=== PATIENT | male | born 1990 | race Caucasian/White ===

== ENCOUNTER → 2017-05-21 14:46 | Outpatient (CLI) | payer BC, SELFPAY ==
--- NOTE | 2017-05-21 14:51 | RAD_ITS ---
STUDY: X-RAY - PELVIS AND RIGHT HIP REASON FOR EXAM: Male, 26 years old. Right hip pain. TECHNIQUE: Radiological exam, hip, unilateral, with pelvis when performed; 2 or 3 views. COMPARISON: None. FINDINGS: There is a non-specific bowel gas pattern. Calcified phlebolith in the left hemipelvis. Normal bilateral iliac wings, sacroiliac joints and visualized sacrum. Normal bilateral superior and inferior pubic rami. Normal pubic symphysis. Normal bilateral ischial tuberosities. Normal visualized femoral head. Normal acetabulum. Normal hip joint. RAD/Hip 2-3 Views with Pelvis IMPRESSION: Normal x-ray examination of the pelvis and hip. Electronically Signed: Albin Singh MD at 15:13 EDT Tel [phone], Service support ,
== END ==
PROVIDERS: Family Provider Internal Medicine; PCP Internal Medicine; Visit Provider Nurse Practitioner Gerontology
DX: M25.551 Pain in right hip (principal)
CPT/HCPCS: 73502

== ENCOUNTER → 2017-08-25 10:11 | Outpatient (CLI) | payer BC, SELFPAY ==
[2017-08-25 21:17] LABS: Probe Check PASS; Sample Adequacy Control PASS; Specimen Processing Control PASS; Trichomonas Vag DNA by PCR Negative (Negative)
== END ==
PROVIDERS: Family Provider Internal Medicine; PCP Internal Medicine; Visit Provider Nurse Practitioner Gerontology
DX: Z11.3 Encounter for screening for infections with a predominantly sexual mode of transmission (principal)
CPT/HCPCS: 87210; 87661

== ENCOUNTER → 2017-08-27 16:18 | Outpatient (CLI) | payer BC, SELFPAY ==
--- NOTE | 2017-08-27 16:21 | US_ITS ---
STUDY: SCROTUM ULTRASOUND REASON FOR EXAM: Male, 27 years old. Left testicular discomfort TECHNIQUE: Ultrasound evaluation of the scrotum was performed with color Doppler and static de la o-scale imaging. COMPARISON: None. FINDINGS: RIGHT TESTICLE The right testis is normal in size contour and echotexture. It measures 5.0 x 2.8 x 2.0 cm. It demonstrates normal vascular flow. The right epididymis is 1.0 x 1.0 x 0.7 cm in size. It also demonstrates normal vascular flow. A small right-sided hydrocele formation is noted and is also a small varicocele formation. LEFT TESTICLE The left testis is slightly larger than the right and measures 5.3 x 2.6 x 2.2 cm. It demonstrates normal vascular flow and is very homogeneous in echotexture. The left epididymis measures 1.2 x 1.4 x 0.9 cm and also demonstrates normal vascular flow. There is a moderate left-sided hydrocele formation with evidence of debris within it. A small left-sided varicocele is identified. US/Testicular with Arterial Flow IMPRESSION: No indication of any epididymoorchitis. A moderate left-sided hydrocele formation. The hydrocele on the right side is physiologic. Small varicoceles bilaterally. Electronically Signed: Alfa Alcala, at 5:10 EDT Tel , Service support ,
== END ==
PROVIDERS: Family Provider Internal Medicine; PCP Internal Medicine; Visit Provider Nurse Practitioner Gerontology
DX: N50.812 Left testicular pain (principal)
CPT/HCPCS: 76870; 93976

== ENCOUNTER → 2017-09-29 12:58 | Outpatient (CLI) | payer BC, SELFPAY | PROVIDERS: Family Provider Internal Medicine; PCP Internal Medicine; Visit Provider Nurse Practitioner | DX: R94.31 Abnormal electrocardiogram [ECG] [EKG] (principal); R07.9 Chest pain, unspecified | CPT/HCPCS: 93225; 93226; 93306 ==

== ENCOUNTER 2017-12-24 15:30 | Outpatient (RCR) | payer BC, SELFPAY ==
--- NOTE | 2017-12-09 15:53 | HP.PTEVAL ---
Patient's Visit Information THAI VALE is a 27 year old M referred to Physical Therapy by Delmis Blevins with a diagnosis of R groin pain.. Date of Evaluation: 12/09/17 Physical Therapist: Moreno Joseph DPT, [place] - Visit Plan Frequency: weekly to every other. Duration: 2-4 Weeks Plan: f/u two weeks to check effectiveness of stretches and monitor symptoms. Could benefit from MRI to r/o r/i labral pathology - Subjective Subjective: Should have been here 6 months ago buit thought he could stretch on his own. R groin hurts when planting to cut or take off in basketball, sharp pain. Started earlier in the year. Stretched himself and may have gone away for a while but also stopped playing basketball. Started again earlier in the month. Also happens lying in bed and opening hip sharply and quickly. Standing at work gives some discomfort as he is on his feet hurts down into R knee. Sideshuffle to R gives pain. Sleep is OK recently. Gets back stiffness normally since high school. Has Crohns. Works at [employer] 56 hours per week. for 2 months. 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 Doctor wants PT. - Pain R groin Pain Intensity (Out of 10): 0 Pain Intensity Range: 0, 9 - Objective Walks, steps without pain or compensation. Full aROM B hips, end range add with ext rotation sharply and transiently. Tightness present minimally in hip flexor, quad, HS adn moderately in adductor. B. Strength in B hips and knees 5/5 without pain. Sensation LE WNL to gross light touch. LB AROM fulll and without pain. ankle and knee AROM WNL. + FADDIR R hip. - hip scour. + R ISIDORO at extreme end range. - Goals Goal 1:: Work without increased pain R groin/leg Goal Time Frame: 4-6 Weeks Goal 2:: Basketball game 100% witjhout noticing R hip x nights Goal Time Frame: 4-6 Weeks Goal 3:: Pt feel 75% back to normal Goal Time Frame: 4-6 Weeks - Rehabilitation Potential Physical Therapy Diagnosis: R groin pain, r/o labrum pathology. Rehabilitation Potential: Questionable - Anticipated Interventions Patient/Client Instruction: Educate patient on: Condition, Plan of Care For the Purpose of:: To decrease pain Therapeutic Exercise to Include: Flexibilty training For the Purpose of:: To decrease pain Thank you for the opportunity to evaluate your patient. For Medicare and Medicare HMO plans, please review the plan of care and approve it. It will need to be FAXED BACK to us at [phone] for Medicare purposes. Please let me know if there are questions or concerns regarding this plan of care. Physician Signature: Date:
--- NOTE | 2017-12-24 15:46 | HP.PTDCSUM_ITS ---
HP - PT D/C Summary It has been my pleasure to treat THAI VALE under orders from Delmis Blevins, for the diagnosis of R groin pain. for a total of 2 visit(s). Discharge Date: 12/24/17 Please see the following information for a summary of their discharge status. - Subjective Subjective: Some of the ex (butterfly) are sore and painful. Been stretching daily adn no basketball since last session. No major changes to presentation. Didn't play ball last week but did the previous week and did not feel it quite as much. Some discomfort when stadnig long time at work. Sleeping is OK. - Pain R groin Pain Intensity (Out of 10): 0 - Overall Improvement % Improvement: 0 - Objective Objective/Function: 5/5 strength in hip rotation, abd, ext, flexion on R without pain. Full aROM without pain exept ext rot with abd especially in WB giving sharp pain. +FADDIR R. + ISIDORO R. OVERALL PATIENT MUSCLE SYSTEM IS GOOD AND rom IS WFL. PAIN IS WITH ABD, EXT ROT IN r HIP AND WORSE WITH SIDE SHUFFLE ESPECIALLY SIDESHUFFLE SQUAT. - Goals Goal 1:: Work without increased pain R groin/leg Goal Progress: Not Progressing Goal 2:: Basketball game 100% witjhout noticing R hip x nights Goal Progress: Not Progressing Goal 3:: Pt feel 75% back to normal Goal Progress: Not Progressing - Plan Plan: PT HAS BEEN COMPLIANT WITH STRETCHES BUT NOT IMPROVING AND PAIN IS STILL S HARP AND DYSFUNCTIONAL FOR BASKETBALL AND CAUSING PAIN AT WORK. RECOMMEND RETURN TO DOCTOR JENNY FOR NEXT MEDICAL STEP POSSIBLY MRI VS ORTHO TO CLARIFY PROBLEM WHICH SEEMS TO BE LABRAL TO ME. - D/C Information Discharge Comments: BACK TO DOCTOR FOR NEXT MEDICAL STEP. If there are questions or concerns regarding this patient's physical therapy, please feel free to call me at [phone]. Thank you for the referral of this patient. Sincerely, Moreno Joseph, DPT, [place]
== END 2017-12-24 19:00 | disposition home or self-care (01) ==
LOC: PT 15:30
PROVIDERS: Family Provider Internal Medicine; PCP Internal Medicine; Referring Provider Internal Medicine; Visit Provider Internal Medicine
DX: R10.31 Right lower quadrant pain (principal); M25.551 Pain in right hip; M79.604 Pain in right leg
CPT/HCPCS: 97110; 97162; 97530

== ENCOUNTER → 2018-03-01 10:16 | Outpatient (CLI) | payer BC, SELFPAY ==
--- NOTE | 2018-03-01 10:25 | RAD_ITS ---
CLINICAL HISTORY: Male, 27 years old. Right hip pain. PROCEDURE: ARTHROGRAM - RIGHT HIP CONSENT: The procedure as well as benefits and possible complications including infection and bleeding were explained to the patient. Informed consent was obtained. FLUOROSCOPY TIME (if supplied): (0:53) minutes/seconds Injection Information: 10 cc of dilute Magnevist. Number of images obtained: 1 TECHNIQUE: (All elements of maximal sterile barrier technique followed, including US elements as applicable) The patient was in the supine position. The overlying skin was prepped and draped in usual sterile fashion. Following local anesthetic application and under direct fluoroscopic guidance, a 22-gauge spinal needle was placed into the hip joint. 2 cc of Isovue-300 was injected for confirmation. Following this, 10 cc of dilute Magnevist was injected. The patient tolerated procedure well. RAD/Arthrogram Hip w/ MRI IMPRESSION: Successful intra-articular injection of 10 cc of dilute Magnevist for MRI imaging. Electronically Signed: Albin Singh MD at 15:02 EST Tel [phone], Service support ,
--- NOTE | 2018-03-01 10:31 | MRI_ITS ---
STUDY: MR RIGHT HIP ARTHROGRAPHY REASON FOR EXAM: Right hip pain for one year. TECHNIQUE: Standardized fat and water weighted pulse sequences were obtained in all 3 orthogonal planes after intra-articular instillation of dilute Magnevist. COMPARISON: Radiographs 05/21/2017. FINDINGS: Normal hip joint without articular joint space narrowing. Normal acetabulum. Normal labrum. There is a small cam lesion (T2 coronal image 9) and mild bone edema in the lateral aspect of the femoral head/neck (T2 coronal images 7-12). Normal gluteus minimus, medius and iliopsoas tendons and distal insertions. There is no trochanteric, iliopsoas or iliopectineal bursitis. Normal ischial tuberosity. Normal origin of the hamstring tendons. Normal visualized iliac wing. Normal visualized soft tissue structures of the pelvis. MRI/Lower Ext/Jt Only/W Contrast IMPRESSION: Small cam lesion and mild bone edema of the lateral aspect of the right femoral head/neck suggestive of femoroacetabular impingement. No demonstrated labral tear. Electronically Signed: Gildardo Garrett MD at 13:20 EST Tel , Service support ,
--- OUTSIDE RECORDS SUMMARY | 2018-05-03 20:28 | XMS RPT_ITS | Continuity of Care Document ---
:1990 Author Organization [facility] Address [address] [facility] [address] [place] [address] Phone Care Team Providers Name Role Phone Delmis Alvarado DO Unavailable Adrienne LANGE MD, Rosa Mattson Unavailable [facility], [facility] Unavailable Guera Reza MD Unavailable Sean FORREST , Dr. Feroz Campuzano Unavailable Blayne Harris Unavailable Emily Gallego Unavailable Unavailable [employer] AUTOMOTIVE INTERNET SALES CONSULTANT, Ramila Unavailable Nelda Day Unavailable Unavailable Slarb LAMP SHADE SEWER, Lindsay Unavailable Unavailable Long LAMP SHADE SEWER, Mora L Unavailable Unavailable GravLing juddin Unavailable Unavailable Quinton Valencia Unavailable Unavailable Unavailable Unavailable Problems Name Dates Details Abnormal EKG (R94.31, 794.31) Status: Active Acute epididymitis (N45.1, 604.99) Status: Active Acute sinusitis, unspecified (Renamed from Acute sinusitis) (J01.90, 461.9) Status: Active BMI 28.0-28.9,adult (Z68.28, V85.24) Status: Active BMI 29.0-29.9,adult (Z68.29, V85.25) Status: Active Chest pain (R07.9, 786.50) Comments: ? cardio vs Reflux vs musculoskeletal Status: Active Common cold virus (J00, 460) Status: Active Crohn's disease (Renamed from CD (Crohn's disease)) (K50.90, 555.9) Comments: both humira and immuran, Sees Dr. Quevedo in [facility] on [address] Status: Active Current smoker (F17.200, 305.1) Status: Active Current smoker (F17.200, 305.1) Status: Active Epididymitis (N45.1, 604.90) Status: Active Erectile dysfunction (N52.9, 607.84) Comments: await repeat studies today to assure no missed window of activity for pos results to be missed and consider manageing anx first seeing urology as well -- testosterone levels? Status: Active Ganglion of left wrist (M67.432, 727.41) Status: Active Groin pain (R10.30, 789.09) Status: Active Herpes simplex virus type 1 (HSV-1) dermatitis (B00.89, 054.79) Status: Active Hip pain (M25.559, 719.45) Status: Active History of chlamydia (Z86.19, V12.09) Comments: will treat as if Status: Active Hydrocele (N43.3, 603.9) Status: Active Hydrocele, bilateral (N43.3, 603.9) Status: Active Immunocompromised (D84.9, 279.3) Comments: on Imuran and Humira for chrons Status: Active Influenza vaccination declined (Renamed from Refused influenza vaccine) (Z28.21, V64.06) Comments: i do not get any shotsi do not get any shots Status: Active Lymph node enlargement (R59.9, 785.6) Status: Active Need for prophylactic vaccination and inoculation against influenza (Renamed from Need for immunization against influenza) (Z23, V04.81) Status: Active Non-smoker (Z78.9, V49.89) Status: Active Non-smoker (Z78.9, V49.89) Status: Active Penis pain (N48.89, 607.9) Status: Active Right hip pain (M25.551, 719.45) Status: Active Screen for STD (sexually transmitted disease) (Renamed from Encounter for screening examination for sexually transmitted disease) (Z11.3, V74.5) Status: Active Screen for STD (sexually transmitted disease) (Renamed from Encounter for screening examination for sexually transmitted disease) (Z11.3, V74.5) Status: Active Sinus pressure (J34.89, 478.19) Status: Active Smoker (F17.200, 305.1) Status: Active Sore throat (J02.9, 462) Comments: immunocompromised on Humira, will treat as if Status: Active Sore throat (J02.9, 462) Status: Active Testicular pain, left (N50.812, 608.9) Status: Active Unspecified Diagnosis Status: Active Urinary hesitancy (R39.11, 788.64) Status: Active Urine ketones (R82.4, 791.6) Comments: Trace of Ketones 03/23/17. 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.4) Status: Active Medications Name Dates Details Acyclovir 400 MG Oral Tablet 1 (one) Tablet tid for 10 days Quantity: 30 {Tablet} Refills: 3 Ordered:29-Jan-2018 Leila Bean CNP Start : 29-Jan-2018 Active HUMIRA, 20MG/0.4ML (Subcutaneous Kit) 1 injection every 2 weeks for 0 days Refills: 0 Ordered:21-Feb-2013 Kylah Tsai MD Start : 21-Feb-2013 Active Imuran 50 MG Oral Tablet qd (50 MG) Active NOVA ALLERGY, 180MG (Oral Tablet) 1 (one) Tablet daily for 0 days Quantity: 30 {Tablet} Refills: 0 Ordered:15-Dec-2014 ASTER Garza Start : 14-Sep-2014 End : 15-Dec-2014 Inactive AMOXICILLIN, 875MG (Oral Tablet) 1 (one) Tablet bid for 10 days Quantity: 20 {Tablet} Refills: 0 Ordered:18-Sep-2014 Sherita Goodman Start : 18-Sep-2014 End : 28-Sep-2014 Inactive ANUSOL-HC, 25MG (Rectal Suppository) 1 (one) Suppository tid for 0 days Quantity: 20 {Suppository} Refills: 1 Ordered:17-Mar-2014 ASTER Garza Start : 18-Oct-2013 End : 17-Mar-2014 Inactive Augmentin 875-125 MG Oral Tablet 1 (one) Tablet bid for 14 days Quantity: 28 {Tablet} Refills: 0 Ordered:30-Dec-2016 Leila Bean CNP Start : 30-Dec-2016 End : 13-Jan-2017 Inactive AUGMENTIN, 875-125MG (Oral Tablet) 1 (one) Tablet bid for 10 days Quantity: 20 {Tablet} Refills: 0 Ordered:05-Jun-2015 Kylah Tsai MD Start : 05-Jun-2015 End : 15-Jun-2015 Inactive Doxycycline Hyclate 100 MG Oral Capsule 1 (one) Capsule bid for 7 days Quantity: 14 {Capsule} Refills: 0 Ordered:08-Aug-2016 Leila Bean CNP Start : 08-Aug-2016 End : 15-Aug-2016 Inactive FLUNISOLIDE, 25 MCG/ACT(0.025%) (Nasal Solution) 1 (one) Solution 2 sprays each nostril daily for 0 days Quantity: 1 {Each} Refills: 0 Ordered:15-Dec-2014 ASTER Garza Start : 14-Sep-2014 End : 15-Dec-2014 Inactive LevoFLOXacin 500 MG Oral Tablet 1 (one) Tablet daily for 0 days Quantity: 10 {Tablet} Refills: 0 Ordered:21-May-2017 Quinton Valencia Start : 23-Mar-2017 End : 21-May-2017 Inactive TRIAMCINOLONE ACETONIDE, 0.1% (External Cream) 1 (one) Cream bid to affected area and arm, neck and leg for 0 days Quantity: 1 {Tube} Refills: 0 Ordered:14-Sep-2014 ASTER Garza Start : 17-Mar-2014 End : 14-Sep-2014 Inactive Zithromax Z-Delbert 250 MG Oral Tablet 1 (one) Tablet TAD for 0 days Quantity: 1 {Package} Refills: 0 Ordered:12-Oct-2015 ASTER Garza Start : 03-Oct-2015 End : 12-Oct-2015 Inactive Ativan 0.5 MG Oral Tablet 1 (one) Tablet Tablet take 30 min bfore flight then may repeat after hour. dont mix withetoh for 0days Quantity: 5 {Tablet} Refills: 0 Ordered:16-Jan-2016 Carolina GREENE Lindsay Start : 03-May-2015 End : 16-Jan-2016 Discontinued Azithromycin 1 GM Oral Packet 1 (one) pill uad for 0 days Quantity: 1 {Tablet} Refills: 0 Ordered:01-Sep-2016 Carolina GREENELindsay Start : 08-Aug-2016 End : 01-Sep-2016 Discontinued CEFIXIME, 200MG/5ML (Oral Suspension Reconstituted) 10 ml For Suspension po x1 for 0 days Quantity: 10 {Milliliter} Refills: 0 Ordered:20-Feb-2015 Carolina GREENE Lindsay Start : 19-Dec-2014 End : 20-Feb-2015 Discontinued Cheratussin AC 100-10 MG/5ML Oral Solution 1-2 Teaspoon before bedtime as needed for 0 days Quantity: 6 {Ounce} Refills: 0 Ordered:16-Jan-2016 Carolina GREENE Lindsay Start : 03-Oct-2015 End : 16-Jan-2016 Discontinued Comments:Medication taken as needed. Ciprofloxacin HCl 500 MG Oral Tablet 1 (one) Tablet bid for 0 days Quantity: 20 {Tablet} Refills: 0 Ordered:08-Aug-2016 Carolina GREENELindsay Start : 02-Jun-2016 End : 08-Aug-2016 Discontinued PriLOSEC OTC 20 MG Oral Tablet Delayed Release 1 (one) Tablet daily as directed for 0 days Quantity: 30 {Tablet} Refills: 0 Ordered:07-Dec-2017 Kathleen Fernando Start : 23-Sep-2017 End : 07-Dec-2017 Discontinued Allergies and Adverse Reactions Name Dates Details No Known Allergies (Allergy) Onset: 02-Jun-2016 Status: Active No Known Drug Allergies (Allergy) Onset: 13-Oct-2012 Status: Active Past Medical History Name Dates Details Abdominal pain, acute, right lower quadrant (R10.31, 789.03) Comments: appendix vs herniaPain with BM difficult to defecate, pain into testicle Status: Inactive as of 21-Feb-2013 Abnormal blood chemistry (R79.9, 790.6) Comments: ebv Status: Inactive as of 28-Oct-2016 BMI 27.0-27.9,adult (Z68.27, V85.23) Status: Resolved as of 07-Dec-2017 BMI 27.0-27.9,adult (Z68.27, V85.23) Status: Inactive as of 30-Dec-2016 BMI 28.0-28.9,adult (Z68.28, V85.24) Status: Inactive as of 30-Dec-2016 Chlamydia infection (A74.9, 079.98) Comments: treated. reveiwed with patient recent tests had 1-14. no signs and symptoms right now. feeling good. talk about using condoms and partner selectiveness. 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 if alot pain then need ot go to ER Status: Inactive as of 17-Mar-2014 Lump on neck (R22.1, 784.2) Comments: think awais cyst not see head to it so i willnot cut into it not thin needs CT scan willsend to surgeon to remove and give atb with being ordern himira will check CBC Status: Inactive as of 28-Oct-2016 Pharyngitis, acute (J02.9, 462) Comments: ? viral vs allergies treat with nova otc and steriod nasal spray send cx to assure not strpept then if not better in 1 week call Status: Inactive as of 15-Dec-2014 Physical exam WITHOUT abnormal findings (Renamed from Encounter for routine adult health examination without abnormal findings) (Z00.00, V70.0) Status: Inactive as of 03-May-2015 Possible exposure to STD (Z20.2, V15.89) Comments: recommend gardisil vaccine. long talk aobut STI and how treat and what all mean. talk aobut some take time to serum convert. talk about condoms and need use all times. if break out in a lesion than will call Status: Inactive as of 17-Mar-2014 Rash (R21, 782.1) Comments: really looks like ezcema. not look like psoriasis. not look like scabies. not classic for pityriosis rosea.will try steriod cream and told to get aleevno moisturizer and if not better to derm,. Status: Inactive as of 14-Sep-2014 Strep throat exposure (Z20.818, V01.89) Status: Inactive as of 15-Dec-2014 Tonsil stone (J35.8, 474.8) Status: Inactive as of 28-Oct-2016 Procedures Procedure Dates Details Colonoscopy Completed Comments: 09-15-2014 d/t Chron's Date Value Details 01-Mar-2018 Lower Ext/Jt Only/W Contrast Result: Comments: See Note; NOTES: [facility] Imaging Services [address] [place] [address] Lower Ext/Jt Only/W Contrast MR#: [id number] Acct: [id number] Name: MARIO GOMEZ Rep #: [id number] : 1990 M 27 From: Gildardo Garrett MD PCP: Delmis Alvarado DO Status: REG CLI Study: Lower Ext/Jt Only/W Contrast Date of Exam: 03/01/18 Exam# [id number] Ordering Dr: Delmis Alvarado DO STUDY: MR RIGHT HIP ARTHROGRAPHY REASON FOR EXAM: Right hip pain for one year. TECHNIQUE: Standardized fat and water weighted pulse sequences were obtained in all 3 orthogonal planes after intra -articular instillation of dilute Magnevist. COMPARISON: Radiographs 05/21/2017. FINDINGS: Normal hip joint without articular joint space narrowing. Normal acetabulu m. Normal labrum. There is a small cam lesion (T2 coronal image 9) and mild bone edema in the lateral aspect of the femoral head/neck (T2 coronal images 7-12). Normal gluteus minimus, medius and iliops oas tendons and distal insertions. There is no trochanteric, iliopsoas or iliopectineal bursitis. Normal ischial tuberosity. Normal origin of the hamstring tendons. Normal visualized iliac wing. Nor mal visualized soft tissue structures of the pelvis. MRI/Lower Ext/Jt Only/W Contrast IMPRESSION: Small cam lesion and mild bone edema of the lat eral aspect of the right femoral head/neck suggestive of femoroacetabular impingement. No demonstrated labral tear. Electronically Signed: Gildardo Garrett MD at 13:20 EST Tel , Service support , CC: Delmis Alvarado DO Farm Machinery Engine Mechanic: Signed 01-Mar-2018 Arthrogram Hip w/ MRI Result: Comments: See Note; NOTES: [facility] Imaging Services [address] [place] [address] Arthrogram Hip w/ MRI MR#: [id number] Acct: [id number] Name: MARIO GOMEZ Rep #: [id number] : 1990 M 27 From: Albin Singh MD PCP: Delmis Alvarado DO Status: REG CLI Study: Arthrogram Hip w/ MRI Date of Exam: 03/01/18 Exam# [id number] Ordering Dr: Delmis Alvarado DO CLI NICAL HISTORY: Male, 27 years old. Right hip pain. PROCEDURE: ARTHROGRAM - RIGHT HIP CONSENT: The procedure as well as benefits and possible complications including infection and bleeding were explain ed to the patient. Informed consent was obtained. FLUOROSCOPY TIME (if supplied): (0:53) minutes/seconds Injection Information: 10 cc of dilute Magnevist. Number of images obtained: 1 TECHNIQUE: (Al l elements of maximal sterile barrier technique followed, including US elements as applicable) The patient was in the supine position. The overlying skin was prepped and draped in usual sterile fashion. Following local anesthetic application and under direct fluoroscopic guidance, a 22-gauge spinal needle was placed into the hip joint. 2 cc of Isovue-300 was injected for confirmation. Following this, 10 cc of dilute Magnevist was injected. The patient tolerated procedure well. RAD/Arthrogram Hip w/ MRI IMPRESSION: Successful intra-articular in jection of 10 cc of dilute Magnevist for MRI imaging. Electronically Signed: Albin Singh MD at 15:02 EST Tel [phone], Service support , CC: Delmis Alvarado DO Farm Machinery Engine Mechanic: Signed 24-Dec-2017 PT D/C Summary (1) Result: Comments: See Note; NOTES: [facility] Physical Therapy [facility] [address] [place], [place] [address] Fax REHABILITATION SERVICES DISCHAR GE SUMMARY MR#: [id number] Acct: [id number] Name: MARIO GOMEZ Rep #: [id number] : 1990 27 From: Moreno Joseph DPT, OCS, CSCS Referring Dr.: Delmis Alvarado DO Status: REG RCR Insurance: [employer] SELF PAY INSURANCE HP - PT D/C Summary It has been my pleasure to treat MARIO GOMEZ under orders from Delmis Alvarado, for the diagnosis of R groin pain. for a total of 2 visit(s). Regi torres Date: 12/24/17 Please see the following information for a summary of their discharge status. - Subjective Subjective: Some of the ex (butterfly) are sore and painful. Been stretching daily ad n no basketball since last session. No major changes to presentation. Didn't play ball last week but did the previous week and did not feel it quite as much. Some discomfort when stadnig long time at [facility]. Sleeping is OK. - Pain R groin Pain Intensity (Out of 10): 0 - Overall Improvement % Improvement: 0 - Objective Objective/Function: 5/5 strength in hip rotation, abd, ext, flexion on R without pain. Full aROM without pain exept ext rot with abd especially in WB giving sharp pain. +FADDIR R. + ISIDORO R. OVERALL PATIENT MUSCLE SYSTEM IS GOOD AND rom IS WFL. PAIN IS WITH ABD, EXT ROT IN r HIP AN D WORSE WITH SIDE SHUFFLE ESPECIALLY SIDESHUFFLE SQUAT. - Goals Goal 1:: Work without increased pain R groin/leg Goal Progress: Not Progressing Goal 2:: Basketball game 100% witjhout noticing R hip x n ights Goal Progress: Not Progressing Goal 3:: Pt feel 75% back to normal Goal Progress: Not Progressing - Plan Plan: PT HAS BEEN COMPLIANT WITH STRETCHES BUT NOT IMPROVING AND PAIN IS STILL SHARP AND D YSFUNCTIONAL FOR BASKETBALL AND CAUSING PAIN AT WORK. RECOMMEND RETURN TO DOCTOR JENNY FOR NEXT MEDICAL STEP POSSIBLY MRI VS ORTHO TO CLARIFY PROBLEM WHICH SEEMS TO BE LABRAL TO ME. - D/C Information Discharge Comments: BACK TO DOCTOR FOR NEXT MEDICAL STEP. If there are questions or concerns regarding this patient's physical therapy, please feel free to call me at [phone]. Thank you for the ref erral of this patient. Sincerely, Moreno Joseph DPT, OC <Electronically signed by Moreno Joseph DPT, JOSE, CSCS> 12/24/17 1548 CC: Delmis Alvarado DO EBG Signed 10-Dec-2017 Inital Evaluation (1) - PT Result: Comments: See Note; NOTES: [facility] Physical Therapy [facility] [address] [place], [place] [id number] Fax REHABILITATION SERVICES INITIAL EVALUATION MR#: [id number] Acct: [id number] Name: MARIO GOMEZ Rep #: [id number] : 1990 27 From: Moreno Joseph DPT, JOSE, CSCS Referring Dr.: Delmis Alvarado DO Status: REG RCR Insurance : [employer] SELF PAY INSURANCE Patient's Visit Information MARIO GOMEZ is a 27 year old M referred to Physical Therapy by Delmis Alvarado with a diagnosis of R groin pain.. Date of Evaluation: Physical Therapist: Moreno Joseph DPT, OC - Visit Plan Frequency: weekly to every other. Duration: 2-4 Weeks Plan: f/u two weeks to check effectiveness of stretches and monitor symptoms. Could benefit from MRI to r/o r/i labral pathology - Subjective Subjective: Should have been here 6 months ago buit thought he could stretch on his own. R groin hurts when planting to cut or take off in bask etball, sharp pain. Started earlier in the year. Stretched himself and may have gone away for a while but also stopped playing basketball. Started again earlier in the month. Also happens lying in bed a nd opening hip sharply and quickly. Standing at work gives some discomfort as he is on his feet hurts down into R knee. Sideshuffle to R gives pain. Sleep is OK recently. Gets back stiffness normally si nce high school. Has Crohns. Works at [employer] 56 hours per week. for 2 months. Playing at [employer] 2 hours on Thursday. Doctor wants PT. - Pain R groin Pain Intensity (Out of 10): 0 Pa in Intensity Range: 0, 9 - Objective Walks, steps without pain or compensation. Full aROM B hips, end range add with ext rotation sharply and transiently. Tightness present minimally in hip flexor, dayana d, HS adn moderately in adductor. B. Strength in B hips and knees 5/5 without pain. Sensation LE WNL to gross light touch. LB AROM fulll and without pain. ankle and knee AROM WNL. + FADDIR R hip. - hip scour. + R ISIDORO at extreme end range. - Goals Goal 1:: Work without increased pain R groin/leg Goal Time Frame: 4-6 Weeks Goal 2:: Basketball game 100% witjhout noticing R hip x nights Goal Time Frame : 4-6 Weeks Goal 3:: Pt feel 75% back to normal Goal Time Frame: 4-6 Weeks - Rehabilitation Potential Physical Therapy Diagnosis: R groin pain, r/o labrum pathology. Rehabilitation Potential: Questiona ble - Anticipated Interventions Patient/Client Instruction: Educate patient on: Condition, Plan of Care For the Purpose of:: To decrease pain Therapeutic Exercise to Include: Flexibilty training For th e Purpose of:: To decrease pain Thank you for the opportunity to evaluate your patient. For Medicare and Medicare HMO plans, please review the plan of care and approve it. It will need to be FAXED BACK to us at [phone] for Medicare purposes. Please let me know if there are questions or concerns regarding this plan of care. Physician Signature: ____Date: <Electronically signed by Moreno Joseph DPT, OCS, CSCS> 12/10/17 0904 CC: Delmis Alvarado EBG Signed For Medicare only, by megan martinez I certify the plan of care. Physicians Signature Date 29-Sep-2017 Echocardiogram Complete Result: Comments: See Note; NOTES: [facility] Cardiovascular Services [address] [place] [address] Echo Complete 09/29/17 1301 MR#: [id number] Acct: [id number] Name: MARIO GOMEZ Rep #: [id number] : 1990 27 From: Rajiv Kumar MD Attending Dr: Leila Bean NP Status: REG CLI Ordering Dr: Leila Bean Date: 09/29/17 Location: [facility] Sex: M C Admitted: Reason For Study : ABN EKG Procedure This was a 2D Doppler, Color Flow transthoracic echocardiogram. The exam was of adequate technical quality. Exam performed in department. Left Ventricle Normal LV size. Left ventri cular systolic function is normal. The estimated ejection fraction is 60 %. Normal diastology for age. No regional wall motion abnormalities noted. Right Ventricle Normal RV size. Normal systolic funct ion. Atria Normal left atrium. Normal right atrium. No doppler evidence for ASD. Mitral Valve There is no mitral annular calcification. Normal mitral valve. Trivial mitral valve insufficiency. Tricus pid Valve Normal tricuspid valve. Trivial tricuspid valve insufficiency. Right ventricular systolic pressure estimated to be 24 mmHg. Aortic Valve Trisinus/trileaflet aortic valve. Normal aortic valve. Pulmonic Valve The pulmonic valve is not well visualized. Great Vessels Normal sized aortic root. Pericardium/Pleural No pericardial effusion. MMode/2D Measurements AND Calculations LVIDd: 5.0 cm IV Sd: 0.74 cm Ao root diam: 3.5 cm LVIDs: 3.5 cm LVPWd: 0.89 cm LA dimension: 3.4 cm RVDd: 3.6 cm FS: 28.9 % LAV(MOD-bp): 50.6 ml EDV(MOD-sp4): 131.9 ml EDV(MOD-sp2): 168.3 ml LAV(MOD-bp) Indexed: 22.8 ml/m2 ESV(MOD-sp4): 58.4 ml EF(MOD-sp2): 57.5 % LAV(MOD-sp2): 42.8 ml EF(MOD- sp4): 55.7 % LAV(MOD-sp4): 50.4 ml SV(MOD- sp4): 73.5 ml SV(MOD-sp2): 96.8 ml LA A4 area: 19.3 cm2 RA A4 area: 17.7 cm2 Time Measurements MV dec time: 0.29 sec Doppler Measurements AND Calculations MV E max janie: 64.1 cm/sec Lat Peak E' Janie: 20.6 cm/sec Med Peak E' Janie: 11.4 cm/sec MV A max janie: 42.4 cm/sec E/E' lat: 3.1 E/E' med: 5.6 MV E/A: 1.5 Ao V2 max: 131.9 cm/sec LV V1 max: 120.9 cm/sec TR max v el: 229.5 cm/sec Ao max P.0 mmHg LV V1 max P.8 mmHg TR max P.1 mmHg Interpretation Summary Left ventricular systolic function is normal. The estimated ejection fraction is 60 %. Trivial mi tral valve insufficiency. Trivial tricuspid valve insufficiency. Right ventricular systolic pressure estimated to be 24 mmHg. Normal diastology for age. Ordering Physician: Leila Bean Referring Physician: DELMIS ALVARADO Performed By: Amada Velazco, EDILIA, RVT 09/29/17 1507 Date Rajiv Kumar MD CC: Leila Bean TOOL ENGINEER; Delmis Alvarado DO Date Dictated: 09/29/17 1301 Date Transcr ibed: 09/29/17 1507 Farm Machinery Engine Mechanic: Signed 27-Aug-2017 Testicular with Arterial Flow Result: Comments: See Note; NOTES: [facility] Imaging Services [address] [place] [address] Testicular with Arterial Flow MR#: [id number] Acct: [id number] Name: MARIO GOMEZ p #: [id number] : 1990 M 27 From: Alfa Alcala MD PCP: Delmis Alvarado DO Status: REG CLI Study: Testicular with Arterial Flow Date of Exam: 08/27/17 Exam# [id number] Ordering Dr: Lesley Varma STUDY: SCROTUM ULTRASOUND REASON FOR EXAM: Male, 27 years old. Left testicular discomfort TECHNIQUE: Ultrasound evaluation of the scrotum was performed with color Doppler and static de la o-scale imaging. COMPARISON: None. FINDINGS: RIGHT TESTICLE The right testis is normal in size contour and echotexture. It measures 5.0 x 2.8 x 2.0 cm. It demo nstrates normal vascular flow. The right epididymis is 1.0 x 1.0 x 0.7 cm in size. It also demonstrates normal vascular flow. A small right-sided hydrocele formation is noted and is also a small varicoc song formation. LEFT TESTICLE The left testis is slightly larger than the right and measures 5.3 x 2.6 x 2.2 cm. It demonstrates normal vascular flow and is very homogeneous in echotexture. The left ep ididymis measures 1.2 x 1.4 x 0.9 cm and also demonstrates normal vascular flow. There is a moderate left-sided hydrocele formation with evidence of debris within it. A small left-sided varicocele is id entified. US/Testicular with Arterial Flow IMPRESSION: No indication of any epididymoorchitis. A moderate left-sided hydrocele formation. The hy drocele on the right side is physiologic. Small varicoceles bilaterally. Electronically Signed: Alfa Alcala, at 5:10 EDT Tel , Service support , Fax CC: YANETH Yeh; Delmis Alvarado DO Farm Machinery Engine Mechanic: Signed 21-May-2017 Hip 2-3 Views with Pelvis Result: Comments: See Note; NOTES: [facility] Imaging Services [address] [place] [address] Hip 2-3 Views with Pelvis MR#: [id number] Acct: [id number] Name: MARIO GOMEZ Rep #: [id number] : 1990 M 26 From: Albin Singh MD PCP: Delmis Alvarado DO Status: REG CLI Study: Hip 2-3 Views with Pelvis Date of Exam: 05/21/17 Exam# [id number] Ordering Dr: Lesley Yeh PCristina STUDY: X-RAY - PELVIS AND RIGHT HIP REASON FOR EXAM: Male, 26 years old. Right hip pain. TECHNIQUE: Radiological exam, hip, unilateral, with pelvis when performed; 2 or 3 views. COMPARISON: Non e. FINDINGS: There is a non-specific bowel gas pattern. Calcified phlebolith in the left hemipelvis. Normal bilateral iliac wings, sacroiliac joints and visualized sacrum. Normal bilateral superior and inferior pubic rami. Normal pubic symphysis. Normal bilateral ischial tuberosities. Normal visualized femoral head. Normal acetabulum. Normal hip joint. RAD/Hip 2-3 Views with Pelvis IMPRESSION: Normal x-ray examination of the pelvis and hip. Electronically Signed: Albin Singh MD at 15:1 3 EDT Tel [phone], Service support , CC: YANETH Yeh; Delmis Alvarado DO Farm Machinery Engine Mechanic: Signed 09-Sep-2016 Abdomen/Pelvis WITH Contrast Result: Comments: See Note; NOTES: [facility] Imaging Services [address] [place] [address] Verdana 4d Abdomen/Pelvis WITH Contrast MR#: [id number] Acct: [id number] Name: KEVIN GOMEZ Rep #: [id number] : 1990 M 26 From: Radhika Mckeon MD PCP: Delmis Alvarado DO Status: REG CLI Study: Abdomen/Pelvis WITH Contrast Date of Exam: 09/09/16 Exam# [id number] Ordering Dr: Delmis El DO STUDY: CT ABDOMEN AND PELVIS WITH CONTRAST REASON FOR EXAM: Male, 26 years old. Low abdominal pain, scrotal pain RADIATION DOSAGE (If Supplied By Facility): CTDIvol = ( 18.66 ) mGy , DLP = ( 1231.07 ) mGycm TECHNIQUE: Transaxial images were obtained from the dome of the diaphragm to the symphysis pubis with oral contrast. 100 ml of Isovue 300 contrast was administered. Sagittal a nd coronal images were reconstructed. Individualized dose optimization techniques were used for this CT. COMPARISON: October 13, 2012 FINDINGS: The visualized erica g bases are unremarkable. The visualized portions of the heart are within normal limits. Normal liver. Normal gallbladder and extrahepatic biliary system. Normal spleen. Normal pancreas. Normal bilate ral adrenal glands. Normal right kidney. Normal left kidney. Normal visualized stomach. There is marked wall thickening and luminal narrowing in the terminal ileum. Normal colon. There is non-visualiz ation of the appendix. Normal abdominal aorta. Normal inferior vena cava. Normal retroperitoneum. Normal urinary bladder. Normal visualized prostate gland. Normal abdominal wall. Normal osseous struc tures. CT/Abdomen/Pelvis WITH Contrast IMPRESSION: Again seen is marked wall thickening and luminal narrowing in the terminal ileum consistent w ith the history of Crohn's disease. There is no bowel obstruction. There is no ascites. There is no abscess formation. Electronically Signed: Radhika Mckeon MD at 1:28 EDT Tel [phone], Service support , CC: Delmis Alvarado DO [employer] Engine Mechanic: Signed 04-Sep-2016 Testicular with Arterial Flow Result: Comments: See Note; NOTES: [facility] Imaging Services [address] [place] [address] Verdana 4d Testicular with Arterial Flow MR#: [id number] Acct: [id number] Name: CHICA GOMEZ Rep #: [id number] : 1990 M 26 From: Josiah Murdock MD PCP: Delmis Alvarado DO Status: REG CLI Study: Testicular with Arterial Flow Date of Exam: 09/04/16 Exam# [id number] Ordering Dr: Lesley Vidal TOOL ENGINEER-C STUDY: SCROTUM ULTRASOUND REASON FOR EXAM: Male, 26 years old. Left scrotal pain TECHNIQUE: Ultrasound evaluation of the scrotum was performed with color Doppler and static de la o-s dena imaging. COMPARISON: None. FINDINGS: RIGHT TESTICLE INTRATESTICULAR: There is a normal size of the right testicle. The right testicle measures 4.9 x 2.7 x 1. 9 cm. There is a homogenous echotexture. There is normal arterial and normal venous vascularity. There is no demonstrated right testicular mass or cyst. EXTRATESTICULAR: The epididymis is normal in siz e. The epididymis head measures 0.7 cm. There is normal vascularity of the epididymis. There is no demonstrated epididymal cystic structure. There is a small septated hydrocele. There is a small varicoc song. There is no demonstrated extratesticular mass or cyst. LEFT TESTICLE INTRATESTICULAR: There is a normal size of the left testicle. The left testicle measures 5.3 x 2.5 x 2 cm. There is a homogeno us echotexture. There is normal arterial and normal venous vascularity. There is no demonstrated left testicular mass or cyst. EXTRATESTICULAR: The epididymis is normal in size. The epididymis head trevor ears slightly hypoechoic and measures 0.9 cm. There is normal vascularity of the epididymis. There is no demonstrated epididymal cystic structure. There is moderate septated hydrocele. There is a small varicocele. There is no demonstrated extratesticular mass or cyst. US/Testicular with Arterial Flow IMPRESSION: No evidence for testicular mass o r torsion Mildly hypoechoic left epididymal head possibly representing mild epididymitis. Bilateral septated hydroceles and varicoceles. Electronically Signed: Josiah Murdock MD at 22:58 ED T , Service support , CC: Lesley Yeh; Delmis Alvarado DO [employer] Mach[employer] Engine Mechanic: Signed 24-Mar-2016 Soft Tissue Neck WITH Contrast Result: Comments: See Note; NOTES: [facility] Imaging Services [address] [place] [address] Verdana 4d Soft Tissue Neck WITH Contrast MR#: [id number] Acct: [id number] Name: KAVINСЕРГЕЙ Rep #: [id number] : 1990 M 25 From: Albin Singh MD PCP: Delmis Alvarado DO Status: REG CLI Study: Soft Tissue Neck WITH Contrast Date of Exam: 03/24/16 Exam# [id number] Ordering Dr: Delmis Alvarado DO STUDY: CT SOFT TISSUE NECK WITH CONTRAST REASON FOR EXAM: Male, 25 years old. 2 month history of right-sided cervical adenopathy. RADIATION DOSAGE (If Supplied By Facility): CTDIvol = ( 18.22 ) mGy, DLP = ( 587.00 ) mGycm TECHNIQUE: The patient was scanned in a multi-detector CT scanner. High resolution transaxial imaging was performed following intravenous administration of 75mL ml of Isovue 300 contrast material. Sagittal and coronal images were reconstructed. Individualized dose optimization techniques were used for this CT. COMPARISON: None. FINDINGS: Normal bilateral parotid glands. Normal bilateral event representative spaces. Normal bilateral parapharyngeal spaces. Normal bilateral carotid spaces. Normal bilateral sublingual and gupta bmandibular glands and spaces. Normal visualized nasopharynx. Normal retropharyngeal space. Normal perivertebral space. Normal visualized bilateral faucial tonsils. The visualized tongue, tongue base and oropharynx are normal. There are minimally enlarged lymph nodes of the neck, with preservation of normal slick architecture, consistent with a reactive lymph hyperplasia. There is no demonstrated s olid or cystic mass lesion. There is no abnormal contrast enhancement. Normal epiglottis, bilateral vallecula and hypopharynx. The pre-epiglottic and paraglottic adipose spaces are normal. Normal visua lized bilateral piriform sinuses, aryepiglottic folds, vocal cords, and arytenoid- cricoid articulations. Normal subglottic trachea. Normal bilateral lobes of the thyroid gland. Normal visualized pulmon niall apices. Normal visualized paranasal sinuses. Normal visualized cervical spine. CT/Soft Tissue Neck WITH Contrast IMPRESSION: Normal enhanced CT examination of the soft tissues of the neck. Electronically Signed: Albin Singh MD at 9:16 EST Tel [phone], Service support [phone], CC: Delmis Alvarado DO Farm Mach[employer] Engine Mechanic: Signed Family History Unknown Family Member Name Dates Details Father Comments: HTN Status: Active Mother Comments: HTN Status: Active Social History Name Dates Details Alcohol Use Comments: 10 beers weekly Status: Active Current Work/Study Status Comments: [employer] Status: Active Exercise History: Exercises occasionally. Status: Active Living Situation Comments: single lives with father Status: Active No Caffeine Use Status: Active No Drug Use Status: Active Non Smoker/No Tobacco Use Status: Active Tobacco Use Comments: very rarely, socially Status: Active Vital Signs Date Test Result Details [id number]:25 Temperature 99 f Comments: Method: Temporal Pulse 79 /min Comments: Pattern: Regular Respiration Rate 18 /min Comments: Pattern: Unlabored O2 SAT 98 % Comments: Room air BP Systolic 134 mm[Hg] Comments: Patient Position: Sitting; Cuff Location: Left Arm; Cuff Size: Standard BP Diastolic 84 mm[Hg] Comments: Patient Position: Sitting; Cuff Location: Left Arm; Cuff Size: Standard Weight 223 lb Height 73 in Body Mass Index Calculated 29.42 kg/m2 Body Surface Area Calculated 2.25 m2 :53 Pulse 98 /min Comments: Pattern: Regular Respiration Rate 18 /min Comments: Pattern: Unlabored O2 SAT 98 % Comments: Room air BP Systolic 136 mm[Hg] Comments: Patient Position: Sitting; Cuff Location: Left Arm; Cuff Size: Large BP Diastolic 92 mm[Hg] Comments: Patient Position: Sitting; Cuff Location: Left Arm; Cuff Size: Large Weight 223 lb Height 73 in Body Mass Index Calculated 29.42 kg/m2 Body Surface Area Calculated 2.25 m2 :11 Temperature 99.3 f Comments: Method: Temporal Pulse 81 /min Comments: Pattern: Regular Respiration Rate 16 /min Comments: Pattern: Unlabored O2 SAT 97 % Comments: Room air BP Systolic 118 mm[Hg] Comments: Patient Position: Sitting; Cuff Location: Left Arm; Cuff Size: Standard BP Diastolic 79 mm[Hg] Comments: Patient Position: Sitting; Cuff Location: Left Arm; Cuff Size: Standard Weight 217 lb Height 73 in Body Mass Index Calculated 28.63 kg/m2 Body Surface Area Calculated 2.23 m2 :30 Temperature 98.1 f Comments: Method: Temporal Pulse 82 /min Comments: Pattern: Regular Respiration Rate 15 /min Comments: Pattern: Unlabored O2 SAT 98 % Comments: Room air BP Systolic 134 mm[Hg] Comments: Patient Position: Sitting; Cuff Location: Left Arm; Cuff Size: Standard BP Diastolic 78 mm[Hg] Comments: Patient Position: Sitting; Cuff Location: Left Arm; Cuff Size: Standard Weight 206 lb Height 73 in Body Mass Index Calculated 27.18 kg/m2 Body Surface Area Calculated 2.18 m2 :02 Temperature 97.4 f Comments: Method: Temporal Pulse 80 /min Comments: Pattern: Regular Respiration Rate 16 /min Comments: Pattern: Unlabored O2 SAT 97 % Comments: Room air BP Systolic 124 mm[Hg] Comments: Patient Position: Sitting; Cuff Location: Left Arm; Cuff Size: Standard BP Diastolic 62 mm[Hg] Comments: Patient Position: Sitting; Cuff Location: Left Arm; Cuff Size: Standard Weight 206 lb Height 73 in Body Mass Index Calculated 27.18 kg/m2 Body Surface Area Calculated 2.18 m2 :21 Temperature 97.2 f Pulse 83 /min Comments: Pattern: Regular Respiration Rate 18 /min Comments: Pattern: Unlabored O2 SAT 98 % Comments: Room air BP Systolic 118 mm[Hg] Comments: Patient Position: Sitting; Cuff Location: Left Arm; Cuff Size: Standard BP Diastolic 76 mm[Hg] Comments: Patient Position: Sitting; Cuff Location: Left Arm; Cuff Size: Standard Weight 222 lb Height 73 in Body Mass Index Calculated 29.29 kg/m2 Body Surface Area Calculated 2.25 m2 :44 Pulse 81 /min Comments: Pattern: Regular Respiration Rate 18 /min Comments: Pattern: Unlabored O2 SAT 97 % Comments: Room air BP Systolic 132 mm[Hg] Comments: Patient Position: Sitting; Cuff Location: Left Arm; Cuff Size: Standard BP Diastolic 80 mm[Hg] Comments: Patient Position: Sitting; Cuff Location: Left Arm; Cuff Size: Standard Weight 222 lb Height 73 in Body Mass Index Calculated 29.29 kg/m2 Body Surface Area Calculated 2.25 m2 :32 Temperature 98.1 f Pulse 93 /min Comments: Pattern: Regular Respiration Rate 17 /min Comments: Pattern: Unlabored O2 SAT 97 % Comments: Room air BP Systolic 116 mm[Hg] Comments: Patient Position: Sitting; Cuff Location: Left Arm; Cuff Size: Standard BP Diastolic 74 mm[Hg] Comments: Patient Position: Sitting; Cuff Location: Left Arm; Cuff Size: Standard Weight 222 lb Height 73 in Body Mass Index Calculated 29.29 kg/m2 Body Surface Area Calculated 2.25 m2 :39 Temperature 97.2 f Comments: Method: Temporal Pulse 88 /min Comments: Pattern: Regular Respiration Rate 18 /min Comments: Pattern: Unlabored O2 SAT 97 % Comments: Room air BP Systolic 118 mm[Hg] Comments: Patient Position: Sitting; Cuff Location: Left Arm; Cuff Size: Large BP Diastolic 76 mm[Hg] Comments: Patient Position: Sitting; Cuff Location: Left Arm; Cuff Size: Large Weight 213 lb Height 73 in Body Mass Index Calculated 28.1 kg/m2 Body Surface Area Calculated 2.21 m2 :24 Temperature 98.2 f Pulse 79 /min Comments: Pattern: Regular Respiration Rate 18 /min Comments: Pattern: Unlabored O2 SAT 99 % Comments: Room air BP Systolic 122 mm[Hg] Comments: Patient Position: Sitting; Cuff Location: Left Arm; Cuff Size: Standard BP Diastolic 78 mm[Hg] Comments: Patient Position: Sitting; Cuff Location: Left Arm; Cuff Size: Standard Weight 213 lb Height 73 in Body Mass Index Calculated 28.1 kg/m2 Body Surface Area Calculated 2.21 m2 :49 Temperature 98.9 f Pulse 93 /min Comments: Pattern: Regular Respiration Rate 16 /min Comments: Pattern: Unlabored O2 SAT 97 % Comments: Room air BP Systolic 118 mm[Hg] Comments: Patient Position: Sitting; Cuff Location: Left Arm; Cuff Size: Standard BP Diastolic 80 mm[Hg] Comments: Patient Position: Sitting; Cuff Location: Left Arm; Cuff Size: Standard Weight 209 lb Height 73 in Body Mass Index Calculated 27.57 kg/m2 Body Surface Area Calculated 2.19 m2 :49 Pulse 72 /min Comments: Pattern: Regular Respiration Rate 16 /min Comments: Pattern: Unlabored O2 SAT 98 % Comments: Room air BP Systolic 118 mm[Hg] Comments: Patient Position: Sitting; Cuff Location: Left Arm; Cuff Size: Standard BP Diastolic 78 mm[Hg] Comments: Patient Position: Sitting; Cuff Location: Left Arm; Cuff Size: Standard Weight 210.25 lb Height 73 in Body Mass Index Calculated 27.74 kg/m2 Body Surface Area Calculated 2.2 m2 :29 Pulse 86 /min Comments: Pattern: Regular Respiration Rate 18 /min Comments: Pattern: Unlabored O2 SAT 97 % Comments: Room air BP Systolic 138 mm[Hg] BP Diastolic 90 mm[Hg] Weight 210.25 lb Height 73 in Body Mass Index Calculated 27.74 kg/m2 Body Surface Area Calculated 2.2 m2 :06 Pulse 98 /min Comments: Pattern: Regular Respiration Rate 18 /min Comments: Pattern: Unlabored O2 SAT 98 % Comments: Room air BP Systolic 128 mm[Hg] Comments: Patient Position: Sitting; Cuff Location: Left Arm; Cuff Size: Large BP Diastolic 88 mm[Hg] Comments: Patient Position: Sitting; Cuff Location: Left Arm; Cuff Size: Large Weight 218.25 lb Height 73 in Body Mass Index Calculated 28.79 kg/m2 Body Surface Area Calculated 2.23 m2 :38 Temperature 98.2 f Pulse 89 /min Comments: Pattern: Regular Respiration Rate 16 /min Comments: Pattern: Unlabored O2 SAT 98 % Comments: Room air BP Systolic 118 mm[Hg] Comments: Patient Position: Sitting; Cuff Location: Left Arm; Cuff Size: Standard BP Diastolic 80 mm[Hg] Comments: Patient Position: Sitting; Cuff Location: Left Arm; Cuff Size: Standard Weight 214 lb Height 73 in Body Mass Index Calculated 28.23 kg/m2 Body Surface Area Calculated 2.21 m2 :43 Temperature 97.7 f Pulse 85 /min Comments: Pattern: Regular Respiration Rate 18 /min Comments: Pattern: Unlabored O2 SAT 98 % Comments: Room air BP Systolic 124 mm[Hg] Comments: Patient Position: Sitting; Cuff Location: Left Arm; Cuff Size: Standard BP Diastolic 84 mm[Hg] Comments: Patient Position: Sitting; Cuff Location: Left Arm; Cuff Size: Standard Weight 221 lb Height 73 in Body Mass Index Calculated 29.16 kg/m2 Body Surface Area Calculated 2.25 m2 :05 Temperature 97.2 f Comments: Method: Tympanic Pulse 94 /min Comments: Pattern: Regular Respiration Rate 18 /min Comments: Pattern: Unlabored O2 SAT 98 % Comments: Room air BP Systolic 118 mm[Hg] Comments: Patient Position: Sitting; Cuff Location: Left Arm; Cuff Size: Standard BP Diastolic 78 mm[Hg] Comments: Patient Position: Sitting; Cuff Location: Left Arm; Cuff Size: Standard Weight 221 lb Height 73 in Body Mass Index Calculated 29.16 kg/m2 Body Surface Area Calculated 2.25 m2 :50 Temperature 97.6 f Comments: Method: Temporal Pulse 78 /min Comments: Pattern: Regular Respiration Rate 18 /min Comments: Pattern: Unlabored O2 SAT 99 % Comments: Room air BP Systolic 120 mm[Hg] Comments: Patient Position: Sitting; Cuff Location: Left Arm; Cuff Size: Standard BP Diastolic 80 mm[Hg] Comments: Patient Position: Sitting; Cuff Location: Left Arm; Cuff Size: Standard Weight 213 lb Height 73 in Body Mass Index Calculated 28.1 kg/m2 Body Surface Area Calculated 2.21 m2 :59 Temperature 97.8 f Pulse 93 /min Comments: Pattern: Regular Respiration Rate 16 /min Comments: Pattern: Unlabored O2 SAT 98 % Comments: Room air BP Systolic 132 mm[Hg] Comments: Patient Position: Sitting; Cuff Location: Left Arm; Cuff Size: Standard BP Diastolic 78 mm[Hg] Comments: Patient Position: Sitting; Cuff Location: Left Arm; Cuff Size: Standard Weight 208 lb Height 73 in Body Mass Index Calculated 27.44 kg/m2 Body Surface Area Calculated 2.19 m2 :06 Temperature 98 f Pulse 98 /min Comments: Pattern: Regular Respiration Rate 16 /min Comments: Pattern: Unlabored O2 SAT 96 % Comments: Room air BP Systolic 120 mm[Hg] Comments: Patient Position: Sitting; Cuff Location: Left Arm; Cuff Size: Large BP Diastolic 72 mm[Hg] Comments: Patient Position: Sitting; Cuff Location: Left Arm; Cuff Size: Large Weight 208 lb Height 73 in Body Mass Index Calculated 27.44 kg/m2 Body Surface Area Calculated 2.19 m2 :04 Temperature 97.4 f Comments: Method: Temporal Pulse 97 /min Comments: Pattern: Regular Respiration Rate 20 /min Comments: Pattern: Unlabored O2 SAT 98 % Comments: Room air BP Systolic 110 mm[Hg] Comments: Patient Position: Sitting; Cuff Location: Left Arm; Cuff Size: Standard BP Diastolic 70 mm[Hg] Comments: Patient Position: Sitting; Cuff Location: Left Arm; Cuff Size: Standard Weight 209 lb Height 73 in Body Mass Index Calculated 27.57 kg/m2 Body Surface Area Calculated 2.19 m2 :56 Temperature 97.2 f Comments: Method: Temporal Pulse 76 /min Comments: Pattern: Regular Respiration Rate 18 /min Comments: Pattern: Unlabored O2 SAT 98 % Comments: Room air BP Systolic 114 mm[Hg] Comments: Patient Position: Sitting; Cuff Location: Left Arm; Cuff Size: Standard BP Diastolic 70 mm[Hg] Comments: Patient Position: Sitting; Cuff Location: Left Arm; Cuff Size: Standard Weight 200 lb Height 73 in Body Mass Index Calculated 26.39 kg/m2 Body Surface Area Calculated 2.15 m2 :43 Temperature 97.6 f Comments: Method: Temporal Pulse 70 /min Comments: Pattern: Regular Respiration Rate 18 /min Comments: Pattern: Unlabored O2 SAT 98 % Comments: Room air BP Systolic 110 mm[Hg] Comments: Patient Position: Sitting; Cuff Location: Left Arm; Cuff Size: Standard BP Diastolic 68 mm[Hg] Comments: Patient Position: Sitting; Cuff Location: Left Arm; Cuff Size: Standard Weight 200 lb Height 73 in Body Mass Index Calculated 26.39 kg/m2 Body Surface Area Calculated 2.15 m2 :03 Temperature 98 f Comments: Method: Temporal Pulse 78 /min Comments: Pattern: Regular Respiration Rate 16 /min Comments: Pattern: Unlabored O2 SAT 98 % Comments: Room air BP Systolic 120 mm[Hg] Comments: Patient Position: Sitting; Cuff Location: Left Arm; Cuff Size: Standard BP Diastolic 74 mm[Hg] Comments: Patient Position: Sitting; Cuff Location: Left Arm; Cuff Size: Standard Weight 200 lb Height 73 in Body Mass Index Calculated 26.39 kg/m2 Body Surface Area Calculated 2.15 m2 :07 Temperature 97.6 f Comments: Method: Oral Pulse 70 /min Comments: Pattern: Regular Respiration Rate 18 /min Comments: Pattern: Unlabored BP Systolic 114 mm[Hg] Comments: Patient Position: Sitting; Cuff Location: Left Arm; Cuff Size: Standard BP Diastolic 70 mm[Hg] Comments: Patient Position: Sitting; Cuff Location: Left Arm; Cuff Size: Standard Weight 200 lb Height 73 in Body Mass Index Calculated 26.39 kg/m2 Body Surface Area Calculated 2.15 m2 :27 Temperature 97.9 f Comments: Method: Oral Pulse 68 /min Comments: Pattern: Regular Respiration Rate 18 /min Comments: Pattern: Unlabored BP Systolic 120 mm[Hg] Comments: Patient Position: Sitting; Cuff Location: Left Arm; Cuff Size: Standard BP Diastolic 78 mm[Hg] Comments: Patient Position: Sitting; Cuff Location: Left Arm; Cuff Size: Standard Weight 212 lb Height 73 in Body Mass Index Calculated 27.97 kg/m2 Body Surface Area Calculated 2.21 m2 :30 Temperature 98 f Comments: Method: Oral Pulse 88 /min Comments: Pattern: Regular O2 SAT 98 % Comments: Room air BP Systolic 118 mm[Hg] Comments: Patient Position: Sitting; Cuff Location: Left Arm; Cuff Size: Standard BP Diastolic 70 mm[Hg] Comments: Patient Position: Sitting; Cuff Location: Left Arm; Cuff Size: Standard Weight 208.0625 lb Height 73 in Body Mass Index Calculated 27.45 kg/m2 Body Surface Area Calculated 2.19 m2 Results Date Description Value Details :25 Rapid Strep Test, Office (90498) Rapid Strep Test, Office Negative (Normal) :43 HIV-1 ANTIBODY (60661) Comments: PATIENT NOT FASTINGPERFORMED BY: [facility] [id number] HIV Screen 4th Generation wRfx Non Reactive (Normal) 18-Ylh-81397:58 HSV 1 and 2-Spec Ab, IgG Comments: PATIENT NOT FASTINGPERFORMED BY: [facility] [id number] BY: [address] [id number] w/Rfx HSV 2 IgG, Type Spec <0.91 {index} (Normal) Range: 0.00-0.90 Comments: Negative <0.91 Equivocal 0.91 - 1.09 Positive >1.09 Note: Negative indica irais no antibodies detected to HSV-2. Equivocal may suggest early infection. If clinically appropriate, retest at later date. Positive indicates antibodies detected to HSV-2. HSV 1 IgG, Type Spec 12.50 {index} (Abnormal) Range: 0.00-0.90 Comments: Negative <0.91 Equivocal 0.91 - 1.09 Positive >1.09 Note: Negative indica irais no antibodies detected to HSV-1. Equivocal may suggest early infection. If clinically appropriate, retest at later date. Positive indicates antibodies detected to HSV-1. :58 RPR (RAPID PLASMA Comments: PATIENT NOT FASTINGPERFORMED BY: [facility] [id number] BY: [address] [id number] REAGIN) (89399) RPR Non Reactive (Normal) 77-Qss-64577:58 Herpes Simplex 1&2 IGM Comments: PATIENT NOT FASTINGPERFORMED BY: [facility] [id number] BY: [address] [id number] ([id number]) HSV 2 IgM Antibodies <1:10 {titer} (Normal) Comments: HSV 1 and HSV 2 share many cross-reacting antigens. Elevated titersto both HSV 1 and HSV 2 may represent crossreactive HSV antibodiesrather than exposure to both HSV 1 and HSV 2.Results for this test ar e for research purposes only by the assay'smanufacturer. The performance characteristics of this product havenot been established. Results should not be used as a diagnosticprocedure without confirmati on of the diagnosis by another medicallyestablished diagnostic product or procedure. HSV 1 IgM Antibodies <1:10 {titer} (Normal) 28-Rwg-828982:11 CT,NG,TV (Chlamydia, Comments: PATIENT NOT FASTINGPERFORMED BY: [facility] [id number] Information: SRC:UR Gonorrhea, Trichomonas) (37299) Trich vag by YAJAIRA Negative (Normal) Gonococcus by YAJAIRA Negative (Normal) Chlamydia by YAJAIRA Negative (Normal) 80-Pwt-631553:40 TSH (45158) Comments: PATIENT NOT FASTINGPERFORMED BY: [facility] [id number] TSH 1.630 {uIU/mL} (Normal) Range: 0.450-4.500 71-Ent-145688:40 CBC, Platelets & Auto Diff Comments: PATIENT NOT FASTINGPERFORMED BY: [employer] [employer] [id number] [facility] [id number] ([id number]) Immature Grans (Abs) 0.0 {x10E3/uL} (Normal) Range: 0.0-0.1 Immature Granulocytes 0 % (Normal) Baso (Absolute) 0.0 {x10E3/uL} (Normal) Range: 0.0-0.2 Eos (Absolute) 0.1 {x10E3/uL} (Normal) Range: 0.0-0.4 Monocytes(Absolute) 0.5 {x10E3/uL} (Normal) Range: 0.1-0.9 Lymphs (Absolute) 2.3 {x10E3/uL} (Normal) Range: 0.7-3.1 Neutrophils (Absolute) 5.0 {x10E3/uL} (Normal) Range: 1.4-7.0 Basos 0 % (Normal) Eos 1 % (Normal) Monocytes 6 % (Normal) Lymphs 29 % (Normal) Neutrophils 64 % (Normal) Platelets 293 {x10E3/uL} (Normal) Range: 150-379 RDW 13.5 % (Normal) Range: 12.3-15.4 MCHC 35.8 g/dL (Abnormal) Range: 31.5-35.7 MCH 30.2 pg (Normal) Range: 26.6-33.0 MCV 84 fL (Normal) Range: 79-97 Hematocrit 40.8 % (Normal) Range: 37.5-51.0 Hemoglobin 14.6 g/dL (Normal) Range: 13.0-17.7 RBC 4.84 {x10E6/uL} (Normal) Range: 4.14-5.80 WBC 7.9 {x10E3/uL} (Normal) Range: 3.4-10.8 43-Yau-035946:40 Metabolic Panel, Comprehensive Comments: PATIENT NOT FASTINGPERFORMED BY: [facility] Btrgar2575 [facility] [id number] (68992) ALT (SGPT) 11 [iU]/L (Normal) Range: 0-44 AST (SGOT) 20 [iU]/L (Normal) Range: 0-40 Alkaline Phosphatase 61 [iU]/L (Normal) Range: 39-117 Bilirubin, Total 0.4 mg/dL (Normal) Range: 0.0-1.2 A/G Ratio 1.4 (Normal) Range: 1.2-2.2 Globulin, Total 3.1 g/dL (Normal) Range: 1.5-4.5 Albumin 4.2 g/dL (Normal) Range: 3.5-5.5 Protein, Total 7.3 g/dL (Normal) Range: 6.0-8.5 Calcium 9.1 mg/dL (Normal) Range: 8.7-10.2 Carbon Dioxide, Total 25 mmol/L (Normal) Range: 20-29 Chloride 101 mmol/L (Normal) Range: 96-106 Potassium 4.0 mmol/L (Normal) Range: 3.5-5.2 Sodium 140 mmol/L (Normal) Range: 134-144 BUN/Creatinine Ratio 10 (Normal) Range: 9-20 eGFR If Africn Am 140 mL/min/1.73 (Normal) eGFR If NonAfricn Am 121 mL/min/1.73 (Normal) Creatinine 0.84 mg/dL (Normal) Range: 0.76-1.27 BUN 8 mg/dL (Normal) Range: 6-20 Glucose 89 mg/dL (Normal) Range: 65-99 16-Fyy-58170:57 TRICHOMONAS VAGINALIS WCH/PCR Comments: [facility] Buiirvltcv8201 [place], [address] TV RESULT Negative (Normal) 05-Tiq-897004:59 URINE JOSIAS CULTURE-IDENTIFICATN Comments: PATIENT NOT FASTINGPERFORMED BY: Madeleine Market[address] [id number] Information: [id number] (54099) Result 1 NG36 (Normal) Comments: No growth in 36 - 48 hours. Urine Culture,Comprehensive Final report (Normal) 21-Pxv-004886:17 URINALYSIS (56808) URINALYSIS normal (Normal) Comments: GLU: NegBIL:SmallKet;NegaSG>=1.030Blo: NegpH6.0PRO:30mg/dLURO: normalNit:negLeu:neg 65-Mjn-673290:00 CHLAMYDIA by urine Comments: PATIENT NOT FASTINGPERFORMED BY: = Madeleine Market[address] [id number] Information: [id number] (81116) Neisseria gonorrhoeae, YAJAIRA Negative (Normal) Chlamydia trachomatis, YAJAIRA Negative (Normal) 91-Znp-360059:14 URINALYSIS (83347) Comments: PERFORMED BY: [employer]leine [employer] Qljshr1228 [facility] [id number] Microscopic Examination MICNIP (Normal) Comments: Microscopic not indicated and not performed. Nitrite, Urine Negative (Normal) Urobilinogen,Semi-Qn 0.2 mg/dL (Normal) Range: 0.2-1.0 Bilirubin Negative (Normal) Occult Blood Negative (Normal) Ketones Trace (Abnormal) Glucose Negative (Normal) Protein Negative (Normal) WBC Esterase Negative (Normal) Appearance Clear (Normal) Urine-Color Yellow (Normal) pH 5.0 (Normal) Range: 5.0-7.5 Specific [place] 1.029 (Normal) Range: 1.005-1.030 12-Upz-154039:25 Chlamydia/GC Amplification Comments: PATIENT NOT FASTINGPERFORMED BY: [place] 2844070 [facility] [id number] BY: =Naman Ubimo[address] [id number] Neisseria gonorrhoeae, YJAAIRA Negative (Normal) Chlamydia trachomatis, YAJAIRA Negative (Normal) 50-Lum-047034:25 Urinalysis, Routine Comments: PATIENT NOT FASTINGPERFORMED BY: [address] [id number] BY: =Naman [address] [id number] Inf ormation: SRC:UR SRC:UC Microscopic Examination MICNIP (Normal) Comments: Microscopic not indicated and not performed. Nitrite, Urine Negative (Normal) Urobilinogen,Semi-Qn 0.2 mg/dL (Normal) Range: 0.2-1.0 Bilirubin Negative (Normal) Occult Blood Negative (Normal) Ketones Trace (Abnormal) Glucose Negative (Normal) Protein Negative (Normal) WBC Esterase Negative (Normal) Appearance Clear (Normal) Urine-Color Yellow (Normal) pH 5.0 (Normal) Range: 5.0-7.5 Specific [place] 1.028 (Normal) Range: 1.005-1.030 35-Wyw-627806:25 Urine Culture,Comprehensive Comments: PATIENT NOT FASTINGPERFORMED BY: [address] [id number] BY: =Naman [address] [id number] Result 1 NG36 (Normal) Comments: No growth in 36 - 48 hours. Urine Culture,Comprehensive Final report (Normal) 05-Ula-382367:21 Ct, Ng, Trich vag by Comments: PATIENT NOT FASTINGPERFORMED BY: =Naman Ubimo[address] [id number] BY: [address] [id number] Inf ormation: J0 YAJAIRA 3378 SRC:UR SRC:UR Trich vag by YAJAIRA Negative (Normal) Gonococcus by YAJAIRA Negative (Normal) Chlamydia by YAJAIRA Negative (Normal) 01-Mos-984767:21 Urine Culture,Comprehensive Comments: PATIENT NOT FASTINGPERFORMED BY: =Naman Madeleine [employer] Lx[address] [id number] BY: [facility]6370 [facility] [id number] Result 1 NG36 (Normal) Comments: No growth in 36 - 48 hours. Urine Culture,Comprehensive Final report (Normal) 11-Vwy-983217:02 Urinalysis, Office (76507) UA - LEUKOCYTE ESTERASE Negative (Normal) UA - NITRITE Negative (Normal) URINE UROBILINGN SINDHU Normal mg/dL TIMED (Normal) UA - PROTEIN Negative mg/dL (Normal) UA - PH 6 (Abnormal) UA - BLOOD Negative (Normal) UA - SPECIFIC GRAVITY 1.025 (Normal) UA - KETONES Negative mg/dL (Normal) UA - BILIRUBIN Negative (Normal) UA - GLUCOSE Negative (Normal) 58-Ani-10049: Trich vag by YAJAIRA Negative (Normal) Comments: PATIENT NOT FASTINGPERFORMED BY: =Naman Hangar [address] [id number] Information: URINE SRC:UR 21 20-Wcc-53962:24 CHLAMYDIA by urine Comments: PATIENT NOT FASTINGPERFORMED BY: Ubimo[address] [id number] Information: SRC:PN (60501) Neisseria gonorrhoeae, YAJAIRA Negative (Normal) Chlamydia trachomatis, YAJAIRA Negative (Normal) 93-Ymv-328381:18 METABOLIC PANEL, COMPREHENSIVE Comments: PATIENT NOT FASTINGPERFORMED BY: Ubimo[address] [id number] (03848) ALT (SGPT) 11 [iU]/L (Normal) Range: 0-44 AST (SGOT) 24 [iU]/L (Normal) Range: 0-40 Alkaline Phosphatase, S 60 [iU]/L (Normal) Range: 39-117 Bilirubin, Total 0.6 mg/dL (Normal) Range: 0.0-1.2 A/G Ratio 1.4 (Normal) Range: 1.2-2.2 Globulin, Total 3.1 g/dL (Normal) Range: 1.5-4.5 Albumin, Serum 4.3 g/dL (Normal) Range: 3.5-5.5 Protein, Total, Serum 7.4 g/dL (Normal) Range: 6.0-8.5 Calcium, Serum 9.0 mg/dL (Normal) Range: 8.7-10.2 Carbon Dioxide, Total 26 mmol/L (Normal) Range: 18-29 Chloride, Serum 100 mmol/L (Normal) Range: 96-106 Potassium, Serum 3.7 mmol/L (Normal) Range: 3.5-5.2 Sodium, Serum 143 mmol/L (Normal) Range: 134-144 BUN/Creatinine Ratio 7 (Abnormal) Range: 9-20 eGFR If Africn Am 112 mL/min/1.73 (Normal) eGFR If NonAfricn Am 97 mL/min/1.73 (Normal) Creatinine, Serum 1.06 mg/dL (Normal) Range: 0.76-1.27 BUN 7 mg/dL (Normal) Range: 6-20 Glucose, Serum 104 mg/dL (Abnormal) Range: 65-99 68-Ytf-430837:35 URINE JOSIAS CULTURE-IDENTIFICATN Comments: PATIENT NOT FASTINGPERFORMED BY: [place] [facility]xpertCap[facility]Oorldz4009 [facility] [id number] Information: SRC:UC (52063) Result 1 MUG (Normal) Comments: Mixed urogenital flora10,000-25,000 colony forming units per mL Urine Final report (Normal) Culture,Comprehensive 25-Iyu-691781:39 CHLAMYDIA TRAC, AMPL, Comments: PATIENT NOT FASTINGPERFORMED BY: [facility] Yjreym9804 [facility] [id number] Information: SRC:UR INFCT ANTIGEN (99459) Neisseria gonorrhoeae, YAJAIRA Negative (Normal) Chlamydia trachomatis, YAJAIRA Negative (Normal) 82-Mcb-717395:44 Urinalysis, Office (26928) UA - LEUKOCYTE ESTERASE Negative (Normal) UA - NITRITE Negative (Normal) URINE UROBILINGN SINDHU TIMED Normal mg/dL (Normal) UA - PROTEIN Negative mg/dL (Normal) UA - PH 6 (Abnormal) UA - BLOOD Negative (Normal) UA - SPECIFIC GRAVITY 1.030 (Abnormal) UA - KETONES Negative mg/dL (Normal) UA - BILIRUBIN Negative (Normal) UA - GLUCOSE Negative (Normal) 6-Qyl-488096:21 CT,NG,TV (Chlamydia, Comments: PATIENT NOT FASTINGPERFORMED BY: =Naman Ubimo[address] [place] [id number] Information: SRC:UR Gonorrhea, Trichomonas) (36461) Trich vag by YAJAIRA Negative (Normal) Gonococcus by YAJAIRA Negative (Normal) Chlamydia by YAJAIRA Negative (Normal) 8-Bxj-991222:12 SED RATE ERYTHROCYTE (50964) Comments: PATIENT NOT FASTINGPERFORMED BY: Madeleine MarketCapital [facility])Lgttfj0281 [facility] [id number] Sedimentation Rate-Westergren 2 mm/h (Normal) Range: 0-15 1-Xmi-433359:12 C-REACTIVE PROTEIN (42844) Comments: PATIENT NOT FASTINGPERFORMED BY: [facility] Yoqozb1344 [facility] [id number] C-Reactive Protein, Quant 0.3 mg/L (Normal) Range: 0.0-4.9 1-Lgd-290359:12 METABOLIC PANEL, COMPREHENSIVE Comments: PATIENT NOT FASTINGPERFORMED BY: Madeleine MarketCapital [facility])Ptlfyw3839 [facility] [id number] (26559) ALT (SGPT) 14 [iU]/L (Normal) Range: 0-44 AST (SGOT) 25 [iU]/L (Normal) Range: 0-40 Alkaline Phosphatase, S 63 [iU]/L (Normal) Range: 39-117 Bilirubin, Total 0.4 mg/dL (Normal) Range: 0.0-1.2 A/G Ratio 1.5 (Normal) Range: 1.1-2.5 Globulin, Total 2.9 g/dL (Normal) Range: 1.5-4.5 Albumin, Serum 4.3 g/dL (Normal) Range: 3.5-5.5 Protein, Total, Serum 7.2 g/dL (Normal) Range: 6.0-8.5 Calcium, Serum 9.1 mg/dL (Normal) Range: 8.7-10.2 Carbon Dioxide, Total 25 mmol/L (Normal) Range: 18-29 Chloride, Serum 103 mmol/L (Normal) Range: 96-106 Potassium, Serum 4.3 mmol/L (Normal) Range: 3.5-5.2 Sodium, Serum 145 mmol/L (Abnormal) Range: 134-144 BUN/Creatinine Ratio 9 (Normal) Range: 8-19 eGFR If Africn Am 139 mL/min/1.73 (Normal) eGFR If NonAfricn Am 120 mL/min/1.73 (Normal) Creatinine, Serum 0.88 mg/dL (Normal) Range: 0.76-1.27 BUN 8 mg/dL (Normal) Range: 6-20 Glucose, Serum 86 mg/dL (Normal) Range: 65-99 15-Feb-20168:23 Throat Culture (76543) Comments: PATIENT NOT FASTINGPERFORMED BY: [employer]70 [facility] [id number] Information: SRC: Result 1 RRF (Normal) Comments: Routine respiratory armida Upper Respiratory Culture Final report (Normal) 15-Feb-20168:08 Rapid Strep Test, Office (78747) Rapid Strep Test, Office Negative (Normal) 77-Evg-649928:15 CBC, Platelets & Auto Comments: PATIENT NOT FASTINGPERFORMED BY: [facility]70 [facility] [id number] Information: [id number] Diff (79414) Immature Grans (Abs) 0.0 {x10E3/uL} (Normal) Range: 0.0-0.1 Immature Granulocytes 0 % (Normal) Baso (Absolute) 0.0 {x10E3/uL} (Normal) Range: 0.0-0.2 Eos (Absolute) 0.1 {x10E3/uL} (Normal) Range: 0.0-0.4 Monocytes(Absolute) 0.9 {x10E3/uL} (Normal) Range: 0.1-0.9 Lymphs (Absolute) 2.0 {x10E3/uL} (Normal) Range: 0.7-3.1 Neutrophils (Absolute) 5.7 {x10E3/uL} (Normal) Range: 1.4-7.0 Basos 0 % (Normal) Eos 1 % (Normal) Monocytes 11 % (Normal) Lymphs 23 % (Normal) Neutrophils 65 % (Normal) Platelets 243 {x10E3/uL} (Normal) Range: 150-379 RDW 13.4 % (Normal) Range: 12.3-15.4 MCHC 34.5 g/dL (Normal) Range: 31.5-35.7 MCH 29.2 pg (Normal) Range: 26.6-33.0 MCV 85 fL (Normal) Range: 79-97 Hematocrit 44.0 % (Normal) Range: 37.5-51.0 Hemoglobin 15.2 g/dL (Normal) Range: 12.6-17.7 RBC 5.21 {x10E6/uL} (Normal) Range: 4.14-5.80 WBC 8.8 {x10E3/uL} (Normal) Range: 3.4-10.8 62-Jdb-243638:40 CHLAMYDIA TRAC, AMPL, Comments: PATIENT NOT FASTINGPERFORMED BY: [address] [id number] Information: [id number] INFCT ANTIGEN (17084) Please note: SPRCS (Normal) Comments: Acceptable specimens for this test are male urethral swab,endocervical swab and liquid based pap specimens, vaginal swabs inAPTIMA transports and first void urine. See online Directory ofServices for te st number for rectal and pharyngeal specimens. Neisseria gonorrhoeae, Negative (Normal) YAJAIRA Chlamydia trachomatis, Negative (Normal) YAJAIRA 56-Wpj-069500: Chlamydia trachomatis, Negative (Normal) Comments: PATIENT NOT FASTINGPERFORMED BY: [address] [id number] Information: SRC:TH THROAT 27 YAJAIRA 70-Vns-472396:01 Rapid Strep Test, Office (90808) Rapid Strep Test, Office Negative (Normal) 21-Axt-288326:13 Ct, Ng, Trich vag by Comments: PATIENT NOT FASTINGPERFORMED BY: [address] [id number] Information: SRC:UR URINE YAJAIRA Gonococcus by YAJAIRA Negative (Normal) Trich vag by YAJAIRA Negative (Normal) Chlamydia by YAJAIRA Positive (Abnormal) 30-Eti-949388:26 URINE JOSIAS CULTURE-SINDHU COL Comments: PATIENT NOT FASTINGPERFORMED BY: [address] [place] [id number] Information: SRC:URC [id number] COUNT (16397) Result 1 NG36 (Normal) Comments: No growth in 36 - 48 hours. Urine Culture,Comprehensive Final report (Normal) 76-Aph-97962:08 Urinalysis, Office (34513) UA - LEUKOCYTE ESTERASE Negative (Normal) UA - NITRITE Negative (Normal) URINE UROBILINGN SINDHU TIMED Normal mg/dL (Normal) UA - PROTEIN Negative mg/dL (Normal) UA - PH 6 (Abnormal) UA - BLOOD Negative (Normal) UA - SPECIFIC GRAVITY 1.025 (Normal) UA - KETONES 15 mg/dL (Abnormal) UA - BILIRUBIN Small (Normal) UA - GLUCOSE Negative (Normal) 5-Asf-255965:38 JOSIAS CULTURE-OTHER (58650) Comments: PATIENT NOT FASTINGPERFORMED BY: UbimoFreeman Orthopaedics & Sports MedicineBbxgjy1905 [facility] [id number] Information: SRC:THRT Y33820 Result 1 BETAGB (Abnormal) Comments: Beta hemolytic Streptococcus, group BLight growthPenicillin and ampicillin are drugs of choice for treatment ofbeta- hemolytic streptococcal infections. Susceptibility testing ofpenicillins and other bet a-lactam agents approved by the FDA fortreatment of beta-hemolytic streptococcal infections need not beperformed routinely because nonsusceptible isolates are extremelyrare in any beta-hemolytic strepto coccus and have not been reportedfor Streptococcus pyogenes (group A). (CLSI 2011) Upper Respiratory Culture Final report (Abnormal) 14-Sep-20149:48 Rapid Strep Test, Office (04183) Rapid Strep Test, Negative (Normal) Office 42-Tjg-497666: Chlamydia trachomatis, Negative (Normal) Comments: PATIENT NOT FASTINGPERFORMED BY: [facility]6370 [facility] [id number] Information: SRC:UR URINE 16 YAJAIRA 76-Awv-853011:22 Chlamydia/GC Amplification Comments: PERFORMED BY: [facility]6370 [facility] [id number] BY: [address] [id number] Information: SRC:UR Please note: SPRCS (Normal) Comments: Acceptable specimens for this test are male urethral swab,endocervical swab and liquid based pap specimens, vaginal swabs inAPTIMA transports and first void urine. See online Directory ofServices for te st number for rectal and pharyngeal specimens. Neisseria Negative (Normal) gonorrhoeae, YAJAIRA Chlamydia Positive (Abnormal) Comments: . trachomatis, YAJAIRA Trich vag by YAJAIRA Negative (Normal) Comments: PERFORMED BY: CB [facility] Ebiddq8802 [facility] [id number] BY: BN [facility] Nukguexkaf1524 [facility] [id number] :[id number] 20-Huv-027838:40 HPV Genotyping, PCR Comments: PERFORMED BY: NOY [facility] TIY4578 [facility] [id number] Information: PENILE HPV By PCR NHV (Normal) Comments: NEGATIVE .The results indicate that the patient's specimen does NOT containHuman Papillomavirus DNA as determined by the P olymerase Ch ainReaction (PCR) Amplification method. This assay system is ableto successfully Amplify and Detect Viral DNA from HPV Types 6,11,16, 18, 31, 33, 35, 39, 42, 43, 45, 51, 52, 53, 54, 55, 57, andseveral unclassified HPV Types. Infection with other HPV TypesCANNOT be excluded.There is a degree of correlation between HPV type and clinical courseof the resulting lesion. HPV types (6, 11) are frequently associatedwith low grade lesions, I.E. Condyloma acuminatum, and are not assoc- iated with invasive squamous cell cancers. HPV type 16 is found ingreater than 60% of invasive cancers of the uterine cerv ix and is alsovery common in high grade AMANDA lesions. HPV types (18, 45) are alsofound in high grade lesions, but are less common accounting forapproximately 20% of invasive cervical cancers. HPV types (31, 33,35, 39) are associated with AMANDA lesions and have been found inapproximately 15% of invasive cancers of the cervix. Recently,several other HPV types have been discovered (i.e. HPV 42, 43, 51, 5 2,53,54,55,57,59). The clinical association of these recently discoveredtypes with cervical disease has not been well established. HPV types(42,43) are closely related to HPV (6, 11) and are found in a lowpercentage of anogenital lesions. HPV types (51, 52) are found inCIN lesions but are under-represented in invasive cancers.Results of this test are recommended for investigational purposesonly. Th e result should not be used as a diagnostic procedure with-out confirmation of the diagnosis by another medically establisheddiagnostic product or procedure.Effective February 28, 2013 HPV Genotyping, PCR will be made non-orderable. [employer] offers test 268054 (HPV In Situ Hybridization) for formalin-fixed, paraffin-embedded tissue. [facility] will offer new test 742910 Human Papillomavirus (HPV) High-risk (marco antonio(R)) With HPV 16 and 18, Rectal Source in ThinPrep(R) containers. 93-Uzg-542993:13 HBsAg Screen Negative (Normal) Comments: PERFORMED BY: [facility]6370 [facility] [id number] 13-Uke-456095:13 Hep B Surface Ab Comments: PERFORMED BY: [facility]6370 [facility] [id number] Hep B Surface Ab, Qual Reactive (Normal) Comments: Non Reactive: Inconsistent with immunity, less than 10 mIU/mL Reactive: Consistent with immunity, greater than 9.9 mIU/mL :13 Panel [id number] Comments: PERFORMED BY: [facility]6370 [facility] [id number] HIV 1/O/2 Abs, Non Reactive Qual (Normal) HIV 1/O/2 <1.00 (Normal) Comments: Index Value: Specimen reactivity relative to the negative cutoff. Abs-Index Value 24-Clj-820966: RPR Non Reactive Comments: PERFORMED BY: [facility]6370 [facility] [id number] 13 (Normal) 1-Rui-101643:36 CBCD ANC 8.4 3/uL (Abnormal) Range: 2.0-7.7 IG% 0.10 % (Normal) Range: 0.0-0.9 Comments: IG% - Immature Granulocytes (promyelocytes, myelocytes,metamyelocytes) >1.0% indicates that a LEFT SHIFT ispresent. B% 0.3 % (Normal) Range: 0-1 E% 1.3 % (Normal) Range: 0-5 M% 6.1 % (Normal) Range: 0-10 L% 10.0 % (Abnormal) Range: 19-41 N% 82.2 % (Abnormal) Range: 47-70 MPV 10.8 fL (Normal) Range: 6.2-12.0 PLT 307 K/mm3 (Normal) Range: 150-450 RDWSD 40.0 fL (Normal) Range: 35.1-43.9 RDWCV 13.2 % (Normal) Range: 11.6-14.6 MCHC 34.1 g/dL (Normal) Range: 32-36 MCH 28.3 pg (Normal) Range: 27.0-32.0 MCV 83.0 fL (Normal) Range: 80-94 HCT 43.1 % (Normal) Range: 40-54 HGB 14.7 g/dL (Normal) Range: 13.0-16.5 RBC 5.19 {M/mm3} (Normal) Range: 4.6-6.2 WBC 10.3 {k/mm3} (Normal) Range: 4.4-11.0 5-Nar-002355:36 CMP GAP 9 (Normal) Range: 5-15 CO2 30.0 mmol/L (Normal) Range: 21.0-32.0 CL 100 mmol/L (Normal) Range: 98-107 K 4.2 mmol/L (Normal) Range: 3.5-5.1 NA 139 mmol/L (Normal) Range: 136-145 BIT 0.40 mg/dL (Normal) Range: 0.00-1.00 ALT 20 U/L (Normal) Range: 12-78 ALK 106 U/L (Normal) Range: 50-136 AST 19 U/L (Normal) Range: 15-37 CA 9.7 mg/dL (Normal) Range: 8.5-10.1 AG 0.6 {RATIO} (Abnormal) Range: 0.9-2.4 GLOB 5.5 g/dL (Abnormal) Range: 2.7-4.2 ALB 3.4 g/dL (Normal) Range: 3.4-5.0 TPROT 8.9 g/dL (Abnormal) Range: 6.4-8.2 BC 7.0 {RATIO} (Abnormal) Range: 10-20 GFRAA 121 mL/min (Normal) GFR 100 mL/min (Normal) CREAT 1.0 mg/dL (Normal) Range: 0.8-1.3 BUN 7 mg/dL (Normal) Range: 7-18 GLU 101 mg/dL (Normal) Range: 70-110 4-Gzk-229559:49 Urinalysis, Office (85975) UA - BILIRUBIN Negative (Normal) UA - BLOOD Negative (Normal) UA - GLUCOSE Negative (Normal) UA - KETONES Negative mg/dL (Normal) UA - LEUKOCYTE ESTERASE Negative (Normal) UA - NITRITE Negative (Normal) UA - PH 6.0 (Normal) UA - PROTEIN Negative mg/dL (Normal) UA - SPECIFIC GRAVITY 1.010 (Normal) URINE UROBILINGN SINDHU TIMED Normal mg/dL (Normal) 13-Oct-20120:00 ABDOMEN/PELVIS WITH CONTRAST Radiology Report See Note Comments: PROCEDURE: CT ABDOMEN AND PELVIS WITH CONTRAST REASON FOR EXAM: Male, 22 years old. Right lower quadrant pain for twoweeks. History of Crohn's disease. RADIATION DOSAGE (If Supplied By Facility): (Normal) CTDIvol = ( 13.50 ) mGy, DLP=( 1510.24 ) mGycm TECHNIQUE: Transaxial images were obtained from the dome of thediaphragmto the symphysis pubis with oral contrast. 100 ml of Isovue 300 contrastwas admi nistered. Delayed axial images. Sagittal and coronalreconstruction. COMPARISON: None. FINDINGS:The visualized lung bases are unremarkable. The visualized portions oftheheart are within normal limits. Normal liver. Normal gallbladder and extrahepatic biliary system.Normalspleen. Normal pancreas. Normal bilateral adrenal glands. Normal kidneys and ureters. Chrissie l visualized stomach. Normal small intestine except for thickenedandedematous loops of terminal ileum with mild adjacent mesenteric edema andminimal fluid axial series 1003/77 to 100. On coronal serie s 601/47 to51,there is a 10-mm tubular structure extending medially from the cecum to a2.5 cm irregular mass with a lucent center on 601/45, likely amulti- loculated small abscess, adjacent edema. Chrissie l cecum and colon.. Normal abdominal aorta. Normal inferior vena cava. Normalretroperitoneum. Normal urinary bladder. Normal prostate and seminal vesicles. There isminimal free fluid in the lower pe lvis. Normal abdominal wall. No hernias. Normal osseous structures. IMPRESSION: The 10-mm tubular structure extending medially from the cecum to a 2.5-cmmasslike stru cture may be an inflamed appendix, which perforated at thetipwith a small abscess. The inflammatory changes in the terminal ileumcouldbe coexisting primary Crohn's disease or secondary inflammatory jacek ngesdueto appendicitis with perforation and abscess. Or, the 10-mm tubularstructure might be a nonopacified loop of small bowel and not theappendix,and the small abscess like structure may simply be du e to primary Crohn'sdisease. Clinical correlation. Otherwise unremarkable enhanced CT of the abdomen and pelvis. N.B. : The above information has been verbally conveyed by rEasmo Peterson M.D. to Dr. Charisse robins, covering physician, on 10/13/2012 19:08:22 (ET). Signed:Erasmo Peterson M.D.October 13, 2012 at 7:08:53 PM [id number] Signed PF/PF If you are the referring physician and would like to consult with theradiologist who provided this interpretation, please contact Erasmo Peterson M.D. at [phone]. If this radiologist is unavailable, you will bedirected to another radiologist to linda . If you are a patient with a question regarding this report, pleasecontactyour referring physician directly. Professional Interpretation Provided By: [employer]aculous, Phone ,Fax N.B. : The above information has been verbally conveyed by Erasmo Peterson M.D. to Dr. Alvarado, covering physician, on 10/13/2012 19:08:22 (ET). These documents contain legally protected and confidential healthinformation intended only for the use of the individual or entity namedabove. If you are not the intended recipient, you are hereby notifiedthatany disclosure, copying, distribution, or other use of these documents isstrictly prohibited. If you have received this information in error,pleasenotify the sender immediately and arrange for the return or destructionofthese documents. 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 Indication: Right hip pain Right hip pain : Reviewed Diagnostic Tests Indication: Right hip pain Non-smoker : Eprescribed prescriptions (G8553) Indication: Non-smoker BMI 27.0-27.9,adult : Follow up - Make appt after diagnostic tests Indication: BMI 27.0-27.9,adult Non-smoker : Eprescribed prescriptions (G8553) Indication: Non-smoker Testicular pain, left : Follow up if no improvement or if symptoms worsen Indication: Testicular pain, left Non-smoker : Eprescribed prescriptions (G8553) Indication: Non-smoker BMI 29.0-29.9,adult : Eprescribed prescriptions (G8553) Indication: BMI 29.0-29.9,adult Testicular pain, left : Follow up if no improvement or if symptoms worsen Indication: Testicular pain, left Non-smoker : Eprescribed prescriptions (G8553) Indication: Non-smoker Sinus pressure : Follow up if no improvement or if symptoms worsen Indication: Sinus pressure Sinus pressure : Eprescribed prescriptions (G8553) Indication: Sinus pressure Hydrocele, bilateral : Reviewed Diagnostic Tests Indication: Hydrocele, bilateral Varicocele present on ultrasound of scrotum : Reviewed Diagnostic Tests Indication: Varicocele present on ultrasound of scrotum Screen for STD (sexually transmitted disease) (Renamed from Encounter for screening examination for sexually transmitted disease) : Sexually Transmitted Diseases: std prevention Indication: Screen for STD (sexually transmitted disease) (Renamed from Encounter for screening examination for sexually transmitted disease) Smoker : Smoking: Ways to Quit: cigarettes Indication: Smoker Acute epididymitis : Epididymitis: epididymis Indication: Acute epididymitis Acute epididymitis : Follow up if no improvement or if symptoms worsen Indication: Acute epididymitis BMI 28.0-28.9,adult : Eprescribed prescriptions (G8553) Indication: BMI 28.0-28.9,adult BMI 28.0-28.9,adult : Follow up if no improvement or if symptoms worsen Indication: BMI 28.0-28.9,adult BMI 28.0-28.9,adult : Eprescribed prescriptions (G8553) Indication: BMI 28.0-28.9,adult Crohn's disease (Renamed from CD (Crohn's disease)) : Follow up in 2 weeks Indication: Crohn's disease (Renamed from CD (Crohn's disease)) History of chlamydia : Eprescribed prescriptions (G8553) Indication: History of chlamydia BMI 28.0-28.9,adult : Eprescribed prescriptions (G8553) Indication: BMI 28.0-28.9,adult Sore throat : Eprescribed prescriptions (G8553) Indication: Sore throat Sore throat : Sore Throat *: acute pharyngitis Indication: Sore throat BMI 28.0-28.9,adult : Follow up in 2 weeks Indication: BMI 28.0-28.9,adult Immunocompromised : Follow up if no improvement or if symptoms worsen Indication: Immunocompromised Cough : *URI Treatment Indication: Cough Cough : *URI Symptoms Indication: Cough Cough : *Antibiotic Usage Education - Male Indication: Cough Cough : Eprescribed prescriptions (G8553) Indication: Cough Lump on neck : Eprescribed prescriptions (G8553) Indication: Lump on neck Dysuria : Chlamydial Infection in Men *: chlamydia Indication: Dysuria Dysuria : Eprescribed prescriptions (G8553) Indication: Dysuria Rash : Eprescribed prescriptions (G8553) Indication: Rash Crohn's disease (Renamed from CD (Crohn's disease)) : Eprescribed prescriptions (G8553) Indication: Crohn's disease (Renamed from CD (Crohn's disease)) Abdominal pain, acute, right lower quadrant : Follow up in 1 week Indication: Abdominal pain, acute, right lower quadrant Planned Observations HEPATITIS PANEL ([id number])Indication: Screen for STD (sexually transmitted disease) (Renamed from Encounter for screening examination for sexually transmitted disease) On: 7-Dva-945683:57 Request Herpes Simplex 1&2 IGG ([id number])Indication: Erectile dysfunction On: 50-Xub-659855:11 Request WET MOUNT ([id number])-first am urine for trichIndication: Screen for STD (sexually transmitted disease) (Renamed from Encounter for screening examination for sexually transmitted disease) On: 77-Qpq-237001:16 Request GONORRHEA by urine ([id number])Indication: Screen for STD (sexually transmitted disease) (Renamed from Encounter for screening examination for sexually transmitted disease) On: :16 Request URINE JOSIAS CULTURE-IDENTIFICATN ([id number])Indication: Screen for STD (sexually transmitted disease) (Renamed from Encounter for screening examination for sexually transmitted disease) On: 36-Zuj-549100:11 Request URINALYSIS ([id number])Indication: Screen for STD (sexually transmitted disease) (Renamed from Encounter for screening examination for sexually transmitted disease) On: 79-Ozn-535837:11 Request WET MOUNT (52271)-first am urine for trichIndication: Screen for STD (sexually transmitted disease) (Renamed from Encounter for screening examination for sexually transmitted disease) On: 05-Btj-048277:10 Request GONORRHEA by urine (28386)Indication: Screen for STD (sexually transmitted disease) (Renamed from Encounter for screening examination for sexually transmitted disease) On: 11-Jin-791921:10 Request CHLAMYDIA by urine ([id number])Indication: Screen for STD (sexually transmitted disease) (Renamed from Encounter for screening examination for sexually transmitted disease) On: 96-Ijn-689966:10 Request CHLAMYDIA TRAC, AMPL, INFCT ANTIGEN ([id number])Indication: Penis pain On: 49-Okl-106705:44 Request URINE JOSIAS CULTURE-IDENTIFICATN ([id number])Indication: Screen for STD (sexually transmitted disease) (Renamed from Encounter for screening examination for sexually transmitted disease) On: 54-Ras-916084:03 Request WET MOUNT (99327)-first am urine for trichIndication: Screen for STD (sexually transmitted disease) (Renamed from Encounter for screening examination for sexually transmitted disease) On: 20-Wkd-962495:00 Request GONORRHEA by urine ([id number])Indication: Screen for STD (sexually transmitted disease) (Renamed from Encounter for screening examination for sexually transmitted disease) On: 63-Tpp-778059:00 Request CHLAMYDIA by urine ([id number])Indication: Screen for STD (sexually transmitted disease) (Renamed from Encounter for screening examination for sexually transmitted disease) On: 20-Cfp-592958:00 Request Aerobic Bacterial Culture ([id number])Indication: Screen for STD (sexually transmitted disease) (Renamed from Encounter for screening examination for sexually transmitted disease) On: 64-Eav-019868:10 Request Comments: penile WET MOUNT ([id number])-first am urine for trichIndication: Screen for STD (sexually transmitted disease) (Renamed from Encounter for screening examination for sexually transmitted disease) On: 87-Dxh-448885:56 Request GONORRHEA by urine ([id number])Indication: Screen for STD (sexually transmitted disease) (Renamed from Encounter for screening examination for sexually transmitted disease) On: 79-Yij-887134:55 Request Urinalysis, Office (22674)Indication: Urinary hesitancy On: 16-Waz-376974:[address],NG,TV (Chlamydia, Gonorrhea, Trichomonas) ([id number])Indication: History of chlamydia On: 65-Nhs-554489:17 Request VITAMIN B12 AND FOLATES ([id number])Indication: Abnormal blood chemistry On: :49 Request CALCIFEDIOL (10823)Indication: Abnormal blood chemistry On: :49 Request TSH ([id number])Indication: Abnormal blood chemistry On: :49 Request Metabolic Panel, Comprehensive ([id number])Indication: Abnormal blood chemistry On: :49 Request MONOSPOT TEST ([id number])Indication: Immunocompromised On: :49 Request EBV Panel ([id number])Indication: Immunocompromised On: 2-Ryb-067853:49 Request SMEAR+INTERP ROUTN STAIN ([id number])Indication: Immunocompromised On: 4-Msl-777865:49 Request CBC, Platelets & Auto Diff ([id number])Indication: Immunocompromised On: 5-Aoj-341279:48 Request CHLAMYDIA by urine ([id number])Indication: Screen for STD (sexually transmitted disease) (Renamed from Encounter for screening examination for sexually transmitted disease) On: 09-Mbo-866285:26 Request WET MOUNT ([id number])-first am urine for trichIndication: Screen for STD (sexually transmitted disease) (Renamed from Encounter for screening examination for sexually transmitted disease) On: :39 Request GONORRHEA by urine ([id number])Indication: Screen for STD (sexually transmitted disease) (Renamed from Encounter for screening examination for sexually transmitted disease) On: :39 Request CHLAMYDIA by urine ([id number])Indication: Screen for STD (sexually transmitted disease) (Renamed from Encounter for screening examination for sexually transmitted disease) On: :39 Request CHLAMYDIA TRAC, AMPL, INFCT ANTIGEN ([id number])Indication: Chlamydia infection On: 70-Zbm-460118:57 Request HEPATITIS C ANTIBODY ([id number])Indication: Possible exposure to STD On: 45-Ato-714621:05 Request Comments: now and in six months (approximately) HEPATITIS B SURFACE ANTIGEN ([id number])Indication: Possible exposure to STD On: 02-Nqw-956127:05 Request Comments: now and in six months (approximately) HIV-1 ANTIBODY (44121)Indication: Possible exposure to STD On: 14-Bfq-410099:05 Request Comments: now and in six months (approximately) HPV Comprehensive (03760)Indication: Possible exposure to STD On: 40-Ecm-886309:45 Request Comments: male penile swab RPR (RAPID PLASMA REAGIN) ([id number])Indication: Possible exposure to STD On: 08-Tcb-902622:43 Request WET MOUNT ([id number]) (trich for men first am urine)Indication: Possible exposure to STD On: 58-Qyd-530009:43 Request CHLAMYDIA BY URINE ([id number])Indication: Possible exposure to STD On: 44-Ppx-749724:43 Request GONORRHEA BY URINE ([id number])Indication: Possible exposure to STD On: :43 Request CBC, Platelets & Auto Diff ([id number])Indication: Abdominal pain, acute, right lower quadrant On: 3-Fqf-755502:51 Request Comments: stat Metabolic Panel, Comprehensive ([id number])Indication: Abdominal pain, acute, right lower quadrant On: 5-Udj-027372:49 Request Planned Procedures MR ARTHROGRAM RT HIP ([id number])By: On: 13-Jan-2018 Intent Delmis Alvarado DO, DO, Kathleen Holter Monitor 24 hrsBy: Yolandatrevinjocelyne On: 23-Sep-2017 Intent RUBENLeila E Echo CompleteBy: Vikas RUBENLeila On: 23-Sep-2017 Intent Ann-Marie ELECTROCARDIOGRAM, COMPLETE (ECG) On: 23-Sep-2017 Intent ([id number])By: Leila Bean CNP Ultrasound - TesticularBy: On: 24-Aug-2017 Intent Lesley Yeh Comments: attention to left testicle. PHYSICAL THERAPY ([id number])By: On: 21-May-2017 Intent Lesley Yeh Radiology - Hip - RightBy: On: 21-May-[address] - Abdomen & Pelvis (IV On: 01-Sep-2016 Intent Contrast Needed)By: Lesley Yeh Ultrasound - TesticularBy: On: 01-Sep-[address] SCAN OF NECK TISSUE WITH On: 17-Mar-2016 Intent CONTRAST ([id number])By: Delmis Alvarado DO, DO, Kathleen SPECIMEN HNDLNG/TRNSPRT, OFFC > On: 14-Sep-2014 Intent LAB ([id number])By: Quin JONES, Kylah Villalta Rocephin Injection, 2 Gram On: 24-Feb-2013 Intent ([id number])By: Mora Silverman LPN Comments: Lot #[id number] and L hip - split in 2Dose-prefilled syringegiven by:JENNIFER Molina signed CT - Abdomen & PelvisBy: Vikas On: 13-Oct-2012 Intent RUBEN Ramila Comments: rule out appendiciitis stat call wet read to [facility] Dr. Alvarado is cone picker ok to tell pt and mother Planned Medications INJECTION, CEFTRIAXONE SODIUM, PER 250 MG Ordered: 24-Feb-2013 Pending Mora Silverman LPN Instructions Name Dates Details Sore throat : How to access health information online Indication: Sore throat Sore throat : How to access health information online - Detail Indication: Sore throat Sore throat : Patient Instructions Indication: Sore throat Non-smoker : How to access health information online Indication: Non-smoker Non-smoker : How to access health information online - Detail Indication: Non-smoker Non-smoker : Patient Instructions Indication: Non-smoker Non-smoker : How to access health information online Indication: Non-smoker Non-smoker : How to access health information online - Detail Indication: Non-smoker Non-smoker : Patient Instructions Indication: Non-smoker Non-smoker : How to access health information online Indication: Non-smoker Non-smoker : How to access health information online - Detail Indication: Non-smoker BMI 27.0-27.9,adult : Patient Instructions Indication: BMI 27.0-27.9,adult Non-smoker : How to access health information online Indication: Non-smoker Non-smoker : How to access health information online - Detail Indication: Non-smoker Screen for STD (sexually transmitted disease) (Renamed from Encounter for screening examination for sexually transmitted disease) : Patient Instructions Indication: Screen for STD (sexually transmitted disease) (Renamed from Encounter for screening examination for sexually transmitted disease) BMI 29.0-29.9,adult : How to access health information online Indication: BMI 29.0-29.9,adult BMI 29.0-29.9,adult : How to access health information online - Detail Indication: BMI 29.0-29.9,adult Right hip pain : Patient Instructions Indication: Right hip pain Non-smoker : How to access health information online Indication: Non-smoker Non-smoker : How to access health information online - Detail Indication: Non-smoker Testicular pain, left : Patient Instructions Indication: Testicular pain, left Sinus pressure : How to access health information online Indication: Sinus pressure Sinus pressure : How to access health information online - Detail Indication: Sinus pressure Sinus pressure : Patient Instructions Indication: Sinus pressure BMI 28.0-28.9,adult : How to access health information online Indication: BMI 28.0-28.9,adult BMI 28.0-28.9,adult : How to access health information online - Detail Indication: BMI 28.0-28.9,adult BMI 28.0-28.9,adult : Patient Instructions Indication: BMI 28.0-28.9,adult BMI 28.0-28.9,adult : How to access health information online Indication: BMI 28.0-28.9,adult BMI 28.0-28.9,adult : How to access health information online - Detail Indication: BMI 28.0-28.9,adult BMI 28.0-28.9,adult : Patient Instructions Indication: BMI 28.0-28.9,adult History of chlamydia : How to access health information online Indication: History of chlamydia History of chlamydia : How to access health information online - Detail Indication: History of chlamydia History of chlamydia : Patient Instructions Indication: History of chlamydia BMI 28.0-28.9,adult : How to access health information online Indication: BMI 28.0-28.9,adult BMI 28.0-28.9,adult : How to access health information online - Detail Indication: BMI 28.0-28.9,adult BMI 28.0-28.9,adult : Patient Instructions Indication: BMI 28.0-28.9,adult Sore throat : How to access health information online Indication: Sore throat Sore throat : How to access health information online - Detail Indication: Sore throat Sore throat : Patient Instructions Indication: Sore throat Cough : How to access health information online Indication: Cough Cough : How to access health information online - Detail Indication: Cough Cough : Patient Instructions Indication: Cough Lump on neck : How to access health information online Indication: Lump on neck Lump on neck : How to access health information online - Detail Indication: Lump on neck Lump on neck : Patient Instructions Indication: Lump on neck Screen for STD (sexually transmitted disease) (Renamed from Encounter for screening examination for sexually transmitted disease) : How to access health information online Indication: Screen for STD (sexually transmitted disease) (Renamed from Encounter for screening examination for sexually transmitted disease) Screen for STD (sexually transmitted disease) (Renamed from Encounter for screening examination for sexually transmitted disease) : How to access health information online - Detail Indication: Screen for STD (sexually transmitted disease) (Renamed from Encounter for screening examination for sexually transmitted disease) Screen for STD (sexually transmitted disease) (Renamed from Encounter for screening examination for sexually transmitted disease) : Patient Instructions Indication: Screen for STD (sexually transmitted disease) (Renamed from Encounter for screening examination for sexually transmitted disease) Sore throat : Patient Instructions Indication: Sore throat Dysuria : How to access health information online Indication: Dysuria Dysuria : How to access health information online - Detail Indication: Dysuria Dysuria : Patient Instructions Indication: Dysuria Crohn's disease (Renamed from CD (Crohn's disease)) : How to access health information online - Detail Indication: Crohn's disease (Renamed from CD (Crohn's disease)) Crohn's disease (Renamed from CD (Crohn's disease)) : Patient Instructions Indication: Crohn's disease (Renamed from CD (Crohn's disease)) Encounters Annotation/Addendum On: 01-Mar-2018 15:05 Encounter Diagnosis: Unspecified Diagnosis End: 01-Mar-2018 15:07 [facility] Office Visit On: 29-Jan-2018 9:24 Encounter Reason: Sore Throat - Symptoms include sore throat and postnasal drainage. The symptoms are symmetrical. Onset was 3 day(s) ago., [ADDITIONAL REASON] Genital problems - Note for Genital problems: noted changes genital area End: 29-Jan-2018 10:13 Encounter Diagnosis: Non-smoker, Sore throat, Common cold virus, Immunocompromised, Herpes simplex virus type 1 (HSV-1) dermatitis [facility] Office Visit On: 13-Jan-2018 15:52 Encounter Reason: Hip Problem - Symptoms include hip problem (shooting pain down leg, feels weird to walk on it) and pain in other joints (shooting pain). The symptoms are located in the left anterior hip. The patient de End: 13-Jan-2018 16:18 scribes the hip problem as decreased range of motion (with certain movements I feel the pain). Onset was 6 month(s) ago. Note for Hip problem: Symptoms started about over a year ago-would notice right hip pain while playing basketball-pain would last 10-15 secs and then go away. ??This week noticed the pain while putting leg up-sharp/tingling pain shot down side of right leg to knee. felt like hip was moving inward and it was hard to walk on it. History of chrons. No other joint pain/problems. No reddness, bruising, swelling, increased warmth. No back pain, abd pain, no pain when going from sitt ing to standing. ??Chrons wants him to get hip checked out before he does some paperwork. Pain usually only lasts for seconds. Never taken any medication for pain. Is taking imuran and humira.Encounter Diagnosis: BMI 29.0-29.9,adult, Non-smoker, Right hip pain [facility] Phone Encounter On: 15-Dec-2017 14:20 Encounter Diagnosis: Screen for STD (sexually transmitted disease) (Renamed from Encounter for screening examination for sexually transmitted disease) End: 15-Dec-2017 15:05 [facility] Office Visit On: 07-Dec-2017 15:07 Encounter Reason: Joint Pain - The last clinic visit was 6 month(s) ago. Management changes made at the last visit include none (was instructed to do PT, but just did home stretches). Symptoms include joint pain (starts End: 07-Dec-2017 16:12 in R hip radiates to the knee). Symptoms are located in the right hip. The patient describes the pain as sharp.Encounter Diagnosis: BMI 28.0-28.9,adult, Non-smoker, Need for prophylactic vaccination and inoculation against influenza (Renamed from Need for immunization against influenza), Influenza vaccination declined (Renamed from Refused influenza vaccine), Right hip pain, Groin pain, Erectile dysfunction [facility] Office Visit On: 23-Sep-2017 15:22 Encounter Reason: Chest Pain - Note for Chest pain: on Sep 19 went home from work with tightness in chest, he rested and slept, it went away, then played basketball and after playing basketball layed on the couch all d End: 23-Sep-2017 16:04 ay. 5 days of unusual fluttering in chest.Encounter Diagnosis: Non-smoker, BMI 27.0- 27.9,adult, Chest pain, Abnormal EKG, Crohn's disease (Renamed from CD (Crohn's disease)) [facility] Annotation/Addendum On: 28-Aug-2017 15:53 Encounter Diagnosis: Hydrocele End: 28-Aug-2017 15:54 [facility] Phone Encounter On: 25-Aug-2017 11:08 Encounter Diagnosis: Screen for STD (sexually transmitted disease) (Renamed from Encounter for screening examination for sexually transmitted disease) End: 25-Aug-2017 11:15 [facility] Office Visit On: 24-Aug-2017 13:02 Encounter Reason: Wrist Pain - The injury involved the left wrist. Note for Wrist pain: Symptoms started about 2 weeks ago with lump on left wrist/hand. No injury. Painful when bending. No redness, bruising, swelling, End: 24-Aug-2017 13:29 fever, chills, SOB, CP. Also having testicular pain that has been going on for the last 4 months-has been treated with antibiotic-that didn't help. Has seen urology-and has an appoinment next week. No b urning with urination, blood in urine, no penile discharge, back pain. Pain is described as soreness that starts in left testicle and radiates down the left side of penis. No unprotected sex within the last two months. No lumps or bumps felt within the testicle.Encounter Diagnosis: BMI 29.0-29.9,adult, Non-smoker, Ganglion of left wrist, Testicular pain, left, Screen for STD (sexually transmitted disease) (Renamed from Encounter for screening examination for sexually transmitted disease), Penis pain [facility] Office Visit On: 21-May-2017 14:16 Encounter Reason: Hip Problem - Symptoms include hip problem (shooting pain down leg, feels weird to walk on it) and pain in other joints (shooting pain). The symptoms are located in the left anterior hip. The patient de End: 21-May-2017 14:50 scribes the hip problem as decreased range of motion (with certain movements I feel the pain). Onset was 6 month(s) ago. Note for Hip problem: Symptoms started about over a year ago-would notice right hip pain while playing basketball-pain would last 10-15 secs and then go away. ??This week noticed the pain while putting leg up-sharp/tingling pain shot down side of right leg to knee. felt like hip was moving inward and it was hard to walk on it. History of chrons. No other joint pain/problems. No reddness, bruising, swelling, increased warmth. No back pain, abd pain, no pain when going from sitt ing to standing. Chrons wants him to get hip checked out before he does some paperwork. Pain usually only lasts for seconds. Never taken any medication for pain. Is taking imuran and humira.Encounter Diagnosis: BMI 29.0-29.9,adult, Non-smoker, Right hip pain [facility] Annotation/Addendum On: 26-Mar-2017 11:35 Encounter Diagnosis: Urine ketones End: 26-Mar-2017 11:46 [facility] Office Visit On: 23-Mar-2017 14:41 Encounter Reason: Groin Sprain/Strain - The patient sustained an injury to the left groin (left testicle, pain radiates to head of penis). Symptoms include pain (started a week after he had sex). Onset was 2 week(s) afte End: 23-Mar-2017 15:24 r the injury. The patient describes symptoms as moderate in severity and unchanged. Note for Groin sprain/strain: Symptoms started about 2 weeks ago-had sex about 3 weeks ago-used condom-a week later started noticing discomfort starting at the sac, and up the penis, pain comes and goes. No fever or chills, abd pain, blood in urine, painful urination, no bruising or injury, CP, SOB, heart palpitati ons. Pt unaware of partner having any STD's. ??Was seen in 10/26 for same discomfort was sent to urologist and given Levaquin-Urology checked out ok, and pain went away with antibiotic. Has history of chylamidia.Encounter Diagnosis: Testicular pain, left, BMI 29.0-29.9,adult, Non-smoker, Screen for STD (sexually transmitted disease) (Renamed from Encounter for screening examination for sexually transmitted disease), Acute epididymitis [facility] Office Visit On: 30-Dec-2016 14:21 Encounter Reason: Sinusitis - Symptoms include postnasal drainage, cheek pressure (left), ear fullness and ear pressure. Onset was 1 day(s) ago. The symptoms occur frequently. The patient describes this as worsening. Ass End: 30-Dec-2016 14:42 ociated symptoms include sore throat (pain with swallowing). Note for Sinusitis: sinus pressure and green, and blood on immunosupressionEncounter Diagnosis: BMI 29.0-29.9,adult, Current smoker, Sinus pressure, Acute sinusitis, unspecified (Renamed from Acute sinusitis) [facility] Lab Order On: 28-Oct-2016 15:42 Encounter Diagnosis: Penis pain End: 28-Oct-2016 15:44 [facility] Office Visit On: 28-Oct-2016 14:36 Encounter Reason: STD, Unspecified - Note for Possible sexually transmitted disease: Having pain on the left side of penis. Pain started yesterday. Was up ??put-in-bay over the weekend and was given oral sex, pt concer End: 28-Oct-2016 15:22 samson about STD. Has had pain in penis before-ultrasound showed epididymitis, and was put on Levafloxacin-pain went away. No fever or chills, ulcers, bruising, bites, CP, or SOB.Encounter Diagnosis: Screen for STD (sexually transmitted disease) (Renamed from Encounter for screening examination for sexually transmitted disease), Acute epididymitis, Smoker, BMI 28.0-28.9,adult, Penis pain, Hydrocele, bilateral, Varicocele present on ultrasound of scrotum [facility] Annotation/Addendum On: 08-Sep-2016 12:56 Encounter Diagnosis: Acute epididymitis End: 08-Sep-2016 12:58 [facility] Office Visit On: 01-Sep-2016 15:15 Encounter Reason: Testicular Pain - Symptoms include testicular pain, while symptoms do not include dysuria. Pain is located in the in the left testicle. The patient describes the pain as dull. Onset was month(s) ago. End: 01-Sep-2016 17:10 e symptoms occur intermittently. The patient describes this as unchanged. Associated symptoms do not include inguinal swelling or testicular swelling.Encounter Diagnosis: Smoker, BMI 28.0-28.9,adult, Testicular pain, left, Urinary hesitancy, Screen for STD (sexually transmitted disease) (Renamed from Encounter for screening examination for sexually transmitted disease) [facility] Office Visit On: 08-Aug-2016 14:35 Encounter Reason: Groin Sprain/Strain - The patient sustained an injury to the left groin. This occurred 5 day(s) ago at home. Previous presentation included groin pain. Symptoms include pain.Encounter Diagnosis: BMI 27.0-27.9,adult, Smoker, End: 08-Aug-2016 15:25 Crohn's disease (Renamed from CD (Crohn's disease)), History of chlamydia, Immunocompromised [facility] Office Visit On: 02-Jun-2016 15:45 Encounter Reason: Testicular Pain - Symptoms include testicular pain, while symptoms do not include dysuria. Pain is located in the in the left testicle. The patient describes the pain as dull. Onset was month(s) ago. End: 02-Jun-2016 16:32 e symptoms occur intermittently. The patient describes this as unchanged. Associated symptoms do not include inguinal swelling or testicular swelling.Encounter Diagnosis: Current smoker, BMI 28.0-28.9,adult, Crohn's disease (Renamed from CD (Crohn's disease)), Immunocompromised, Testicular pain, left, Epididymitis [facility] Office Visit On: 17-Mar-2016 9:27 Encounter Reason: Lymphadenopathy - The last clinic visit was week(s) ago. No changes in management were made at the last visit. Symptoms include palpable lump (rt side of neck and did antb and it never went away).Encounter Diagnosis: End: 19-Mar-2016 12:55 Lymph node enlargement, Screen for STD (sexually transmitted disease) (Renamed from Encounter for screening examination for sexually transmitted disease) [facility] Office Visit On: 15-Feb-2016 8:02 Encounter Reason: Sore Throat - No changes in management were made at the last visit. Symptoms include sore throat and swollen glands, while symptoms do not include fever or chills. The symptoms are symmetrical. There is End: 15-Feb-2016 8:35 no radiation. The patient describes the pain as aching. Onset was sudden 5 day(s) ago. The symptoms occur constantly. The patient describes this as moderate in severity. Current treatment includes decongestants.Encounter Diagnosis: Sore throat, BMI 28.0-28.9,adult, Current smoker, Lymph node enlargement, Crohn's disease (Renamed from CD (Crohn's disease)), Immunocompromised [facility] Annotation/Addendum On: 21-Jan-2016 13:34 Encounter Diagnosis: Abnormal blood chemistry End: 21-Jan-2016 13:50 [facility] Office Visit On: 16-Jan-2016 7:24 Encounter Reason: Swollen gland - Right side of neck. Stated Thursday, and started decreasing on Thursday. No other symptoms besides tingling upon pressure. Encounter Diagnosis: Current smoker, BMI 28.0-28.9,adult, Immunocompromised, End: 16-Jan-2016 10:55 Lymph node enlargement [facility] Office Visit On: 03-Oct-2015 9:16 Encounter Reason: Cough - Symptoms include cough. The cough is described as productive (green). Cough onset was 1 week(s) ago. Symptoms are described as unchanged (still has cough). Previous presentation included a cough.Encounter Diagnosis: Cough, End: 03-Oct-2015 10:01 Immunocompromised [facility] Office Visit On: 05-Jun-2015 11:03 Encounter Reason: Neck Mass - Symptoms include neck pain. The neck mass is located in the left posterior triangle. The patient describes the mass as nodular. Onset was gradual 1 year(s) ago.Encounter Diagnosis: Lump on neck End: 05-Jun-2015 12:18 [facility] Office Visit On: 03-May-2015 10:50 Encounter Diagnosis: Screen for STD (sexually transmitted disease) (Renamed from Encounter for screening examination for sexually transmitted disease), Current smoker, Fear of flying End: 03-May-2015 11:33 [facility] Visit On: 20-Feb-2015 14:55 Encounter Reason: Sore Throat - The last clinic visit was 1 week(s) ago. No changes in management were made at the last visit. Symptoms include sore throat and nasal congestion. The symptoms are symmetrical. There is no End: 20-Feb-2015 16:55 radiation. The patient describes the pain as stinging. Onset was sudden 1 week(s) ago. The symptoms occur constantly. Symptoms are exacerbated by swallowing liquids and swallowing solids. Associated sym ptoms include hoarseness. Presenting symptoms included sore throat.Encounter Diagnosis: Sore throat, Screen for STD (sexually transmitted disease) (Renamed from Encounter for screening examination for sexually transmitted disease), Tonsil stone [facility] Office Visit On: 19-Dec-2014 8:56 Encounter Reason: Dysuria - The onset of the dysuria has been sudden and has been occurring in a persistent pattern for 3 days. The course has been increasing. The dysuria is described as moderate. The quality of the carol End: 19-Dec-2014 22:44 n is described as a burning sensation The dysuria is described as being located in the glans penis. The dysuria does not radiate. There has been no associated chills, fever, frequency, hematuria or urge ncy. Note for Dysuria: Pt has hx of Chlamydia and feels the same as last year.- no rash or lumps or bumps on penis not always wearing condoms and has felt well otherwiseEncounter Diagnosis: Dysuria (788.1), Screen for STD (sexually transmitted disease) (Renamed from Encounter for screening examination for sexually transmitted disease) [facility] Office Visit On: 15-Dec-2014 11:04 Encounter Reason: Physical male exam - Last seen between 3-6 months ago. General health: feels well with no complaints, has good energy level and is sleeping well. The patient's appetite is normal. Nutrition: normal/adeq End: 15-Dec-2014 12:44 uate. Exercises 3 days per week. Sleeps on average 7 (works 3rd shift, difficult sleep pattern to follow ) hours per night. Normal bowel and bladder habits. Safety measures include appropriate use of sa fety belts and home smoke detectors. There are no current emotional problems. The patient's libido is normal. Preventative measures done by patient are screening, colonoscopy (September 15 2014 [facility]Encounter Diagnosis: Crohn's disease (Renamed from CD (Crohn's disease)), Physical exam WITHOUT abnormal findings (Renamed from Encounter for routine adult health examination without abnormal findings) [facility] Phone Encounter On: 18-Sep-2014 16:22 Encounter Diagnosis: Strep throat exposure End: 18-Sep-2014 16:24 [facility] Office Visit On: 14-Sep-2014 8:55 Encounter Diagnosis: ACUTE PHARYNGITIS (462.) End: 14-Sep-2014 9:51 [facility] Office Visit On: 17-Mar-2014 9:42 Encounter Diagnosis: Rash End: 17-Mar-2014 10:15 [facility] Office Visit On: 18-Oct-2013 9:02 Encounter Reason: HemorrhoidsEncounter Diagnosis: Crohn's disease (Renamed from CD (Crohn's disease)), Hemorrhoids (455.6) End: 18-Oct-2013 9:31 [facility] Visit On: 21-Jul-2013 8:07 Encounter Reason: Follow up acute care visit - The patient feeling better since last seen and improving. Patient has been compliant with instructions. Current medication use: no side effects and compliant with dosing reg End: 21-Jul-2013 13:57 imen. Patient sleeps 7 hours per night. Impact of disease: emotional impact-mild. Nutrition: balanced diet and supplemental vitamins. The medical issues the patient is following up for include other (recheck STD exposure ).Encounter Diagnosis: Chlamydia infection, Crohn's disease (Renamed from CD (Crohn's disease)) [facility] Office Visit On: 24-Feb-2013 9:44 Encounter Diagnosis: Possible exposure to STD End: 28-Feb-2013 8:15 [facility] Phone Encounter On: 23-Feb-2013 17:48 Encounter Diagnosis: Possible exposure to STD End: 23-Feb-2013 17:52 [facility] Office Visit On: 21-Feb-2013 15:27 Encounter Diagnosis: Crohn's disease (Renamed from CD (Crohn's disease)), Possible exposure to STD End: 21-Feb-2013 16:08 [facility] Office Visit On: 13-Oct-2012 14:15 Encounter Reason: Abdominal Pain, Male - Symptoms include abdominal pain. The pain is located in the mid abdominal area. There is no radiation. The patient describes the pain as dull. Onset was sudden. There is no known End: 13-Oct-2012 14:53 event that preceded symptom onset. The symptoms occur constantly. The patient describes this as moderate in severity and worsening. Associated symptoms do not include anorexia or melena.Encounter Diagnosis: Abdominal Pain,RLQ (789.03) [facility] Payers Belinda ALLEN/Jenifer Gomez; a guarantor
--- OUTSIDE RECORDS SUMMARY | 2018-05-03 20:29 | XMS RPT_ITS | Continuity of Care Document ---
:1990 Author Organization [facility] Address [address] [facility] [address] [place] [address] Phone Care Team Providers Name Role Phone Delmis Alvarado DO Unavailable Rosa Mishra MD Unavailable [facility], [facility] Unavailable Guera Reza MD Unavailable Blayne Harris Unavailable JC Lopez Unavailable Unavailable Nelda Day Unavailable Unavailable Slarb GUN BARREL FINISHER, Lindsay Unavailable Unavailable Long GUN BARREL FINISHER, Mora L Unavailable Unavailable Gravdutch, Kathleen Unavailable Unavailable Unavailable Unavailable Problems Name Dates Details Abnormal EKG (R94.31, 794.31) Status: Active Acute epididymitis (N45.1, 604.99) Status: Active Acute sinusitis, unspecified (Renamed from Acute sinusitis) (J01.90, 461.9) Status: Active BMI 28.0-28.9,adult (Z68.28, V85.24) Status: Active BMI 29.0-29.9,adult (Z68.29, V85.25) Status: Active Chest pain (R07.9, 786.50) Comments: ? cardio vs Reflux vs musculoskeletal Status: Active Crohn's disease (Renamed from CD (Crohn's disease)) (K50.90, 555.9) Comments: both missael and immuran, Sees Dr. Quevedo in [facility] on [address] Status: Active Current smoker (F17.200, [...] Active Groin pain (R10.30, 789.09) Status: Active Hip pain (M25.559, 719.45) Status: [...] Humira, will treat as if Status: Active Testicular pain, left (N50.812, 608.9) Status: Active Urinary hesitancy (R39.11, 788.64) Status: Active Urine ketones (R82.4, 791.6) Comments: Trace of Ketones 03/23/17. 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.4) Status: Active Medications Name Dates Details HUMIRA, 20MG/0.4ML (Subcutaneous Kit) 1 injection every [...] Quantity: 20 {Tablet} Refills: 0 Ordered:18-Sep-2014 Sherita Goodamn Start : 18-Sep-2014 End : 28-Sep-2014 Inactive ANUSOL-HC, 25MG (Rectal Suppository) 1 (one) Suppository tid for 0 days Quantity: 20 {Suppository} Refills: 1 Ordered:17-Mar-2014 ASTER Garza Start : 18-Oct-2013 End : 17-Mar-2014 Inactive Augmentin 875-125 MG Oral Tablet 1 (one) Tablet bid for 14 days Quantity: 28 {Tablet} Refills: 0 Ordered:30-Dec-2016 Lelia Bean CNP Start : 30-Dec-2016 End : [...] 0days Quantity: 5 {Tablet} Refills: 0 Ordered:16-Jan-2016 Lindsay Figueroa LPN Start : 03-May-2015 End : 16-Jan-2016 Discontinued Azithromycin 1 GM Oral Packet 1 (one) pill uad for 0 days Quantity: 1 {Tablet} Refills: 0 Ordered:01-Sep-2016 Lindsay Figueroa LPN Start : 08-Aug-2016 End : 01-Sep-2016 Discontinued CEFIXIME, 200MG/5ML (Oral Suspension Reconstituted) 10 ml For Suspension po x1 for 0 days Quantity: 10 {Milliliter} Refills: 0 Ordered:20-Feb-2015 Lindsay Figueroa LPN Start : 19-Dec-2014 End : 20-Feb-2015 Discontinued Cheratussin AC 100-10 MG/5ML Oral Solution 1-2 Teaspoon before bedtime as needed for 0 days Quantity: 6 {Ounce} Refills: 0 Ordered:16-Jan-2016 Carolina GREENELindsay Start : 03-Oct-2015 End : 16-Jan-2016 Discontinued [...] Comments: 09-15-2014 d/t Chron's Date Value Details 24-Dec-2017 PT D/C Summary (1) Result: Comments: See Note; NOTES: [facility] Therapy [facility] [address] [place] [address]. [address] [place], [place] [address] Fax REHABILITATION SERVICES DISCHAR GE SUMMARY MR#: [id number] Acct: [id number] Name: MARIO GOMEZ Rep #: [id number] : 1990 27 From: Moreno Joseph DPT, OCS, CSCS Referring Dr.: Delmis Alvarado DO Status: REG RCR Insurance: [employer] SELF PAY INSURANCE HP - PT D/C [...] Some discomfort when stadnig long time at wo rk. Sleeping is OK. - Pain R groin [...] please feel free to call me at [phone]. Thank you for the ref erral of this patient. Sincerely, Moreno Joseph DPT, OC <Electronically signed by Moreno Joseph DPT, JOSE, CSCS> 12/24/17 1548 CC: Delmis Alvarado DO EBG Signed 10-Dec-2017 Inital Evaluation (1) - PT Result: Comments: See Note; NOTES: [facility] Physical Therapy [facility] [address] [facility] [place] [address] Fax REHABILITATION SERVICES INITIAL EVALUATION MR#: [id number] Acct: [id number] Name: MARIO GOMEZ Rep #: [id number] : 1990 27 From: Moreno Joseph DPT, JOSE, CSCS Referring Dr.: Delmis Alvarado DO Status: REG RCR Insurance : [employer] SELF PAY INSURANCE Patient's Visit Information MARIO GOMEZ is a 27 year old M referred to Physical Therapy by Delmis Alvarado with a diagnosis of R groin pain.. Date of Evaluation: 1 Physical Therapist: Moreno Joseph DPT, OC - Visit Plan Frequency: weekly to every other. Duration: 2-4 Weeks Plan: f/u two weeks to check effectiveness of stretches and monitor symptoms. Could benefit from MRI to r/o r/i labral pathology - Subjective Subjective: Should have been here 6 months ago bujalen thought he could stretch on his own. [...] nce high school. Has Crohns. Works at [employer] 56 hours per week. for 2 months. 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 Doctor wants PT. [...] to be FAXED BACK to us at [phone] for Medicare purposes. Please let me know if there are questions or concerns regarding this plan of care. Physician Signature: ____Date: <Electronically signed by Moreno Joseph DPT, OCS, CSCS> 12/10/17 0904 CC: Delmis Alvarado DO JOSÉ ANTONIO Signed For Medicare only, by megan martinez I certify the plan of care. Physicians Signature Date 29-Sep-2017 Echocardiogram Complete Result: Comments: See Note; NOTES: [facility] Cardiovascular Services [address] [place] [address] Echo Complete 09/29/17 1301 MR#: [id number] Acct: [id number] Name: MARIO GOMEZ Rep #: [id number] : 1990 27 From: Rajiv Kumar MD Attending Dr: Leila Bean NP Status: REG CLI Ordering Dr: Leila Bean Date: 09/29/17 Location: [facility] Sex: M C Admitted: Reason For Study [...] Date Rajiv Kumar MD CC: Leila Bean WINDOWS ADMIN; Delmis Alvarado DO Date Dictated: 09/29/17 1301 Date Transcr ibed: 09/29/17 1507 Talent Analyst: Signed 27-Aug-2017 Testicular with Arterial Flow Result: Comments: See Note; NOTES: [facility] Imaging Services [address] [place] [address] Testicular with Arterial Flow MR#: [id number] Acct: [id number] Name: KAVINMARIO Naman Fajardo p #: [id number] : 1990 M 27 From: Alfa Alcala MD PCP: Delmis Alvarado DO Status: [facility] CLI Study: Testicular with Arterial Flow Date of Exam: 08/27/17 Exam# [id number] Ordering Dr: Lesley Varma NP-C STUDY: SCROTUM ULTRASOUND REASON FOR EXAM: Male, [...] is physiologic. Small varicoceles bilaterally. Electronically Signed: Alfajavy JuddIsabella, at 5:10 EDT Tel , Service support , Fax CC: YANETH Yeh; Delmis Alvarado DO Talent Analyst: Signed 21-May-2017 Hip 2-3 Views with Pelvis Result: Comments: See Note; NOTES: [facility] Imaging Services [address] [place] [address] Hip 2-3 Views with Pelvis MR#: [id number] Acct: [id number] Name: MARIO GOMEZ Rep #: [id number] : 1990 M 26 From: Albin Singh MD PCP: Delmis Alvarado DO Status: REG CLI Study: Hip 2-3 Views with Pelvis Date of Exam: 05/21/17 Exam# [id number] Ordering Dr: Lesley Yeh P-C STUDY: X-RAY - PELVIS AND RIGHT HIP [...] Singh MD at 15:1 3 EDT Tel [phone], Service support , CC: YANETH Yeh; Delmis Alvarado DO Talent Analyst: Signed 09-Sep-2016 Abdomen/Pelvis WITH Contrast Result: Comments: See Note; NOTES: [facility] Imaging Services [address] [place] [address] [address] 4d Abdomen/Pelvis WITH Contrast MR#: [id number] Acct: [id number] Name: KEVIN GOMEZ Rep #: [id number] : 1990 M 26 From: Radhika Mckeon MD PCP: Delmis Alvarado DO Status: REG CLI Study: Abdomen/Pelvis WITH Contrast Date of Exam: 09/09/16 Exam# [id number] Ordering Dr: Delmis El DO STUDY: CT [...] Radhika Mckeon MD at 1:28 EDT Tel [phone], Service support , CC: Delmis Alvarado DO Talent Analyst: Signed 04-Sep-2016 Testicular with Arterial Flow Result: Comments: See Note; NOTES: [facility] Imaging Services [address] [place] [address] Verdana 4d Testicular with Arterial Flow MR#: [id number] Acct: [id number] Name: CHICA GOMEZ Rep #: [id number] : 1990 M 26 From: Josiah Murdock MD PCP: Delmis Alvarado DO Status: REG CLI Study: Testicular with Arterial Flow Date of Exam: 09/04/16 Exam# [id number] Ordering Dr: Lesley Vidal STUDY: SCROTUM ULTRASOUND REASON FOR EXAM: Male, [...] T , Service support , CC: Lesley Alvarado DO Talent Analyst: Signed 24-Mar-2016 Soft Tissue Neck WITH Contrast Result: Comments: See Note; NOTES: [facility] Imaging Services [address] [place] [address] Camila 4d Soft Tissue Neck WITH Contrast MR#: [id number] Acct: [id number] Name: СЕРГЕЙ GOMEZ Rep #: [id number] : 1990 M 25 From: Albin Singh MD PCP: Delmis Alvarado DO Status: REG CLI Study: Soft Tissue Neck WITH Contrast Date of Exam: 03/24/16 Exam# [id number] Ordering Dr: Delmis Alvarado DO STUDY: CT [...] FINDINGS: Normal bilateral parotid glands. Normal bilateral blast furnace keeper spaces. Normal bilateral parapharyngeal spaces. 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 Status: Active Living Situation Comments: single lives with father Status: Active No Caffeine Use Status: Active No Drug Use Status: Active Non Smoker/No Tobacco Use Status: Active Tobacco Use Comments: very rarely, socially Status: Active Vital Signs Date Test Result Details :53 Pulse 98 /min Comments: Pattern: Regular [...] 2.19 m2 Results Date Description Value Details :43 HIV-1 ANTIBODY (51883) Comments: PATIENT NOT FASTINGPERFORMED BY: [facility] [address] [id number] HIV Screen 4th Generation wRfx Non Reactive (Normal) 97-Moz-47535:58 HSV 1 and 2-Spec Ab, IgG Comments: PATIENT NOT FASTINGPERFORMED BY: [facility] [id number] BY: [facility] [id number] w/Rfx HSV 2 IgG, Type Spec <0.91 [...] date. Positive indicates antibodies detected to HSV-1. 56-Jld-76342:58 RPR (RAPID PLASMA Comments: PATIENT NOT FASTINGPERFORMED BY: [place] [id number] [facility] [id number] BY: [address] [id number] REAGIN) (47722) RPR Non Reactive (Normal) 36-Uzu-90849:58 Herpes Simplex 1&2 IGM Comments: PATIENT NOT FASTINGPERFORMED BY: [place] [id number] [facility] [id number] BY: [address] [id number] (36145) HSV 2 IgM Antibodies <1:10 {titer} (Normal) [...] HSV 1 IgM Antibodies <1:10 {titer} (Normal) 96-Ecs-714948:11 CT,NG,TV (Chlamydia, Comments: PATIENT NOT FASTINGPERFORMED BY: =[address] [id number] Information: SRC:UR Gonorrhea, Trichomonas) (25304) Trich vag by YAJAIRA Negative (Normal) Gonococcus by YAJAIRA Negative (Normal) Chlamydia by YAJAIRA Negative (Normal) 69-Vvj-382724:40 TSH (53086) Comments: PATIENT NOT FASTINGPERFORMED BY: [facility] [facility] [id number] TSH 1.630 {uIU/mL} (Normal) Range: 0.450-4.500 28-Uls-512246:40 CBC, Platelets & Auto Diff Comments: PATIENT NOT FASTINGPERFORMED BY: [facility] [facility] [id number] (35319) Immature Grans (Abs) 0.0 {x10E3/uL} (Normal) Range: [...] 4.14-5.80 WBC 7.9 {x10E3/uL} (Normal) Range: 3.4-10.8 52-Tvw-625872:40 Metabolic Panel, Comprehensive Comments: PATIENT NOT FASTINGPERFORMED BY: LabCoAmand[place] 6346770 [facility] [id number] (09147) ALT (SGPT) 11 [iU]/L (Normal) Range: 0-44 [...] 6-20 Glucose 89 mg/dL (Normal) Range: 65-99 09-Taw-86445:57 TRICHOMONAS VAGINALIS WCH/PCR Comments: [facility] [address] [place], [place], [id number] TV RESULT Negative (Normal) 34-Vpy-284132:59 URINE JOSIAS CULTURE-IDENTIFICATN Comments: PATIENT NOT FASTINGPERFORMED BY: [facility] Nribry3027 [facility] [id number] Information: [id number] (17961) Result 1 NG36 (Normal) Comments: No growth in 36 - 48 hours. Urine Culture,Comprehensive Final report (Normal) 01-Ygu-988364:17 URINALYSIS (47795) URINALYSIS normal (Normal) Comments: GLU: NegBIL:SmallKet;NegaSG>=1.030Blo: NegpH6.0PRO:30mg/dLURO: normalNit:negLeu:neg 86-Tat-781558:00 CHLAMYDIA by urine Comments: PATIENT NOT FASTINGPERFORMED BY: =G [facility] [id number] Information: [id number] (21889) Neisseria gonorrhoeae, YAJAIRA Negative (Normal) Chlamydia trachomatis, YAJAIRA Negative (Normal) 11-Xeh-583722:14 URINALYSIS (66880) Comments: PERFORMED BY: [address] [id number] Microscopic Examination MICNIP (Normal) Comments: Microscopic not indicated and not performed. Nitrite, Urine Negative (Normal) Urobilinogen,Semi-Qn 0.2 mg/dL (Normal) Range: 0.2-1.0 Bilirubin Negative (Normal) Occult Blood Negative (Normal) Ketones Trace (Abnormal) Glucose Negative (Normal) Protein Negative (Normal) WBC Esterase Negative (Normal) Appearance Clear (Normal) Urine-Color Yellow (Normal) pH 5.0 (Normal) Range: 5.0-7.5 Specific [place] 1.029 (Normal) Range: 1.005-1.030 40-Smv-777518:25 Chlamydia/GC Amplification Comments: PATIENT NOT FASTINGPERFORMED BY: [address] [id number] BY: =G [facility] [address] [id number] Neisseria gonorrhoeae, YAJAIRA Negative (Normal) Chlamydia trachomatis, YAJAIRA Negative (Normal) 80-Cqo-873479:25 Urinalysis, Routine Comments: PATIENT NOT FASTINGPERFORMED BY: [address] [id number] BY: =G [employer] Rsdxigvpaf[address] [id number] Inf ormation: SRC:UR SRC:UC Microscopic Examination MICNIP (Normal) Comments: Microscopic not indicated and not performed. Nitrite, Urine Negative (Normal) Urobilinogen,Semi-Qn 0.2 mg/dL (Normal) Range: 0.2-1.0 Bilirubin Negative (Normal) Occult Blood Negative (Normal) Ketones Trace (Abnormal) Glucose Negative (Normal) Protein Negative (Normal) WBC Esterase Negative (Normal) Appearance Clear (Normal) Urine-Color Yellow (Normal) pH 5.0 (Normal) Range: 5.0-7.5 Specific [place] 1.028 (Normal) Range: 1.005-1.030 77-Rym-604706:25 Urine Culture,Comprehensive Comments: PATIENT NOT FASTINGPERFORMED BY: [facility] Puuzhc8552 [facility] [id number] BY: =Naman [employer] Ugontiqzjb[address] [id number] Result 1 NG36 (Normal) Comments: No growth in 36 - 48 hours. Urine Culture,Comprehensive Final report (Normal) 48-Gjj-113945:21 Ct, Ng, Trich vag by Comments: PATIENT NOT FASTINGPERFORMED BY: =Naman [facility] Tpxx[address]vxyj[address] [id number] BY: [employer] Ig[address]aiq[address] [id number] Inf ormation: J0 YAJAIRA 3378 SRC:UR SRC:UR Trich vag by YAJAIRA Negative (Normal) Gonococcus by YAJAIRA Negative (Normal) Chlamydia by YAJAIRA Negative (Normal) 39-Dvy-274909:21 Urine Culture,Comprehensive Comments: PATIENT NOT FASTINGPERFORMED BY: =[facility] [id number] BY: [employer] Ncjzit9608 [facility] [id number] Result 1 NG36 (Normal) Comments: No growth in 36 - 48 hours. Urine Culture,Comprehensive Final report (Normal) 71-Rhd-932190:02 Urinalysis, Office (95546) UA - LEUKOCYTE ESTERASE Negative (Normal) UA - NITRITE Negative (Normal) URINE UROBILINGN SINDHU Normal mg/dL TIMED (Normal) UA - PROTEIN Negative mg/dL (Normal) UA - PH 6 (Abnormal) UA - BLOOD Negative (Normal) UA - SPECIFIC GRAVITY 1.025 (Normal) UA - KETONES Negative mg/dL (Normal) UA - BILIRUBIN Negative (Normal) UA - GLUCOSE Negative (Normal) : Trich vag by YAJAIRA Negative (Normal) Comments: PATIENT NOT FASTINGPERFORMED BY: =[employer] Regt[address]am[address] [id number] Information: URINE SRC:UR :24 CHLAMYDIA by urine Comments: PATIENT NOT FASTINGPERFORMED BY: [facility]6[address] [facility] [id number] Information: SRC:PN (66632) Neisseria gonorrhoeae, YAJAIRA Negative (Normal) Chlamydia trachomatis, YAJAIRA Negative (Normal) 40-Gsu-852843:18 METABOLIC PANEL, COMPREHENSIVE Comments: PATIENT NOT FASTINGPERFORMED BY: [facility] [id number] (77945) ALT (SGPT) 11 [iU]/L (Normal) Range: 0-44 [...] Glucose, Serum 104 mg/dL (Abnormal) Range: 65-99 50-Yla-685162:35 URINE JOSIAS CULTURE-IDENTIFICATN Comments: PATIENT NOT FASTINGPERFORMED BY: [facility]6[address] [facility] [id number] Information: SRC:UC (08478) Result 1 MUG (Normal) Comments: Mixed urogenital flora10,000-25,000 colony forming units per mL Urine Final report (Normal) Culture,Comprehensive 69-Awn-506972:39 CHLAMYDIA TRAC, AMPL, Comments: PATIENT NOT FASTINGPERFORMED BY: SafetyCultureRiverview Medical CenterFfpcnv4985 [facility] [id number] Information: SRC:UR INFCT ANTIGEN (10816) Neisseria gonorrhoeae, YAJAIRA Negative (Normal) Chlamydia trachomatis, YAJAIRA Negative (Normal) 85-Jlk-622798:44 Urinalysis, Office (71631) UA - LEUKOCYTE ESTERASE Negative (Normal) UA - NITRITE Negative (Normal) URINE UROBILINGN SINDHU TIMED Normal mg/dL (Normal) UA - PROTEIN Negative mg/dL (Normal) UA - PH 6 (Abnormal) UA - BLOOD Negative (Normal) UA - SPECIFIC GRAVITY 1.030 (Abnormal) UA - KETONES Negative mg/dL (Normal) UA - BILIRUBIN Negative (Normal) UA - GLUCOSE Negative (Normal) 6-Qkf-864604:21 CT,NG,TV (Chlamydia, Comments: PATIENT NOT FASTINGPERFORMED BY: = [facility] [id number] Information: SRC:UR Gonorrhea, Trichomonas) (94417) Trich vag by YAJAIRA Negative (Normal) Gonococcus by YAJAIRA Negative (Normal) Chlamydia by YAJAIRA Negative (Normal) 8-Iof-549983:12 SED RATE ERYTHROCYTE (71500) Comments: PATIENT NOT FASTINGPERFORMED BY: SafetyCultureRiverview Medical CenterIqrsei6870 [facility] [id number] Sedimentation Rate-Westergren 2 mm/h (Normal) Range: 0-15 0-Ojk-088074:12 C-REACTIVE PROTEIN (84451) Comments: PATIENT NOT FASTINGPERFORMED BY: [facility] Tpbozv9787 [facility] [id number] C-Reactive Protein, Quant 0.3 mg/L (Normal) Range: 0.0-4.9 3-Vlv-584829:12 METABOLIC PANEL, COMPREHENSIVE Comments: PATIENT NOT FASTINGPERFORMED BY: SafetyCultureRiverview Medical CenterTcbxkw2223 [facility] [id number] (79076) ALT (SGPT) 14 [iU]/L (Normal) Range: 0-44 [...] mg/dL (Normal) Range: 65-99 15-Feb-20168:23 Throat Culture (50001) Comments: PATIENT NOT FASTINGPERFORMED BY: [facility] Lxsrfi1761 [facility] [id number] Information: SRC:TH Result 1 RRF (Normal) Comments: Routine respiratory armida Upper Respiratory Culture Final report (Normal) 15-Feb-20168:08 Rapid Strep Test, Office (97354) Rapid Strep Test, Office Negative (Normal) 25-Ihd-247008:15 CBC, Platelets & Auto Comments: PATIENT NOT FASTINGPERFORMED BY: [facility] [employer] [facility] [id number] Information: 767930,B58697 Diff (88547) Immature Grans (Abs) 0.0 {x10E3/uL} (Normal) Range: [...] 4.14-5.80 WBC 8.8 {x10E3/uL} (Normal) Range: 3.4-10.8 91-Wip-477493:40 CHLAMYDIA TRAC, AMPL, Comments: PATIENT NOT FASTINGPERFORMED BY: LabCoRiverview Medical CenterYivnni9133 [facility] [id number] Information: [id number] INFCT ANTIGEN (45461) Please note: SPRCS (Normal) Comments: Acceptable specimens for this test are male urethral swab,endocervical swab and liquid based pap specimens, vaginal swabs inAPTIMA transports and first void urine. See online Directory ofServices for te st number for rectal and pharyngeal specimens. Neisseria gonorrhoeae, Negative (Normal) YAJAIRA Chlamydia trachomatis, Negative (Normal) YAJAIRA 02-Qyg-228609: Chlamydia trachomatis, Negative (Normal) Comments: PATIENT NOT FASTINGPERFORMED BY: [facility]6370 [facility] [id number] Information: SRC: THROAT 27 YAJAIRA 33-Pxq-021865:01 Rapid Strep Test, Office (68979) Rapid Strep Test, Office Negative (Normal) 60-Omf-615080:13 Ct, Ng, Trich vag by Comments: PATIENT NOT FASTINGPERFORMED BY: [facility]1447 [facility][1] [id number] Information: SRC:UR URINE YAJAIRA Gonococcus by YAJAIRA Negative (Normal) Trich vag by YAJIARA Negative (Normal) Chlamydia by YAJAIRA Positive (Abnormal) 92-Gwm-165143:26 URINE JOSIAS CULTURE-SINDHU COL Comments: PATIENT NOT FASTINGPERFORMED BY: [place] 3980170 [facility] [id number] Information: SRC:URC A60834 COUNT (84661) Result 1 NG36 (Normal) Comments: No growth in 36 - 48 hours. Urine Culture,Comprehensive Final report (Normal) 18-Xup-11269:08 Urinalysis, Office (63152) UA - LEUKOCYTE ESTERASE Negative (Normal) UA - NITRITE Negative (Normal) URINE UROBILINGN SINDHU TIMED Normal mg/dL (Normal) UA - PROTEIN Negative mg/dL (Normal) UA - PH 6 (Abnormal) UA - BLOOD Negative (Normal) UA - SPECIFIC GRAVITY 1.025 (Normal) UA - KETONES 15 mg/dL (Abnormal) UA - BILIRUBIN Small (Normal) UA - GLUCOSE Negative (Normal) 9-Kan-241070:38 JOSIAS CULTURE-OTHER (16307) Comments: PATIENT NOT FASTINGPERFORMED BY: [facility]6370 [facility] [id number] Information: SRC:THRT H82600 Result 1 BETAGB (Abnormal) Comments: Beta hemolytic [...] 2011) Upper Respiratory Culture Final report (Abnormal) :48 Rapid Strep Test, Office (46111) Rapid Strep Test, Negative (Normal) Office : Chlamydia trachomatis, Negative (Normal) Comments: PATIENT NOT FASTINGPERFORMED BY: [employer] [facility] ServicesM[facility] [place] [address] [id number] Information: SRC:UR URINE 16 YAJAIRA 75-Uif-400919:22 Chlamydia/GC Amplification Comments: PERFORMED BY: SafetyCultureRiverview Medical CenterXvgjnn[address] [place] [address] [id number] BY: [address] [id number] Information: SRC:UR Please note: SPRCS (Normal) Comments: [...] by YAJAIRA Negative (Normal) Comments: PERFORMED BY: SafetyCultureRiverview Medical CenterGanqhz[address] [place] [address] [id number] BY: [address] [id number] :22 29-Agl-643818:40 HPV Genotyping, PCR Comments: PERFORMED BY: [employer] [facility] Services[facility] VZA3035 [facility] [id number] Information: PENILE HPV By PCR NHV (Normal) [...] HPV Genotyping, PCR will be made non-orderable. [facility] offers test 930652 (HPV In Situ Hybridization) for formalin-fixed, paraffin-embedded tissue. [facility] will offer new test 740618 Human Papillomavirus (HPV) High-risk (marco antonio(R)) With HPV 16 and 18, Rectal Source in ThinPrep(R) containers. 16-Fct-003515:13 HBsAg Screen Negative (Normal) Comments: PERFORMED BY: [facility]6370 [facility] [id number] 14-Qgb-156079:13 Hep B Surface Ab Comments: PERFORMED BY: [facility]6370 [facility] [id number] Hep B Surface Ab, Qual Reactive (Normal) Comments: Non Reactive: Inconsistent with immunity, less than 10 mIU/mL Reactive: Consistent with immunity, greater than 9.9 mIU/mL :13 Panel 976996 Comments: PERFORMED BY: [facility]6370 [facility] [id number] HIV 1/O/2 Abs, Non Reactive Qual (Normal) HIV 1/O/2 <1.00 (Normal) Comments: Index Value: Specimen reactivity relative to the negative cutoff. Abs-Index Value : RPR Non Reactive Comments: PERFORMED BY: [place] [facility] ServicesB[facility] [id number] [id number] 13 (Normal) 1-Erc-469651:36 CBCD ANC 8.4 3/uL (Abnormal) Range: 2.0-7.7 [...] 4.6-6.2 WBC 10.3 {k/mm3} (Normal) Range: 4.4-11.0 5-Vtc-742000:36 CMP GAP 9 (Normal) Range: 5-15 CO2 [...] 7-18 GLU 101 mg/dL (Normal) Range: 70-110 :49 Urinalysis, Office (06276) UA - BILIRUBIN Negative (Normal) UA - [...] conveyed by Erasmo Peterson M.D. to Dr. Charisse robins, covering physician, on 10/13/2012 19:08:22 (ET). Signed:Erasmo Peterson M.D.October 13, 2012 at 7:08:53 PM [id number] Signed PF/PF If you are the referring physician and would like to consult with theradiologist who provided this interpretation, please contact Erasmo Peterson M.D. at [phone]. If this radiologist is unavailable, you will bedirected to another radiologist to [facility]. If you are a patient with a question regarding this report, pleasecontactyour referring physician directly. Professional Interpretation Provided By: Departing, Phone ,Fax N.B. 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 Indication: Right hip pain Right hip [...] right lower quadrant Planned Observations HEPATITIS PANEL (14901)Indication: Screen for STD (sexually transmitted disease) (Renamed from Encounter for screening examination for sexually transmitted disease) On: 4-Cgc-911721:57 Request Herpes Simplex 1&2 IGG (50546)Indication: Erectile dysfunction On: 61-Ywo-165087:11 Request WET MOUNT (67644)-first am urine for trichIndication: Screen for STD (sexually transmitted disease) (Renamed from Encounter for screening examination for sexually transmitted disease) On: 42-Uqp-531227:16 Request GONORRHEA by urine (59532)Indication: Screen for STD (sexually transmitted disease) (Renamed from Encounter for screening examination for sexually transmitted disease) On: 03-Rer-544070:16 Request URINE JOSIAS CULTURE-IDENTIFICATN (94363)Indication: Screen for STD (sexually transmitted disease) (Renamed from Encounter for screening examination for sexually transmitted disease) On: 34-Fek-406971:11 Request URINALYSIS (58561)Indication: Screen for STD (sexually transmitted disease) (Renamed from Encounter for screening examination for sexually transmitted disease) On: 62-Weq-698646:11 Request WET MOUNT (88114)-first am urine for trichIndication: Screen for STD (sexually transmitted disease) (Renamed from Encounter for screening examination for sexually transmitted disease) On: 04-Sgq-791861:10 Request GONORRHEA by urine (00867)Indication: Screen for STD (sexually transmitted disease) (Renamed from Encounter for screening examination for sexually transmitted disease) On: 82-Fxi-676163:10 Request CHLAMYDIA by urine (58197)Indication: Screen for STD (sexually transmitted disease) (Renamed from Encounter for screening examination for sexually transmitted disease) On: 55-Uph-513607:10 Request CHLAMYDIA TRAC, AMPL, INFCT ANTIGEN (59053)Indication: Penis pain On: 87-Wgh-883435:44 Request URINE JOSIAS CULTURE-IDENTIFICATN (36010)Indication: Screen for STD (sexually transmitted disease) (Renamed from Encounter for screening examination for sexually transmitted disease) On: 42-Xcy-498379:03 Request WET MOUNT (90739)-first am urine for trichIndication: Screen for STD (sexually transmitted disease) (Renamed from Encounter for screening examination for sexually transmitted disease) On: 32-Gii-385701:00 Request GONORRHEA by urine (88800)Indication: Screen for STD (sexually transmitted disease) (Renamed from Encounter for screening examination for sexually transmitted disease) On: 85-Cay-829582:00 Request CHLAMYDIA by urine (43193)Indication: Screen for STD (sexually transmitted disease) (Renamed from Encounter for screening examination for sexually transmitted disease) On: 43-Gfp-046917:00 Request Aerobic Bacterial Culture ([id number])Indication: Screen for STD (sexually transmitted disease) (Renamed from Encounter for screening examination for sexually transmitted disease) On: 00-Rvw-325867:10 Request Comments: penile WET MOUNT (99230)-first am urine for trichIndication: Screen for STD (sexually transmitted disease) (Renamed from Encounter for screening examination for sexually transmitted disease) On: 74-Jwd-381759:56 Request GONORRHEA by urine (32513)Indication: Screen for STD (sexually transmitted disease) (Renamed from Encounter for screening examination for sexually transmitted disease) On: 13-Pyb-128033:55 Request Urinalysis, Office (61430)Indication: Urinary hesitancy On: 84-Wii-184747:[address],NG,TV (Chlamydia, Gonorrhea, Trichomonas) (72630)Indication: History of chlamydia On: 34-Jli-000432:17 Request VITAMIN B12 AND FOLATES (54112)Indication: Abnormal blood chemistry On: :49 Request CALCIFEDIOL (02729)Indication: Abnormal blood chemistry On: :49 Request TSH (47977)Indication: Abnormal blood chemistry On: :49 Request Metabolic Panel, Comprehensive (29534)Indication: Abnormal blood chemistry On: :49 Request MONOSPOT TEST (77637)Indication: Immunocompromised On: :49 Request EBV Panel (64089)Indication: Immunocompromised On: :49 Request SMEAR+INTERP ROUTN STAIN (44272)Indication: Immunocompromised On: :49 Request CBC, Platelets & Auto Diff (79865)Indication: Immunocompromised On: :48 Request CHLAMYDIA by urine (45388)Indication: Screen for STD (sexually transmitted disease) (Renamed from Encounter for screening examination for sexually transmitted disease) On: 99-Dvp-634299:26 Request WET MOUNT (67108)-first am urine for trichIndication: Screen for STD (sexually transmitted disease) (Renamed from Encounter for screening examination for sexually transmitted disease) On: 81-Xaq-06284:39 Request GONORRHEA by urine (88799)Indication: Screen for STD (sexually transmitted disease) (Renamed from Encounter for screening examination for sexually transmitted disease) On: :39 Request CHLAMYDIA by urine (44481)Indication: Screen for STD (sexually transmitted disease) (Renamed from Encounter for screening examination for sexually transmitted disease) On: 65-Ryu-21777:39 Request CHLAMYDIA TRAC, AMPL, INFCT ANTIGEN (26831)Indication: Chlamydia infection On: 34-Pgh-368181:57 Request HEPATITIS C ANTIBODY ([id number])Indication: Possible exposure to STD On: 91-Rtd-514078:05 Request Comments: now and in six months (approximately) HEPATITIS B SURFACE ANTIGEN (33568)Indication: Possible exposure to STD On: 18-Nyk-556180:05 Request Comments: now and in six months (approximately) HIV-1 ANTIBODY (37273)Indication: Possible exposure to STD On: 73-Ntl-652727:05 Request Comments: now and in six months (approximately) HPV Comprehensive (68898)Indication: Possible exposure to STD On: 68-Ojq-341024:45 Request Comments: male penile swab RPR (RAPID PLASMA REAGIN) (58584)Indication: Possible exposure to STD On: :43 Request WET MOUNT (68015) (trich for men first am urine)Indication: Possible exposure to STD On: :43 Request CHLAMYDIA BY URINE (07559)Indication: Possible exposure to STD On: :43 Request GONORRHEA BY URINE (71817)Indication: Possible exposure to STD On: :43 Request CBC, Platelets & Auto Diff (32689)Indication: Abdominal pain, acute, right lower quadrant On: 5-Jja-895705:51 Request Comments: stat Metabolic Panel, Comprehensive (63429)Indication: Abdominal pain, acute, right lower quadrant On: :49 Request Planned Procedures MR ARTHROGRAM RT HIP ([id number])By: On: 13-Jan-2018 Intent Delmis Alvarado DO, DO, Kathleen Holter Monitor 24 hrsBy: Vikas On: 23-Sep-2017 Intent RUBEN Ramila Echo CompleteBy: Vikas MIRANDA Leila On: 23-Sep-2017 Intent Ann-Marie ELECTROCARDIOGRAM, COMPLETE (ECG) On: 23-Sep-2017 Intent ([id number])By: Vikas MIRANDA Ramila Ultrasound - TesticularBy: On: 24-Aug-2017 Intent Lesley Yeh Comments: attention to left testicle. PHYSICAL THERAPY (73271)By: On: 21-May-2017 Intent Lesley Yeh Radiology - Hip - RightBy: On: 21-May-[address] - Abdomen & Pelvis (IV On: 01-Sep-2016 Intent Contrast Needed)By: Lesley Yeh Ultrasound - TesticularBy: On: 01-Sep-[address] SCAN OF NECK TISSUE WITH On: 17-Mar-2016 Intent CONTRAST ([id number])By: Delmis Alvarado DO, DO, Kathleen SPECIMEN HNDLNG/TRNSPRT, OFFC > On: 14-Sep-2014 Intent LAB ([id number])By: Quin JONES, Kylah Villalta Rocephin Injection, 2 Gram On: 24-Feb-2013 Intent (J0696)By: Mora Silverman LPN Comments: Lot #[id number]- [id number] and L hip - split in 2Dose-prefilled syringegiven by:JENNIFER Molina signed CT - Abdomen & PelvisBy: Vikas On: 13-Oct-2012 Intent RUBEN Ramila Comments: rule out appendiciitis stat call wet read to [facility] 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
--- OUTSIDE RECORDS SUMMARY | 2018-05-03 20:29 | XMS RPT_ITS | Continuity of Care Document ---
:1990 Author Organization [facility] Address [address] [facility] [address] [place] [address] Phone Care Team Providers Name Role Phone Delmis Alvarado DO Unavailable Rosa Mishra MD Unavailable [facility], [facility] Unavailable Juaquin JONES, Guera Villalta Unavailable Blayne Harris Unavailable Emily Gallego Unavailable Unavailable Vikas MIRANDA, Ramila Unavailable Nelda Day Unavailable Unavailable Slarb RIVET HAMMER MACHINE OPERATOR, Lindsay Unavailable Unavailable Long RIVET HAMMER MACHINE OPERATOR, Mora L Unavailable Unavailable Gravius, Kathleen Unavailable Unavailable Unavailable Unavailable Problems Name [...] disease)) (K50.90, 555.9) Comments: both missael and willem, Sees Dr. Quevedo in [facility] on [address] Status: Active Current smoker [...] Immunocompromised (D84.9, 279.3) Comments: on Imuran and Missael for chrons Status: Active Influenza vaccination declined [...] Quantity: 20 {Tablet} Refills: 0 Ordered:05-Jun-2015 Kylah Tsia MD Start : 05-Jun-2015 End : 15-Jun-2015 Inactive Doxycycline Hyclate 100 MG Oral Capsule 1 (one) Capsule bid for 7 days Quantity: 14 {Capsule} Refills: 0 Ordered:08-Aug-2016 Leila Baen CNP Start : 08-Aug-2016 End : 15-Aug-2016 [...] days Quantity: 1 {Tablet} Refills: 0 Ordered:01-Sep-2016 Nelarb Eliud GREENEa Start : 08-Aug-2016 End : 01-Sep-2016 Discontinued CEFIXIME, 200MG/5ML (Oral Suspension Reconstituted) 10 ml For Suspension po x1 for 0 days Quantity: 10 {Milliliter} Refills: 0 Ordered:20-Feb-2015 Lindsay Figueroa LPN Start : 19-Dec-2014 End : 20-Feb-2015 Discontinued Cheratussin AC 100-10 MG/5ML Oral Solution 1-2 Teaspoon before bedtime as needed for 0 days Quantity: 6 {Ounce} Refills: 0 Ordered:16-Jan-2016 Slarb RIVET HAMMER MACHINE OPERATOREliuda Start : 03-Oct-2015 End : 16-Jan-2016 Discontinued Comments:Medication taken as needed. Ciprofloxacin HCl 500 MG Oral Tablet 1 (one) Tablet bid for 0 days Quantity: 20 {Tablet} Refills: 0 Ordered:08-Aug-2016 Carolina RIVET HAMMER MACHINE OPERATOREliud Burksa Start : 02-Jun-2016 End : 08-Aug-2016 Discontinued [...] Summary (1) Result: Comments: See Note; NOTES: [facility] [address] [facility] [address] [place], [place] [address] Fax REHABILITATION SERVICES DISCHAR GE SUMMARY MR#: [id number] Acct: [id number] Name: MARIO GOMEZ Rep #: [id number] : 1990 27 From: Moreno Joseph DPT, [...] discomfort when stadnig long time at wo . Sleeping is OK. - Pain R groin [...] please feel free to call me at [phone]. Thank you for the ref erral of this patient. Sincerely, Moreno Joseph DPT, OC <Electronically signed by Moreno Joseph DPT, JOSE, CSCS> 12/24/17 1548 CC: Delmis Alvarado DO EBG Signed 10-Dec-2017 Inital Evaluation (1) - PT Result: Comments: See Note; NOTES: [facility] [address] [place] [address]. [address] [place], [place] [address] Fax REHABILITATION SERVICES INITIAL EVALUATION MR#: [id number] Acct: [id number] Name: MARIO GOMEZ Rep #: [id number] : 1990 27 From: Moreno Joseph DPT, JOSE, CSCS Referring Dr.: Delmis Alvarado DO Status: REG RCR Insurance : [employer] SELF PAY INSURANCE Patient's Visit Information MARIO [...] nce high school. Has Crohns. Works at [employer] 56 hours per week. for 2 months. [...] to be FAXED BACK to us at [phone] for Medicare purposes. Please let me know if there are questions or concerns regarding this plan of care. Physician Signature: ____Date: <Electronically signed by Moreno Joseph DPT, OCS, CSCS> 12/10/17 0904 CC: Delmis Jenny DO EBG Signed For Medicare only, by megan martinez I certify the plan of care. Physicians Signature Date 29-Sep-2017 Echocardiogram Complete Result: Comments: See Note; NOTES: [facility] Cardiovascular Services [address] [place] [address] Echo Complete 09/29/17 1301 MR#: [id number] Acct: [id number] Name: MARIO GOMEZ Rep #: [id number] : 1990 27 From: Rajiv Kumar MD Attending Dr: Leila Bean NP Status: REG CLI Ordering Dr: Leila Bean Date: 09/29/17 Location: [facility] Sex: M C Admitted: Reason For [...] Physician: DELMIS ALVARADO Performed By: Amada Velazco, FATEMEHCS, RVT 09/29/17 1507 Date Rajiv Kumar MD CC: Leila Bean PARENTING SKILLS INSTRUCTOR; Delmis Alvarado DO Date Dictated: 09/29/17 1301 Date Transcr ibed: 09/29/17 1507 Etl Bi Developer: Signed 27-Aug-2017 Testicular with Arterial Flow Result: Comments: See Note; NOTES: [facility] Imaging Services [address] [place] [address] Testicular with Arterial Flow MR#: [id number] Acct: [id number] Name: MARIO GOMEZ Naman Fajardo p #: [id number] : 1990 M 27 From: Alfa Alcala MD PCP: Delmis Alvarado DO Status: REG CLI Study: Testicular with Arterial Flow Date of Exam: 08/27/17 Exam# [id number] Ordering Dr: Lesley Varma STUDY: SCROTUM ULTRASOUND [...] Fax CC: YANETH Yeh; Delmis Alvarado DO Etl Bi Developer: Signed 21-May-2017 Hip 2-3 Views with Pelvis Result: Comments: See Note; NOTES: [facility] Imaging Services [address] [place] [address] Hip 2-3 Views with Pelvis MR#: [id number] Acct: [id number] Name: MARIO GOMEZ Rep #: [id number] : 1990 M 26 From: Albin Singh MD PCP: Delmis Alvarado DO Status: REG CLI Study: Hip 2-3 Views with Pelvis Date of Exam: 05/21/17 Exam# [id number] Ordering Dr: Lesley Yeh STUDY: X-RAY - PELVIS AND RIGHT HIP [...] Singh MD at 15:1 3 EDT Tel [phone], Service support , CC: YANETH Yeh; Delmis Alvarado DO Etl Bi Developer: Signed 09-Sep-2016 Abdomen/Pelvis WITH Contrast Result: Comments: See Note; NOTES: [facility] Imaging Services [address] [place] [address] Verdana 4d Abdomen/Pelvis WITH Contrast MR#: [id number] Acct: [id number] Name: KEVIN GOMEZ Rep #: [id number] : 1990 M 26 From: Radhika Mckeon MD PCP: Delmis Alvarado DO Status: REG CLI Study: Abdomen/Pelvis WITH Contrast Date of Exam: 09/09/16 Exam# [id number] Ordering Dr: Delmis El DO STUDY: CT [...] There is no abscess formation. Electronically Signed: Radhiak Mckeon MD at 1:28 EDT Tel [phone], Service support , CC: Delmis Alvarado DO Etl Bi Developer: Signed 04-Sep-2016 Testicular with Arterial Flow Result: Comments: See Note; NOTES: [facility] Imaging Services [address] [place] [address] Verdana 4d Testicular with Arterial Flow MR#: [id number] Acct: [id number] Name: CHICA GOMEZ Rep #: [id number] : 1990 M 26 From: Josiah Murdock MD PCP: Delmis Alvarado DO Status: REG CLI Study: Testicular with Arterial Flow Date of Exam: 09/04/16 Exam# [id number] Ordering Dr: Lesley Vidal PARENTING SKILLS INSTRUCTOR-C STUDY: SCROTUM ULTRASOUND REASON FOR EXAM: Male, [...] , CC: Lesley Yeh; Delmis Alvarado DO Etl Bi Developer: Signed 24-Mar-2016 Soft Tissue Neck WITH Contrast Result: Comments: See Note; NOTES: [facility] Imaging Services [address] [place] [address] Verdana 4d Soft Tissue Neck WITH Contrast MR#: [id number] Acct: [id number] Name: СЕРГЕЙ GOMEZ Rep #: [id number] : 1990 M 25 From: Albin Singh MD PCP: Delmis Alvarado DO Status: REG CLI Study: Soft Tissue Neck WITH Contrast Date of Exam: 03/24/16 Exam# [id number] Ordering Dr: Delmis Alvarado DO STUDY: CT [...] FINDINGS: Normal bilateral parotid glands. Normal bilateral supervisor word processing spaces. Normal bilateral parapharyngeal spaces. 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 Status: Active Living Situation Comments: single lives with father Status: Active No Caffeine Use Status: Active No Drug Use Status: Active Non Smoker/No Tobacco Use Status: Active Tobacco Use Comments: very rarely, socially Status: Active Vital Signs Date Test Result Details 00-Qsj-41023:25 Temperature 99 f Comments: Method: Temporal Pulse [...] kg/m2 Body Surface Area Calculated 2.25 m2 6-Frv-958963:53 Pulse 98 /min Comments: Pattern: Regular Respiration [...] Value Details :25 Rapid Strep Test, Office (12157) Rapid Strep Test, Office Negative (Normal) 6-Itt-853589:43 HIV-1 ANTIBODY (86822) Comments: PATIENT NOT FASTINGPERFORMED BY: [facility] [facility] [id number] HIV Screen 4th Generation wRfx Non Reactive (Normal) 42-Xqk-38699:58 HSV 1 and 2-Spec Ab, IgG Comments: PATIENT NOT FASTINGPERFORMED BY: [place] 8584670 [facility] [id number] BY: [address] [id number] w/Rfx HSV 2 IgG, Type Spec <0.91 [...] (RAPID PLASMA Comments: PATIENT NOT FASTINGPERFORMED BY: [facility]'sMatheny Medical and Educational CenterQxnlqv6127 [facility] [id number] BY: [address] [id number] REAGIN) (39703) RPR Non Reactive (Normal) 86-Bwk-37112:58 Herpes Simplex 1&2 IGM Comments: PATIENT NOT FASTINGPERFORMED BY: [facility]'sMatheny Medical and Educational CenterBqvpel7824 [facility] [id number] BY: [address] [id number] (06990) HSV 2 IgM Antibodies <1:10 {titer} (Normal) [...] HSV 1 IgM Antibodies <1:10 {titer} (Normal) 65-Vnl-241204:11 CT,NG,TV (Chlamydia, Comments: PATIENT NOT FASTINGPERFORMED BY: = Grow[address] [id number] Information: SRC:UR Gonorrhea, Trichomonas) (76866) Trich vag by YAJAIRA Negative (Normal) Gonococcus by YAJAIRA Negative (Normal) Chlamydia by YAJAIRA Negative (Normal) 87-Wie-009480:40 TSH (95280) Comments: PATIENT NOT FASTINGPERFORMED BY: [facility]6370 [facility] [id number] TSH 1.630 {uIU/mL} (Normal) Range: 0.450-4.500 23-Owx-494303:40 CBC, Platelets & Auto Diff Comments: PATIENT NOT FASTINGPERFORMED BY: [facility]'sMatheny Medical and Educational CenterKahmml9123 [facility] [id number] (76308) Immature Grans (Abs) 0.0 {x10E3/uL} (Normal) Range: [...] 4.14-5.80 WBC 7.9 {x10E3/uL} (Normal) Range: 3.4-10.8 50-Xsg-094194:40 Metabolic Panel, Comprehensive Comments: PATIENT NOT FASTINGPERFORMED BY: LabCoMatheny Medical and Educational CenterLuzakv9868 [facility] [id number] (32538) ALT (SGPT) 11 [iU]/L (Normal) Range: 0-44 [...] 6-20 Glucose 89 mg/dL (Normal) Range: 65-99 10-Swy-66432:57 TRICHOMONAS VAGINALIS WCH/PCR Comments: [facility] [address] [place], [address] TV RESULT Negative (Normal) 77-Czv-445263:59 URINE JOSIAS CULTURE-IDENTIFICATN Comments: PATIENT NOT FASTINGPERFORMED BY: [facility]'sMatheny Medical and Educational CenterXgccnv9793 [facility] [id number] Information: [id number] (71649) Result 1 NG36 (Normal) Comments: No growth in 36 - 48 hours. Urine Culture,Comprehensive Final report (Normal) 97-Ubo-185128:17 URINALYSIS (23011) URINALYSIS normal (Normal) Comments: GLU: NegBIL:SmallKet;NegaSG>=1.030Blo: NegpH6.0PRO:30mg/dLURO: normalNit:negLeu:neg 19-Gnk-205748:00 CHLAMYDIA by urine Comments: PATIENT NOT FASTINGPERFORMED BY: =[address] [id number] Information: [id number] (97608) Neisseria gonorrhoeae, YAJAIRA Negative (Normal) Chlamydia trachomatis, YAJAIRA Negative (Normal) 44-Xbs-902449:14 URINALYSIS (19197) Comments: PERFORMED BY: [facility] [employer] [facility] [id number] Microscopic Examination MICNIP (Normal) Comments: Microscopic not indicated and not performed. Nitrite, Urine Negative (Normal) Urobilinogen,Semi-Qn 0.2 mg/dL (Normal) Range: 0.2-1.0 Bilirubin Negative (Normal) Occult Blood Negative (Normal) Ketones Trace (Abnormal) Glucose Negative (Normal) Protein Negative (Normal) WBC Esterase Negative (Normal) Appearance Clear (Normal) Urine-Color Yellow (Normal) pH 5.0 (Normal) Range: 5.0-7.5 Specific Ellsworth 1.029 (Normal) Range: 1.005-1.030 33-Rgv-210916:25 Chlamydia/GC Amplification Comments: PATIENT NOT FASTINGPERFORMED BY: [facility]'s[address] [id number] BY: =Naman [facility]'s Ayobedugas[address] [id number] Neisseria gonorrhoeae, YAJAIRA Negative (Normal) Chlamydia trachomatis, YAJAIRA Negative (Normal) 17-Kms-894626:25 Urinalysis, Routine Comments: PATIENT NOT FASTINGPERFORMED BY: NADEEN GrowJefferson [facility] Hospital Jjzsjz8010 [facility] [id number] BY: =Naman Grow[address] [id number] Inf ormation: SRC:UR SRC:UC Microscopic Examination MICNIP (Normal) Comments: Microscopic not indicated and not performed. Nitrite, Urine Negative (Normal) Urobilinogen,Semi-Qn 0.2 mg/dL (Normal) Range: 0.2-1.0 Bilirubin Negative (Normal) Occult Blood Negative (Normal) Ketones Trace (Abnormal) Glucose Negative (Normal) Protein Negative (Normal) WBC Esterase Negative (Normal) Appearance Clear (Normal) Urine-Color Yellow (Normal) pH 5.0 (Normal) Range: 5.0-7.5 Specific Ellsworth 1.028 (Normal) Range: 1.005-1.030 79-Jqe-910086:25 Urine Culture,Comprehensive Comments: PATIENT NOT FASTINGPERFORMED BY: Grow[address] [id number] BY: =Naman GrowJefferson [facility] Hospital Fpfrergnau[address] [id number] Result 1 NG36 (Normal) Comments: No growth in 36 - 48 hours. Urine Culture,Comprehensive Final report (Normal) 70-Rzc-029963:21 Ct, Ng, Trich vag by Comments: PATIENT NOT FASTINGPERFORMED BY: =Naman Grow[address] [id number] BY: [address] [id number] Inf ormation: J0 YAJAIRA 3378 SRC:UR SRC:UR Trich vag by YAJAIRA Negative (Normal) Gonococcus by YAJAIRA Negative (Normal) Chlamydia by YAJAIRA Negative (Normal) 37-Dcq-519680:21 Urine Culture,Comprehensive Comments: PATIENT NOT FASTINGPERFORMED BY: =G [facility] X[address] [id number] BY: [facility] Njeshz0017 [facility] [id number] Result 1 NG36 (Normal) Comments: No growth in 36 - 48 hours. Urine Culture,Comprehensive Final report (Normal) 44-Iic-396878:02 Urinalysis, Office (58124) UA - LEUKOCYTE ESTERASE Negative (Normal) UA - NITRITE Negative (Normal) URINE UROBILINGN SINDHU Normal mg/dL TIMED (Normal) UA - PROTEIN Negative mg/dL (Normal) UA - PH 6 (Abnormal) UA - BLOOD Negative (Normal) UA - SPECIFIC GRAVITY 1.025 (Normal) UA - KETONES Negative mg/dL (Normal) UA - BILIRUBIN Negative (Normal) UA - GLUCOSE Negative (Normal) 27-Etz-47976: Trich vag by YAJAIRA Negative (Normal) Comments: PATIENT NOT FASTINGPERFORMED BY: =Naman Antuit[address] [id number] Information: URINE SRC:UR 21 91-Aal-49011:24 CHLAMYDIA by urine Comments: PATIENT NOT FASTINGPERFORMED BY: [facility] Ifqtwk5300 [facility] [id number] Information: SRC:PN (10548) Neisseria gonorrhoeae, YAJAIRA Negative (Normal) Chlamydia trachomatis, YAJAIRA Negative (Normal) 33-Hoj-454136:18 METABOLIC PANEL, COMPREHENSIVE Comments: PATIENT NOT FASTINGPERFORMED BY: [facility] Hzodff6782 [facility] [id number] (93739) ALT (SGPT) 11 [iU]/L (Normal) Range: 0-44 [...] Glucose, Serum 104 mg/dL (Abnormal) Range: 65-99 17-Mja-250932:35 URINE JOSIAS CULTURE-IDENTIFICATN Comments: PATIENT NOT FASTINGPERFORMED BY: [facility] Orwnbr07[address] [place] [address] [id number] Information: SRC:UC (83817) Result 1 MUG (Normal) Comments: Mixed urogenital flora10,000-25,000 colony forming units per mL Urine Final report (Normal) Culture,Comprehensive 05-Ypm-653078:39 CHLAMYDIA TRAC, AMPL, Comments: PATIENT NOT FASTINGPERFORMED BY: [facility] Exfkkr16[address] [place] [address] [id number] Information: SRC:UR INFCT ANTIGEN (25149) Neisseria gonorrhoeae, YAJAIRA Negative (Normal) Chlamydia trachomatis, YAJAIRA Negative (Normal) 76-Bip-577046:44 Urinalysis, Office (38122) UA - LEUKOCYTE ESTERASE Negative (Normal) UA - NITRITE Negative (Normal) URINE UROBILINGN SINDHU TIMED Normal mg/dL (Normal) UA - PROTEIN Negative mg/dL (Normal) UA - PH 6 (Abnormal) UA - BLOOD Negative (Normal) UA - SPECIFIC GRAVITY 1.030 (Abnormal) UA - KETONES Negative mg/dL (Normal) UA - BILIRUBIN Negative (Normal) UA - GLUCOSE Negative (Normal) 9-Asb-496993:21 CT,NG,TV (Chlamydia, Comments: PATIENT NOT FASTINGPERFORMED BY: =G Lab[address] [id number] Information: SRC:UR Gonorrhea, Trichomonas) (20762) Trich vag by YAJAIRA Negative (Normal) Gonococcus by YAJAIRA Negative (Normal) Chlamydia by YAJAIRA Negative (Normal) 3-Ugj-263072:12 SED RATE ERYTHROCYTE (09199) Comments: PATIENT NOT FASTINGPERFORMED BY: LabUniversity [facility]6370 [facility] [id number] Sedimentation Rate-Westergren 2 mm/h (Normal) Range: 0-15 1-Xfc-865549:12 C-REACTIVE PROTEIN (10565) Comments: PATIENT NOT FASTINGPERFORMED BY: LabUniversity [facility]6370 [facility] [id number] C-Reactive Protein, Quant 0.3 mg/L (Normal) Range: 0.0-4.9 4-Opu-296609:12 METABOLIC PANEL, COMPREHENSIVE Comments: PATIENT NOT FASTINGPERFORMED BY: LabUniversity [facility]6370 [facility] [id number] (65374) ALT (SGPT) 14 [iU]/L (Normal) Range: 0-44 [...] mg/dL (Normal) Range: 65-99 15-Feb-20168:23 Throat Culture (73311) Comments: PATIENT NOT FASTINGPERFORMED BY: LabHivelyMatheny Medical and Educational CenterHktujy7414 [facility] [id number] Information: SRC: Result 1 RRF (Normal) Comments: Routine respiratory armida Upper Respiratory Culture Final report (Normal) 15-Feb-20168:08 Rapid Strep Test, Office (35599) Rapid Strep Test, Office Negative (Normal) 88-Ldi-786716:15 CBC, Platelets & Auto Comments: PATIENT NOT FASTINGPERFORMED BY: [facility] Eyohwq3456 [facility] [id number] Information: 036143,Q87218 Diff (99790) Immature Grans (Abs) 0.0 {x10E3/uL} (Normal) Range: [...] 4.14-5.80 WBC 8.8 {x10E3/uL} (Normal) Range: 3.4-10.8 79-Ubn-695557:40 CHLAMYDIA TRAC, AMPL, Comments: PATIENT NOT FASTINGPERFORMED BY: [address] [id number] Information: [id number] INFCT ANTIGEN (29135) Please note: SPRCS (Normal) Comments: Acceptable specimens for this test are male urethral swab,endocervical swab and liquid based pap specimens, vaginal swabs inAPTIMA transports and first void urine. See online Directory ofServices for te st number for rectal and pharyngeal specimens. Neisseria gonorrhoeae, Negative (Normal) YAJAIRA Chlamydia trachomatis, Negative (Normal) YAJAIRA 37-Vyg-560263: Chlamydia trachomatis, Negative (Normal) Comments: PATIENT NOT FASTINGPERFORMED BY: [address] [id number] Information: SRC:TH THROAT 27 YAJAIRA 70-Kgn-429106:01 Rapid Strep Test, Office (92226) Rapid Strep Test, Office Negative (Normal) 29-Sic-683659:13 Ct, Ng, Trich vag by Comments: PATIENT NOT FASTINGPERFORMED BY: [address] [id number] Information: SRC:UR URINE YAJAIRA Gonococcus by YAJAIRA Negative (Normal) Trich vag by YAJAIRA Negative (Normal) Chlamydia by YAJAIRA Positive (Abnormal) 07-Dpp-021165:26 URINE JOSIAS CULTURE-SINDHU COL Comments: PATIENT NOT FASTINGPERFORMED BY: [address] [id number] Information: SRC:URC P25090 COUNT (83990) Result 1 NG36 (Normal) Comments: No growth in 36 - 48 hours. Urine Culture,Comprehensive Final report (Normal) 27-Sao-59238:08 Urinalysis, Office (76074) UA - LEUKOCYTE ESTERASE Negative (Normal) UA - NITRITE Negative (Normal) URINE UROBILINGN SINDHU TIMED Normal mg/dL (Normal) UA - PROTEIN Negative mg/dL (Normal) UA - PH 6 (Abnormal) UA - BLOOD Negative (Normal) UA - SPECIFIC GRAVITY 1.025 (Normal) UA - KETONES 15 mg/dL (Abnormal) UA - BILIRUBIN Small (Normal) UA - GLUCOSE Negative (Normal) 1-Xor-331368:38 JOSIAS CULTURE-OTHER (55634) Comments: PATIENT NOT FASTINGPERFORMED BY: Zarbee'sMatheny Medical and Educational CenterGzfocb1103 [facility] [id number] Information: SRC:THRT H80512 Result 1 BETAGB (Abnormal) Comments: Beta hemolytic [...] report (Abnormal) 14-Sep-20149:48 Rapid Strep Test, Office (50399) Rapid Strep Test, Negative (Normal) Office 28-Wlg-027892: Chlamydia trachomatis, Negative (Normal) Comments: PATIENT NOT FASTINGPERFORMED BY: [place] 8498470 [facility] [id number] Information: SRC:UR URINE 16 YAJAIRA 41-Qnl-890660:22 Chlamydia/GC Amplification Comments: PERFORMED BY: [facility] Hrasch7053 [facility] [id number] BY: [address] [id number] Information: SRC:UR Please note: SPRCS (Normal) Comments: [...] Negative (Normal) Comments: PERFORMED BY: CB [facility] Vyozjd2896 [address] [facility] Hospitaljocelyn [place] [id number] BY: BN [facility] Lftllzwbnu2376 [facility] [id number] :22 38-Pdt-986582:40 HPV Genotyping, PCR Comments: PERFORMED BY: TG [facility] QTD4696 [facility]TON [facility] [id number] Information: PENILE HPV By PCR NHV (Normal) [...] HPV Genotyping, PCR will be made non-orderable. [facility] offers test 710802 (HPV In Situ Hybridization) for formalin-fixed, paraffin-embedded tissue. [facility] will offer new test 734247 Human Papillomavirus (HPV) High-risk (marco antonio(R)) With HPV 16 and 18, Rectal Source in ThinPrep(R) containers. 45-Ubt-158892:13 HBsAg Screen Negative (Normal) Comments: PERFORMED BY: [facility]6370 [facility] [id number] 73-Apz-314466:13 Hep B Surface Ab Comments: PERFORMED BY: [facility] [place] [address] [id number] Hep B Surface Ab, Qual Reactive (Normal) Comments: Non Reactive: Inconsistent with immunity, less than 10 mIU/mL Reactive: Consistent with immunity, greater than 9.9 mIU/mL :13 Panel 080317 Comments: PERFORMED BY: [facility]6370 [facility] [id number] HIV 1/O/2 Abs, Non Reactive Qual (Normal) HIV 1/O/2 <1.00 (Normal) Comments: Index Value: Specimen reactivity relative to the negative cutoff. Abs-Index Value : RPR Non Reactive Comments: PERFORMED BY: [facility]6370 [facility] [id number] 13 (Normal) 8-Cuh-115204:36 CBCD ANC 8.4 3/uL (Abnormal) Range: 2.0-7.7 [...] 4.6-6.2 WBC 10.3 {k/mm3} (Normal) Range: 4.4-11.0 2-Oiw-687366:36 CMP GAP 9 (Normal) Range: 5-15 CO2 [...] 7-18 GLU 101 mg/dL (Normal) Range: 70-110 5-Tvu-532766:49 Urinalysis, Office (80859) UA - BILIRUBIN Negative (Normal) UA - [...] Peterson M.D.October 13, 2012 at 7:08:53 PM [phone] Signed PF/PF If you are the referring physician and would like to consult with theradiologist who provided this interpretation, please contact Erasmo Peterson M.D. at [phone]. If this radiologist is unavailable, you will bedirected to another radiologist to linda . If you are a patient with a question regarding this report, pleasecontactyour referring physician directly. Professional Interpretation Provided By: [facility], Phone ,Fax N.B. : The above information [...] or destructionofthese documents. 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 Indication: Right hip pain Right hip [...] right lower quadrant Planned Observations HEPATITIS PANEL (98653)Indication: Screen for STD (sexually transmitted disease) (Renamed from Encounter for screening examination for sexually transmitted disease) On: 1-Izh-911573:57 Request Herpes Simplex 1&2 IGG (27370)Indication: Erectile dysfunction On: 61-Fuk-116659:11 Request WET MOUNT (75666)-first am urine for trichIndication: Screen for STD (sexually transmitted disease) (Renamed from Encounter for screening examination for sexually transmitted disease) On: 56-Mqt-289610:16 Request GONORRHEA by urine (71096)Indication: Screen for STD (sexually transmitted disease) (Renamed from Encounter for screening examination for sexually transmitted disease) On: 13-Nhb-756294:16 Request URINE JOSIAS CULTURE-IDENTIFICATN (63791)Indication: Screen for STD (sexually transmitted disease) (Renamed from Encounter for screening examination for sexually transmitted disease) On: 10-Yme-117213:11 Request URINALYSIS ([id number])Indication: Screen for STD (sexually transmitted disease) (Renamed from Encounter for screening examination for sexually transmitted disease) On: 24-Abz-981848:11 Request WET MOUNT (89384)-first am urine for trichIndication: Screen for STD (sexually transmitted disease) (Renamed from Encounter for screening examination for sexually transmitted disease) On: 22-Mga-623340:10 Request GONORRHEA by urine (89289)Indication: Screen for STD (sexually transmitted disease) (Renamed from Encounter for screening examination for sexually transmitted disease) On: 07-Upm-430188:10 Request CHLAMYDIA by urine (16868)Indication: Screen for STD (sexually transmitted disease) (Renamed from Encounter for screening examination for sexually transmitted disease) On: 05-Yrn-529621:10 Request CHLAMYDIA TRAC, AMPL, INFCT ANTIGEN ([id number])Indication: Penis pain On: 41-Umd-309056:44 Request URINE JOSIAS CULTURE-IDENTIFICATN (13928)Indication: Screen for STD (sexually transmitted disease) (Renamed from Encounter for screening examination for sexually transmitted disease) On: 21-Vfp-035056:03 Request WET MOUNT (85047)-first am urine for trichIndication: Screen for STD (sexually transmitted disease) (Renamed from Encounter for screening examination for sexually transmitted disease) On: 16-Hja-634497:00 Request GONORRHEA by urine (94489)Indication: Screen for STD (sexually transmitted disease) (Renamed from Encounter for screening examination for sexually transmitted disease) On: 80-Bch-426595:00 Request CHLAMYDIA by urine (06274)Indication: Screen for STD (sexually transmitted disease) (Renamed from Encounter for screening examination for sexually transmitted disease) On: 95-Fui-233168:00 Request Aerobic Bacterial Culture (99969)Indication: Screen for STD (sexually transmitted disease) (Renamed from Encounter for screening examination for sexually transmitted disease) On: 15-Klt-302016:10 Request Comments: penile WET MOUNT (00955)-first am urine for trichIndication: Screen for STD (sexually transmitted disease) (Renamed from Encounter for screening examination for sexually transmitted disease) On: 15-Vhc-490190:56 Request GONORRHEA by urine (51744)Indication: Screen for STD (sexually transmitted disease) (Renamed from Encounter for screening examination for sexually transmitted disease) On: 64-Gdw-209673:55 Request Urinalysis, Office (25137)Indication: Urinary hesitancy On: 23-Krl-926537:[address],NG,TV (Chlamydia, Gonorrhea, Trichomonas) (78852)Indication: History of chlamydia On: 69-Ccm-767713:17 Request VITAMIN B12 AND FOLATES (96295)Indication: Abnormal blood chemistry On: 68-Avk-657497:49 Request CALCIFEDIOL (57566)Indication: Abnormal blood chemistry On: :49 Request TSH (80887)Indication: Abnormal blood chemistry On: :49 Request Metabolic Panel, Comprehensive (10826)Indication: Abnormal blood chemistry On: 95-Tok-109751:49 Request MONOSPOT TEST ([id number])Indication: Immunocompromised On: 4-Itz-606829:49 Request EBV Panel ([id number])Indication: Immunocompromised On: 4-Yru-822645:49 Request SMEAR+INTERP ROUTN STAIN (07213)Indication: Immunocompromised On: 5-Jgq-868867:49 Request CBC, Platelets & Auto Diff (32890)Indication: Immunocompromised On: 7-Glr-332913:48 Request CHLAMYDIA by urine (68790)Indication: Screen for STD (sexually transmitted disease) (Renamed from Encounter for screening examination for sexually transmitted disease) On: 10-Qfw-724968:26 Request WET MOUNT (75349)-first am urine for trichIndication: Screen for STD (sexually transmitted disease) (Renamed from Encounter for screening examination for sexually transmitted disease) On: :39 Request GONORRHEA by urine (91877)Indication: Screen for STD (sexually transmitted disease) (Renamed from Encounter for screening examination for sexually transmitted disease) On: :39 Request CHLAMYDIA by urine (19240)Indication: Screen for STD (sexually transmitted disease) (Renamed from Encounter for screening examination for sexually transmitted disease) On: :39 Request CHLAMYDIA TRAC, AMPL, INFCT ANTIGEN (82302)Indication: Chlamydia infection On: :57 Request HEPATITIS C ANTIBODY (39633)Indication: Possible exposure to STD On: 96-Nhq-089897:05 Request Comments: now and in six months (approximately) HEPATITIS B SURFACE ANTIGEN (71043)Indication: Possible exposure to STD On: 16-Mqj-791541:05 Request Comments: now and in six months (approximately) HIV-1 ANTIBODY (64983)Indication: Possible exposure to STD On: 92-Mom-423278:05 Request Comments: now and in six months (approximately) HPV Comprehensive (03824)Indication: Possible exposure to STD On: 43-Cym-745471:45 Request Comments: male penile swab RPR (RAPID PLASMA REAGIN) ([id number])Indication: Possible exposure to STD On: 91-Byr-203022:43 Request WET MOUNT (77738) (trich for men first am urine)Indication: Possible exposure to STD On: 93-Ywa-342891:43 Request CHLAMYDIA BY URINE (39658)Indication: Possible exposure to STD On: 81-Eau-638472:43 Request GONORRHEA BY URINE ([id number])Indication: Possible exposure to STD On: :43 Request CBC, Platelets & Auto Diff (47390)Indication: Abdominal pain, acute, right lower quadrant On: 0-Feg-193798:51 Request Comments: stat Metabolic Panel, Comprehensive (98229)Indication: Abdominal pain, acute, right lower quadrant On: 5-Ppf-144417:49 Request Planned Procedures MR ARTHROGRAM RT HIP ([id number])By: On: 13-Jan-2018 Intent Delmis Alvarado DO, DO, Kathleen Holter Monitor 24 hrsBy: Vikas On: 23-Sep-2017 Intent Leila MIRANDA E Echo CompleteBy: Leila Bean CNP On: 23-Sep-2017 Intent Ann-Marie ELECTROCARDIOGRAM, COMPLETE (ECG) On: 23-Sep-2017 Intent ([id number])By: Leila Bean CNP Ultrasound - TesticularBy: On: 24-Aug-2017 Intent Lesley Yeh Comments: attention to left testicle. PHYSICAL THERAPY ([id number])By: On: 21-May-2017 Intent Lesley Yeh Radiology - Hip - RightBy: On: 21-May-[address] - Abdomen & Pelvis (IV On: 01-Sep-2016 Intent Contrast Needed)By: Lesley Yeh Ultrasound - TesticularBy: On: 01-Sep-[address] SCAN OF NECK TISSUE WITH On: 17-Mar-2016 Intent CONTRAST ([id number])By: Delmis Alvarado DO, DO, Kathleen SPECIMEN HNDLNG/TRNSPRT, OFFC > On: 14-Sep-2014 Intent LAB ([id number])By: Quin JONES, Kylah Villalta Rocephin Injection, 2 Gram On: 24-Feb-2013 Intent ([id number])By: Mora Silverman LPN Comments: Lot #[id number] and L hip - split in 2Dose-prefilled syringegiven by:JENNIFER Molina signed CT - Abdomen & PelvisBy: Vikas On: 13-Oct-2012 Intent RUBENLeila Comments: rule out appendiciitis stat call wet read to [facility] Dr. 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 Onset was month(s) ago. Th End: 01-Sep-2016 17:10 e symptoms occur intermittently. [...] patient are screening, colonoscopy (September 15 2014 [facility]Encounter Diagnosis: Crohn's disease (Renamed from CD [...]
--- OUTSIDE RECORDS SUMMARY | 2018-05-03 20:30 | XMS RPT_ITS | Continuity of Care Document ---
:1990 Author Organization [facility] Address [address] [facility] [address] [place] [address] Phone Care Team Providers Name Role Phone Delmis Alvarado DO Unavailable Rosa Mishra MD Unavailable [facility], [facility] Unavailable Juaquin JONES, Guera Villalta Unavailable Blayne Harris Unavailable Gravius, Kathleen Unavailable Unavailable Nelda Day Unavailable Unavailable Slarb ELECTRIC SHAVER MECHANIC, Lindsay Unavailable Unavailable Long ELECTRIC SHAVER MECHANIC, Mora L Unavailable Unavailable Unavailable Unavailable Problems Name Dates Details Abnormal EKG (R94.31, 794.31) Status: Active Acute epididymitis (N45.1, 604.99) Status: Active Acute sinusitis, unspecified (Renamed from Acute sinusitis) (J01.90, 461.9) Status: Active BMI 28.0-28.9,adult (Z68.28, V85.24) Status: Active Chest pain (R07.9, 786.50) Comments: ? cardio vs Reflux vs musculoskeletal Status: Active Crohn's disease (Renamed from CD (Crohn's disease)) (K50.90, 555.9) Comments: both missael and willem, Sees Dr. Quevedo in [place], [facility] Status: Active Current smoker (F17.200, 305.1) Status: [...] days Quantity: 6 {Ounce} Refills: 0 Ordered:16-Jan-2016 Lindsay Figueroa LPN Start : 03-Oct-2015 End : 16-Jan-2016 Discontinued Comments:Medication taken as needed. Ciprofloxacin HCl 500 MG Oral Tablet 1 (one) Tablet bid for 0 days Quantity: 20 {Tablet} Refills: 0 Ordered:08-Aug-2016 Lindsay Figueroa LPN Start : 02-Jun-2016 End : 08-Aug-2016 Discontinued [...] of 28-Oct-2016 BMI 27.0-27.9,adult (Z68.27, V85.23) Status: Inactive as of 30-Dec-2016 BMI 27.0-27.9,adult (Z68.27, V85.23) Status: Resolved as of 07-Dec-2017 BMI 28.0-28.9,adult (Z68.28, V85.24) Status: Inactive as of 30-Dec-2016 BMI 29.0-29.9,adult (Z68.29, V85.25) Status: Resolved as of 07-Dec-2017 Chlamydia infection (A74.9, 079.98) Comments: treated. reveiwed [...] Comments: 09-15-2014 d/t Chron's Date Value Details 29-Sep-2017 Echocardiogram Complete Result: Comments: See Note; NOTES: [facility] Cardiovascular Services [address] [place] [address] Echo Complete 09/29/17 1301 MR#: [id number] Acct: [id number] Name: MARIO GOMEZ Rep #: [id number] : 1990 27 From: Rajiv Kumar MD Attending Dr: Leila Bean NP Status: REG CLI Ordering Dr: Leila Bean Date: 09/29/17 Location: [facility] Sex: M C Admitted: Reason For Study [...] Doppler Measurements AND Calculations MV E max jack: 64.1 cm/sec Lat Peak E' Jack: 20.6 cm/sec Med Peak E' Jack: 11.4 cm/sec MV A max jack: 42.4 cm/sec E/E' lat: 3.1 E/E' med: [...] Date Rajiv Kumar MD CC: Leila Bean CONTRACT ASSISTANT; Delmis Alvarado DO Date Dictated: 09/29/17 1301 Date Transcr ibed: 09/29/17 1507 Research And Development Engineer: Signed 27-Aug-2017 Testicular with Arterial Flow Result: Comments: See Note; NOTES: [facility] Imaging Services [address] [place] [address] Testicular with Arterial Flow MR#: [id number] Acct: [id number] Name: MARIO GOMEZ Naman Fajardo p #: [id number] : 1990 M 27 From: Alfa Alcala MD PCP: Delmis Alvarado DO Status: REG CLI Study: Testicular with Arterial Flow Date of Exam: 08/27/17 Exam# [id number] Ordering Dr: Lesley Varma CONTRACT ASSISTANT-C STUDY: SCROTUM ULTRASOUND REASON FOR EXAM: Male, [...] Fax CC: YANETH Yeh; Delmis Alvarado DO Research And Development Engineer: Signed 21-May-2017 Hip 2-3 Views with Pelvis Result: Comments: See Note; NOTES: [facility] Imaging Services [address] [place] [address] Hip 2-3 Views with Pelvis MR#: [id number] Acct: [id number] Name: MARIO GOMEZ Rep #: [id number] : 1990 M 26 From: Albin Singh MD PCP: Delmis Alvarado DO Status: REG CLI Study: Hip 2-3 Views with Pelvis Date of Exam: 05/21/17 Exam# [id number] Ordering Dr: Lesley Yeh PCristina STUDY: X-RAY [...] Singh MD at 15:1 3 EDT Tel [phone], Service support , CC: YANETH Yeh; Delmis Alvarado DO Research And Development Engineer: Signed 09-Sep-2016 Abdomen/Pelvis WITH Contrast Result: Comments: See Note; NOTES: [facility] Imaging Services [address] [place] [address] Verdana 4d Abdomen/Pelvis WITH Contrast MR#: [id number] Acct: [id number] Name: KEVIN GOMEZ Rep #: [id number] : 1990 26 From: Radhika Mckeon MD PCP: Delmis Alvarado DO Status: REG CLI Study: Abdomen/Pelvis WITH Contrast Date of Exam: 09/09/16 Exam# [id number] Ordering Dr: Delmis El DO STUDY: CT [...] Radhika Mckeon MD at 1:28 EDT Tel [phone], Service support , CC: Delmis Alvarado DO Research And Development Engineer: Signed 04-Sep-2016 Testicular with Arterial Flow Result: Comments: See Note; NOTES: [facility] Imaging Services [address] [place] [address] Verdana 4d Testicular with Arterial Flow MR#: [id number] Acct: [id number] Name: CHICA GOMZE Rep #: [id number] : 1990 M 26 From: Josiah Murdock MD PCP: Delmis Alvarado DO Status: REG CLI Study: Testicular with Arterial Flow Date of Exam: 09/04/16 Exam# [id number] Ordering Dr: Lesley Vidal CONTRACT ASSISTANT-C STUDY: SCROTUM ULTRASOUND REASON FOR EXAM: Male, [...] , CC: Lesley Yeh; Delmis Alvarado DO Research And Development Engineer: Signed 24-Mar-2016 Soft Tissue Neck WITH Contrast Result: Comments: See Note; NOTES: [facility] Imaging Services [address] [place] [address] Verdana 4d Soft Tissue Neck WITH Contrast MR#: [id number] Acct: [id number] Name: СЕРГЕЙ GOMEZ Rep #: [id number] : 1990 M 25 From: Albin Singh MD PCP: Delmis Alvarado DO Status: REG CLI Study: Soft Tissue Neck WITH Contrast Date of Exam: 03/24/16 Exam# [id number] Ordering Dr: Delmis Alvarado DO STUDY: CT [...] FINDINGS: Normal bilateral parotid glands. Normal bilateral industrial manufacturing technician spaces. Normal bilateral parapharyngeal spaces. 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 Status: Active Living Situation Comments: single lives with father Status: Active No Caffeine Use Status: Active No Drug Use Status: Active Non Smoker/No Tobacco Use Status: Active Tobacco Use Comments: very rarely, socially Status: Active Vital Signs Date Test Result Details :11 Temperature 99.3 f Comments: Method: Temporal [...] 2.19 m2 Results Date Description Value Details :40 TSH (35896) Comments: PATIENT NOT FASTINGPERFORMED BY: [facility] [facility] [id number] TSH 1.630 {uIU/mL} (Normal) Range: 0.450-4.500 59-Buf-911096:40 CBC, Platelets & Auto Diff Comments: PATIENT NOT FASTINGPERFORMED BY: [facility] [facility] [id number] (52643) Immature Grans (Abs) 0.0 {x10E3/uL} (Normal) Range: [...] 4.14-5.80 WBC 7.9 {x10E3/uL} (Normal) Range: 3.4-10.8 83-Kts-315587:40 Metabolic Panel, Comprehensive Comments: PATIENT NOT FASTINGPERFORMED BY: [facility]CoR[facility] HealthCareBhifrg6458 [facility] [id number] (94645) ALT (SGPT) 11 [iU]/L (Normal) Range: 0-44 [...] 6-20 Glucose 89 mg/dL (Normal) Range: 65-99 69-Hhl-81579:57 TRICHOMONAS VAGINALIS W[facility]/PCR Comments: [facility] [address] [place], [address] TV RESULT Negative (Normal) 64-Tpc-241601:59 URINE JOSIAS CULTURE-IDENTIFICATN Comments: PATIENT NOT FASTINGPERFORMED BY: [facility]CoR[facility] HealthCareQskmgz8091 [facility] [id number] Information: [id number] (82882) Result 1 NG36 (Normal) Comments: No growth in 36 - 48 hours. Urine Culture,Comprehensive Final report (Normal) 43-Tjv-388920:17 URINALYSIS (62069) URINALYSIS normal (Normal) Comments: GLU: NegBIL:SmallKet;NegaSG>=1.030Blo: NegpH6.0PRO:30mg/dLURO: normalNit:negLeu:neg 40-Jvo-645716:00 CHLAMYDIA by urine Comments: PATIENT NOT FASTINGPERFORMED BY: =[employer] [id number] Information: [id number] (03992) Neisseria gonorrhoeae, YAJAIRA Negative (Normal) Chlamydia trachomatis, YAJAIRA Negative (Normal) 27-Wca-123812:14 URINALYSIS (03939) Comments: PERFORMED BY: [facility] [id number] Microscopic Examination MICNIP (Normal) Comments: Microscopic not indicated and not performed. Nitrite, Urine Negative (Normal) Urobilinogen,Semi-Qn 0.2 mg/dL (Normal) Range: 0.2-1.0 Bilirubin Negative (Normal) Occult Blood Negative (Normal) Ketones Trace (Abnormal) Glucose Negative (Normal) Protein Negative (Normal) WBC Esterase Negative (Normal) Appearance Clear (Normal) Urine-Color Yellow (Normal) pH 5.0 (Normal) Range: 5.0-7.5 Specific [place] 1.029 (Normal) Range: 1.005-1.030 92-Caa-284776:25 Chlamydia/GC Amplification Comments: PATIENT NOT FASTINGPERFORMED BY: [employer]6370 [facility] [facility] [id number] BY: =[employer] [id number] Neisseria gonorrhoeae, YAJAIRA Negative (Normal) Chlamydia trachomatis, YAJAIRA Negative (Normal) 23-Pai-152833:25 Urinalysis, Routine Comments: PATIENT NOT FASTINGPERFORMED BY: [employer] Garrett [facility] [id number] BY: =[employer] [id number] Inf ormation: SRC:UR SRC:UC Microscopic Examination MICNIP (Normal) Comments: Microscopic not indicated and not performed. Nitrite, Urine Negative (Normal) Urobilinogen,Semi-Qn 0.2 mg/dL (Normal) Range: 0.2-1.0 Bilirubin Negative (Normal) Occult Blood Negative (Normal) Ketones Trace (Abnormal) Glucose Negative (Normal) Protein Negative (Normal) WBC Esterase Negative (Normal) Appearance Clear (Normal) Urine-Color Yellow (Normal) pH 5.0 (Normal) Range: 5.0-7.5 Specific [place] 1.028 (Normal) Range: 1.005-1.030 06-Ngb-436231:25 Urine Culture,Comprehensive Comments: PATIENT NOT FASTINGPERFORMED BY: [employer]70 [facility] [id number] BY: =G LabTradeo[address] [place] [address] [id number] Result 1 NG36 (Normal) Comments: No growth in 36 - 48 hours. Urine Culture,Comprehensive Final report (Normal) 34-Ayg-690544:21 Ct, Ng, Trich vag by Comments: PATIENT NOT FASTINGPERFORMED BY: =G LabBuscapérp [address] [place] [address] [id number] BY: [employer] Gorzde3966 [facility] [id number] Inf ormation: J0 YAJAIRA 3378 SRC:UR SRC:UR Trich vag by YAJAIRA Negative (Normal) Gonococcus by YAJAIRA Negative (Normal) Chlamydia by YAJAIRA Negative (Normal) 33-Tmx-101134:21 Urine Culture,Comprehensive Comments: PATIENT NOT FASTINGPERFORMED BY: =G LabBuscapérp Nbochwphue085 [facility] [id number] BY: [employer] Tqbgjy4610 [facility]Saint [facility] [id number] Result 1 NG36 (Normal) Comments: No growth in 36 - 48 hours. Urine Culture,Comprehensive Final report (Normal) 36-Ens-584649:02 Urinalysis, Office (34395) UA - LEUKOCYTE ESTERASE Negative (Normal) UA - NITRITE Negative (Normal) URINE UROBILINGN SINDHU Normal mg/dL TIMED (Normal) UA - PROTEIN Negative mg/dL (Normal) UA - PH 6 (Abnormal) UA - BLOOD Negative (Normal) UA - SPECIFIC GRAVITY 1.025 (Normal) UA - KETONES Negative mg/dL (Normal) UA - BILIRUBIN Negative (Normal) UA - GLUCOSE Negative (Normal) 25-Adx-37003: Trich vag by YAJAIRA Negative (Normal) Comments: PATIENT NOT FASTINGPERFORMED BY: = [employer] [id number] Information: URINE SRC:UR 21 29-Mek-94924:24 CHLAMYDIA by urine Comments: PATIENT NOT FASTINGPERFORMED BY: [employer] NowMegan [place] 9004370 [facility] [id number] Information: SRC:PN (10548) Neisseria gonorrhoeae, YAJAIRA Negative (Normal) Chlamydia trachomatis, YAJAIRA Negative (Normal) 84-Nxa-259459:18 METABOLIC PANEL, COMPREHENSIVE Comments: PATIENT NOT FASTINGPERFORMED BY: [employer] CorporationJohn [place] 4000270 [facility] [id number] (55974) ALT (SGPT) 11 [iU]/L (Normal) Range: 0-44 [...] Glucose, Serum 104 mg/dL (Abnormal) Range: 65-99 99-Dzg-514799:35 URINE JOSIAS CULTURE-IDENTIFICATN Comments: PATIENT NOT FASTINGPERFORMED BY: [employer] CorporationRutgers - University Behavioral HealthCareDdotgp[address] [place] [address] [id number] Information: SRC:UC (20982) Result 1 MUG (Normal) Comments: Mixed urogenital flora10,000-25,000 colony forming units per mL Urine Final report (Normal) Culture,Comprehensive 91-Htx-943100:39 CHLAMYDIA TRAC, AMPL, Comments: PATIENT NOT FASTINGPERFORMED BY: [employer] [facility] [facility] [id number] Information: SRC:UR INFCT ANTIGEN (93473) Neisseria gonorrhoeae, YAJAIRA Negative (Normal) Chlamydia trachomatis, YAJAIRA Negative (Normal) 08-Oue-293079:44 Urinalysis, Office (64483) UA - LEUKOCYTE ESTERASE Negative (Normal) UA - NITRITE Negative (Normal) URINE UROBILINGN SINDHU TIMED Normal mg/dL (Normal) UA - PROTEIN Negative mg/dL (Normal) UA - PH 6 (Abnormal) UA - BLOOD Negative (Normal) UA - SPECIFIC GRAVITY 1.030 (Abnormal) UA - KETONES Negative mg/dL (Normal) UA - BILIRUBIN Negative (Normal) UA - GLUCOSE Negative (Normal) 2-Wyf-412224:21 CT,NG,TV (Chlamydia, Comments: PATIENT NOT FASTINGPERFORMED BY: = [employer] [id number] Information: SRC:UR Gonorrhea, Trichomonas) (00676) Trich vag by YAJAIRA Negative (Normal) Gonococcus by YAJAIRA Negative (Normal) Chlamydia by YAJAIRA Negative (Normal) 1-Bsd-580796:12 SED RATE ERYTHROCYTE (44081) Comments: PATIENT NOT FASTINGPERFORMED BY: [facility] [facility] [id number] Sedimentation Rate-Westergren 2 mm/h (Normal) Range: 0-15 3-Rrt-504015:12 C-REACTIVE PROTEIN (27220) Comments: PATIENT NOT FASTINGPERFORMED BY: [facility] [facility] [id number] C-Reactive Protein, Quant 0.3 mg/L (Normal) Range: 0.0-4.9 5-Rlm-818795:12 METABOLIC PANEL, COMPREHENSIVE Comments: PATIENT NOT FASTINGPERFORMED BY: [facility] [facility] [id number] (13656) ALT (SGPT) 14 [iU]/L (Normal) Range: 0-44 [...] Glucose, Serum 86 mg/dL (Normal) Range: 65-99 6-David-41128:23 Throat Culture (20589) Comments: PATIENT NOT FASTINGPERFORMED BY: [facility]6[address] [facility] [id number] Information: SRC:TH Result 1 RRF (Normal) Comments: Routine respiratory armida Upper Respiratory Culture Final report (Normal) 15-Feb-20168:08 Rapid Strep Test, Office (08777) Rapid Strep Test, Office Negative (Normal) 65-Wox-764829:15 CBC, Platelets & Auto Comments: PATIENT NOT FASTINGPERFORMED BY: [facility]CoR[facility] HealthCareMftqll1883 [facility] [id number] Information: [id number],R55973 Diff (18962) Immature Grans (Abs) 0.0 {x10E3/uL} (Normal) Range: [...] 4.14-5.80 WBC 8.8 {x10E3/uL} (Normal) Range: 3.4-10.8 96-Sjx-573630:40 CHLAMYDIA TRAC, AMPL, Comments: PATIENT NOT FASTINGPERFORMED BY: [place] 0957270 [facility] [id number] Information: [id number] INFCT ANTIGEN (11688) Please note: SPRCS (Normal) Comments: Acceptable specimens for this test are male urethral swab,endocervical swab and liquid based pap specimens, vaginal swabs inAPTIMA transports and first void urine. See online Directory ofServices for te st number for rectal and pharyngeal specimens. Neisseria gonorrhoeae, Negative (Normal) YAJAIRA Chlamydia trachomatis, Negative (Normal) YAJAIRA 77-Ikw-917574: Chlamydia trachomatis, Negative (Normal) Comments: PATIENT NOT FASTINGPERFORMED BY: [address] [id number] Information: SRC:TH THROAT 27 YAJAIRA 77-Ane-960731:01 Rapid Strep Test, Office (64055) Rapid Strep Test, Office Negative (Normal) 57-Iue-045672:13 Ct, Ng, Trich vag by Comments: PATIENT NOT FASTINGPERFORMED BY: [address] [id number] Information: SRC:UR URINE YAJAIRA Gonococcus by YAJAIRA Negative (Normal) Trich vag by YAJAIRA Negative (Normal) Chlamydia by YAJAIRA Positive (Abnormal) 79-Dui-177286:26 URINE JOSIAS CULTURE-SINDHU COL Comments: PATIENT NOT FASTINGPERFORMED BY: [address] [id number] Information: SRC:URC [id number] COUNT (41668) Result 1 NG36 (Normal) Comments: No growth in 36 - 48 hours. Urine Culture,Comprehensive Final report (Normal) 78-Bcm-89596:08 Urinalysis, Office (47634) UA - LEUKOCYTE ESTERASE Negative (Normal) UA - NITRITE Negative (Normal) URINE UROBILINGN SINDHU TIMED Normal mg/dL (Normal) UA - PROTEIN Negative mg/dL (Normal) UA - PH 6 (Abnormal) UA - BLOOD Negative (Normal) UA - SPECIFIC GRAVITY 1.025 (Normal) UA - KETONES 15 mg/dL (Abnormal) UA - BILIRUBIN Small (Normal) UA - GLUCOSE Negative (Normal) 2-Uoa-002599:38 JOSIAS CULTURE-OTHER (30746) Comments: PATIENT NOT FASTINGPERFORMED BY: [employer] [id number] Information: SRC:THRT [id number] Result 1 BETAGB (Abnormal) Comments: Beta hemolytic [...] been reportedfor Streptococcus pyogenes (group A). (CLSI 2010) Upper Respiratory Culture Final report (Abnormal) 14-Sep-20149:48 Rapid Strep Test, Office (65717) Rapid Strep Test, Negative (Normal) Office 70-Juq-487237: Chlamydia trachomatis, Negative (Normal) Comments: PATIENT NOT FASTINGPERFORMED BY: [employer] NowL[facility] Sniptj[address] [id number] Information: SRC:UR URINE 16 YAJAIRA 61-Uli-213842:22 Chlamydia/GC Amplification Comments: PERFORMED BY: [employer] Odlscb[address] [place] [address] [id number] BY: [address] [id number] Information: SRC:UR Please note: SPRCS (Normal) Comments: [...] by YAJAIRA Negative (Normal) Comments: PERFORMED BY: [employer] [id number] BY: [address] [id number] :22 14-Heh-038049:40 HPV Genotyping, PCR Comments: PERFORMED BY: [employer] QEK35[address] [place] [id number] Information: PENILE HPV By PCR NHV (Normal) [...] HPV Genotyping, PCR will be made non-orderable. [employer] offers test 462125 (HPV In Situ Hybridization) for formalin-fixed, paraffin-embedded tissue. [facility] will offer new test 658034 Human Papillomavirus (HPV) High-risk (marco antonio(R)) With HPV 16 and 18, Rectal Source in ThinPrep(R) containers. :13 HBsAg Screen Negative (Normal) Comments: PERFORMED BY: [address] [id number] :13 Hep B Surface Ab Comments: PERFORMED BY: [address] [id number] Hep B Surface Ab, Qual Reactive (Normal) Comments: Non Reactive: Inconsistent with immunity, less than 10 mIU/mL Reactive: Consistent with immunity, greater than 9.9 mIU/mL :13 Panel 724898 Comments: PERFORMED BY: [address] [id number] HIV 1/O/2 Abs, Non Reactive Qual (Normal) HIV 1/O/2 <1.00 (Normal) Comments: Index Value: Specimen reactivity relative to the negative cutoff. Abs-Index Value : RPR Non Reactive Comments: PERFORMED BY: [address] [id number] 13 (Normal) 3-Tiu-219070:36 CBCD ANC 8.4 3/uL (Abnormal) Range: 2.0-7.7 [...] 4.6-6.2 WBC 10.3 {k/mm3} (Normal) Range: 4.4-11.0 :36 CMP GAP 9 (Normal) Range: 5-15 CO2 [...] mg/dL (Normal) Range: 70-110 :49 Urinalysis, Office (43364) UA - BILIRUBIN Negative (Normal) UA - [...] Peterson M.D.October 13, 2012 at 7:08:53 PM [id number] Signed PF/PF If you are the referring physician and would like to consult with theradiologist who provided this interpretation, please contact Erasmo Peterson M.D. at [phone]. If this radiologist is unavailable, you will bedirected to another radiologist to [facility]. If you are a patient with a question regarding this report, pleasecontactyour referring physician directly. Professional Interpretation Provided By: [employer], Phone ,Fax N.B. : The above information [...] Details Instructions Right hip pain : Reviewed Diagnostic Tests [...] pain, acute, right lower quadrant Planned Observations RPR (RAPID PLASMA REAGIN) (64542)Indication: Erectile dysfunction On: 89-Nok-357743:11 Request Herpes Simplex 1&2 IGM (64209)Indication: Erectile dysfunction On: 12-Nkw-763046:11 Request Herpes Simplex 1&2 IGG (24701)Indication: Erectile dysfunction On: 88-Faq-906482:[address],NG,TV (Chlamydia, Gonorrhea, Trichomonas) (98795)Indication: Erectile dysfunction On: 44-Bwt-285422:10 Request WET MOUNT (82996)-first am urine for trichIndication: Screen for STD (sexually transmitted disease) (Renamed from Encounter for screening examination for sexually transmitted disease) On: 04-Clm-872182:16 Request GONORRHEA by urine (69194)Indication: Screen for STD (sexually transmitted disease) (Renamed from Encounter for screening examination for sexually transmitted disease) On: 67-Ypz-867678:16 Request URINE JOSIAS CULTURE-IDENTIFICATN (36874)Indication: Screen for STD (sexually transmitted disease) (Renamed from Encounter for screening examination for sexually transmitted disease) On: 81-Ruw-616335:11 Request URINALYSIS (40781)Indication: Screen for STD (sexually transmitted disease) (Renamed from Encounter for screening examination for sexually transmitted disease) On: 26-Aba-107402:11 Request WET MOUNT (19086)-first am urine for trichIndication: Screen for STD (sexually transmitted disease) (Renamed from Encounter for screening examination for sexually transmitted disease) On: 95-Vdh-019564:10 Request GONORRHEA by urine (53766)Indication: Screen for STD (sexually transmitted disease) (Renamed from Encounter for screening examination for sexually transmitted disease) On: 43-Glh-466769:10 Request CHLAMYDIA by urine (28302)Indication: Screen for STD (sexually transmitted disease) (Renamed from Encounter for screening examination for sexually transmitted disease) On: 86-Hbr-267536:10 Request CHLAMYDIA TRAC, AMPL, INFCT ANTIGEN (78387)Indication: Penis pain On: 80-Rpj-695983:44 Request URINE JOSIAS CULTURE-IDENTIFICATN (55805)Indication: Screen for STD (sexually transmitted disease) (Renamed from Encounter for screening examination for sexually transmitted disease) On: 17-Pjg-231065:03 Request WET MOUNT (02011)-first am urine for trichIndication: Screen for STD (sexually transmitted disease) (Renamed from Encounter for screening examination for sexually transmitted disease) On: 34-Gtw-842431:00 Request GONORRHEA by urine (98023)Indication: Screen for STD (sexually transmitted disease) (Renamed from Encounter for screening examination for sexually transmitted disease) On: 34-Gfa-899385:00 Request CHLAMYDIA by urine (36014)Indication: Screen for STD (sexually transmitted disease) (Renamed from Encounter for screening examination for sexually transmitted disease) On: 61-Dzg-563734:00 Request Aerobic Bacterial Culture (79973)Indication: Screen for STD (sexually transmitted disease) (Renamed from Encounter for screening examination for sexually transmitted disease) On: 43-Tda-601561:10 Request Comments: penile WET MOUNT (07817)-first am urine for trichIndication: Screen for STD (sexually transmitted disease) (Renamed from Encounter for screening examination for sexually transmitted disease) On: 49-Fhf-870036:56 Request GONORRHEA by urine (35364)Indication: Screen for STD (sexually transmitted disease) (Renamed from Encounter for screening examination for sexually transmitted disease) On: :55 Request Urinalysis, Office (17372)Indication: Urinary hesitancy On: :[address],NG,TV (Chlamydia, Gonorrhea, Trichomonas) (14449)Indication: History of chlamydia On: :17 Request VITAMIN B12 AND FOLATES (40237)Indication: Abnormal blood chemistry On: :49 Request CALCIFEDIOL ([id number])Indication: Abnormal blood chemistry On: :49 Request TSH ([id number])Indication: Abnormal blood chemistry On: :49 Request Metabolic Panel, Comprehensive ([id number])Indication: Abnormal blood chemistry On: :49 Request MONOSPOT TEST ([id number])Indication: Immunocompromised On: :49 Request EBV Panel ([id number])Indication: Immunocompromised On: 4-Gyr-309715:49 Request SMEAR+INTERP ROUTN STAIN ([id number])Indication: Immunocompromised On: :49 Request CBC, Platelets & Auto Diff ([id number])Indication: Immunocompromised On: 6-Dzj-993295:48 Request CHLAMYDIA by urine ([id number])Indication: Screen for STD (sexually transmitted disease) (Renamed from Encounter for screening examination for sexually transmitted disease) On: :26 Request WET MOUNT (87603)-first am urine for trichIndication: Screen for STD (sexually transmitted disease) (Renamed from Encounter for screening examination for sexually transmitted disease) On: :39 Request GONORRHEA by urine ([id number])Indication: Screen for STD (sexually transmitted disease) (Renamed from Encounter for screening examination for sexually transmitted disease) On: :39 Request CHLAMYDIA by urine ([id number])Indication: Screen for STD (sexually transmitted disease) (Renamed from Encounter for screening examination for sexually transmitted disease) On: 25-Uub-58479:39 Request CHLAMYDIA TRAC, AMPL, INFCT ANTIGEN ([id number])Indication: Chlamydia infection On: 93-Sqt-885553:57 Request HEPATITIS C ANTIBODY ([id number])Indication: Possible exposure to STD On: 72-Ibp-890867:05 Request Comments: now and in six months (approximately) HEPATITIS B SURFACE ANTIGEN ([id number])Indication: Possible exposure to STD On: 92-Oqe-033564:05 Request Comments: now and in six months (approximately) HIV-1 ANTIBODY (06071)Indication: Possible exposure to STD On: 03-Nfd-800579:05 Request Comments: now and in six months (approximately) HPV Comprehensive ([id number])Indication: Possible exposure to STD On: 09-Pdk-277840:45 Request Comments: male penile swab RPR (RAPID PLASMA REAGIN) ([id number])Indication: Possible exposure to STD On: 98-Fle-526947:43 Request WET MOUNT (67075) (trich for men first am urine)Indication: Possible exposure to STD On: 27-Chu-452287:43 Request CHLAMYDIA BY URINE ([id number])Indication: Possible exposure to STD On: 63-Ofa-959013:43 Request GONORRHEA BY URINE ([id number])Indication: Possible exposure to STD On: 71-Ykw-256164:43 Request CBC, Platelets & Auto Diff (31240)Indication: Abdominal pain, acute, right lower quadrant On: 4-Kli-710112:51 Request Comments: stat Metabolic Panel, Comprehensive ([id number])Indication: Abdominal pain, acute, right lower quadrant On: 9-Mvq-675239:49 Request Planned Procedures Holter Monitor 24 hrsBy: Vikas On: 23-Sep-2017 Intent Leila MIRANDA Echo CompleteBy: Leila Bean CNP On: 23-Sep-2017 Intent Ann-Marie ELECTROCARDIOGRAM, COMPLETE (ECG) On: 23-Sep-2017 Intent ([id number])By: Leila Bean CNP Ultrasound - TesticularBy: On: 24-Aug-2017 Intent Lesley Yeh Comments: attention to left testicle. PHYSICAL THERAPY ([id number])By: On: 21-May-2017 Intent Lesley Yeh Radiology - Hip - RightBy: On: 21-May-[address] - Abdomen & Pelvis (IV On: 01-Sep-2016 Intent Contrast Needed)By: Lesley Yeh Ultrasound - TesticularBy: On: 01-Sep-[address] SCAN OF NECK TISSUE WITH On: 17-Mar-2016 Intent CONTRAST ([id number])By: Delmis Alvarado DO, DO, Kathleen SPECIMEN HNDLNG/TRNSPRT, OFFC > On: 14-Sep-2014 Intent LAB ([id number])By: Kylah Tsai MD Rocephin Injection, 2 Gram On: 24-Feb-2013 Intent ([id number])By: Mora Silverman LPN Comments: Lot #[id number] and L hip - split in 2Dose-prefilled syringegiven by:JENNIFER Molina signed CT - Abdomen & PelvisBy: Vikas On: 13-Oct-2012 Intent 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 Onset was month(s) ago. Th End: 02-Jun-2016 16:32 e symptoms occur intermittently. [...] are screening, colonoscopy (September 15 2014 [facility] ).Encounter Diagnosis: Crohn's disease (Renamed from CD [...]
--- OUTSIDE RECORDS SUMMARY | 2018-05-03 20:30 | XMS RPT_ITS | Continuity of Care Document ---
:1990 Author Organization [facility] Address [address] [place] [address] Phone Care Team Providers Name Role Phone Delmis Alvarado DO Unavailable Rosa Mishra MD Unavailable [facility], [facility] Unavailable Juaquin JONES, Guera Villalta Unavailable Blayne Harris Unavailable Gravius, Kathleen Unavailable Unavailable Nelda Day Unavailable Unavailable Slarb FLOWERS SALESPERSON, Lindsay Unavailable Unavailable Long FLOWERS SALESPERSON, Mora L Unavailable Unavailable Paula Goodmana Unavailable Unavailable Unavailable Unavailable Problems Name Dates [...] missael and willem, Sees Dr. Quevedo in [place], Gi on [address] Status: Active Current smoker (F17.200, [...] days Quantity: 14 {Capsule} Refills: 0 Ordered:08-Aug-2016 CiLeila lundberg CNP Start : 08-Aug-2016 End : 15-Aug-2016 [...] thrombosed told not better back to GI if alot pain then need ot go [...] Comments: 09-15-2014 d/t Chron's Date Value Details 10-Dec-2017 Inital Evaluation (1) - PT Result: Comments: See Note; NOTES: [facility] Physical Therapy [facility] [address] [place] [address] Fax REHABILITATION SERVICES INITIAL EVALUATION MR#: [id number] Acct: [id number] Name: MARIO GOMEZ Rep #: [id number] : 1990 27 From: Moreno Joseph DPT, OCS, CSCS Referring Dr.: Delmis Alvarado DO Status: REG RCR Insurance : [employer] SELF PAY INSURANCE Patient's Visit Information MARIO GOMEZ is a 27 year old M referred to Physical Therapy by Delmis Alvarado with a diagnosis of R groin pain.. Date of Evaluation: Physical Therapist: Moreno Joseph, CARRI, OC - Visit Plan Frequency: weekly to every other. Duration: 2-4 Weeks Plan: f/u two weeks to check effectiveness of stretches and monitor symptoms. Could benefit from MRI to r/o r/i labral pathology - Subjective Subjective: Should have been here 6 months ago buit thought he could stretch on his own. R groin hurts when planting to cut or take off in [place], sharp pain. Started earlier in the [...] nce high school. Has Crohns. Works at [employer] 56 hours per week. for 2 months. [...] to be FAXED BACK to us at [phone] for Medicare purposes. Please let me know if there are questions or concerns regarding this plan of care. Physician Signature: ____Date: <Electronically signed by Moreno Joseph DPT, OCS, CSCS> 12/10/17 0904 CC: Delmis Alvarado DO EBG Signed For Medicare only, by megan martinez I certify the plan of care. Physicians Signature Date 29-Sep-2017 Echocardiogram Complete Result: Comments: See Note; NOTES: [facility] Cardiovascular Services [address] [place] [address] Echo Complete 09/29/17 1301 MR#: [id number] Acct: [id number] Name: MARIO GOMEZ Rep #: [id number] : 1990 27 From: Rajiv Kumar MD Attending Dr: Leila Bean NP Status: REG CLI Ordering Dr: Leila Bean Date: 09/29/17 Location: [facility] Sex: M C Admitted: Reason For Study [...] Referring Physician: DELMIS ALVARADO Performed By: Amada Velazco RDCS, RVT 09/29/17 1507 Date Rajiv Kumar MD CC: Leila Bean HULLER OPERATOR; Delmis Alvarado DO Date Dictated: 09/29/17 1301 Date Transcr ibed: 09/29/17 1507 Freelance Interpreter/Translator: Signed 27-Aug-2017 Testicular with Arterial Flow Result: Comments: See Note; NOTES: [facility] Imaging Services [address] [place] [address] Testicular with Arterial Flow MR#: [id number] Acct: [id number] Name: MARIO GOMEZ Tana p #: [id number] : 1990 M 27 From: Alfa Alcala MD PCP: Delmis Alvarado DO Status: REG CLI Study: Testicular with Arterial Flow Date of Exam: 08/27/17 Exam# [id number] Ordering Dr: Lesley Varma HULLER OPERATOR-C STUDY: SCROTUM ULTRASOUND REASON FOR EXAM: Male, [...] Fax CC: YANETH Yeh; Delmis Alvarado DO Freelance Interpreter/Translator: Signed 21-May-2017 Hip 2-3 Views with Pelvis Result: Comments: See Note; NOTES: [facility] Imaging Services [address] [place] [address] Hip 2-3 Views with Pelvis MR#: [id number] Acct: [id number] Name: MARIO GOMEZ Rep #: [id number] : 1990 M 26 From: Albin Singh MD PCP: Delmis Alvarado DO Status: REG CLI Study: Hip 2-3 Views with Pelvis Date of Exam: 05/21/17 Exam# [id number] Ordering Dr: Lesley Yeh P-Kortney STUDY: X-RAY - PELVIS AND RIGHT HIP [...] Singh MD at 15:1 3 EDT Tel [phone], Service support , CC: YANETH Yeh; Delmis Alvarado DO Freelance Interpreter/Translator: Signed 09-Sep-2016 Abdomen/Pelvis WITH Contrast Result: Comments: See Note; NOTES: [facility] Imaging Services [address] [place] [address] Verdana 4d Abdomen/Pelvis WITH Contrast MR#: [id number] Acct: [id number] Name: KEVIN GOMEZ Rep #: [id number] : 1990 M 26 From: Radhika Mckeon MD PCP: Delmis Alvarado DO Status: REG CLI Study: Abdomen/Pelvis WITH Contrast Date of Exam: 09/09/16 Exam# [id number] Ordering Dr: Delmis El DO STUDY: CT [...] Radhika Mckeon MD at 1:28 EDT Tel [phone], Service support , CC: Delmis Alvarado DO Freelance Interpreter/Translator: Signed 04-Sep-2016 Testicular with Arterial Flow Result: Comments: See Note; NOTES: [facility] Imaging Services [address] [place] [address] Verdana 4d Testicular with Arterial Flow MR#: [id number] Acct: [id number] Name: CHICA GOMEZ Rep #: [id number] : 1990 M 26 From: Josiah Murdock MD PCP: Delmis Alvarado DO Status: REG CLI Study: Testicular with Arterial Flow Date of Exam: 09/04/16 Exam# [id number] Ordering Dr: Lesley Vidal HULLER OPERATOR-C STUDY: SCROTUM ULTRASOUND REASON FOR EXAM: Male, [...] , CC: Lesley Yeh; Delmis Alvarado DO Freelance Interpreter/Translator: Signed 24-Mar-2016 Soft Tissue Neck WITH Contrast Result: Comments: See Note; NOTES: [facility] Imaging Services [address] [place] [address] Verdana 4d Soft Tissue Neck WITH Contrast MR#: [id number] Acct: [id number] Name: СЕРГЕЙ GOMEZ Rep #: [id number] : 1990 M 25 From: Albin Singh MD PCP: Delmis Alvarado DO Status: REG CLI Study: Soft Tissue Neck WITH Contrast Date of Exam: 03/24/16 Exam# [id number] Ordering Dr: Delmis Alvarado DO STUDY: CT [...] FINDINGS: Normal bilateral parotid glands. Normal bilateral informatics analyst spaces. Normal bilateral parapharyngeal spaces. 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 [...] 2.19 m2 Results Date Description Value Details :58 HSV 1 and 2-Spec Ab, IgG Comments: PATIENT NOT FASTINGPERFORMED BY: Bostan ResearchAnn Klein Forensic CenterRuiigb1770 [facility] [id number] BY: [address] [id number] w/Rfx HSV 2 IgG, Type Spec <0.91 [...] (RAPID PLASMA Comments: PATIENT NOT FASTINGPERFORMED BY: Bostan ResearchAnn Klein Forensic CenterXfepqa9990 [facility] [id number] BY: [address] [id number] REAGIN) (87574) RPR Non Reactive (Normal) 85-Ths-01910:58 Herpes Simplex 1&2 IGM Comments: PATIENT NOT FASTINGPERFORMED BY: MobiCartSarah [place] 9478470 [facility] [id number] BY: [address] [id number] (67492) HSV 2 IgM Antibodies <1:10 {titer} (Normal) [...] HSV 1 IgM Antibodies <1:10 {titer} (Normal) 37-Kif-371438:11 CT,NG,TV (Chlamydia, Comments: PATIENT NOT FASTINGPERFORMED BY: =[address] [place] [id number] Information: SRC:UR Gonorrhea, Trichomonas) (66900) Trich vag by YAJAIRA Negative (Normal) Gonococcus by YAJAIRA Negative (Normal) Chlamydia by YAJAIRA Negative (Normal) 14-Qwy-748519:40 TSH (84660) Comments: PATIENT NOT FASTINGPERFORMED BY: [facility]6370 [facility] [id number] TSH 1.630 {uIU/mL} (Normal) Range: 0.450-4.500 46-Coe-276044:40 CBC, Platelets & Auto Diff Comments: PATIENT NOT FASTINGPERFORMED BY: [place] 2982270 [facility] [id number] (14889) Immature Grans (Abs) 0.0 {x10E3/uL} (Normal) Range: [...] 4.14-5.80 WBC 7.9 {x10E3/uL} (Normal) Range: 3.4-10.8 18-Nlc-793191:40 Metabolic Panel, Comprehensive Comments: PATIENT NOT FASTINGPERFORMED BY: LabCoAnn Klein Forensic CenterFowwti4808 [facility] [id number] (62109) ALT (SGPT) 11 [iU]/L (Normal) Range: 0-44 [...] 6-20 Glucose 89 mg/dL (Normal) Range: 65-99 74-Isa-00344:57 TRICHOMONAS VAGINALIS WCH/PCR Comments: [facility] Ilygkeiiih[address] [place], [place], [id number] TV RESULT Negative (Normal) 42-Zec-288681:59 URINE JOSIAS CULTURE-IDENTIFICATN Comments: PATIENT NOT FASTINGPERFORMED BY: MobiCartUNM Psychiatric CenterOwbouq3661 [facility] [id number] Information: [id number] (33148) Result 1 NG36 (Normal) Comments: No growth in 36 - 48 hours. Urine Culture,Comprehensive Final report (Normal) 61-Ghc-872961:17 URINALYSIS (45872) URINALYSIS normal (Normal) Comments: GLU: NegBIL:SmallKet;NegaSG>=1.030Blo: NegpH6.0PRO:30mg/dLURO: normalNit:negLeu:neg 32-Zgw-908771:00 CHLAMYDIA by urine Comments: PATIENT NOT FASTINGPERFORMED BY: =Naman PV Nano Cell[address] [id number] Information: [id number] (45044) Neisseria gonorrhoeae, YAJAIRA Negative (Normal) Chlamydia trachomatis, YAJAIRA Negative (Normal) 79-Niu-340605:14 URINALYSIS (75340) Comments: PERFORMED BY: Divshot [facility] [id number] Microscopic Examination MICNIP (Normal) Comments: Microscopic not indicated and not performed. Nitrite, Urine Negative (Normal) Urobilinogen,Semi-Qn 0.2 mg/dL (Normal) Range: 0.2-1.0 Bilirubin Negative (Normal) Occult Blood Negative (Normal) Ketones Trace (Abnormal) Glucose Negative (Normal) Protein Negative (Normal) WBC Esterase Negative (Normal) Appearance Clear (Normal) Urine-Color Yellow (Normal) pH 5.0 (Normal) Range: 5.0-7.5 Specific Huggins 1.029 (Normal) Range: 1.005-1.030 22-Wzu-078796:25 Chlamydia/GC Amplification Comments: PATIENT NOT FASTINGPERFORMED BY: [employer] Nimklz[address] [id number] BY: =[employer] [id number] Neisseria gonorrhoeae, YAJAIRA Negative (Normal) Chlamydia trachomatis, YAJAIRA Negative (Normal) 56-Nha-041068:25 Urinalysis, Routine Comments: PATIENT NOT FASTINGPERFORMED BY: [employer] Eslxmm1502 [facility] [id number] BY: =Naman MobiCart Tgskalvnor[address] [id number] Inf ormation: SRC:UR SRC:UC Microscopic Examination MICNIP (Normal) Comments: Microscopic not indicated and not performed. Nitrite, Urine Negative (Normal) Urobilinogen,Semi-Qn 0.2 mg/dL (Normal) Range: 0.2-1.0 Bilirubin Negative (Normal) Occult Blood Negative (Normal) Ketones Trace (Abnormal) Glucose Negative (Normal) Protein Negative (Normal) WBC Esterase Negative (Normal) Appearance Clear (Normal) Urine-Color Yellow (Normal) pH 5.0 (Normal) Range: 5.0-7.5 Specific Huggins 1.028 (Normal) Range: 1.005-1.030 66-Rrk-316766:25 Urine Culture,Comprehensive Comments: PATIENT NOT FASTINGPERFORMED BY: [employer] Uzamdz8006 [facility] [id number] BY: =Naman PV [employer] [id number] Result 1 NG36 (Normal) Comments: No growth in 36 - 48 hours. Urine Culture,Comprehensive Final report (Normal) 51-Dmk-660800:21 Ct, Ng, Trich vag by Comments: PATIENT NOT FASTINGPERFORMED BY: =Naman LabIBillionaire Yiddwuxmgy[address] [id number] BY: MobiCartSarah [place] 9478470 [facility] [id number] Inf ormation: J0 YAJAIRA 3378 SRC:UR SRC:UR Trich vag by YAJAIRA Negative (Normal) Gonococcus by YAJAIRA Negative (Normal) Chlamydia by YAJAIRA Negative (Normal) 47-Nzk-910330:21 Urine Culture,Comprehensive Comments: PATIENT NOT FASTINGPERFORMED BY: =G LabIBillionairerp Killclabsc[address] [id number] BY: avelisbiotech.comThe Rehabilitation Institute Of St[facility] Flfzhq5599 [facility] [id number] Result 1 NG36 (Normal) Comments: No growth in 36 - 48 hours. Urine Culture,Comprehensive Final report (Normal) 18-Daq-554781:02 Urinalysis, Office (00494) UA - LEUKOCYTE ESTERASE Negative (Normal) UA - NITRITE Negative (Normal) URINE UROBILINGN SINDHU Normal mg/dL TIMED (Normal) UA - PROTEIN Negative mg/dL (Normal) UA - PH 6 (Abnormal) UA - BLOOD Negative (Normal) UA - SPECIFIC GRAVITY 1.025 (Normal) UA - KETONES Negative mg/dL (Normal) UA - BILIRUBIN Negative (Normal) UA - GLUCOSE Negative (Normal) 24-Rde-87940: Trich vag by YAJAIRA Negative (Normal) Comments: PATIENT NOT FASTINGPERFORMED BY: =Naman MobiCart[address] [id number] Information: URINE SRC:UR 21 05-Eqf-01393:24 CHLAMYDIA by urine Comments: PATIENT NOT FASTINGPERFORMED BY: MobiCartAnn Klein Forensic CenterUdhzfk6751 [facility] [id number] Information: SRC:PN (28328) Neisseria gonorrhoeae, YAJAIRA Negative (Normal) Chlamydia trachomatis, YAJAIRA Negative (Normal) 90-Bst-172834:18 METABOLIC PANEL, COMPREHENSIVE Comments: PATIENT NOT FASTINGPERFORMED BY: MobiCart[place] 9478470 [facility] [id number] (52255) ALT (SGPT) 11 [iU]/L (Normal) Range: 0-44 [...] Glucose, Serum 104 mg/dL (Abnormal) Range: 65-99 85-Olb-450577:35 URINE JOSIAS CULTURE-IDENTIFICATN Comments: PATIENT NOT FASTINGPERFORMED BY: MobiCartAnn Klein Forensic CenterHlgmnp54[address] [place] [address] [id number] Information: SRC:UC (87691) Result 1 MUG (Normal) Comments: Mixed urogenital flora10,000-25,000 colony forming units per mL Urine Final report (Normal) Culture,Comprehensive 91-Kbo-489803:39 CHLAMYDIA TRAC, AMPL, Comments: PATIENT NOT FASTINGPERFORMED BY: MobiCart[address] [id number] Information: SRC:UR INFCT ANTIGEN (92073) Neisseria gonorrhoeae, YAJAIRA Negative (Normal) Chlamydia trachomatis, YAJAIRA Negative (Normal) 09-Rpe-388777:44 Urinalysis, Office (01383) UA - LEUKOCYTE ESTERASE Negative (Normal) UA - NITRITE Negative (Normal) URINE UROBILINGN SINDHU TIMED Normal mg/dL (Normal) UA - PROTEIN Negative mg/dL (Normal) UA - PH 6 (Abnormal) UA - BLOOD Negative (Normal) UA - SPECIFIC GRAVITY 1.030 (Abnormal) UA - KETONES Negative mg/dL (Normal) UA - BILIRUBIN Negative (Normal) UA - GLUCOSE Negative (Normal) 5-Lrd-866756:21 CT,NG,TV (Chlamydia, Comments: PATIENT NOT FASTINGPERFORMED BY: =[address] [id number] Information: SRC:UR Gonorrhea, Trichomonas) (17301) Trich vag by YAJAIRA Negative (Normal) Gonococcus by YAJAIRA Negative (Normal) Chlamydia by YAJAIRA Negative (Normal) 6-Uel-765315:12 SED RATE ERYTHROCYTE (30340) Comments: PATIENT NOT FASTINGPERFORMED BY: LabCo Bhxrgc9811 [facility] [id number] Sedimentation Rate-Westergren 2 mm/h (Normal) Range: 0-15 4-Gqq-365344:12 C-REACTIVE PROTEIN (50971) Comments: PATIENT NOT FASTINGPERFORMED BY: [facility] Owdtmv8894 [facility] [id number] C-Reactive Protein, Quant 0.3 mg/L (Normal) Range: 0.0-4.9 8-Zbk-270992:12 METABOLIC PANEL, COMPREHENSIVE Comments: PATIENT NOT FASTINGPERFORMED BY: [facility]Co Fdeugn8434 [facility] [id number] (05543) ALT (SGPT) 14 [iU]/L (Normal) Range: 0-44 [...] mg/dL (Normal) Range: 65-99 15-Feb-20168:23 Throat Culture (90822) Comments: PATIENT NOT FASTINGPERFORMED BY: [facility] Fzuxkb5190 [facility] [id number] Information: [facility]: Result 1 RRF (Normal) Comments: Routine respiratory armida Upper Respiratory Culture Final report (Normal) 15-Feb-20168:08 Rapid Strep Test, Office (71548) Rapid Strep Test, Office Negative (Normal) 22-Xjr-223344:15 CBC, Platelets & Auto Comments: PATIENT NOT FASTINGPERFORMED BY: LabIBillionaire Qldpnu9403 [facility] [id number] Information: 093183,D08664 Diff (27107) Immature Grans (Abs) 0.0 {x10E3/uL} (Normal) Range: [...] 4.14-5.80 WBC 8.8 {x10E3/uL} (Normal) Range: 3.4-10.8 64-Fyv-392704:40 CHLAMYDIA TRAC, AMPL, Comments: PATIENT NOT FASTINGPERFORMED BY: [address] [id number] Information: C25283 INFCT ANTIGEN (52696) Please note: SPRCS (Normal) Comments: Acceptable specimens for this test are male urethral swab,endocervical swab and liquid based pap specimens, vaginal swabs inAPTIMA transports and first void urine. See online Directory ofServices for te st number for rectal and pharyngeal specimens. Neisseria gonorrhoeae, Negative (Normal) YAJAIRA Chlamydia trachomatis, Negative (Normal) YAJAIRA 59-Oxs-565314: Chlamydia trachomatis, Negative (Normal) Comments: PATIENT NOT FASTINGPERFORMED BY: [address] [id number] Information: SRC:TH THROAT 27 YAJAIRA 50-Bzh-373545:01 Rapid Strep Test, Office (92627) Rapid Strep Test, Office Negative (Normal) 89-Xip-924450:13 Ct, Ng, Trich vag by Comments: PATIENT NOT FASTINGPERFORMED BY: [address] [id number] Information: SRC:UR URINE YAJAIRA Gonococcus by YAJAIRA Negative (Normal) Trich vag by YAJAIRA Negative (Normal) Chlamydia by YAJAIRA Positive (Abnormal) 55-Fjb-296589:26 URINE JOSIAS CULTURE-SINDHU COL Comments: PATIENT NOT FASTINGPERFORMED BY: [address] [id number] Information: SRC:URC V59237 COUNT (87575) Result 1 NG36 (Normal) Comments: No growth in 36 - 48 hours. Urine Culture,Comprehensive Final report (Normal) 98-Ply-15776:08 Urinalysis, Office (99683) UA - LEUKOCYTE ESTERASE Negative (Normal) UA - NITRITE Negative (Normal) URINE UROBILINGN SINDHU TIMED Normal mg/dL (Normal) UA - PROTEIN Negative mg/dL (Normal) UA - PH 6 (Abnormal) UA - BLOOD Negative (Normal) UA - SPECIFIC GRAVITY 1.025 (Normal) UA - KETONES 15 mg/dL (Abnormal) UA - BILIRUBIN Small (Normal) UA - GLUCOSE Negative (Normal) 2-Fhc-209356:38 JOSIAS CULTURE-OTHER (15175) Comments: PATIENT NOT FASTINGPERFORMED BY: MobiCart[address] [id number] Information: SRC:THRT D04706 Result 1 BETAGB (Abnormal) Comments: Beta hemolytic [...] report (Abnormal) 14-Sep-20149:48 Rapid Strep Test, Office (35953) Rapid Strep Test, Negative (Normal) Office : Chlamydia trachomatis, Negative (Normal) Comments: PATIENT NOT FASTINGPERFORMED BY: [email or web address].com[address] [id number] Information: SRC:UR URINE 16 YAJAIRA 03-Qax-938294:22 Chlamydia/GC Amplification Comments: PERFORMED BY: [email or web address].com[address] [id number] BY: [address] [id number] Information: SRC:UR Please note: SPRCS (Normal) Comments: Acceptable specimens for this test are male urethral swab,endocervical swab and liquid based pap specimens, vaginal swabs inAPTIMA transports and first void urine. See online Directory ofServices for te st number for rectal and pharyngeal specimens. Neisseria Negative (Normal) gonorrhoeae, YAJAIRA Chlamydia Positive (Abnormal) Comments: . trachomatis, YAJAIRA 94-Mnd-389535 Trich vag by YAJAIRA Negative (Normal) Comments: PERFORMED BY: CB [facility] Zizhin2227 [place] [place] [id number] BY: BN [facility] Wqfyxumqbj4763 Frank BerumenSentara Princess [facility] Hospital [id number] :22 16-Smn-362849:40 HPV Genotyping, PCR Comments: PERFORMED BY: NOY [facility] IYD9096 [address] [place] [id number] Information: PENILE HPV By PCR NHV (Normal) [...] HPV Genotyping, PCR will be made non-orderable. [facility] offers test 935007 (HPV In Situ Hybridization) for formalin-fixed, paraffin-embedded tissue. [facility] will offer new test 693045 Human Papillomavirus (HPV) High-risk (marco antonio(R)) With HPV 16 and 18, Rectal Source in ThinPrep(R) containers. :13 HBsAg Screen Negative (Normal) Comments: PERFORMED BY: [facility]6370 [facility] [id number] :13 Hep B Surface Ab Comments: PERFORMED BY: [address] [id number] Hep B Surface Ab, Qual Reactive (Normal) Comments: Non Reactive: Inconsistent with immunity, less than 10 mIU/mL Reactive: Consistent with immunity, greater than 9.9 mIU/mL :13 Panel 629182 Comments: PERFORMED BY: [facility] [place] [address] [id number] HIV 1/O/2 Abs, Non Reactive Qual (Normal) HIV 1/O/2 <1.00 (Normal) Comments: Index Value: Specimen reactivity relative to the negative cutoff. Abs-Index Value : RPR Non Reactive Comments: PERFORMED BY: [place] 2982270 [facility] [id number] 13 (Normal) 9-Boh-811250:36 CBCD ANC 8.4 3/uL (Abnormal) Range: 2.0-7.7 [...] 4.6-6.2 WBC 10.3 {k/mm3} (Normal) Range: 4.4-11.0 1-Mmk-055889:36 CMP GAP 9 (Normal) Range: 5-15 CO2 [...] 7-18 GLU 101 mg/dL (Normal) Range: 70-110 0-Aiz-790526:49 Urinalysis, Office (32620) UA - BILIRUBIN Negative (Normal) UA - [...] Peterson M.D.October 13, 2012 at 7:08:53 PM [phone] Signed PF/PF If you are the referring physician and would like to consult with theradiologist who provided this interpretation, please contact Erasmo Peterson M.D. at [phone]. If this radiologist is unavailable, you will bedirected to another radiologist to [facility]. If you are a patient with a question regarding this report, pleasecontactyour referring physician directly. Professional Interpretation Provided By: [employer], Phone ,Fax N.B. : The above information [...] pain, acute, right lower quadrant Planned Observations HIV-1 ANTIBODY (12922)Indication: Screen for STD (sexually transmitted disease) (Renamed from Encounter for screening examination for sexually transmitted disease) On: 4-Nep-952554:57 Request HEPATITIS PANEL (79945)Indication: Screen for STD (sexually transmitted disease) (Renamed from Encounter for screening examination for sexually transmitted disease) On: 4-Npk-202052:57 Request Herpes Simplex 1&2 IGG (41443)Indication: Erectile dysfunction On: 31-Bsl-757699:11 Request WET MOUNT (07061)-first am urine for trichIndication: Screen for STD (sexually transmitted disease) (Renamed from Encounter for screening examination for sexually transmitted disease) On: 19-Klx-927934:16 Request GONORRHEA by urine (94326)Indication: Screen for STD (sexually transmitted disease) (Renamed from Encounter for screening examination for sexually transmitted disease) On: 19-Dvc-848610:16 Request URINE JOSIAS CULTURE-IDENTIFICATN (64683)Indication: Screen for STD (sexually transmitted disease) (Renamed from Encounter for screening examination for sexually transmitted disease) On: 74-Aab-677165:11 Request URINALYSIS (56829)Indication: Screen for STD (sexually transmitted disease) (Renamed from Encounter for screening examination for sexually transmitted disease) On: 79-Vgy-461181:11 Request WET MOUNT (70541)-first am urine for trichIndication: Screen for STD (sexually transmitted disease) (Renamed from Encounter for screening examination for sexually transmitted disease) On: 56-Mwz-041800:10 Request GONORRHEA by urine (23451)Indication: Screen for STD (sexually transmitted disease) (Renamed from Encounter for screening examination for sexually transmitted disease) On: 13-Gjn-531853:10 Request CHLAMYDIA by urine (05033)Indication: Screen for STD (sexually transmitted disease) (Renamed from Encounter for screening examination for sexually transmitted disease) On: 04-Knj-676418:10 Request CHLAMYDIA TRAC, AMPL, INFCT ANTIGEN (09289)Indication: Penis pain On: :44 Request URINE JOSIAS CULTURE-IDENTIFICATN (69188)Indication: Screen for STD (sexually transmitted disease) (Renamed from Encounter for screening examination for sexually transmitted disease) On: 13-Mqo-097520:03 Request WET MOUNT (75798)-first am urine for trichIndication: Screen for STD (sexually transmitted disease) (Renamed from Encounter for screening examination for sexually transmitted disease) On: 26-Bif-944413:00 Request GONORRHEA by urine ([id number])Indication: Screen for STD (sexually transmitted disease) (Renamed from Encounter for screening examination for sexually transmitted disease) On: 30-Ftr-733779:00 Request CHLAMYDIA by urine ([id number])Indication: Screen for STD (sexually transmitted disease) (Renamed from Encounter for screening examination for sexually transmitted disease) On: 23-Pvt-872850:00 Request Aerobic Bacterial Culture ([id number])Indication: Screen for STD (sexually transmitted disease) (Renamed from Encounter for screening examination for sexually transmitted disease) On: 37-Wbg-555687:10 Request Comments: penile WET MOUNT (46405)-first am urine for trichIndication: Screen for STD (sexually transmitted disease) (Renamed from Encounter for screening examination for sexually transmitted disease) On: 12-Nhk-912824:56 Request GONORRHEA by urine ([id number])Indication: Screen for STD (sexually transmitted disease) (Renamed from Encounter for screening examination for sexually transmitted disease) On: :55 Request Urinalysis, Office ([id number])Indication: Urinary hesitancy On: :[address],NG,TV (Chlamydia, Gonorrhea, Trichomonas) (95034)Indication: History of chlamydia On: 40-Ert-821892:17 Request VITAMIN B12 AND FOLATES (61075)Indication: Abnormal blood chemistry On: :49 Request CALCIFEDIOL (24671)Indication: Abnormal blood chemistry On: :49 Request TSH ([id number])Indication: Abnormal blood chemistry On: :49 Request Metabolic Panel, Comprehensive ([id number])Indication: Abnormal blood chemistry On: 69-Ubx-333867:49 Request MONOSPOT TEST (06513)Indication: Immunocompromised On: 1-Abv-158868:49 Request EBV Panel ([id number])Indication: Immunocompromised On: 4-Xci-647295:49 Request SMEAR+INTERP ROUTN STAIN ([id number])Indication: Immunocompromised On: 8-Bya-081698:49 Request CBC, Platelets & Auto Diff (77136)Indication: Immunocompromised On: 3-Tar-936379:48 Request CHLAMYDIA by urine (52242)Indication: Screen for STD (sexually transmitted disease) (Renamed from Encounter for screening examination for sexually transmitted disease) On: 99-Ulr-118035:26 Request WET MOUNT (32508)-first am urine for trichIndication: Screen for STD (sexually transmitted disease) (Renamed from Encounter for screening examination for sexually transmitted disease) On: 71-Ogm-38996:39 Request GONORRHEA by urine (16566)Indication: Screen for STD (sexually transmitted disease) (Renamed from Encounter for screening examination for sexually transmitted disease) On: :39 Request CHLAMYDIA by urine (23339)Indication: Screen for STD (sexually transmitted disease) (Renamed from Encounter for screening examination for sexually transmitted disease) On: :39 Request CHLAMYDIA TRAC, AMPL, INFCT ANTIGEN ([id number])Indication: Chlamydia infection On: 95-Bjf-346022:57 Request HEPATITIS C ANTIBODY ([id number])Indication: Possible exposure to STD On: :05 Request Comments: now and in six months (approximately) HEPATITIS B SURFACE ANTIGEN (16531)Indication: Possible exposure to STD On: : Request Comments: now and in six months (approximately) HIV-1 ANTIBODY (90000)Indication: Possible exposure to STD On: :05 Request Comments: now and in six months (approximately) HPV Comprehensive (99280)Indication: Possible exposure to STD On: 61-Tyf-183027:45 Request Comments: male penile swab RPR (RAPID PLASMA REAGIN) ([id number])Indication: Possible exposure to STD On: 38-Fkl-689745:43 Request WET MOUNT (69359) (trich for men first am urine)Indication: Possible exposure to STD On: 95-Ekw-320185:43 Request CHLAMYDIA BY URINE (57161)Indication: Possible exposure to STD On: 45-Ope-093900:43 Request GONORRHEA BY URINE ([id number])Indication: Possible exposure to STD On: 76-Rea-462659:43 Request CBC, Platelets & Auto Diff ([id number])Indication: Abdominal pain, acute, right lower quadrant On: 4-Byo-995688:51 Request Comments: stat Metabolic Panel, Comprehensive ([id number])Indication: Abdominal pain, acute, right lower quadrant On: :49 Request Planned Procedures Holter Monitor 24 hrsBy: Vikas On: 23-Sep-2017 Intent Leila MIRANDA Echo CompleteBy: Leila Bean CNP On: 23-Sep-2017 Intent E ELECTROCARDIOGRAM, COMPLETE (ECG) On: 23-Sep-2017 Intent ([id number])By: Leila Bean CNP Ultrasound - TesticularBy: On: 24-Aug-2017 Intent Lesley Yeh Comments: attention to left testicle. PHYSICAL THERAPY ([id number])By: On: 21-May-2017 Intent Lesley Yeh Radiology - Hip - RightBy: On: 21-May-[address] - Abdomen & Pelvis (IV On: 01-Sep-2016 Intent Contrast Needed)By: Lesley Yeh Ultrasound - TesticularBy: On: 01-Sep-[address] SCAN OF NECK TISSUE WITH On: 17-Mar-2016 Intent CONTRAST ([id number])By: Delmis Alvarado DO, DO, Kathleen SPECIMEN HNDLNG/TRNSPRT, OFFC > On: 14-Sep-2014 Intent LAB ([id number])By: Kylah Tsai MD Rocephin Injection, 2 Gram On: 24-Feb-2013 Intent (J0696)By: Mora Silverman LPN Comments: Lot #[id number] and L hip - split in 2Dose-prefilled syringegiven by:JENNIFER Molina signed CT - Abdomen & PelvisBy: Ciesa On: 13-Oct-2012 Intent Leila MIRANDA Comments: rule out appendiciitis stat call wet read to [facility] 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 Wandy Lott wants him to get hip checked out [...] are screening, colonoscopy (September 15 2014 [facility]Encounter Diagnosis: Crohn's disease (Renamed from CD [...] include anorexia or melena.Encounter Diagnosis: Abdominal Pain,RLQ (300.55) [facility] Payers Belinda ALLEN/Jenifer Gomez; jocelyne guarantor
--- OUTSIDE RECORDS SUMMARY | 2018-05-03 20:31 | XMS RPT_ITS ---
:1990 Author Organization [place] Support Name Relationship Address Phone AYESHA VALE Unavailable [address] + [place] [address] HUANG Unavailable [address] + [place] [address] MARVA SALINAS Unavailable [address] + [place] [address] PATRICIA, AYESHA Unavailable [address] + [place] [address] HUANG Unavailable [address] + [place] [address] MARVA SALINAS Unavailable [address] + [place] [address] Patricia, Ayesha Unavailable Unavailable + Marva Salinas Unavailable Unavailable + PATRICIA, AYESHA Unavailable [address] + [place] [address] HUANG Unavailable [address] + [place] [address] MARVA SALINAS Unavailable [address] + [place] [address] PATRICIA, AYESHA Unavailable [address] + [place] [address] HUANG Unavailable [address] + [place] [address] MARVA SALINAS Unavailable [address] + [place] [address] PATRICIA, AYESHA Unavailable [address] + [place] [address] HUANG Unavailable [address] + [place] [address] MARVA SALINAS Unavailable [address] + [place] [address] PATRICIA, AYESHA Unavailable [address] + [place] [address] HUANG Unavailable [address] + [place] [address] MARVA SALINAS Unavailable [address] [facility] + [place] [address] PATRICIA, AYESHA Unavailable [address] + [place] [address] HUANG Unavailable [address] + [place] [address] MARVA SALINAS Unavailable [address] + [place] [address] Patricia, Ayesha Unavailable Unavailable + Marva Salinas Unavailable Unavailable + Care Team Providers Name Role Phone Grabiel Huertas Attending Unavailable PROVIDER, UNKNOWN Referring Unavailable Ciesa, [facility] Unavailable Grabiel Huertas Attending Unavailable PROVIDER, UNKNOWN Referring Unavailable [facility], [facility] Unavailable Delmis Alvarado DO Attending Unavailable Kylah Tsai MD Referring Unavailable Delmis Alvarado DO Consulting Unavailable JennyDelmis Attending Unavailable Jenny, Delmis Referring Unavailable Jenny, Delmis Primary Care Unavailable Lesley Yeh LAND USE PLANNER-C Attending Unavailable Lesley Yeh LAND USE PLANNER-C Referring Unavailable Jenny, Delmis Primary Care Unavailable Lesley Yeh LAND USE PLANNER-C Attending Unavailable Jenny, Delmis Primary Care Unavailable Lesley Yeh LAND USE PLANNER-C Referring Unavailable Lesley Yeh LAND USE PLANNER-C Attending Unavailable Jenny, Delmis Primary Care Unavailable Lesley Yeh LAND USE PLANNER-C Referring Unavailable CiesaLeila Attending Unavailable CiesaLeila Referring Unavailable Jenny, Delmis Primary Care Unavailable Rajiv Kumar Attending Unavailable Ciesa, Leila Referring Unavailable JennyDelmis Attending Unavailable Jenny, Delmis Referring Unavailable Jenny, Delmis Primary Care Unavailable PROBLEMS PROBLEMS DATE TYPE CONDITION / CODE ATTENDING STATUS SOURCE 12/29/2017 Unknown R10.31 - Right Jenny, Active [facility] lower quadrant pain [facility] / R10.31(ICD-10) Hospital Repository 12/23/2017 Admitting Crohn's disease of [facility], [facility] Diagnosis small intestine Grabiel System with unsp Repository complications / K50.019(ICD-10) 10/28/2017 Unknown R07.9 - Chest pain, MoodispaRajiv nguyen Active [facility] unspecified / Community R07.9(ICD-10) Hospital Repository 05/06/2017 Admitting Crohn's disease, [facility], [facility] Diagnosis unspecified, Grabiel System without Repository complications / K50.90(ICD-10) PROCEDURES PROCEDURES No Procedure Records FoundRESULTS RESULTS LOWER EXT/JT ONLY/W Observed: 03/01/2018 Status: F Source: [place] CONTRAST 10:31 AM [facility] REPOSITORY [facility] Imaging Services [address] [place] [place] [address] Lower Ext/Jt Only/W Contrast MR#: [id number] Acct: [id number] Name: MARIO VALE Rep #: [id number] : 1990 M 27 From: Gildardo Garrett MD PCP: Delmis Alvarado DO Status: REG CLI Study: Lower Ext/Jt Only/W Contrast Date of Exam: 03/01/18 Exam# [id number] Ordering Dr: Delmis Alvarado DO STUDY: MR RIGHT HIP ARTHROGRAPHY REASON FOR EXAM: Right hip pain for one year. TECHNIQUE: Standardized fat and water weighted pulse sequences were obtained in all 3 orthogonal planes after intra-articular instillation of dilute Magnevist. COMPARISON: Radiographs 05/21/2017. FINDINGS: Normal hip joint without articular joint space narrowing. Normal acetabulum. Normal labrum. There is a small cam lesion (T2 coronal image 9) and mild bone edema in the lateral aspect of the femoral head/neck (T2 coronal images 7-12). Normal gluteus minimus, medius and iliopsoas tendons and distal insertions. There is no trochanteric, iliopsoas or iliopectineal bursitis. Normal ischial tuberosity. Normal origin of the hamstring tendons. Normal visualized iliac wing. Normal visualized soft tissue structures of the pelvis. MRI/Lower Ext/Jt Only/W Contrast IMPRESSION: Small cam lesion and mild bone edema of the lateral aspect of the right femoral head/neck suggestive of femoroacetabular impingement. No demonstrated labral tear. Electronically Signed: Gildardo Garrett MD at 13:20 EST Tel , Service support , CC: Delmis Alvarado DO Fast Food Restaurant Manager: Signed ARTHROGRAM HIP W/ MRI Observed: 03/01/2018 Status: F Source: [place] 10:25 AM [facility] REPOSITORY [facility] Imaging Services [address] [place] [address] Arthrogram Hip w/ MRI MR#: [id number] Acct: [id number] Name: MARIO VALE Rep #: [id number] : 1990 M 27 From: Albin Singh MD PCP: Delmis Alvarado DO Status: REG CLI Study: Arthrogram Hip w/ MRI Date of Exam: 03/01/18 Exam# [id number] Ordering Dr: Delmis Alvarado DO CLINICAL HISTORY: Male, 27 years old. Right hip pain. PROCEDURE: ARTHROGRAM - RIGHT HIP CONSENT: The procedure as well as benefits and possible complications including infection and bleeding were explained to the patient. Informed consent was obtained. FLUOROSCOPY TIME (if supplied): (0:53) minutes/seconds Injection Information: 10 cc of dilute Magnevist. Number of images obtained: 1 TECHNIQUE: (All elements of maximal sterile barrier technique followed, [...] RAD/Arthrogram Hip w/ MRI IMPRESSION: Successful intra-articular injection of 10 cc of dilute Magnevist for MRI imaging. Electronically Signed: Albin Singh MD at 15:02 EST Tel [phone], Service support , CC: Delmis Alvarado DO Fast Food Restaurant Manager: Signed PT D/C SUMMARY (1) Observed: 12/24/2017 Status: F Source: [place] 3:48 PM [facility] REPOSITORY [facility] Physical Therapy [facility] [address] [place] [address] Fax REHABILITATION SERVICES DISCHARGE SUMMARY MR#: [id number] Acct: [id number] Name: MARIO VALE Rep #: [id number] : 1990 27 From: Moreno Joseph DPT, OCS, CSCS Referring Dr.: Delmis Alvarado DO Status: REG RCR Insurance: [employer] SELF PAY INSURANCE HP - PT D/C Summary It has been my pleasure to treat MARIO VALE under orders from Delmis Alvarado, for the diagnosis of R groin pain. for a total of 2 visit(s). Discharge Date: 12/24/17 Please see the following information for a summary of their discharge status. - Subjective Subjective: Some of the ex (butterfly) are sore and painful. Been stretching daily adn no basketball since last session. No major changes to presentation. Didn't play ball last week but did the previous week and did not feel it quite as much. Some discomfort when stadnig long time at work. Sleeping is OK. - Pain R groin [...] WITH ABD, EXT ROT IN r HIP AND WORSE WITH SIDE SHUFFLE ESPECIALLY SIDESHUFFLE SQUAT. - Goals Goal 1:: Work without increased pain R groin/leg Goal Progress: Not Progressing Goal 2:: Basketball game 100% witjhout noticing R hip x nights Goal Progress: Not Progressing Goal 3:: Pt feel 75% back to normal Goal Progress: Not Progressing - Plan Plan: PT HAS BEEN COMPLIANT WITH STRETCHES BUT NOT IMPROVING AND PAIN IS STILL SHARP AND DYSFUNCTIONAL FOR BASKETBALL AND CAUSING PAIN AT WORK. RECOMMEND RETURN TO DOCTOR JENNY FOR NEXT MEDICAL STEP POSSIBLY MRI VS ORTHO TO CLARIFY PROBLEM WHICH SEEMS TO BE LABRAL TO ME. - D/C Information Discharge Comments: BACK TO DOCTOR FOR NEXT MEDICAL STEP. If there are questions or concerns regarding this patient's physical therapy, please feel free to call me at [phone]. Thank you for the referral of this patient. Sincerely, Moreno Joseph, DPT, OC <Electronically signed by Moreno Joseph DPT, OCS, CSCS> 12/24/17 1548 CC: Delmis Alvarado DO EBG Signed SED RATE Collected: 12/23/2017 Status: F Source: [facility] 3:38 PM SYSTEM REPOSITORY TYPE CODE TESTS RESULT OUT OF RANGE REFERENCE UNITS LAB ESR 0-10 mm/h Normal Sed Rate 2 Performed By: #### ESR, HEMDF, CMP3, CRP2 #### [email or web address] [address] [facility] [place] [place] [address] #### HBSAG #### [email or web address] [address] [place] [address] #### CALPO #### The performing lab is in the report. #### QTF #### [email or web address] [address] [place] [address] HEMOGRAM W/ AUTODIFF Collected: 12/23/2017 Status: F Source: [facility] 3:38 PM SYSTEM REPOSITORY TYPE CODE TESTS RESULT OUT OF RANGE REFERENCE UNITS LAB IWBC 3.6-10.7 10*3/uL WBC Normal 7.7 LAB RBC 4.40-5.90 10*6/uL RBC Normal 5.67 LAB HGB 13.0-18.0 g/dL Normal Hemoglobin 17.1 LAB HCT 40.0-52.0 % Normal Hematocrit 49.5 LAB MCV 80.0-98.0 fL MCV Normal 87.3 LAB MCH 26.0-34.0 pg MCH Normal 30.1 LAB MCHC 32.0-36.0 % MCHC Normal 34.4 LAB RDW 11.5-14.5 % RDW Normal 13.2 LAB PLT 140-440 10*3/uL Platelet Normal 257 Result Comment: Occassional large platelets. No platelet clumping. LAB MPV 7.4-10.4 fL Normal MPV 8.8 LAB GRAN% 40.0-80.0 % Normal Granulocytes 65.5 LAB LYMP% 20.0-40.0 % Normal Lymphocytes 25.1 LAB MONO% 2.0-10.0 % Normal Monocytes 7.1 LAB EOS% 1.0-6.0 % Normal Eosinophils 1.7 LAB BAS% 0.0-2.0 % Normal Basophils 0.6 LAB ANC 1.8-7.0 10*3/uL Normal Abs Neutrophile Cnt 5.1 LAB ALC 1.0-4.3 10*3/uL Normal Abs Lymph Cnt 1.9 LAB AMC 0.0-0.8 10*3/uL Normal Abs Monocyte Cnt 0.5 LAB AEC 0.0-0.5 10*3/uL Normal Abs Eosin Cnt 0.1 LAB ABC 0.0-0.2 10*3/uL Normal Abs Baso Cnt 0.0 Performed By: #### ESR, HEMDF, CMP3, CRP2 #### [email or web address] [address] [place] [address] #### HBSAG #### [email or web address] [address] [place] [address] #### CALPO #### The performing lab is in the report. #### QTF #### [email or web address] [address] [place] [address] COMP METABOLIC PANEL Collected: 12/23/2017 Status: F Source: [facility] 3:38 PM SYSTEM REPOSITORY TYPE CODE TESTS RESULT OUT OF RANGE REFERENCE UNITS LAB NA3 137-145 mmol/L Sodium Normal 138 LAB K3 3.5-5.1 mmol/L Normal Potassium 4.2 LAB CL3 98-107 mmol/L Chloride Normal 99 LAB CO23 22-30 mmol/L High Carbon Dioxide 31 LAB ANIN3 NA Anion Gap 8 LAB GLUC3 70-100 mg/dL Glucose Normal 75 LAB BUN3 7-20 mg/dL Urea Normal Nitrogen 11 LAB CRET3 0.52-1.25 mg/dL Normal Creatinine 0.82 LAB GF3BR >60 mL/min eGFR > 60.0 LAB GF3WR >60 mL/min eGFR OTHER > 60.0 Result Comment: Source- MDRD equation with creatinine calibration to IDMS(NKDEP) eGFR not recommended for drug dose adjustment LAB CA3 8.4-10.4 mg/dL Calcium Normal 9.7 LAB ALB3 3.5-5.0 g/dL Albumin, Serum Normal 4.6 LAB TP3 6.3-8.2 g/dL Total Protein Normal 8.1 LAB BILT3 0.2-1.3 mg/dL Normal Bilirubin,Total 0.4 LAB ALKP3 38-126 U/L Alkaline Normal Phosphatase 59 LAB ALT3 13-69 U/L ALT (SGPT) Normal 36 LAB AST3 15-46 U/L AST (SGOT) Normal 30 Performed By: #### ESR, HEMDF, CMP3, CRP2 #### [facility] [address] [place] [address] #### HBSAG #### [email or web address] [address] [place] [address] #### CALPO #### The performing lab is in the report. #### QTF #### [facility] [place] [address] C-REACTIVE PROTEIN Collected: 12/23/2017 Status: F Source: [facility] [employer] 3:38 PM SYSTEM REPOSITORY TYPE CODE TESTS RESULT OUT OF RANGE REFERENCE UNITS LAB 2CRP 0.0-6.0 mg/L Normal C-Reactive < 5.0 Protein Result Comment: . Performed By: #### ESR, HEMDF, CMP3, CRP2 #### [email or web address] [address] [place] [address] #### HBSAG #### [facility] [address] [address] #### CALPO #### The performing lab is in the report. #### QTF #### [address] [address] HEP B SURFACE AG Collected: 12/23/2017 Status: F Source: [facility] 3:38 PM SYSTEM REPOSITORY TYPE CODE TESTS RESULT OUT OF RANGE REFERENCE UNITS LAB HBSAG Not-Detected NA Normal Hep B Surface NOT DETECTED Ag Performed By: #### ESR, HEMDF, CMP3, CRP2 #### [facility] [address] [place] [address] #### HBSAG #### [place] [address] #### CALPO #### The performing lab is in the report. #### QTF #### [address] [address] QUANTIFERON Collected: 12/23/2017 Status: F Source: [facility] [employer] 3:38 PM SYSTEM REPOSITORY TYPE CODE TESTS RESULT OUT OF REFERENCE UNITS RANGE LAB QTF Negative NA Quantiferon Negative Performed By: #### ESR, HEMDF, CMP3, CRP2 #### [facility] [address] [place] [address] #### HBSAG #### [facility] [place] [address] #### CALPO #### The performing lab is in the report. #### QTF #### [address] [address] CALPROTECTIN, FECAL Collected: 12/23/2017 Status: F Source: [facility] 4:00 AM SYSTEM REPOSITORY TYPE CODE TESTS RESULT OUT OF REFERENCE UNITS RANGE LAB CALPR <=50 ug/g High 224 Calprotectin , Fecal Result Comment: Fecal Calprotectin is an indicator of the presence of neutrophils in stool and is not specific for IBD. Other intestinal ailments including GI infections and colorectal cancer can result in elevated concentrations of calprotectin. The diagnosis of IBD cannot be established solely on the basis of a positive calprotectin result. Patients with IBD fluctuate between active and inactive stages of disease. Calprotectin results may also fluctuate. GI bleeding of as much as 100 mL per day will increase the fecal calprotectin concentration by only 15 ug/g. INTERPRETIVE INFORMATION: Calprotectin, Fecal 50 ug/g or less: Normal 51-120 ug/g: Borderline elevated, test should be re-evaluated in 4-6 weeks. 121 ug/g or greater: Abnormal Performed by [facility], [address] [place] [address] [email or web address], Eloy Doran MD - Lab. Director Performed By: #### ESR, HEMDF, CMP3, CRP2 #### [facility] [address] [place] [address] #### HBSAG #### [email or web address] [address] [place] [address] #### CALPO #### The performing lab is in the report. #### QTF #### [email or web address] [address] [place] [address] INITAL EVALUATION (1) Observed: 12/10/2017 Status: F Source: [facility] 9:04 AM [facility] REPOSITORY [facility] Physical Therapy [facility] [address] [place] [address] Fax REHABILITATION SERVICES INITIAL EVALUATION MR#: [id number] Acct: [id number] Name: MARIO VALE Rep #: [id number] : 1990 27 From: Moreno Joseph DPT, OCS, CSCS Referring Dr.: Delmis Alvarado DO Status: REG RCR Insurance: [facility] SELF PAY INSURANCE Patient's Visit Information MARIO VALE is a 27 year old M referred to Physical Therapy by Delmis Alvarado with a diagnosis of R groin pain.. Date of Evaluation: 12/09/17 Physical Therapist: Moreno Joseph DPT, OC - [...] planting to cut or take off in basketball, sharp pain. Started earlier in the year. Stretched himself and may have gone away for a while but also stopped playing basketball. Started again earlier in the month. Also happens lying in bed and opening hip sharply and quickly. Standing at work gives some discomfort as he is on his feet hurts down into R knee. Sideshuffle to R gives pain. Sleep is OK recently. Gets back stiffness normally since high school. Has Crohns. Works at [employer] 56 hours per week. for 2 months. Playing at [employer] 2 hours on Thursday. Doctor wants PT. - Pain R groin Pain Intensity (Out of 10): 0 Pain Intensity Range: 0, 9 - Objective Walks, steps without pain or compensation. Full aROM B hips, end range add with ext rotation sharply and transiently. Tightness present minimally in hip flexor, quad, HS adn moderately in adductor. B. Strength [...] noticing R hip x nights Goal Time Frame: 4-6 Weeks Goal 3:: Pt feel 75% back to normal Goal Time Frame: 4-6 Weeks - Rehabilitation Potential Physical Therapy Diagnosis: R groin pain, r/o labrum pathology. Rehabilitation Potential: Questionable - Anticipated Interventions Patient/Client Instruction: Educate patient on: Condition, Plan of Care For the Purpose of:: To decrease pain Therapeutic Exercise to Include: Flexibilty training For the Purpose of:: To decrease pain Thank you for the opportunity to evaluate your patient. For Medicare and Medicare HMO plans, please review the plan of care and approve it. It will need to be FAXED BACK to us at [phone] for Medicare purposes. Please let me know if there are questions or concerns regarding this plan of care. Physician Signature: Date: <Electronically signed by Moreno Joseph DPT, OCS, CSCS> 12/10/17 0904 CC: Delmis Alvarado EBG Signed For Medicare only, by signing this I certify the plan of care. Physicians Signature Date ECHOCARDIOGRAM COMPLETE Observed: 09/29/2017 Status: F Source: [place] 3:08 PM [facility] REPOSITORY [facility] Cardiovascular Services [address] [place] [address] Echo Complete 09/29/17 1301 MR#: [id number] Acct: [id number] Name: MARIO VALE Rep #: [id number] : 1990 27 From: Rajiv Kumar MD Attending Dr: Leila Bean NP Status: REG CLI Ordering Dr: Leila Bean Date: 09/29/17 Location: [facility] Sex: M C Admitted: Reason For Study: ABN EKG Procedure This was a 2D Doppler, Color Flow transthoracic echocardiogram. The exam was of adequate technical quality. Exam performed in department. Left Ventricle Normal LV size. Left ventricular systolic function is normal. The estimated ejection fraction is 60 %. Normal diastology for age. No regional wall motion abnormalities noted. Right Ventricle Normal RV size. Normal systolic function. Atria Normal left atrium. Normal right atrium. No doppler evidence for ASD. Mitral Valve There is no mitral annular calcification. Normal mitral valve. Trivial mitral valve insufficiency. Tricuspid Valve Normal tricuspid valve. Trivial tricuspid valve insufficiency. Right ventricular systolic pressure estimated to be 24 mmHg. Aortic Valve Trisinus/trileaflet aortic valve. Normal aortic valve. Pulmonic Valve The pulmonic valve is not well visualized. Great Vessels Normal sized aortic root. Pericardium/Pleural No pericardial effusion. MMode/2D Measurements AND Calculations LVIDd: 5.0 cm IVSd: 0.74 cm Ao root diam: 3.5 cm LVIDs: 3.5 cm LVPWd: 0.89 cm LA dimension: 3.4 cm RVDd: 3.6 cm FS: 28.9 % LAV(MOD-bp): 50.6 ml EDV(MOD-sp4): 131.9 ml EDV(MOD-sp2): 168.3 ml LAV(MOD-bp) Indexed: 22.8 ml/m2 ESV(MOD-sp4): 58.4 ml EF(MOD-sp2): 57.5 % LAV(MOD-sp2): 42.8 ml EF(MOD-sp4): 55.7 % LAV(MOD-sp4): 50.4 ml SV(MOD-sp4): 73.5 ml SV(MOD-sp2): 96.8 ml LA A4 [...] LV V1 max: 120.9 cm/sec TR max jack: 229.5 cm/sec Ao max P.0 mmHg LV V1 max P.8 mmHg TR max P.1 mmHg Interpretation Summary Left ventricular systolic function is normal. The estimated ejection fraction is 60 %. Trivial mitral valve insufficiency. Trivial tricuspid valve insufficiency. Right ventricular systolic pressure estimated to be 24 mmHg. Normal diastology for age. Ordering Physician: Leila Bean Referring Physician: DELMIS ALVARADO Performed By: Amada Velzaco, EDILIA, RVT 09/29/17 1507 Date Rajiv Kumar MD CC: Leila Bean LAND USE PLANNER; Delmis Alvarado DO Date Dictated: 09/29/17 1301 Date Transcribed: 09/29/17 1507 Fast Food Restaurant Manager: Signed TESTICULAR WITH Observed: 08/27/2017 Status: F Source: [place] ARTERIAL FLOW 4:21 PM [facility] REPOSITORY [facility] Imaging Services [address] [place] [address] Testicular with Arterial Flow MR#: [id number] Acct: [id number] Name: PATRICIAMARIO Naman Rep #: [id number] : 1990 M 27 From: Alfa Alcala MD PCP: Delmis Alvarado DO Status: REG CLI Study: Testicular with Arterial Flow Date of Exam: 08/27/17 Exam# [id number] Ordering Dr: Lesley Yeh STUDY: SCROTUM ULTRASOUND REASON FOR EXAM: Male, 27 years old. Left testicular discomfort TECHNIQUE: Ultrasound evaluation of the scrotum was performed with color Doppler and static de la o-scale imaging. COMPARISON: None. FINDINGS: RIGHT TESTICLE The right testis is normal in size contour and echotexture. It measures 5.0 x 2.8 x 2.0 cm. It demonstrates normal vascular flow. The right epididymis is 1.0 x 1.0 x 0.7 cm in size. It also demonstrates normal vascular flow. A small right-sided hydrocele formation is noted and is also a small varicocele formation. LEFT TESTICLE The left testis is slightly larger than the right and measures 5.3 x 2.6 x 2.2 cm. It demonstrates normal vascular flow and is very homogeneous in echotexture. The left epididymis measures 1.2 x 1.4 x 0.9 cm and also demonstrates normal vascular flow. There is a moderate left-sided hydrocele formation with evidence of debris within it. A small left-sided varicocele is identified. US/Testicular with Arterial Flow IMPRESSION: No indication of any epididymoorchitis. A moderate left-sided hydrocele formation. The hydrocele on the right side is physiologic. Small varicoceles bilaterally. Electronically Signed: Alfa Alcala, at 5:10 EDT Tel , Service support , CC: YANETH Yeh; Delmis Alvarado DO Fast Food Restaurant Manager: Signed TRICHOMONAS VAGINALIS Collected: 08/25/2017 Status: F Source: [place] [facility] 7:57 AM [facility] REPOSITORY TYPE CODE TESTS RESULT OUT OF RANGE REFERENCE UNITS LAB L8200.3100 Negative Normal TV RESULT Negative Performed By: #### L8200.3000 #### [facility] [address] [place], [address] HIP 2-3 VIEWS WITH Observed: 05/21/2017 Status: F Source: [place] PELVIS 2:51 PM [facility] REPOSITORY [facility] Imaging Services [address] [place] [address] Hip 2-3 Views with Pelvis MR#: [id number] Acct: [id number] Name: MARIO VALE Rep #: [id number] : 1990 M 26 From: Albin Singh MD PCP: Delmis Alvarado DO Status: REG CLI Study: Hip 2-3 Views with Pelvis Date of Exam: 05/21/17 Exam# [id number] Ordering Dr: Lesley Yeh STUDY: X-RAY - PELVIS AND RIGHT HIP REASON FOR EXAM: Male, 26 years old. Right hip pain. TECHNIQUE: Radiological exam, hip, unilateral, with pelvis when performed; 2 or 3 views. COMPARISON: None. FINDINGS: There is a non-specific bowel gas [...] hip. Electronically Signed: Albin Singh MD at 15:13 EDT Tel [phone], Service support , CC: YANETH Benites Jenny DO Fast Food Restaurant Manager: Signed QUANTIFERON Collected: 05/06/2017 Status: F Source: [facility] 3:06 PM SYSTEM REPOSITORY TYPE CODE TESTS RESULT OUT OF REFERENCE UNITS RANGE LAB QTF Negative Quantiferon Negative Performed By: #### QTF #### The performing lab is in the report. ALLERGIES ALLERGIES DATE TYPE / CODE NAME / CODE REACTION SEVERITY SOURCE 03/01/2018 Drug No Known Unknown [facility] Allergy/4160 Allergies/F00 Hospital 41751(SNOMED [id number](RXNOR Repository CT) M) ENCOUNTERS ENCOUNTERS ADMIT/DISCHARGE ACCOUNT NUMBER ADMITTING ENCOUNTER LOCATION SOURCE CLASS 03/01/2018 [id number] [facility] ding:RAD Repository 12/29/2017 [id number] Ambulatory Building:[facility] Practices Repository 12/24/2017/12/25/[id number] ding:PT Repository 12/23/2017 [id number] Ambulatory [facility] Repository 09/29/2017 [id number] [facility] ding:[facility] Repository 09/29/2017 [id number] Ambulatory [facility]: [facility] Repository 08/27/2017 [id number] [facility] ding:[place] Repository 08/25/2017 [id number] [facility] [facility] ding:LABSPEC Repository 05/21/2017 [id number] [facility] ding:HPRAD Repository 05/06/2017 [id number] [facility] Repository PAYERS PAYERS ENCOUNTER GUARANTOR PAYER SUBSCRIBER SOURCE 03/01/2018 MARIO Florence Primary MARIO G [place] [id number] RADHA Insurance:ANTHEMPolic HERRONDOB: Community [place] Number: [id number], [place] [address]Eja: [id number] Repository manuel Date:8524-93-52PG () [facility] [id number], [place] [address]RN: 03/01/2018 Secondary NOT GIVENUNK Ad Insurance:SELF PAY [facility] Number: Effective Repository Date:2018-01-13 12/29/2017 Mario Florence Primary Mario Florence OHIP Practices HerronDOB: Insurance:[facility] HerronDOB: Repository [facility] Number: [id number] Radha [id number] Radha [address] [place], [place] [address]Mzt: Date:4074-46-40Exht , [place] [address]Jcm: Name:GPO Box (HP)Tel: [phone]) [phone], [place] () () [id number]: [phone] 12/29/2017 Secondary Ayesha HerronDOB: OHIP Practices Insurance:[facility] [id number] Repository /[facility] Number: [place] [id number] [facility] [place] manuel Date:2016-02-10 [address]Keo: [phone] () Name:[address], [place] [id number]: 12/24/2017 MARIO Florence Primary MARIO Florence [place] [id number] RADHA Insurance:ANTHEMPolic HERRONDOB: Community [place] y Number: [id number] [place], [place] [address]Eta: [id number] Repository manuel Date:1297-95-78JE () [address]GQUGEB, [place] [address]CE: 12/24/2017 Secondary NOT GIVENUNK [place] Insurance:SELF PAY [facility] Number: Effective Repository Date:2017-12-07 12/23/2017 Mario Florence Primary Mario Florence [facility] HerronDOB: Insurance:[facility] [employer] Blue HerronDOB: System Cross Blue [id number] Repository Radha [facility] Number: [address] Effective Date: , [place] [address]Puf: () 09/29/2017 Mario Florence Primary Ayesha HerronDOB: [place] [id number] Radha Insurance:ANTHEMPolic [id number] y Number: [place], [place] [address]Mvz: [id number] Repository manuel Date:9308-26-17KP () [address]BIRJD [place] [address]DI: 09/29/2017 Secondary NOT GIVENUNK [place] Insurance:SELF PAY [facility] Number: Effective Repository Date:2017-09-23 09/29/2017 Mario Florence Primary Ayesha HerronDOB: Ad [id number] Radha Insurance:ANTHEMPolic [id number] [facility] Number: [place], [place] [address]Mbw: [id number] Repository manuel Date:2106-14-53UU () [address]IRBGNVF [place] [address]SJ: 09/29/2017 Secondary NOT GIVENUNK Ad Insurance:SELF PAY [facility] Number: Effective Repository Date:2017-09-29 08/27/2017 Mario Florence Primary Ayesha HerronDOB: [place] [id number] Radha Insurance:ANTHEMPolic [id number] [facility] [place] [address]Ptx: [id number] Repository manuel Date:3262-23-74UN () [address] [address]UL: 08/27/2017 Secondary NOT GIVENUNK [place] Insurance:SELF PAY [facility] Number: Effective Repository Date:2017-08-24 08/25/2017 Mario Florence Primary Ayesha HerronDOB: Ad [id number] Radha Insurance:ANTHEMPolic [id number] [facility] Number: [place], [place] [address]Jdd: [id number] Repository manuel Date:9862-72-50RP () [address]AKGZ[address], [place] [address]CY: 08/25/2017 Secondary NOT GIVENUNK Ad Insurance:SELF PAY [facility] Effective Repository Date:2017-08-25 05/21/[address] [facility] [id number] Radha Insurance:ANTHEMPolic [id number] [facility] Samy y Number: [facility] , [place] [address]Ljj: [id number] Repository manuel Date:6207-37-19CG () [address], [place] [address]OR: 05/21/2017 Secondary NOT GIVENUNK [place] Insurance:SELF PAY [facility] Number: Effective Repository Date:2017-05-21 05/06/2017 Mario Florence Primary Maroi Florence [facility] HerronDOB: Insurance:[facility] [employer] Blue HerronDOB: System [place] Blue [id number] Repository Radha [facility] Number: [address] Effective Date: , [place] [address]Xgb: ()
--- OUTSIDE RECORDS SUMMARY | 2018-05-03 20:31 | XMS RPT_ITS | Continuity of Care Document ---
:1990 Author Organization [facility] Address [address] [facility] [address] [place] [address] Phone Care Team Providers Name Role Phone Delmis Alvarado DO Unavailable Rosa Mishra MD Unavailable [facility] Unavailable Juaquin JONES, Guera Villalta Unavailable Blayne Harris Unavailable Gravius, Kathleen Unavailable Unavailable Nelda Day Unavailable Unavailable Slarb UI UX ENGINEER, Lindsay Unavailable Unavailable Long UI UX ENGINEER, Mora L Unavailable Unavailable Unavailable Unavailable Problems [...] missael and willem, Sees Dr. Quevedo in [place], [facility] Status: Active Current smoker (F17.200, 305.1) Status: [...] Result: Comments: See Note; NOTES: [facility] Cardiovascular Services [address] [place] [address] Echo Complete 09/29/17 1301 MR#: [id number] Acct: [id number] Name: MARIO GOMEZ Rep #: [id number] : 1990 27 From: Rajiv Kumar MD Attending Dr: Leila Bean NP Status: REG CLI Ordering Dr: Leila Bean Date: 09/29/17 Location: [facility] Sex: M C Admitted: Reason For Study [...] Physician: DELMIS ALVARADO Performed By: Amada Velazco, DEILIA, RVT 09/29/17 1507 Date Rajiv Kumar MD CC: Leila Bean 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; Delmis Alvarado DO Date Dictated: 09/29/17 1301 Date Transcr ibed: 09/29/17 1507 [employer]: Signed 27-Aug-2017 Testicular with Arterial Flow Result: Comments: See Note; NOTES: [facility] Imaging Services [address] [place] [address] Testicular with Arterial Flow MR#: [id number] Acct: [id number] Name: MARIO GOMEZ Naman Fajardo p #: [id number] : 1990 M 27 From: Alfa Alcala MD PCP: Delmis Alvarado DO Status: REG CLI Study: Testicular with Arterial Flow Date of Exam: 08/27/17 Exam# [id number] Ordering Dr: Lesley Varma 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-C STUDY: SCROTUM ULTRASOUND REASON FOR EXAM: Male, [...] Fax CC: YANETH Yeh; Delmis Alvarado DO [employer]: Signed 21-May-2017 Hip 2-3 Views with Pelvis Result: Comments: See Note; NOTES: [facility] Imaging Services [address] [place] [address] Hip 2-3 Views with Pelvis MR#: [id number] Acct: [id number] Name: MARIO GOMEZ Rep #: [id number] : 1990 M 26 From: Albin Singh MD PCP: Delmis Alvarado DO Status: REG CLI Study: Hip 2-3 Views with Pelvis Date of Exam: 05/21/17 Exam# [id number] Ordering Dr: Lesley Yeh PCristina STUDY: X-RAY [...] Singh MD at 15:1 3 EDT Tel [phone], Service support , CC: YANETH Yeh; Delmis Alvarado DO [employer]: Signed 09-Sep-2016 Abdomen/Pelvis WITH Contrast Result: Comments: See Note; NOTES: [facility] Imaging Services [address] [place] [address] Verdana 4d Abdomen/Pelvis WITH Contrast MR#: [id number] Acct: [id number] Name: KEVIN GOMEZ Rep #: [id number] : 1990 26 From: Radhika Mckeon MD PCP: Delmis Alvarado DO Status: REG CLI Study: Abdomen/Pelvis WITH Contrast Date of Exam: 09/09/16 Exam# [id number] Ordering Dr: Delmis El DO STUDY: CT [...] Radhika Mckeon MD at 1:28 EDT Tel [phone], Service support , CC: Delmis Alvarado DO [employer]: Signed 04-Sep-2016 Testicular with Arterial Flow Result: Comments: See Note; NOTES: [facility] Imaging Services [address] [place] [address] Verdana 4d Testicular with Arterial Flow MR#: [id number] Acct: [id number] Name: CHICA GOMEZ Rep #: [id number] : 1990 M 26 From: Josiah Murdock MD PCP: Delmis Alvarado DO Status: REG CLI Study: Testicular with Arterial Flow Date of Exam: 09/04/16 Exam# [id number] Ordering Dr: Lesley Vidal 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-C STUDY: SCROTUM ULTRASOUND REASON FOR EXAM: Male, [...] , CC: Lesley Yeh; Delmis Alvarado DO [employer]: Signed 24-Mar-2016 Soft Tissue Neck WITH Contrast Result: Comments: See Note; NOTES: [facility] Imaging Services [address] [place] [address] Verdana 4d Soft Tissue Neck WITH Contrast MR#: [id number] Acct: [id number] Name: СЕРГЕЙ GOMEZ Rep #: [id number] : 1990 M 25 From: Albin Singh MD PCP: Delmis Alvarado DO Status: REG CLI Study: Soft Tissue Neck WITH Contrast Date of Exam: 03/24/16 Exam# [id number] Ordering Dr: Delmis Alvarado DO STUDY: CT [...] FINDINGS: Normal bilateral parotid glands. Normal bilateral associate professor spaces. Normal bilateral parapharyngeal spaces. Normal bilateral [...] Albin Singh MD at 9:16 EST Tel [phone], Service support [phone], CC: Delmis Alvarado DO [employer]: Signed Family History Unknown Family Member Name Dates Details Father Comments: HTN Status: Active Mother Comments: HTN Status: Active Social History Name Dates Details Alcohol Use Comments: 10 beers weekly Status: Active Current Work/Study Status Comments: part time [employer] Status: Active Exercise History: Exercises occasionally. [...] Results Date Description Value Details :40 TSH (38990) Comments: PATIENT NOT FASTINGPERFORMED BY: [facility] [id number] TSH 1.630 {uIU/mL} (Normal) Range: 0.450-4.500 36-Pzf-553914:40 CBC, Platelets & Auto Diff Comments: PATIENT NOT FASTINGPERFORMED BY: [facility] [id number] (96251) Immature Grans (Abs) 0.0 {x10E3/uL} (Normal) Range: [...] 4.14-5.80 WBC 7.9 {x10E3/uL} (Normal) Range: 3.4-10.8 09-Pkx-492361:40 Metabolic Panel, Comprehensive Comments: PATIENT NOT FASTINGPERFORMED BY: [facility]CoRobert [facility] SomersetIiknuw2667 [facility] [id number] (37715) ALT (SGPT) 11 [iU]/L (Normal) Range: 0-44 [...] 6-20 Glucose 89 mg/dL (Normal) Range: 65-99 73-Ovu-16658:57 TRICHOMONAS VAGINALIS W[facility]/PCR Comments: [facility] [address] [place], [address] TV RESULT Negative (Normal) 35-Mqo-169176:59 URINE JOSIAS CULTURE-IDENTIFICATN Comments: PATIENT NOT FASTINGPERFORMED BY: [facility]CoRobert [facility] SomersetMvxkws8681 [facility] [id number] Information: [id number] (21416) Result 1 NG36 (Normal) Comments: No growth in 36 - 48 hours. Urine Culture,Comprehensive Final report (Normal) 64-Olq-310111:17 URINALYSIS (42191) URINALYSIS normal (Normal) Comments: GLU: NegBIL:SmallKet;NegaSG>=1.030Blo: NegpH6.0PRO:30mg/dLURO: normalNit:negLeu:neg 09-Pli-352444:00 CHLAMYDIA by urine Comments: PATIENT NOT FASTINGPERFORMED BY: =Fontself[address] [id number] Information: [id number] (38789) Neisseria gonorrhoeae, YAJAIRA Negative (Normal) Chlamydia trachomatis, YAJAIRA Negative (Normal) 24-Oyd-589319:14 URINALYSIS (62939) Comments: PERFORMED BY: ViewsterECU [facility] [id number] Microscopic Examination MICNIP (Normal) Comments: Microscopic not indicated and not performed. Nitrite, Urine Negative (Normal) Urobilinogen,Semi-Qn 0.2 mg/dL (Normal) Range: 0.2-1.0 Bilirubin Negative (Normal) Occult Blood Negative (Normal) Ketones Trace (Abnormal) Glucose Negative (Normal) Protein Negative (Normal) WBC Esterase Negative (Normal) Appearance Clear (Normal) Urine-Color Yellow (Normal) pH 5.0 (Normal) Range: 5.0-7.5 Specific [place] 1.029 (Normal) Range: 1.005-1.030 66-Ugo-780768:25 Chlamydia/GC Amplification Comments: PATIENT NOT FASTINGPERFORMED BY: Sulia6370 [place] AdScoreECU Health [facility] [id number] BY: =Fontself[address] [id number] Neisseria gonorrhoeae, YAJAIRA Negative (Normal) Chlamydia trachomatis, YAJAIRA Negative (Normal) 64-Jpf-117136:25 Urinalysis, Routine Comments: PATIENT NOT FASTINGPERFORMED BY: [employer] ikeGPS Garrett AdScoreECU [facility] [id number] BY: =Fontself[address] [id number] Inf ormation: SRC:UR SRC:UC Microscopic Examination MICNIP (Normal) Comments: Microscopic not indicated and not performed. Nitrite, Urine Negative (Normal) Urobilinogen,Semi-Qn 0.2 mg/dL (Normal) Range: 0.2-1.0 Bilirubin Negative (Normal) Occult Blood Negative (Normal) Ketones Trace (Abnormal) Glucose Negative (Normal) Protein Negative (Normal) WBC Esterase Negative (Normal) Appearance Clear (Normal) Urine-Color Yellow (Normal) pH 5.0 (Normal) Range: 5.0-7.5 Specific [place] 1.028 (Normal) Range: 1.005-1.030 53-Vqk-863441:25 Urine Culture,Comprehensive Comments: PATIENT NOT FASTINGPERFORMED BY: [employer]70 Breeze TechnologyECU Health [facility] [id number] BY: =G LabSp[employer] Integration[address] [place] [address] [id number] Result 1 NG36 (Normal) Comments: No growth in 36 - 48 hours. Urine Culture,Comprehensive Final report (Normal) 59-Bsy-384075:21 Ct, Ng, Trich vag by Comments: PATIENT NOT FASTINGPERFORMED BY: =G LabCarenarp Hzgjxwepok[address] [place] [address] [id number] BY: [employer] Xhmwbp7806 [facility] [id number] Inf ormation: J0 YAJAIRA 3378 SRC:UR SRC:UR Trich vag by YAJAIRA Negative (Normal) Gonococcus by YAJAIRA Negative (Normal) Chlamydia by YAJAIRA Negative (Normal) 82-Ccn-911935:21 Urine Culture,Comprehensive Comments: PATIENT NOT FASTINGPERFORMED BY: =G LabCarenarp Zujppbtmdm669 [facility] [id number] BY: [employer] Posmjk3284 GarrettS[facility] Hospital [id number] Result 1 NG36 (Normal) Comments: No growth in 36 - 48 hours. Urine Culture,Comprehensive Final report (Normal) 61-Zez-143070:02 Urinalysis, Office (95886) UA - LEUKOCYTE ESTERASE Negative (Normal) UA - NITRITE Negative (Normal) URINE UROBILINGN SINDHU Normal mg/dL TIMED (Normal) UA - PROTEIN Negative mg/dL (Normal) UA - PH 6 (Abnormal) UA - BLOOD Negative (Normal) UA - SPECIFIC GRAVITY 1.025 (Normal) UA - KETONES Negative mg/dL (Normal) UA - BILIRUBIN Negative (Normal) UA - GLUCOSE Negative (Normal) 75-Rgz-72660: Trich vag by YAJAIRA Negative (Normal) Comments: PATIENT NOT FASTINGPERFORMED BY: = Game Craft[address] [id number] Information: URINE SRC:UR 21 41-Dhc-80368:24 CHLAMYDIA by urine Comments: PATIENT NOT FASTINGPERFORMED BY: NuMat TechnologiesChristopher V[place] 5344670 [facility] [id number] Information: SRC:PN (54878) Neisseria gonorrhoeae, YAJAIRA Negative (Normal) Chlamydia trachomatis, YAJAIRA Negative (Normal) 29-Shi-785071:18 METABOLIC PANEL, COMPREHENSIVE Comments: PATIENT NOT FASTINGPERFORMED BY: Game CraftAngela V[place] 1590070 [facility] [id number] (73130) ALT (SGPT) 11 [iU]/L (Normal) Range: 0-44 [...] Glucose, Serum 104 mg/dL (Abnormal) Range: 65-99 82-Dhb-451182:35 URINE JOSIAS CULTURE-IDENTIFICATN Comments: PATIENT NOT FASTINGPERFORMED BY: Game CraftRobert Wood Johnson [facility] Hospital SomersetCkpgxi73[address] [place] [address] [id number] Information: SRC:UC (54747) Result 1 MUG (Normal) Comments: Mixed urogenital flora10,000-25,000 colony forming units per mL Urine Final report (Normal) Culture,Comprehensive 90-Vvm-248672:39 CHLAMYDIA TRAC, AMPL, Comments: PATIENT NOT FASTINGPERFORMED BY: [employer] ikeGPS [facility] [id number] Information: SRC:UR INFCT ANTIGEN (24861) Neisseria gonorrhoeae, YAJAIRA Negative (Normal) Chlamydia trachomatis, YAJAIRA Negative (Normal) 71-Oql-176631:44 Urinalysis, Office (15832) UA - LEUKOCYTE ESTERASE Negative (Normal) UA - NITRITE Negative (Normal) URINE UROBILINGN SINDHU TIMED Normal mg/dL (Normal) UA - PROTEIN Negative mg/dL (Normal) UA - PH 6 (Abnormal) UA - BLOOD Negative (Normal) UA - SPECIFIC GRAVITY 1.030 (Abnormal) UA - KETONES Negative mg/dL (Normal) UA - BILIRUBIN Negative (Normal) UA - GLUCOSE Negative (Normal) 2-Pyb-157535:21 CT,NG,TV (Chlamydia, Comments: PATIENT NOT FASTINGPERFORMED BY: = [employer] [id number] Information: SRC:UR Gonorrhea, Trichomonas) (36701) Trich vag by YAJAIRA Negative (Normal) Gonococcus by YAJAIRA Negative (Normal) Chlamydia by YAJAIRA Negative (Normal) 8-Zzj-855803:12 SED RATE ERYTHROCYTE (09572) Comments: PATIENT NOT FASTINGPERFORMED BY: [facility] [id number] Sedimentation Rate-Westergren 2 mm/h (Normal) Range: 0-15 1-Hen-635803:12 C-REACTIVE PROTEIN (57035) Comments: PATIENT NOT FASTINGPERFORMED BY: [facility] [id number] C-Reactive Protein, Quant 0.3 mg/L (Normal) Range: 0.0-4.9 1-Oas-264702:12 METABOLIC PANEL, COMPREHENSIVE Comments: PATIENT NOT FASTINGPERFORMED BY: [facility] [id number] (86881) ALT (SGPT) 14 [iU]/L (Normal) Range: 0-44 [...] Glucose, Serum 86 mg/dL (Normal) Range: 65-99 6-David-65487:23 Throat Culture (28836) Comments: PATIENT NOT FASTINGPERFORMED BY: LabM[facility]6370 [facility] [id number] Information: SRC:TH Result 1 RRF (Normal) Comments: Routine respiratory armida Upper Respiratory Culture Final report (Normal) 15-Feb-20168:08 Rapid Strep Test, Office (46350) Rapid Strep Test, Office Negative (Normal) 75-Suo-062968:15 CBC, Platelets & Auto Comments: PATIENT NOT FASTINGPERFORMED BY: LabCoRobert [facility] Hospital SomersetQipwyb1473 [facility] [id number] Information: [id number],K33563 Diff (58981) Immature Grans (Abs) 0.0 {x10E3/uL} (Normal) Range: [...] 4.14-5.80 WBC 8.8 {x10E3/uL} (Normal) Range: 3.4-10.8 05-Wsz-864526:40 CHLAMYDIA TRAC, AMPL, Comments: PATIENT NOT FASTINGPERFORMED BY: [place] 8717370 [facility] [id number] Information: [id number] INFCT ANTIGEN (80753) Please note: SPRCS (Normal) Comments: Acceptable specimens for this test are male urethral swab,endocervical swab and liquid based pap specimens, vaginal swabs inAPTIMA transports and first void urine. See online Directory ofServices for te st number for rectal and pharyngeal specimens. Neisseria gonorrhoeae, Negative (Normal) YAJAIRA Chlamydia trachomatis, Negative (Normal) YAJAIRA 27-Jlk-308220: Chlamydia trachomatis, Negative (Normal) Comments: PATIENT NOT FASTINGPERFORMED BY: [address] [id number] Information: SRC:TH THROAT 27 YAJAIRA 32-Owg-246460:01 Rapid Strep Test, Office (95088) Rapid Strep Test, Office Negative (Normal) 84-Rwo-847007:13 Ct, Ng, Trich vag by Comments: PATIENT NOT FASTINGPERFORMED BY: [address] [id number] Information: SRC:UR URINE YAJAIRA Gonococcus by YAJAIRA Negative (Normal) Trich vag by YAJAIRA Negative (Normal) Chlamydia by YAJAIRA Positive (Abnormal) 76-Znj-210960:26 URINE JOSIAS CULTURE-SINDHU COL Comments: PATIENT NOT FASTINGPERFORMED BY: [address] [id number] Information: SRC:URC S02914 COUNT (57250) Result 1 NG36 (Normal) Comments: No growth in 36 - 48 hours. Urine Culture,Comprehensive Final report (Normal) 68-Pqx-52561:08 Urinalysis, Office (85071) UA - LEUKOCYTE ESTERASE Negative (Normal) UA - NITRITE Negative (Normal) URINE UROBILINGN SINDHU TIMED Normal mg/dL (Normal) UA - PROTEIN Negative mg/dL (Normal) UA - PH 6 (Abnormal) UA - BLOOD Negative (Normal) UA - SPECIFIC GRAVITY 1.025 (Normal) UA - KETONES 15 mg/dL (Abnormal) UA - BILIRUBIN Small (Normal) UA - GLUCOSE Negative (Normal) 5-Qjh-505043:38 JOSISA CULTURE-OTHER (59632) Comments: PATIENT NOT FASTINGPERFORMED BY: [employer] [id number] Information: SRC:THRT Q13905 Result 1 BETAGB (Abnormal) Comments: Beta hemolytic [...] report (Abnormal) 14-Sep-20149:48 Rapid Strep Test, Office (43121) Rapid Strep Test, Negative (Normal) Office 78-Dgw-942403: Chlamydia trachomatis, Negative (Normal) Comments: PATIENT NOT FASTINGPERFORMED BY: NuMat TechnologiesFreeman [facility] Institute Gnkphl89[address] [id number] Information: SRC:UR URINE 16 YAJAIRA 78-Smf-041479:22 Chlamydia/GC Amplification Comments: PERFORMED BY: [employer] Vqxtiu06[address] [place] [address] [id number] BY: [address] [id number] Information: SRC:UR Please note: SPRCS (Normal) Comments: [...] by YAJAIRA Negative (Normal) Comments: PERFORMED BY: Game Craft[address] [id number] BY: [address] [id number] :22 22-Ugo-215165:40 HPV Genotyping, PCR Comments: PERFORMED BY: [employer] LMN40[address] [place] [id number] Information: PENILE HPV By PCR NHV (Normal) [...] HPV Genotyping, PCR will be made non-orderable. [employer] offers test 082234 (HPV In Situ Hybridization) for formalin-fixed, paraffin-embedded tissue. [facility] will offer new test 217975 Human Papillomavirus (HPV) High-risk (marco antonio(R)) With HPV 16 and 18, Rectal Source in ThinPrep(R) containers. :13 HBsAg Screen Negative (Normal) Comments: PERFORMED BY: [address] [id number] :13 Hep B Surface Ab Comments: PERFORMED BY: [address] [id number] Hep B Surface Ab, Qual Reactive (Normal) Comments: Non Reactive: Inconsistent with immunity, less than 10 mIU/mL Reactive: Consistent with immunity, greater than 9.9 mIU/mL :13 Panel 100608 Comments: PERFORMED BY: [address] [id number] HIV 1/O/2 Abs, Non Reactive Qual (Normal) HIV 1/O/2 <1.00 (Normal) Comments: Index Value: Specimen reactivity relative to the negative cutoff. Abs-Index Value : RPR Non Reactive Comments: PERFORMED BY: [address] [id number] 13 (Normal) 8-Res-426202:36 CBCD ANC 8.4 3/uL (Abnormal) Range: 2.0-7.7 [...] mg/dL (Normal) Range: 70-110 :49 Urinalysis, Office (48488) UA - BILIRUBIN Negative (Normal) UA - [...] Peterson M.D.October 13, 2012 at 7:08:53 PM [id number] Signed PF/PF If you are the referring physician and would like to consult with theradiologist who provided this interpretation, please contact Erasmo Peterson M.D. at [phone]. If this radiologist is unavailable, you will bedirected to another radiologist to [facility]. If you are a patient with a question regarding this report, pleasecontactyour referring physician directly. Professional Interpretation Provided By: Tervela, Phone ,Fax N.B. : The above information [...] quadrant Planned Observations RPR (RAPID PLASMA REAGIN) (74553)Indication: Erectile dysfunction On: 04-Sib-219415:11 Request Herpes Simplex 1&2 IGM (35168)Indication: Erectile dysfunction On: 29-Gms-848553:11 Request Herpes Simplex 1&2 IGG (75485)Indication: Erectile dysfunction On: 41-Ahy-086698:[address],NG,TV (Chlamydia, Gonorrhea, Trichomonas) (36134)Indication: Erectile dysfunction On: 00-Vwy-918319:10 Request WET MOUNT (35633)-first am urine for trichIndication: Screen for STD (sexually transmitted disease) (Renamed from Encounter for screening examination for sexually transmitted disease) On: 14-Cto-325396:16 Request GONORRHEA by urine (59656)Indication: Screen for STD (sexually transmitted disease) (Renamed from Encounter for screening examination for sexually transmitted disease) On: 65-Dvq-752523:16 Request URINE JOSIAS CULTURE-IDENTIFICATN (16768)Indication: Screen for STD (sexually transmitted disease) (Renamed from Encounter for screening examination for sexually transmitted disease) On: 13-Emu-601538:11 Request URINALYSIS (09928)Indication: Screen for STD (sexually transmitted disease) (Renamed from Encounter for screening examination for sexually transmitted disease) On: 08-Ypt-339070:11 Request WET MOUNT (78261)-first am urine for trichIndication: Screen for STD (sexually transmitted disease) (Renamed from Encounter for screening examination for sexually transmitted disease) On: 57-Auo-798677:10 Request GONORRHEA by urine (00257)Indication: Screen for STD (sexually transmitted disease) (Renamed from Encounter for screening examination for sexually transmitted disease) On: 29-Mtt-927360:10 Request CHLAMYDIA by urine (58388)Indication: Screen for STD (sexually transmitted disease) (Renamed from Encounter for screening examination for sexually transmitted disease) On: 32-Rma-441769:10 Request CHLAMYDIA TRAC, AMPL, INFCT ANTIGEN (99164)Indication: Penis pain On: 03-Nfe-040208:44 Request URINE JOSIAS CULTURE-IDENTIFICATN (10918)Indication: Screen for STD (sexually transmitted disease) (Renamed from Encounter for screening examination for sexually transmitted disease) On: 11-Rls-176174:03 Request WET MOUNT (45955)-first am urine for trichIndication: Screen for STD (sexually transmitted disease) (Renamed from Encounter for screening examination for sexually transmitted disease) On: 21-Pue-819564:00 Request GONORRHEA by urine (20731)Indication: Screen for STD (sexually transmitted disease) (Renamed from Encounter for screening examination for sexually transmitted disease) On: 96-Vov-826692:00 Request CHLAMYDIA by urine (59371)Indication: Screen for STD (sexually transmitted disease) (Renamed from Encounter for screening examination for sexually transmitted disease) On: 27-Ssw-575958:00 Request Aerobic Bacterial Culture (18394)Indication: Screen for STD (sexually transmitted disease) (Renamed from Encounter for screening examination for sexually transmitted disease) On: 05-Xif-461617:10 Request Comments: penile WET MOUNT (44242)-first am urine for trichIndication: Screen for STD (sexually transmitted disease) (Renamed from Encounter for screening examination for sexually transmitted disease) On: 43-Jfd-592612:56 Request GONORRHEA by urine (38621)Indication: Screen for STD (sexually transmitted disease) (Renamed from Encounter for screening examination for sexually transmitted disease) On: :55 Request Urinalysis, Office (09707)Indication: Urinary hesitancy On: :[address],NG,TV (Chlamydia, Gonorrhea, Trichomonas) (65108)Indication: History of chlamydia On: :17 Request VITAMIN B12 AND FOLATES (33983)Indication: Abnormal blood chemistry On: :49 Request CALCIFEDIOL (86411)Indication: Abnormal blood chemistry On: :49 Request TSH (64972)Indication: Abnormal blood chemistry On: :49 Request Metabolic Panel, Comprehensive (47428)Indication: Abnormal blood chemistry On: :49 Request MONOSPOT TEST (17942)Indication: Immunocompromised On: :49 Request EBV Panel (23132)Indication: Immunocompromised On: 2-Qow-628233:49 Request SMEAR+INTERP ROUTN STAIN (84585)Indication: Immunocompromised On: :49 Request CBC, Platelets & Auto Diff (22352)Indication: Immunocompromised On: 8-Giq-754760:48 Request CHLAMYDIA by urine (43259)Indication: Screen for STD (sexually transmitted disease) (Renamed from Encounter for screening examination for sexually transmitted disease) On: :26 Request WET MOUNT (44956)-first am urine for trichIndication: Screen for STD (sexually transmitted disease) (Renamed from Encounter for screening examination for sexually transmitted disease) On: :39 Request GONORRHEA by urine (75315)Indication: Screen for STD (sexually transmitted disease) (Renamed from Encounter for screening examination for sexually transmitted disease) On: :39 Request CHLAMYDIA by urine (70752)Indication: Screen for STD (sexually transmitted disease) (Renamed from Encounter for screening examination for sexually transmitted disease) On: 80-Smf-69303:39 Request CHLAMYDIA TRAC, AMPL, INFCT ANTIGEN (56424)Indication: Chlamydia infection On: 70-Lle-721817:57 Request HEPATITIS C ANTIBODY (99697)Indication: Possible exposure to STD On: 52-Itu-149795:05 Request Comments: now and in six months (approximately) HEPATITIS B SURFACE ANTIGEN (68240)Indication: Possible exposure to STD On: 43-Irn-570497:05 Request Comments: now and in six months (approximately) HIV-1 ANTIBODY (56614)Indication: Possible exposure to STD On: 60-And-051436:05 Request Comments: now and in six months (approximately) HPV Comprehensive (03033)Indication: Possible exposure to STD On: 66-Cvw-804556:45 Request Comments: male penile swab RPR (RAPID PLASMA REAGIN) ([id number])Indication: Possible exposure to STD On: [id number]-Wuj-[id number]:43 Request WET MOUNT ([id number]) (trich for men first am urine)Indication: Possible exposure to STD On: 18-Szf-829852:43 Request CHLAMYDIA BY URINE ([id number])Indication: Possible exposure to STD On: 63-Qvf-134552:43 Request GONORRHEA BY URINE ([id number])Indication: Possible exposure to STD On: 60-Ymj-635681:43 Request CBC, Platelets & Auto Diff ([id number])Indication: Abdominal pain, acute, right lower quadrant On: 3-Wnm-636749:51 Request Comments: stat Metabolic Panel, Comprehensive ([id number])Indication: Abdominal pain, acute, right lower quadrant On: 7-Zjv-875457:49 Request Planned Procedures Holter Monitor 24 hrsBy: Vikas On: 23-Sep-2017 Intent Leila MIRANDA Echo CompleteBy: Leila Bean CNP On: 23-Sep-2017 Intent Ann-Marie ELECTROCARDIOGRAM, COMPLETE (ECG) On: 23-Sep-2017 Intent ([id number])By: Leila Bean CNP Ultrasound - TesticularBy: On: 24-Aug-2017 Intent Lesley Yeh Comments: attention to left testicle. PHYSICAL THERAPY ([id number])By: On: 21-May-2017 Intent Lesley Yeh Radiology - Hip - RightBy: On: 21-May-[address] - Abdomen & Pelvis (IV On: 01-Sep-2016 Intent Contrast Needed)By: Lesley Yeh Ultrasound - TesticularBy: On: 01-Sep-[address] SCAN OF NECK TISSUE WITH On: 17-Mar-2016 Intent CONTRAST ([id number])By: Delmis Alvarado DO, DO, Kathleen SPECIMEN HNDLNG/TRNSPRT, OFFC > On: 14-Sep-2014 Intent LAB ([id number])By: Kylah Tsai MD Rocephin Injection, 2 Gram On: 24-Feb-2013 Intent ([id number])By: Mora Silverman LPN Comments: Lot #[id number] and L hip - split in 2Dose-prefilled syringegiven by:JENNIFER Molina signed CT - Abdomen & PelvisBy: Vikas On: 13-Oct-2012 Intent INSOLE CHANNELERLeila Comments: rule out appendiciitis stat call wet read to [facility] 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
== END ==
PROVIDERS: Family Provider Internal Medicine; PCP Internal Medicine; Referring Provider Internal Medicine; Visit Provider Internal Medicine
DX: M25.551 Pain in right hip (principal)
CPT/HCPCS: 27093; 73722; 77002; A9577; Q9967

== ENCOUNTER 2023-07-20 09:22 | Outpatient (RCR) | payer BC, SELFPAY ==
--- NOTE | 2023-07-20 09:00 | BH.SGPN.GN ---
Behaviors/Verbalizations/Mental Status: [] Client alert and oriented, casual appearance. Eye contact good. Motor activity appropriate. Speech within normal limits. Affect congruent, mood anxious. Thoughts linear, logical, no signs of hallucinations or delusions. Reviewed client?s symptom tracker, no risk for suicidal ideation, plan, or intent. Client Response/Progress/Benefit: [] Client responded well to session AEB listening to others and sharing thoughts/feelings. Client reports a 0/5 for depression and a 3/5 for anxiety. Client stated feeling overwhelmed. Reported he has a hard time giving himself credit because what he is accomplishing currently wouldn't be something he considers as a win. Client connected with encouragement to give self credit for even the small wins because he currently isn't functioning at 100%. Appeared to benefit from support from peers. Client's first day in IOP. Will continue IOP tx to improve daily functioning, improve healthy coping skills, and prevent decompensation.
--- NOTE | 2023-07-20 09:24 | BH.COMM ---
Communication Note Communication with Client Communication Note: Communication Note: Met with pt to complete initial paperwork and administer the CSSR-S screening and risk assessment. Pt denies any current SI, plan, or intent. No hx of attempts or self-harming. Hx of fleeting passive SI 15+ years ago. Reports he wouldn?t care if he didn?t wake up but ?suicide is not an option for me?. Future oriented and protective factors noted. Discussed case with Dr. Miller and pt will be admitted to [facility] tx with a diagnosis of OCD F42
--- NOTE | 2023-07-20 10:10 | BH.SGPN.GN ---
Behaviors/Verbalizations/Mental Status: [] Eye contact is good. Motor activity is appropriate. Appearance is casual. Speech is Appropriate. Mood is anxious. Affect is congruent. Thoughts are linear and logical. No evidence of psychosis. Client Response/Progress/Benefit: [] Pt receptive to session AEB contributing to group discussion, as well as listening attentively to others, and taking notes. Worked with group to brainstorm the positive and negative aspects of stress on physical and mental health as well as the impact of distress on performance, relationships, and mental health. Pt shared their top stressors to be: OCD, fear of contamination, and perfectionism. Shared when feeling overwhelmed with stress they tend to shut down, freeze, and lash out in panic. Benefited from increased awareness of positive and negative stress as well as how stress impacts mental health and relationships. Will continue in IOP to promote utilization of distress tolerance and ERP skills, improve positive view of self, and prevent decompensation. Narrative Note: []
--- NOTE | 2023-07-20 11:10 | BH.SGPN.GN ---
Behaviors/Verbalizations/Mental Status: []Pt alert and oriented, casually dressed and groomed. Eye contact good. Motor activity appropriate. Speech within normal limits. Affect congruent, mood anxious and euthymic. Thoughts linear, logical, no signs of hallucinations or delusions. Client Response/Progress/Benefit: [] Pt was an active participant in group discussions and experiential activity. Attentive during psychoeducation on the 4 A's (Avoid, adapt, alter, accept) of coping with stress. Pt wants to work on acceptance to help with his OCD symptoms. Was able to identify the connection between the experiential activity and utilization of stress management skills. Benefited from increased awareness of stress management strategies. First day of IOP tx. Pt will continue IOP tx to prevent decompensation, improve daily functioning, and reduce compulsions. Narrative Note: []
--- NOTE | 2023-07-22 09:30 | BH.NA ---
Physical Data Vital Signs Pulse Rate: 67 Blood Pressure: 139/89 Height/Weight Height: 1.88 m Weight:: 87.997 kg Weight in Pounds: 194.0 lbs Current Medication Compliance Medication Compliance Do you take your medication as prescribed?: Yes Nutritional History Appetite Nutritional Instructions: Describe your appetite:: Good Additional nutritional information:: Client states his usual weight used to be around 205lbs, but he has been between 181-194lbs over the last several months. Functional Assessment Sleep Pattern Describe any problems with sleeping: Client states he usually sleeps 6-8 hours per night. Sensory/Communication Assess Communication Problems Do you have difficulty understanding what people are saying?: No Medical Problems/History Gastrointestinal Conditions Gastrointestinal: Other (See comments) (Crohns disease) Pain Assessment Do you have acute or chronic pain?: No Additional History Additional comments:: acyclovir treatment for herpes outbreak prevention Surgical History Surgical History Have you had any surgeries? If so, list type and date:: Yes (hip x 2) Substance Abuse Substance Abuse Please describe substance abuse in the last 30 days:: Client reports social alcohol use (when he goes out to dinner, when he's with friends). Client reports occasional cigarette use when he drinks alcohol. Client reports he had been using edibles but had stopped in October 2022 due to paranoia, but states he had used some again up until a few weeks ago to help with anxiety. Client states he used to drink energy drinks but states he has not had any since June 2023 and only occasionally drinks pop with caffeine in it. Suicide Assessment Suicidal Ideation Are you currently or have you been suicidal in the past?: No Suicidal Intentional Rating Scale (SIRS): No suicidal thoughts (past or present) Physician Notification Past Psychiatric History MH Treatment Hx Past Psychiatric Medications:: Client had been on Concerta for ADHD in elementary school. Client has been on Prozac and other medication he can not remember the definite name of since February 2023. Age of first mental health symptoms: Client states he started to develop obsessions and compulsions regarding germs during the COVID 19 pandemic in 2019. Describe (age, circumstance, etc) any past hospitalizations: None. Current providers for mental health treatment (counselor, psychiatrist, telephonic nurse case manager, etc.): Lizeth at [facility] for therapy Fall Risk Assessment Age Age: Less than 60 Mental Status Mental Status: Willing & able to ask for assistance when needed Physical Status Physical Status: No problems Impairments Impairments: None Elimination Elimination: Continent AND independent Gait or Balance Gait or Balance: Walks independently Hx of Falls History of falls in the past 6 months: No known history Medications/Substances Psychotropics:: Antidepressants Medications/substances used within the past 24 hours or ordered to administer: 1-2 of the medications/substances listed above Total Score Total Points:: 1 RN Summary of Impressions Impressions Recommendations Impressions: Psychiatric Issues: Obsessive Compulsive Disorder Level of Care How do the client's current symptoms and functional deficits support need for this level of care?: Client was referred to IOP by therapist after his obsessions and compulsions had required him to go on leave from his job. Client states his OCD symptoms have worsened since December 2022. Client states when he is away from home, he will not get his cell phone out and touch it because he does not want to get germs on it. Client states he will go out to eat, etc, but will shower as soon as he returns home. Client states he takes between 2-5 showers per day. Client states he has several routines regarding when he has to wash his hands before or after activities, how many times he can use one towel, what he can touch without washing his hands again, etc. Client states these obsessions and compulsions have lead to isolation and avoidance at times. IOP will promote gains and prevent further decompensation while providing social support and skills training.
[2023-07-22 10:07] VITALS: BP 139/89; PULSE 67
--- NOTE | 2023-07-22 10:15 | BH.SGPN.GN ---
Behaviors/Verbalizations/Mental Status: []Patient was alert and oriented, casually dressed and groomed. Eye contact was good, motor activity normal, speech within normal limits. Affect constricted, mood anxious. Thoughts linear, logical, no signs of hallucinations or delusion Client Response/Progress/Benefit: [] Pt participated in the group discussions AEB providing input and taking notes. Attentive during psychoeducation Goal Setting. Participated during the discussion on common barriers which the group identified as: lack of motivation, feeling uncomfortable, not feeling good enough, and lack of support. Group also identified benefits sense of purpose, improved self-confidence, more motivation for other goals, and improved mental health. Benefited from increased awareness of mental health benefits of goals as well as psychoeducation on SMART goal criteria. Will continue in IOP to prevent decompensation, gain healthy coping skills, and improve daily functioning. Narrative Note: []
--- NOTE | 2023-07-22 11:15 | BH.SGPN.GN ---
Behaviors/Verbalizations/Mental Status: []Pt alert and oriented, casually dressed and groomed. Eye contact good. Motor activity appropriate. Speech within normal limits. Affect congruent, mood anxious. Thoughts linear, logical, no signs of hallucinations or delusions. Client Response/Progress/Benefit: [] Pt was engaged during discussion and willing to complete the worksheet challenging them to develop a personal SMART goal. Pt chose the goal of not cleaning three things that he has already cleaned. Pt stated this will help challenge his OCD thoughts and feelings. Pt stated feeling the need to clean the items again as a potential barrier. Identified solution as occupying his time with other activities to help distract his brain. Pt receptive to identifying solutions for these barriers and willing to begin working on this goal. Benefited from this group by developing a short-term SMART goal related to mental health. Will continue IOP tx to improve daily functioning, decrease compulsive behaviors, and prevent decompensation.
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
--- NOTE | 2023-07-22 12:49 | BH.DR.ITP ---
Initial Treatment Plan Patient Information Visit Information: ADMISSION DATE: EXPECTED LOS: 4-6 weeks Problems/Symptoms Problem #1:: Depression Symptom:: Sadness, hopelessness, worthlessness, guilt, biological disruption of appetite, low energy, passive thoughts of Problem #2:: Anxiety Symptom:: Worry, rumination, panic attacks, intrusive thoughts and rituals around cleanliness
--- NOTE | 2023-07-24 09:00 | BH.SGPN.GN ---
Behaviors/Verbalizations/Mental Status: [] Eye contact good. Motor activity appropriate. Speech within normal limits. Affect congruent, mood anxious. Thoughts linear, logical, no signs of hallucinations or delusions. Reviewed client?s symptom tracker, denies SI, plan, or intent Client Response/Progress/Benefit: [] Pt participated at times during group discussions. Attentive. Daily symptom tracker notes 4/5 for agitation and 3/5 for anxiety. Able to identify a mental health win which was that he only took one shower yesterday. He elaborated on his obsessions and compulsions regarding cleanliness. Briefly shared his compulsions and rituals with the group which includes numerous daily showers. These obsessions and compulsions are significant and impact him on a daily basis. Progress noted however he could not identify any skills that he utilized to decrease showering compulsion. Benefited from group support, encouragement, and feedback. Will continue in IOP to prevent decompensation, decrease OCD symptoms, and improve functioning to return to work. Narrative Note: [] Behaviors/Verbalizations/Mental Status: [] Eye contact good. Motor activity appropriate. Speech within normal limits. Affect congruent, mood anxious. Thoughts linear, logical, no signs of hallucinations or delusions. Reviewed client?s symptom tracker, denies SI, plan, or intent Client Response/Progress/Benefit: [] Pt participated at times during group discussions. Attentive. Daily symptom tracker notes 4/5 for agitation and 3/5 for anxiety. Able to identify a mental health win which was that he only took one shower yesterday. He elaborated on his obsessions and compulsions regarding cleanliness. Briefly shared his compulsions and rituals with the group which includes numerous daily showers. These obsessions and compulsions are significant and impact him on a daily basis. Progress noted however he could not identify any skills that he utilized to decrease showering compulsion. Benefited from group support, encouragement, and feedback. Will continue in IOP to prevent decompensation, decrease OCD symptoms, and improve functioning to return to work. Narrative Note: []
--- NOTE | 2023-07-24 09:48 | BH.MDN ---
Multi-Disciplinary Note Note 60-min Individual: Time Started:: 08:30 Date: 07/24/23 Purpose of session/treatment goals addressed:: To gather information on pt's symptoms, triggers, stressors, and history. Another goal was to build rapport and provide emotional support. Eye Contact:: Good Motor Activity:: Appropriate Appearance:: Neat Speech:: Rambling Mood:: Anxious Affect:: Congruent Thoughts:: Racing and No evidence of hallucinations/delusions noted Staff Interventions:: psychoeducation on: (Exposure therapy), CBT techniques, mindfulness skills, rapport building, strengths perspective, treatment planning, goal setting and other (gave pt a fear ladder to identify goals.) Client Response:: Pt responded well to session, open to meeting with therapist. Pt has been in therapy with Lizeth Bob for the past several months and she referred him to [facility]. Pt stated he has been struggling with anxiety and OCD for years and pt feels his symptoms developed during the COVID pandemic. Pt reports he used to be able to do many things without worry about germs or contamination. Now pt feels he cannot relax at home because of his symptoms and he is not able to function at work or date. Pt stated I used to be the moni who could shower once after work but now I shower after I bump into the doorway. Pt shared he struggles with excessive handwashing, cleaning, and rituals. Pt stated there are times he will spend 10 minutes washing his hands because he feels he messed up his pattern. Pt saw Dr. Miller this week and she increased his medication which should hopefully help reduce pt's symptoms and allow pt to work on reducing compulsions. Pt learned about exposure therapy and how this could be helpful. Pt stated his outpatient therapist has tried working on this with pt but pt has not been ready yet. Pt receptive to working on these goals while in [facility] and stated his biggest goals are to reduce cleaning and reduce showering. Pt learned about SUDs (subjective units of distress) and how this will help pt rate different exposure goals. 10 is the highest REINA and 1 is the lowest. Pt shared I can't think of anything less than a 10 but he was encouraged to think about this over the weekend and was given an example. Risks/Concerns:: Pt denies any active SI, plan, or intent as of 07/24/23. Progress Toward Goals/Plan:: Pt's first week of IOP tx so no significant progress to document, but pt demonstrated progress in being consistent in attendance this week. Pt's symptoms are significant and impact his daily functioning as well as his ability to form new relationships and work. Pt endorses intrusive thoughts that result in excessive compulsions that hinder pt's functioning. Pt also endorses negative thoughts of self and depressive symptoms. Pt will continue IOP tx to prevent decompensation, improve daily functioning, and increase distress tolerance. Time Stopped:: 09:30
--- NOTE | 2023-07-24 09:48 | BH.MTP ---
Master Treatment Plan Patient Information Program Physician:: Dr. Marva Miller Primary Therapist:: Shayla WELLS Psychiatric Diagnoses Psychiatric Diagnoses:: Obsessive-compulsive disorder F 42.2; Major depressive disorder, recurrent, severe without psychosis F 33.2; Generalized anxiety disorder Diagnosis Code(s):: F42.2 Estimated LOS Estimated LOS (in weeks):: 6 Problem/Goal #1 Problem/Goal #1 Stated Goal:: Pt will reduce overall frequency and intensity of anxiety and OCD symptoms so that daily functioning is less impaired. Description of Barriers: Pt's OCD symptoms significantly impact his functioning at home, work, and socially. Pt also has negative thoughts about himself and he can be self-critical. Pt has been taking medication for his OCD symptoms, but per Dr. Miller the dosage has not been high enough to effectively treat it. Functional Impact: Pt is a 32-year-old male with a history of OCD who was referred to [facility] tx by his outpatient therapist due to worsening symptoms of OCD over the past few years. Pt reports at admission that COVID was the primary trigger for his worsening OCD and his symptoms impact all areas of his functioning. Pt is currently on leave from his job due to his symptoms impacting his attendance and ability to complete job duties. At admission pt's symptoms included excessive showering (4x a day), washing hands 30-40 times a day, avoidance of things at home that could be contaminated, showering after bumping into anything, and avoidance of using his phone outside of his house. Pt also endorses hopelessness, worthlessness, isolation, and thoughts of . Pt is unable to have friends over to his home and he feels unable to relax. Goal Relevant Strengths/Supports: Pt has an outpatient therapist as well as an open-mind to medications. Objectives Objective #1: Stated Objective: Pt will identify 2-3 anxiety and OCD triggers and 2 coping skills to use to manage anxiety as shown by reducing DSM-5 scores for anxiety and OCD. Interventions: Through group and individual sessions, pt will gain awareness of anxiety and OCD triggers and learn numerous techniques to manage anxiety and OCD symptoms. Therapist will teach mindfulness and other calming techniques to manage symptoms and increase distress tolerance skills. Therapist will also help pt utilize mindfulness skills to sit with the uncomfortable to increase confidence in managing triggers. Discharge Criteria: Pt will have met this goal when pt can identify at least 2 triggers and 2 ways to cope with anxiety and show a reduction of DSM-5 scores for anxiety and OCD. Target Date: 08/31/23 Review Date: 08/10/23 Status: open Objective #2: Stated Objective: Pt will improve ability to cope with OCD symptoms and reduce avoidance by setting 1-2 small exposure goals each week. Interventions: Through group and individual therapy, pt will gain skills on distress tolerance and sitting with the uncomfortable. Therapist will help pt set small, realistic exposure goals each week. Therapist will have pt practice these goals both in session and at home. Therapist will provide psychoeducation on why this is important to reducing anxiety, OCD, and phobias. Therapist will also provide psychoeducation on intrusive thinking and reducing safety behaviors. Discharge Criteria: Pt will have accomplished this goal when pt can report accomplishing at least 1 exposure goal per week and can report reduced avoidance overall. Target Date: 08/31/23 Review Date: 08/10/23 Status: open Problem/Goal #2 Problem/Goal #2 Stated Goal:: Pt will reduce depressive symptoms, negative self-talk, and passive thoughts of due to major depressive disorder. Description of Barriers: Pt's OCD symptoms significantly impact his functioning at home, work, and socially. Pt also has negative thoughts about himself and he can be self-critical. Pt has been taking medication for his OCD symptoms, but per Dr. Miller the dosage has not been high enough to effectively treat it. Functional Impact: Pt is a 32-year-old male with a history of OCD who was referred to [facility] tx by his outpatient therapist due to worsening symptoms of OCD over the past few years. Pt reports at admission that COVID was the primary trigger for his worsening OCD and his symptoms impact all areas of his functioning. Pt is currently on leave from his job due to his symptoms impacting his attendance and ability to complete job duties. At admission pt's symptoms included excessive showering (4x a day), washing hands 30-40 times a day, avoidance of things at home that could be contaminated, showering after bumping into anything, and avoidance of using his phone outside of his house. Pt also endorses hopelessness, worthlessness, isolation, and thoughts of . Pt is unable to have friends over to his home and he feels unable to relax. Goal Relevant Strengths/Supports: Pt has an outpatient therapist as well as an open-mind to medications. Objectives Objective #1: Stated Objective: Pt will learn and utilize 2-3 healthy coping strategies to better manage depressive symptoms and reduce DSM-5 symptoms for depression. Interventions: Through group and individual sessions, therapist will help pt identify triggers and warning signs of depression and emotional dysregulation including emotional, physical, and behavioral changes. Therapist will teach pt various coping skills to manage her symptoms. Therapist will use cognitive restructuring techniques and help pt gain awareness of negative thoughts that reinforce depressive cycles. Therapist will help pt incorporate mindfulness and emotional regulation skills when dealing with difficult situations. Discharge Criteria: Pt will have met this goal when he can report learning and using at least 2 coping skills to manage depressive symptoms and his DSM-5 scores for depression have decreased. Target Date: 08/31/23 Review Date: 08/10/23 Status: open Objective #2: Stated Objective: Pt will identify at least 2-3 negative self-talk messages used to reinforce negative core beliefs, worthlessness, and isolation and replace thoughts with balanced, realistic messages. Interventions: Therapist will help pt identify distorted, negative beliefs about self and replace with more realistic, affirmative messages. Therapist will use CBT and DBT to help pt increase insight to the connection between thoughts, emotions, and behaviors. Therapist will encourage pt to practice thought challenging. Discharge Criteria: Pt will have achieved this goal when can verbalize at least 2 cognitive distortions and effectively replace those thoughts with affirmative messages. Target Date: 08/31/23 Review Date: 07/27/23 Status: open
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
--- NOTE | 2023-07-24 10:10 | BH.SGPN.GN ---
Behaviors/Verbalizations/Mental Status: []Eye contact is good. Motor activity is appropriate. Appearance is neat. Speech is Appropriate. Mood is anxious. Affect is congruent. Thoughts are linear and logical. No evidence of psychosis Client Response/Progress/Benefit: [] Pt was an active participant in group discussion and experiential activity. Attentive during psychoeducation on resilience. Participated during interactive discussion with peers on the definition of resilience. Able to relate experiential activity of group juggle to topics of resilience. Group worked together to identify what can impact one's ability to be resilient which included past experiences, trauma, toxic support system, lack of resources, and current mental/physical health state. Worked well with peers in small group in which they identified factors that contribute to building resilience. Pt?s group worked on the importance of nurturing a positive view of self. Benefited from increased awareness of resilience and the factors that contribute to building resilience. Will continue in IOP to prevent decompensation, reduce avoidance and compulsions, and improve daily functioning. Narrative Note: []
--- NOTE | 2023-07-24 11:10 | BH.SGPN.GN ---
Behaviors/Verbalizations/Mental Status: []Pt alert and oriented, causally dressed and appropriately groomed. Eye contact good. Motor activity appropriate. Speech within normal limits. Affect congruent, mood anxious. Thoughts linear, logical, no signs of hallucinations or delusions. Client Response/Progress/Benefit: [] Pt responded well to session AEB completing the resilience worksheet provided. Pt participated in the discussion and worked cooperatively with group to identify strategies to enhance each of the components discussed. Pt reports belief they already use resilience traits of??accept that change is a part of living and moving towards goals. Pt stated they would like to continue to develop resilience trait of ?keeping things in perspective? as pt recognizes he can catastrophize small things. Pt seemed to benefit from discussing strategies for improving personal resilience and identifying resilience traits pt already possesses. Will continue IOP tx to continue working on anxiety exposure goals, challenge distorted thoughts, and prevent decompensation.
--- NOTE | 2023-07-27 09:05 | BH.SGPN.GN ---
Behaviors/Verbalizations/Mental Status: [] Eye contact is good. Motor activity is appropriate. Appearance is casual. Speech is Appropriate. Mood is anxious.. Affect is congruent.. Thoughts are linear and logical. No evidence of psychosis. Reviewed daily check in sheet and no reports of suicidal ideations or intent. Client Response/Progress/Benefit: [] Pt participated at times during group discussion. Emotion for today is ?anxious?. Feels hopeful as he continues to limit his compulsion to take numerous showers due to contamination fears. Increased awareness and ?new habits?. He shared that he is somewhat concerned as he is developing new habits to ensure he does not contaminate himself so he doesn?t take a shower. Unclear on progress. Benefited from group support, encouragement, and feedback. Will continue in IOP to prevent decompensation, stabilize OCD, and improve functioning to return to work. Narrative Note: []
--- NOTE | 2023-07-27 10:15 | BH.SGPN.GN ---
Behaviors/Verbalizations/Mental Status: []Pt alert and oriented, neatly dressed and groomed. Eye contact good. Motor activity appropriate. Speech within normal limits. Affect congruent, mood anxious. Thoughts linear, logical, no signs of hallucinations or delusions. Client Response/Progress/Benefit: [] Pt took notes and contributed occasionally. Attentive during psychoeducation on growth mindset. Participated during the activity. Interactive group discussion on growth mindset in which group verbalized their current fixed mindsets and how they affect their mental health. Pt shared common fixed mindset thoughts they have which included I can?t function normally, no one will like me because of this, and I?m going to be stuck in this forever.? These thoughts lead to feeling defeated and isolating. Pt benefited from increased awareness of growth mindset and fixed thoughts and how fixed thoughts impact their mental health. Will continue IOP tx to prevent decompensation, improve daily functioning, and reduce impact of OCD on pt?s functioning. Narrative Note: []
--- NOTE | 2023-07-27 11:15 | BH.SGPN.GN ---
Behaviors/Verbalizations/Mental Status: []Pt alert and oriented, casually dressed and groomed. Eye contact good. Motor activity appropriate. Speech within normal limits. Affect congruent, mood content, anxious. Thoughts linear, logical, no signs of hallucinations or delusions. Client Response/Progress/Benefit: [] Pt was an active participant during activity and discussion. Pt did well to remain attentive and participate as group worked on identifying characteristics and benefits of adopting a growth mindset. Worked with fellow participants in reframing the example fixed thoughts into growth mindset thoughts. Pt worked on changing own fixed thought and reframed the thought to ?I can see others actively working on similar issues, this is evidence that I am not alone. If they are finding solutions, there is hope I can as well?. Pt appeared to benefit from challenging own thoughts and engaging in the activity. Pt will continue IOP tx to prevent decompensation, reduce safety behaviors, and gain healthy coping skills. ? Narrative Note: []
--- NOTE | 2023-07-29 10:15 | BH.SGPN.GN ---
Behaviors/Verbalizations/Mental Status: [] Eye contact is good. Motor activity is appropriate. Appearance is casual. Speech is Appropriate. Mood is anxious. Affect is congruent. Thoughts are linear and logical. No evidence of psychosis. Client Response/Progress/Benefit: [] Client receptive to session AEB listening attentively to others and taking notes. Limited input however was attentive throughout psychoeducation on the cognitive triangle and maintenance cycles. Attentive during group discussion reviewing the impact of daily activities and behaviors in either reinforcing unhealthy maintenance cycles and depression or assisting in reducing symptoms (?down? vs ?up? activities). Client identified personal ?down? activities they engage in as: leaving social settings without saying goodbye, isolation, ruminating, and avoidance. Attentive during discussion on Common ?Up? activities client identified theirs to include: music, talking with friends, and video games. Appeared to benefit from increased awareness of current behaviors and impact these have on mental health. Will continue in IOP to stabilize mood, prevent decompensation, and improve functioning. Narrative Note: [] Narrative Note: []
--- NOTE | 2023-07-29 11:15 | BH.SGPN.GN ---
Behaviors/Verbalizations/Mental Status: []Eye contact is good. Motor activity is appropriate. Appearance is neat. Speech is Appropriate. Mood is anxious and euthymic. Affect is full. Thoughts are linear and logical. No evidence of psychosis. Client Response/Progress/Benefit: []Pt responded well to session, attentive and engaged in group discussions and activity. Group discussed values and the benefits that knowing one's values can have on one's mental health. Pt explored own values and identified personal top values. Pt stated a personally important value is spirituality. Pt set a goal to go to [employer] this Thursday and be involved in the service. Pt also reported benefitting from the activity and the group encouragement today. Will continue in IOP to prevent decompensation, improve daily functioning, and work on ERP to reduce OCD. Narrative Note: []
--- NOTE | 2023-07-29 14:40 | BH.MDN ---
Multi-Disciplinary Note Note 60-min Individual: Time Started:: 08:30 Date: 07/29/23 Purpose of session/treatment goals addressed:: To work on goal #1 of pt's tx plan by setting an exposure goal for the week. Eye Contact:: Good Motor Activity:: Appropriate Appearance:: Neat Speech:: Appropriate Mood:: Anxious Affect:: Congruent Thoughts:: Linear, Racing and No evidence of hallucinations/delusions noted Staff Interventions:: CBT techniques (read chapter in the OCD workbook. ), mindfulness skills (reviewed deep breathing and grounding skills.) and goal setting (set exposure goal for the week.) Client Response:: Pt responded well to session, open to meeting with therapist. Pt reports feeling anxious, but hopeful. Pt noticed some positive changes already from coming to IOP including some reduction in engaging in compulsions at home. Pt stated yesterday he was anxious because he thought he bumped into the door and this usually would trigger pt to have to shower, but pt did not and he went to bed. Pt is receptive to working on his exposure goals and accomplished his homework from last week which was to identify items for his fear ladder. Pt also rated these tasks by how anxiety-producing they would be for pt. Lower level anxiety tasks included not washing his hands after eating and touching his phone while eating. moderate level anxiety tasks included picking something up off the floor and having contact with his significant other without having to shower. At the top of pt's fear ladder was getting out his phone in public and using public restrooms which pt shared would cause him severe anxiety. Pt learned more about exposure therapy and setting realistic goals. Pt also identified his pitfalls which would keep pt from fully engaging in response prevention. Pt shared one thing he does to temporarily reduce anxiety is tell himself that if he lets something sit for long enough it will be clean and then he does not have to touch it. Pt receptive to working on the daily exposure practice monitoring form. Pt's goal for the next few days is to get on his phone without washing his hands during eating and after eating. Pt believes this task will create mild to moderate anxiety and he feels he can practice this three times a day. Pt reminded of calming skills he can use when he feels anxiety and to promote response prevention. Risks/Concerns:: Pt denies any SI, plan, or intent as of 07/29/23. Progress Toward Goals/Plan:: Pt showing progress towards his tx goals AEB pt's consistent attendance and group engagement. Pt reports benefitting from IOP tx as pt feels supportive by peers and feels he is learning skills to help with his OCD. Pt is taking his medications as prescribed and recently started his new prescription. Pt's OCD continues to impact his overall functioning and pt reports he feels frustrated with himself because of his need to do rituals, but pt is showing signs of improvement. Pt receptive to working on his exposure goals for the week and will continue IOP tx to prevent decompensation and increase distress tolerance. Time Stopped:: 09:30
--- NOTE | 2023-07-31 09:00 | BH.SGPN.GN ---
Behaviors/Verbalizations/Mental Status: [] Pt alert and oriented, neatly dressed and groomed. Eye contact good. Motor activity appropriate. Speech within normal limits. Affect congruent, mood euthymic. Thoughts linear, logical, no signs of hallucinations or delusions. Reviewed pt?s symptom tracker, no risk for suicidal ideation, plan, or intent 07/31/23 Client Response/Progress/Benefit: [] Pt responded well to session, attentive and engaged. Pt reports feeling calm this morning as pt has been finding benefit from certain grounding skills. Pt reports wins today as going for a walk, using self-talk to reduce engagement in compulsions, and working out. Pt's stressor today is just living with OCD every day. Pt is doing well in IOP and working towards tx goals. Pt appeared to benefit from reflecting on application of healthy coping skills and connecting with peers. Pt will continue IOP tx to prevent decompensation, improve daily functioning, and reduce compulsions. Narrative Note: []
--- NOTE | 2023-07-31 10:05 | BH.SGPN.GN ---
Behaviors/Verbalizations/Mental Status: [] Client alert and oriented, casually dressed and groomed. Eye contact good. Motor activity appropriate. Speech within normal limits. Affect congruent, mood euthymic. Thoughts linear, logical, no signs of hallucinations or delusions. Client Response/Progress/Benefit: []Client responded well to session, contributing to discussion and engaged during the activity. Attentive during discussion on the quote. Group identified the benefits of change which included: confidence better relationships, and improved mental health. Worked with the group to identify barriers to change, which included: anxiety and fear, confusion, external variables, and negative thinking. Client also reported reflected on past negative experiences can keep people from making changes. Client participated along with group in activity where they identified and discussed the emotions related to change. Benefited from increased awareness and understanding of emotions, benefits, and barriers related to change. Will continue IOP tx to prevent decompensation and increase healthy thought patterns. Narrative Note: []
--- NOTE | 2023-07-31 11:05 | BH.SGPN.GN ---
Behaviors/Verbalizations/Mental Status: [] Client alert and oriented, casually dressed and groomed. Eye contact good. Motor activity appropriate. Speech within normal limits. Affect congruent, mood euthymic. Thoughts linear, logical, no signs of hallucinations or delusions. Client Response/Progress/Benefit: [] Client responded well to session, attentive throughout. Did well to process activity and work with group to relate the strategies used to overcome barriers in the activity to managing change in own life. Client identified a change they would like to make is being less worried about contamination and being perfect with routines. Client identified currently being in preparation stage for this particular change. Client said coming to group, being honest with family, and forcing himself into uncomfortable situations to grow as ways to get him to next stage of change. Appeared to benefit from identifying a change they want and how to progress. Client will continue IOP tx to increase healthy routines and prevent decompensation. Narrative Note: []
--- NOTE | 2023-08-03 09:05 | BH.SGPN.GN ---
Behaviors/Verbalizations/Mental Status: [] Eye contact is good. Motor activity is appropriate. Appearance is casual. Speech is Appropriate. Mood is anxious. Affect is congruent. Thoughts are linear and logical. No evidence of psychosis. Reviewed daily check in sheet and no reports of suicidal ideations or intent. Client Response/Progress/Benefit: [] Pt was an active participant in group discussion. Attentive. Emotion for today is calm. Identified stressors as resisting the compulsions. He briefly shared his struggles with compulsions to shower/handwashing related to his OCD and how this impacts him. Placing effort into challenging his obsessive thoughts and sitting with the uncomfortable. Benefited from group support, encouragment, and feedback. Will continiue in IOP to prevent decompensation, work through exposure goals, and improve functioning. Narrative Note: []
--- NOTE | 2023-08-03 10:10 | BH.SGPN.GN ---
Behaviors/Verbalizations/Mental Status: []Eye contact is good. Motor activity is appropriate. Appearance is casual. Speech is Appropriate. Mood is euthymic. Affect is congruent. Thoughts are linear and logical. No evidence of psychosis. Client Response/Progress/Benefit: [] Pt was an active participant in activity and taking notes during group discussion. Attentive during psychoeducation and interactive discussion on coping skills included why people use unhealthy skills. Group came up with list of unhealthy coping skills and pt identified personal ones as avoidance and feeding into anxious thoughts. Group discussed the effects of how unhealthy coping skills can impact mental health in a negative way. Participated during experiential activity and was able to relate the activity to group topic regarding the benefits of developing strong internal and external support system. Benefited from increased understanding of unhealthy coping skills and the need for developing healthy internal and external coping skills. Pt will continue IOP tx to continue working on anxious exposure goals, continue building healthy coping skills, and prevent decompensation.
--- NOTE | 2023-08-03 11:15 | BH.SGPN.GN ---
Behaviors/Verbalizations/Mental Status: []Pt alert and oriented, casually dressed and groomed. Eye contact good. Motor activity appropriate. Speech within normal limits. Affect congruent, mood anxious. Thoughts linear, logical, no signs of hallucinations or delusions. Client Response/Progress/Benefit: [] Pt responded well to session, taking notes and contributing when prompted. Group discussed the different categories of coping skills which included distraction, emotional release, grounding, self-love, and thought challenging. Pt participated in creating a coping skills ?menu? from the five categories of coping skills. Pt's coping skill menu included: exercise, deep breathing, games, gratitude, and decisional balance tool. Appeared to benefit from increasing repertoire of healthy coping skills. Will continue IOP to reduce exposure responses, challenge distortions, and prevent decompensation. Narrative Note: []
--- NOTE | 2023-08-05 10:10 | BH.SGPN.GN ---
Behaviors/Verbalizations/Mental Status: [] Eye contact is good. Motor activity is appropriate. Appearance is casual. Speech is Appropriate. Mood is anxious and content. Affect is congruent. Thoughts are linear and logical. No evidence of psychosis Client Response/Progress/Benefit: [] Client was an active participant during interactive group discussions. Attentive during psychoeducation on the six types of boundaries (physical, emotional, intellectual, sexual, time, and material) AEB note-taking and input in group discussions. Along with peers contributed to interactive discussion on defining what a boundary is in mental health. Client along with peers identified challenges to setting boundaries which included; fear of conflict, being uncomfortable, believing they are being rude or mean, etc. Reports struggling with fear of rejection or hurting someones feelings. Client along with peers identified the benefits to setting boundaries such as healthier relationships, stronger sense of self, and improved confidence. Client benefited from increased awareness and insight on the importance/benefit to setting health boundaries. Will continue in IOP to prevent decompensation, increase healthy coping skills and reduce safety behaviors, and improve functioning. Narrative Note: []
--- NOTE | 2023-08-05 11:15 | BH.SGPN.GN ---
Behaviors/Verbalizations/Mental Status: [] Eye contact is good. Motor activity is appropriate. Appearance is casual. Speech is Appropriate. Mood is euthymic and anxious. Affect is congruent. Thoughts are linear and logical. No evidence of psychosis. Client Response/Progress/Benefit: []Pt responded well to session AEB listening attentively to peers, providing some input, as well as taking notes throughout. Pt contributed throughout psychoeducation on different boundary setting styles. Participated in group discussion brainstorming various strategies for improving healthy boundary settings. Pt reported wanting to work on reminding himself that he can be a good friend and have boundaries. Seemed to benefit from increased awareness of how different boundary styles can impact mental health. Will continue IOP tx to increase distress tolerance skills, reduce compulsions, and improve daily functioning. Narrative Note: []
--- NOTE | 2023-08-05 11:19 | BH.MDN ---
Multi-Disciplinary Note Note 60-min Individual: Time Started:: 08:35 Date: 08/05/23 Purpose of session/treatment goals addressed:: To work on goal #1 of pt's tx goal and to practice self-compassion techniques. Eye Contact:: Good Motor Activity:: Appropriate Appearance:: Neat Speech:: Appropriate and Tangential Mood:: Anxious Affect:: Congruent Thoughts:: Other (obsessive) and No evidence of hallucinations/delusions noted Staff Interventions:: CBT techniques, mindfulness skills, strengths perspective, goal setting, taught coping skills (acceptance and self-compassion) and other (worked on pt's ERP goals and reviewed response prevention accomplishments from last session. ) Client Response:: Pt responded well to session, open to meeting with therapist. Pt reports that he is doing better with his fear ladder goals and he shared he successfully accomplished his goals multiple times since last session. 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 Pt admitted that he is having urges to jump the ladder and go to his most anxiety-producing goal which is to get his phone out in public. Pt receptive to talking this through, weighing the pros and cons. Pt ultimately agreed that this could be more harmful than helpful as pt is still engaging in many compulsions daily and this could trigger a setback. Pt shared his urge to jump the ladder is likely due to wanting to get better, but also feeling like he needs to be the best and exceed in things. This led to a discussion of self-compassion and the importance of accepting being average. Pt shared he is very hard on himself and he expects perfection, which was reinforced by his father growing up. Pt receptive to self-compassion and was open to practicing self-talk at home when he works on his ERP goals. Pt also set new ERP goals for the week which included repeating last weeks goals and not walking out of the doorway backwards. Risks/Concerns:: Pt denies any suicidal ideations or thoughts of . Progress Toward Goals/Plan:: Pt continues to do well in IOP tx AEB pt's self-report of utilizing healthy coping skills outside of IOP, medication compliance, and report of benefit from peer interactions. Pt reports an urge to jump my fear ladder because pt wants to get better quicker. Pt recognizes this will ultimately be more harmful than helpful as pt's OCD symptoms are still severe. Pt responded well to goal setting today and he plans to work on acceptance skills as well. Pt will continue IOP tx to prevent decompensation, improve daily functioning, and increase distress tolerance skills. Time Stopped:: 09:35
--- NOTE | 2023-08-05 11:48 | PCM.BH.PN_ITS ---
Progress Note Progress Note: History of Present Illness/Interim History: The patient is a 33-year-old single male with a history of OCD and depression who is seen in follow-up at the [facility] behavioral health IOP. I last saw the patient 2 weeks ago and at that time his Prozac was increased to 40 mg p.o. daily. Bryant wilhelm is tolerating the dose increase well and feels he is learning valuable skills in the IOP program. His OCD symptoms persist with intrusive thoughts and rituals around cleanliness which involve at times washing his hands 30-40 times a day and taking something up to 4-5 showers a day. He has panic attacks about once a week when he cannot stop his OCD rituals. At that time he sometimes has passive thoughts of as he gets down on himself and thinks negative thoughts about himself due to having OCD. His weight has stabilized and increased lately and he is exercising more and eating better so this is a good thing. The rest of his symptoms are relatively unchanged although its only been 2 weeks and he understands that it takes a while for OCD symptoms to respond. He denies plan for suicide, suicidal ideation, homicidal ideation, hallucinations or delusions. Current Psychiatric Medications: [] Prozac 40 mg p.o. daily (dose increased 2 weeks ago); BuSpar of unknown dose twice daily. Mental Status Examination: [] The patient is a 33-year-old male who appears thin and normal for stated age and is casually dressed and groomed with good hygiene. He is ambulatory with a normal gait and has no psychomotor agitation or retardation. He is cooperative and pleasant during the interview. Eye contact is good and speech is normal rate and rhythm and fluent with no pressure. Mood is depressed and anxious. Affect is mildly constricted. Thought process is goal-directed and organized. Thought content: There is evidence of occasional passive thoughts of . There is no evidence of suicidal ideation, homicidal ideation, plan for suicide, hallucinations or delusions. Reality testing is intact. Judgment is intact. Impulsivity is low. Insight: Good. Diagnoses: [] 1. Obsessive-compulsive disorder 2. Major depressive disorder, recurrent, severe without psychosis 3. Generalized anxiety disorder 4. Crohn's disease 5. Primary support and work issues Plan: [] The patient will continue the IOP and behavioral health at [facility] as the structure, support, education and group therapy will hopefully prevent worsening of the patient's symptoms. He felt safe during the interview and if it anytime he does not feel safe he agrees to let us know or go to the emergency room. No medication changes were made today as he has only been on this higher dose for 2 weeks. I will see the patient in 2 weeks in follow-up and he will continue to exercise and eat healthily to prevent any more weight loss. Recommend exposure and response prevention therapy in the future. He will continue follow-up with his outpatient providers. Depending on how the patient feels at next visit we will consider increasing the dose of Prozac and or adding an another medication in addition to help with his depression and OCD.
--- NOTE | 2023-08-07 09:05 | BH.SGPN.GN ---
Behaviors/Verbalizations/Mental Status: []Pt alert and oriented, neatly dressed and groomed. Eye contact good. Motor activity appropriate. Speech within normal limits. Affect congruent. mood euthymic. Thoughts linear, logical, no signs of hallucinations or delusions. Reviewed pt?s symptom tracker, no risk for suicidal ideation, plan, or intent 08/07/23 Client Response/Progress/Benefit: []Pt responded well to session, attentive and engaged. Pt reports feeling somewhat calm and anxious and hopeful. Pt stated wins today as accomplishing his exposure goals he has been working on individually and not engaging in unhealthy coping skills. Pt has been working on ERP and pt was able to successfully not engage in his compulsions yesterday. Pt's stressor is sitting with the uncomfortable and facing his anxiety by ERP, but pt shared I know it's the only way to get better. Pt appeared to benefit from reflecting on application of coping skills and connecting with peers. Pt will continue IOP tx to promote use of healthy coping skills, improve daily functioning, and work on ERP Narrative Note: []
--- NOTE | 2023-08-07 10:15 | BH.SGPN.GN ---
Behaviors/Verbalizations/Mental Status: [] Eye contact is good. Motor activity is appropriate. Appearance is casual. Speech is Appropriate. Mood is content, anxious. Affect is congruent. Thoughts are linear and logical. No evidence of psychosis. Client Response/Progress/Benefit: [] Attentive and engaged throughout the group discussions. Attentive during psychoeducation on the 4 communication styles (Passive, Passive-Aggressive, Aggressive, and Assertive) and the obstacles to effective communication. Attentive during interactive discussion on the benefits of communicating effectively, as well as the benefits and disadvantages to the different communication styles. Reports connecting most with aggressive style towards himself, resulting in unrealistic expectations and negative self-talk. Benefited from increased understanding of communication styles and how these can impact effective communication. Will continue in IOP to prevent decompensation, increase healthy coping, reduce safety behaviors, and improve functioning. Narrative Note: []
--- NOTE | 2023-08-07 11:15 | BH.SGPN.GN ---
Behaviors/Verbalizations/Mental Status: []Pt alert and oriented, casually dressed. Eye contact good. Motor activity appropriate. Speech within normal limits. Affect congruent, mood content, anxious. Thoughts linear, logical, no signs of hallucinations or delusions. Client Response/Progress/Benefit: [] Pt responded well to session AEB Pt listening attentively to others and providing input during group discussion on the pay offs and costs of the different communication styles. Pt able to connect how current communication style impacts mental health. Connected with peers? comments about importance of using assertive communication. Pt did well being assertive in the group activity and worked with group to identify potential skills for improving communication skills. Pt seemed to benefit from increasing awareness of healthy strategies to improve communication and identified wanting to work on improving his ability to better assert himself and establish healthier boundaries with his mother. Will continue IOP tx to prevent decompensation, gain distress tolerance skills as he continues to reduce safety behaviors, and improve daily functioning. Narrative Note: []
== END 2023-08-09 23:59 ==
LOC: BHIOP 09:22
PROVIDERS: PCP Internal Medicine; Referring Provider Psychiatry & Neurology Psychiatry; Visit Provider Psychiatry & Neurology Psychiatry
DX: F42.9 Obsessive-compulsive disorder, unspecified (principal); F33.2 Major depressive disorder, recurrent severe without psychotic features; F41.1 Generalized anxiety disorder; K50.90 Crohn's disease, unspecified, without complications; Z79.899 Other long term (current) drug therapy
CPT/HCPCS: S9480; 90837; 90853

== ENCOUNTER 2023-08-10 07:14 | Outpatient (RCR) | payer BC, SELFPAY ==
[2023-08-10 00:49] VITALS: BP 139/89; PULSE 67
--- NOTE | 2023-08-10 09:00 | BH.SGPN.GN ---
Behaviors/Verbalizations/Mental Status: [] Eye contact is good. Motor activity is appropriate. Appearance is casual. Speech is Appropriate. Mood is anxious. Affect is congruent. Thoughts are linear and logical. No evidence of psychosis. Reviewed daily check in sheet and no reports of suicidal ideations or intent. Client Response/Progress/Benefit: [] Pt was an active participant in group discussion. Attentive. Daily symptom tracker notes 1/5 for anxiety and 2/5 for irritability. Pt reports he is continuing to proactive sitting with the uncomfortable regarding obsessive thoughts and urges to complete compulsions. Sometime I give in however sometimes I can get through it. Awareness of the reasons and benefits for not giving in to compulsive urges, however states that it is often easier to simply perform the cleaning ritual to ease his anxiety. I don't want to get stuck in my rituals. Emotion today is hopeful. Progress noted. Pt will continue in IOP to prevent decompensation, decrease intrusive thoughts/compulsions, and to improve functioning to return to work. Narrative Note: []
--- NOTE | 2023-08-10 10:10 | BH.SGPN.GN ---
Behaviors/Verbalizations/Mental Status: [] Pt alert and oriented, appropriate grooming/appearance. Eye contact good. Motor activity appropriate. Speech within normal limits. Affect congruent, mood euthymic. Thoughts linear, logical, no signs of hallucinations or delusions. Client Response/Progress/Benefit: [] Pt was an active participant in group discussions. Attentive during psychoeducation. Contributed during interactive discussions in which peers attempted to define crisis. Group identified examples of potential crisis. Group also worked together to identify unhealthy responses to crisis which included lashing out, isolation, self-harm, substance abuse, and sleep disturbances. Pt identified personal warning signs as increased negative thinking, isolating, and negative rationalizations. Benefited from increased understanding of crisis and awareness of personal responses to crisis. Pt will continue IOP tx to increasing healthy thought processes, improve distress tolerance, and prevent decompensation. Narrative Note: []
--- NOTE | 2023-08-10 11:10 | BH.SGPN.GN ---
Behaviors/Verbalizations/Mental Status: [] Pt alert and oriented, appropriate grooming/appearance. Eye contact good. Motor activity appropriate. Speech within normal limits. Affect congruent, mood euthymic. Thoughts linear, logical, no signs of hallucinations or delusions. Client Response/Progress/Benefit: [] Pt was an active participant in group discussions. Attentive during psychoeducation. In small group pt along with peers developed an active plan for their crisis warning signs. Pt identified three crisis warning signs as well as an action plan for each. One crisis warning sign was increased negative thinking. Pt identified coping skills to help with this such as: opposite action, thinking about the good and how much progress was made. Benefited from increased awareness of crisis warning signs and by developing crisis intervention strategies. Will continue in IOP to prevent decompensation, improve daily functioning, and increase positive thought patterns. Narrative Note: []
--- NOTE | 2023-08-12 09:05 | BH.SGPN.GN ---
Behaviors/Verbalizations/Mental Status: [] Eye contact is good. Motor activity is appropriate. Appearance is casual. Speech is Appropriate. Mood is anxious. Affect is congruent. Thoughts are linear and logical. No evidence of psychosis. Reviewed daily check in sheet and no reports of suicidal ideations or intent. Client Response/Progress/Benefit: [] ?Pt participated at times during the group discussion. Daily symptom tracker notes 2/5 for anxiety and 1/5 for irritability. States ? OCD is high today?. Briefly describing intrusive thoughts, obsessions, and compulsions. Struggling at times to complete exposure goals and manage distress. Admits to taking ?an edible? to calm his anxiety. States he utilizes edible when the distress is overwhelming. Limited progress noted. Benefited from group support, encouragement, and feedback. Will continue in IOP to prevent decompensation, stabilize mood, and improve functioning. Narrative Note: []
--- NOTE | 2023-08-12 10:10 | BH.SGPN.GN ---
Behaviors/Verbalizations/Mental Status: [] Eye contact is good. Motor activity is appropriate. Appearance is casual. Speech is Appropriate. Mood is euthymic. Affect is congruent. Thoughts are linear and logical. No evidence of psychosis. Client Response/Progress/Benefit: [] Pt engaged participant AEB listening to others, engaging in activity, and providing feedback at times. Attentive during psychoeducation and provided insight into obstacles that impede mental wellness. Pt shared with group current mental health reality and desired mental health reality. Identified barriers to desired reality include: obsessions, fears, phobias. Benefited from taking look at current mental health state and obstacles for progress. Pt to continue IOP tx to improve mood stability, reduce negative coping, and prevent decompensation. Narrative Note: []
--- NOTE | 2023-08-12 11:10 | BH.SGPN.GN ---
Behaviors/Verbalizations/Mental Status: [] Eye contact is good. Motor activity is appropriate. Appearance is casual. Speech is Appropriate. Mood is euthymic. Affect is congruent. Thoughts are linear and logical. No evidence of psychosis. Client Response/Progress/Benefit: [] Pt was an engaged participant in group discussion and activity. Worked with group to identify strategies to help overcome barriers and obstacles to desired reality. Group developed strategies for the common barriers. Identified personal barriers to desired reality and choose one obstacle to work. Pt stated he wants to work on barrier of OCD by increasing healthy self talk patterns to encourage exposure. Pt seemed to benefit from increased repertoire of healthy coping skills/strategies to overcome common barriers to moving forward. Pt is to continue IOP to increase healthy thought patterns, challenge distortions, and prevent decompensation. Narrative Note: []
--- NOTE | 2023-08-12 15:19 | BH.TPR ---
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 Pt consistently completes homework provided from individual counseling. Pt contributes actively during group discussions, takes notes, appears to listen to others, and engages in group activities. Pt's overall DSM-5 scores have increased since admission and his anxiety and depression remain the same, but pt's anger has decreased by 50% since admission and pt is actively working on exposure goals. Status of Current Problems and Symptoms: Pt's symptoms of depression, anxiety, and OCD are ongoing. Pt's scores have not decreased since admission, but pt is working on his exposure goals consistently and noticing progress with reducing some of his compulsions. Pt is now able to shower less and wash his hands less frequently. Pt's biggest stressor is returning to work as work was one of the primary triggers for pt's OCD. Pt also endorses negative self-talk and ruminations. Progress Problem #1: Problem Name:: OCD and anxiety Status of Goals:: Objective 1-in progress. Pt?s DSM-5 scores are the same since admission for anxiety and OCD, however, pt is actively working on a fear ladder and this can temporarily increase anxiety before it reduces. Pt reports utilizing calming skills. Objective 2- in progress. Pt is working on his fear ladder and has begun small exposure goals. Pt will work his way up to more anxiety producing goals. Team Recommendations:: Treatment team encourages pt to continue working on distress tolerance skills, repeating exposure goals, and practicing self-care to reduce stress. Problem #2: Problem Name:: Depression, negative self-talk, and isolation Status of Goals:: Objective 1-in progress. Pt?s DSM-5 scores are the same since admission for depression. Pt reports benefitting from having a routine that gets pt out of the house and engaged socially. Pt will continue working on implementing healthy coping skills. Objective 2- in progress. Pt is working on catching himself when he uses self-deprecating humor and pt is learning more about self-compassion. Team Recommendations:: Team recommends continued goals and objectives to reinforce skills and reduce symptoms. Team recommends pt continue working on combating distortions, being more self-compassionate, and communicating openly with closest supports.
--- NOTE | 2023-08-14 09:05 | BH.SGPN.GN ---
Behaviors/Verbalizations/Mental Status: [] Eye contact is good. Motor activity is appropriate. Appearance is casual. Speech is Appropriate. Mood is anxious. Affect is congruent. Thoughts are linear and logical. No evidence of psychosis. Reviewed daily check in sheet and no reports of suicidal ideations or intent. Client Response/Progress/Benefit: [] Pt was an active participant in group discussions. Attentive. Daily symptom tracker notes 3/5 for anxiety and 2/5 for irritability. Pt reports increased anxiety due to upcoming family counseling session. He has been vulnerable and open regarding his mental health struggles with support. ? I want them to better understand why I?m like this know? referring to his OCD compulsions. He wants to ?be completey open? with family. Elaborated on previous stigma associated with mental health and how this impacted his self-esteem and hindered progress. Emotion for today is ?anxious?. Benefited from group support, encouragement, and feedback. Will continue in IOP to prevent decompensation, decrease intrusive thoughts, and improve functioning to return to work. Narrative Note: []
--- NOTE | 2023-08-14 10:10 | BH.SGPN.GN ---
Behaviors/Verbalizations/Mental Status: []Eye contact is good. Motor activity is appropriate. Appearance is casual. Speech is Appropriate. Mood is euthymic. Affect is congruent. Thoughts are linear and logical. No evidence of psychosis. Client Response/Progress/Benefit: [] Pt was an engaged participant AEB listening attentively to others, taking notes, and providing feedback in small group discussions. Attentive during psychoeducation AEB by note taking and providing some input. Pt worked along with peers in small groups to define inappropriate guilt and appropriate guilt. Interactive discussion on examples of both inappropriate and appropriate guilt. Pt able to connect impact inappropriate guilt can have on MH. Pt gave an example of having inappropriate guilt that he has anxiety and feels responsible for being this way. Benefited from increased awareness of guilt and the differences between appropriate and inappropriate guilt. Will continue in IOP to continue following through on anxious exposure goals, challenge negative/distorted thoughts, and prevent decompensation.
--- NOTE | 2023-08-14 11:15 | BH.SGPN.GN ---
Behaviors/Verbalizations/Mental Status: []Pt alert and oriented, casually dressed and groomed. Eye contact poor. Motor activity appropriate. Speech within normal limits. Affect congruent, mood anxious. Thoughts linear, logical, no signs of hallucinations or delusions. Client Response/Progress/Benefit: []Pt engaged participant AEB listening attentively to others and providing input throughout group. Pt worked within their small group to identify strategies to manage inappropriate guilt. Pt worked with group to identify strategies for both appropriate and inappropriate guilt. Pt selected??sitting with the uncomfortable? when he feels inappropriate guilt that makes pt want to go back to safety behaviors. Pt seemed to benefit from learning about strategies to manage appropriate and inappropriate guilt. Pt will continue IOP tx to promote use of healthy coping skills, improve daily functioning, and increase distress tolerance skills. Narrative Note: []
--- NOTE | 2023-08-14 14:36 | BH.MDN ---
Multi-Disciplinary Note Note Family: Time Started:: 12:10 Date: 08/14/23 Purpose of session/treatment goals addressed:: To bring in one of pt's support people to learn more about OCD and how to better help pt. Eye Contact:: Good Motor Activity:: Appropriate Appearance:: Neat Speech:: Appropriate Mood:: Anxious and Other (agitated) Affect:: Congruent Thoughts:: Linear, Logical and No evidence of hallucinations/delusions noted Staff Interventions:: psychoeducation on: (OCD symptoms, causes, and treatments.), CBT techniques, mindfulness skills, strengths perspective, goal setting and other (reviewed pt's progress, goals, and supported pt as he advocated for himself.) Client Response:: Pt responded well to session, reported ahead of session that he was anxious. Pt's father was open to session as well and reported having some questions about OCD. Pt's biggest goals for session were to discuss what OCD is like to him, what is helping pt, coping skills, and what triggered his OCD. Pt was able to verbalize all these points and shared some of his triggers with his father including the COVID pandemic, the loss of his dog and grandpa, and his brother living with him for a year. This helped answer some of pt's father's questions on what causes this because he didn't used to be this way. Discussion on major life events, loss, trauma, and late onset appeared to be beneficial for pt and his father. Pt able to be transparent about when his OCD symptoms started and how they worsened over time. Pt stated belief that he is getting better with not engaging in certain compulsions, more specifically, pt feels he has reduced his hand washing time, he is showering less, and he has been able to consistently get his keys out of his pocket without hand caddy/caddie supervisor. Pt stated yesterday he did have a setback which resulted in pt showering three times before lunch and led pt to taking marijuana to reduce the anxiety. Pt opened up to his father about his use of marijuana to reduce anxiety, which pt was worried about disclosing. Pt has shared that he is often worried about what his dad thinks and pt believes his father's expectations are part of the reason pt is a perfectionist. Pt shared with his father that in addition to pt reducing OCD symptoms, pt is also learning the average is a good thing and that striving for perfection is not the ultimate goal. Pt feels high expectations and striving to be perfect is something that has kept him stuck in life and be critical of himself. Pt became frustrated with his father a few times during session, but pt did well to regulate his emotions and use insight he has gained to educate his father about OCD. Therapist also provided psychoeducation and debunked myths about OCD which appeared to be helpful. Pt and father left session with ideas on how to support pt and communicate more effectively. Risks/Concerns:: No SI or thoughts of reported. Progress Toward Goals/Plan:: Pt continues to demonstrate progress towards his tx goals AEB pt's self-report of reducing use of compulsions such as washing his hands before getting his keys out and less showering on a more consistent basis. Pt continues to respond well to Prozac and the plan is to increase this medication further per Dr. Miller. Pt reports he is benefitting from IOP groups as pt feels like I'm not alone and he is gaining valuable skills. Pt's OCD symptoms continuing to impact his functioning, but he is reporting more progress with ERP and finding it less anxious producing to reduce some of his compulsions. Pt will continue IOP tx to promote mood stability, increase distress tolerance, and improve daily functioning impaired by OCD. Time Stopped:: 13:00
--- NOTE | 2023-08-17 09:05 | BH.SGPN.GN ---
Behaviors/Verbalizations/Mental Status: [] Eye contact fair to good. Motor activity appropriate. Speech within normal limits. Affect congruent, mood content, anxious. Thoughts linear, logical, no signs of hallucinations or delusions. Reviewed client?s symptom tracker, denies SI, plan, or intent as of 08/17/2023. Client Response/Progress/Benefit: [] Client receptive of session, attentive and willing to process with group. Reports sx of anxiety as?(2/5), agitation (1.5/5), and depression (0/5) per daily sx tracker. ?Identified mental health ?wins? as getting back into a workout routine after several days of not doing so. Reports recognizing it is an important component of self-care for him and therefore necessary for him to schedule consistent time to engage in exercise. Additional win noted as not showering prior to IOP group today and shared this is the first time he has not showered prior to arriving to group. Reports this is a major exposure goal for him and although he is struggling with feeling anxious in doing so, he knows it is necessary for continued progress with managing his OCD. Current stressor noted as setting a boundary with his mother who continues to ask client for money. Shared difficulties in saying no as he feels guilty and fears upsetting her. Receptive of encouragement and support from the group, as well as identified several pros/cons of setting the boundary as well as skills to aid in following-through with doing so. Recommended continued IOP tx to further improve exposure goal progress, promote mood stability, as well as prevent decompensation. Narrative Note: []
--- NOTE | 2023-08-17 10:11 | BH.SGPN.GN ---
Behaviors/Verbalizations/Mental Status: [] Pt alert and oriented, casually dressed and groomed. Eye contact good. Motor activity appropriate. Speech within normal limits. Affect full, mood euthymic. Thoughts linear, logical, no signs of hallucinations or delusions. Client Response/Progress/Benefit: [] Pt participated in group discussion. Group worked together to identify benefits of healthy relationships which included encouragement, motivation, accountability, connectedness and minimized stress. Group identified factors that lead to unhealthy relationships which included low self esteem, trauma, lack of communication, parent's negative relationship growing up, and substance use. Benefited from increased insight and awareness of benefits of healthy relationships and factors that contribute to unhealthy relationships. Will continue in IOP to increase consistent use of healthy coping skills, challenge negative thoughts, and increase overall functioning. Narrative Note: []
--- NOTE | 2023-08-17 11:11 | BH.SGPN.GN ---
Behaviors/Verbalizations/Mental Status: [] Pt alert and oriented, casually dressed and groomed. Eye contact fair. Motor activity appropriate. Speech within normal limits. Affect full, mood euthymic, Thoughts linear, logical, no signs of hallucinations or delusions Client Response/Progress/Benefit: [] Client responded well to session, engaged and taking notes throughout. Worked with group to connect components of the experiential activity with characteristics of healthy and unhealthy relationships. Attentive during psychoeducation about characteristics of healthy, unhealthy, and abusive relationships. Client reported he would like to continue to improve with setting boundaries in his relationship with his mother. Appeared to benefit from identifying current healthy relationship attributes and an area client wants to work on to build healthier relationships. Client to continue IOP to increase healthy coping skills, increase emotional regulation skills, and prevent decompensation. Narrative Note: []
--- NOTE | 2023-08-19 09:00 | BH.SGPN.GN ---
Behaviors/Verbalizations/Mental Status: [] Eye contact is good. Motor activity is appropriate. Appearance is casual. Speech is Appropriate. Mood is euthymic. Affect is full. Thoughts are linear and logical. No evidence of psychosis. Reviewed daily check in sheet and no reports of suicidal ideations or intent. Client Response/Progress/Benefit: [] Pt was an active participant in group discussions. Attentive. Pt stated mental health positive as throwing away all of his marijuana edibles yesterday. Pt reported he chose to get rid of his edibles because he wants to work through his anxiety without the use of substances. Pt reported additional mental health positive as decreasing his frequency of hand washing. Pt stated although it's uncomfortable he has observed it is starting to get a little easier to work through OCD obsessions. Pt stated he also was able to visit his grandma, which he hasn't done in quite awhile due to his MH. Pt reported consistent stressor is worries about going back to work. Progress noted per pt report. Benefited from group support, encouragement, and feedback. Will continue in IOP to continue working on fear ladder, continue use of healthy coping skills, and prevent decompensation.
--- NOTE | 2023-08-19 10:00 | BH.SGPN.GN ---
Behaviors/Verbalizations/Mental Status: [] Eye contact is good. Motor activity is appropriate. Appearance is casual. Speech is Appropriate. Mood is anxious. Affect is congruent. Thoughts are linear and logical. No evidence of psychosis. Client Response/Progress/Benefit: [] Pt was an active participant in group discussions. Attentive. Participated in and was engaged during experiential activity. Able to relate experiential activity to group topic of FOF. Enagaged during interactive discussion on what failure means to the group in which peers identified and defined failure and Fear of Failure. Engaged as group was able to identify impact of fear of failure on mental health identifying that it can lead to; giving up, isolation, complacency, self-sabotage, being hesitant to ask for help, and the self-fulfilling prophecy. Attentive during interactive discussion on the impact that FOF can have on mental wellness, depression, anxiety, career, relationships, and growth. Benefited from increased awareness of how the role that FOF plays in mental health and decision-making. Will continue in IOP to prevent decompensation, increase healthy coping, and improve functioning to return to work. Narrative Note: []
--- NOTE | 2023-08-19 11:05 | BH.SGPN.GN ---
Behaviors/Verbalizations/Mental Status: []Pt alert and oriented, neatly dressed and groomed. Eye contact good. Motor activity appropriate. Speech within normal limits. Affect congruent, mood euthymic. Thoughts linear, logical, no signs of hallucinations or delusions. Client Response/Progress/Benefit: [] Pt responded well to session, engaged in the experiential activity and attentive throughout group processing. Pt reported fear of failure has kept pt from committing in relationships. Pt completed fear of failure worksheet and was able to identify thoughts and behaviors that reinforce personal fear of failure including playing it safe, valuing others? opinions over his own, and not feeling good enough. Pt participated in group discussion regarding strategies to overcome fear of failure. Identified wanting to work on using opposite action when he wants to avoid. Appeared to benefit from increased knowledge of strategies to combat fear of failure and gaining self-awareness. Pt will continue IOP tx to improve self-confidence, further reduce compulsions, and improve work-related functioning. Narrative Note: []
--- NOTE | 2023-08-19 11:42 | PCM.BH.PN ---
Progress Note Progress Note: History of Present Illness/Interim History: The patient is a 33-year-old single male with a history of OCD and depression who is seen in follow-up at the [facility] behavioral health IOP. I last saw the patient 2 weeks ago and at that time no medication changes were made. According to the staff the patient has been engaged in the program and has made good progress. He has been able to reach some exposure and response prevention goals around showering. He feels he is better but still has occasional bad days but feels he is much less depressed. His OCD waxes and wanes. He denies hopelessness and says his mood is much less depressed. He is not using any marijuana now. He only has a panic attack if his OCD gets out of control and this has not happened as much lately but still does on occasion. He plans to return to work possibly in a few weeks but may delay a little as work is a big stressor for him and his OCD is still very significant. He still has passive thoughts of only when his OCD gets out of control. He denies suicidal ideation, homicidal ideation, plan for suicide, hallucinations or delusions. He still has the cleanliness intrusive thoughts and rituals which involve handwashing up to 30 times a day and sometimes taking up to 4 5 showers a day but he is trying to do this less lately. Current Psychiatric Medications: [] Prozac 40 mg p.o. daily (dose increased 5 weeks ago); BuSpar twice daily. Mental Status Examination: [] Patient is a 33-year-old male who appears slender and normal for stated age and is casually dressed and groomed with good hygiene. He has no psychomotor agitation or retardation and is ambulatory with a normal gait. He is cooperative and pleasant during the interview. Eye contact is good and speech is normal rate and rhythm and fluent with no pressure. Mood is less depressed but still anxious. Affect is minimally constricted. Thought process is goal-directed and organized. Thought content: There is no evidence today of passive thoughts of , suicidal ideation, homicidal ideation, plan for suicide, hallucinations or delusions. The patient still has daily severe intrusive thoughts around cleanliness and rituals of showering and handwashing. Reality testing is intact. Judgment is intact. Impulsivity is low. Insight is good. Diagnoses: [] 1. Obsessive-compulsive disorder 2. Major depressive disorder, recurrent, moderate 3. Generalized anxiety disorder 4. Crohn's disease 5. Primary support and work issues Plan: [] The patient will continue the IOP in behavioral health at [facility] as the structure, support, education and group therapy will hopefully prevent worsening of the patient's symptoms. He felt safe during the interview and if it anytime he does not feel safe he agrees to let us know or go to the emergency room. He agrees to increase his Prozac to 60 mg p.o. daily as he understands OCD requires higher doses of medications and sometimes it can take 12 weeks to see an improvement. He will continue to follow-up with his outpatient providers and I will see the patient in follow-up in 2 weeks. He will continue to exercise and eat healthily. He will he will get exposure and response prevention therapy in the future.
--- NOTE | 2023-08-19 14:57 | BH.MDN_ITS ---
Multi-Disciplinary Note Note 45-min Individual: Time Started:: 12:05 Date: 08/19/23 Purpose of session/treatment goals addressed:: To work on goal #1 of pt's tx plan, discuss return to work, and practice self-compassion skills. Eye Contact:: Good Motor Activity:: Appropriate Appearance:: Neat Speech:: Appropriate Mood:: Euthymic and Anxious Affect:: Full Thoughts:: Linear, Logical and No evidence of hallucinations/delusions noted Staff Interventions:: thought challenging, motivational interviewing, CBT techniques, mindfulness skills, discharge planning, strengths perspective, goal setting and other (self-compassion and acceptance skills. Return to work plan.) Client Response:: Pt responded well to session, open to meeting with therapist. Pt reports feeling better about managing his OCD as pt has been successfully completing his fear ladder goals. Pt feels that certain things that once caused significant anxiety are no longer anxiety provoking. Pt reports utilizing a lot of self-talk in the mirror to remind himself that I'm stronger than my OCD and this has been giving pt the strength to sit with the uncomfortable. Pt shared he has been forming a romantic relationship and he thinks it could be something more serious. Pt wants to continue to work on his OCD so he can maintain this relationship. Pt shared she knows about pt's OCD and she is supportive. Pt has been more transparent about his mental health struggles and found that he has been getting positive feedback. Pt continues to be self-critical and made several self-deprecating jokes which therapist encouraged pt to challenge. Pt did and shared he wants to work on being more compassionate towards himself. Pt was seen by Dr. Miller and his medications were increased. Pt is to be seen in two weeks, but pt is scheduled to go back to work. Pt is still not ready to return to work due to his OCD symptoms and contamination fears related to his job. Pt receptive to extending his leave and working on a work-related fear ladder. Pt has been avoiding work (see below) and the plan for this week is to drive past work on the days he attends [employer] [facility] [employer] [facility]. Pt is also encouraged to continue working on his other fear ladder tasks. Risks/Concerns:: Pt denies any thoughts of or SI. Progress Toward Goals/Plan:: Pt continues to make progress towards his tx goals AEB pt's report of utilizing healthy coping skills consistently, reduced engagement in compulsions, and improving functioning. Pt is still not ready to return to work as pt continues to avoid his work entirely (has not been driving past it even though it is on his way, has not touched his work boots or clothes since he took leave). Pt's OCD is improving, but it continues to impact his daily functioning. Pt is encouraged to continue IOP tx until the end of August and return to work on September 13. This will hopefully give pt more time to reduce OCD and improve daily functioning to help pt return successfully to work. Time Stopped:: 12:45
--- NOTE | 2023-08-21 09:05 | BH.SGPN.GN ---
Behaviors/Verbalizations/Mental Status: [] Eye contact is good. Motor activity is appropriate. Appearance is casual. Speech is Appropriate. Mood is euthymic. Affect is full. Thoughts are linear and logical. No evidence of psychosis. Reviewed daily check in sheet and no reports of suicidal ideations or intent. Client Response/Progress/Benefit: [] Pt was an active participant in group discussion. Attentive. Emotion is hopeful. Daily symptom tracker notes 2/5 for anxiety. Able to identify mental health wins and healthy habits. States I'm getting better at sitting with the uncomfortable with his OCD. Continues to practice exposure goals and share examples of growth. I'm able to talk myself through situations more. Has decreased isolation and is opening up more to support. Increased vulnerability and decreased stigma related to his mental health struggles. Has also begun to date again which has been difficult in the past due to contamination fears. Pt believes that medication increases are also contributing in decreased symptoms. Progress noted per pt report. Benefited from group support, encouragment, and feedback. Will continue in IOP to maintain safety, stabilize mood, and improve functioning to return to work. Narrative Note: []
--- NOTE | 2023-08-21 10:15 | BH.SGPN.GN ---
Behaviors/Verbalizations/Mental Status: []Client alert and oriented, casually dressed and groomed. Eye contact good. Motor activity appropriate. Speech within normal limits. Affect congruent, mood content and anxious. Thoughts linear, logical, no signs of hallucinations or delusions. Client Response/Progress/Benefit: []Pt engaged in session AEB listening attentively to others and providing input throughout. Pt engaged in activity, able to connect how it can be uncomfortable and difficult to accept when things are out of one?s own control. Pt worked with group to identify what things in life can be hard to accept. Group identified things hard to accept as: change, loss, mental health diagnosis, other?s behaviors, and failure. Pt identified struggling to accept he does not have to be perfect to be good enough. Seemed to benefit from increased awareness of the importance of acceptance. Pt to continue in IOP tx to increase consistent application of healthy coping skills, improve view of self, and prevent decompensation. Narrative Note: []
--- NOTE | 2023-08-21 11:10 | BH.SGPN.GN ---
Behaviors/Verbalizations/Mental Status: []Pt alert and oriented, casually dressed and groomed. Eye contact good. Motor activity appropriate. Speech within normal limits. Affect congruent, mood content. Thoughts linear, logical, no signs of hallucinations or delusions. Client Response/Progress/Benefit: [] Pt responded well to session AEB taking notes and contributing to discussion throughout. Pt engaged as group continued discussion on acceptance and the mental health benefits of practicing acceptance. Pt and peers identified what makes acceptance challenging and pt completed a self-reflection exercise on what is hard to accept in pt's life. Pt identified what is hard to accept in life and how it makes things harder when pt resists acceptance. Group identified strategies to increase acceptance and pt wants to work on begin practicing small vulnerability goals. Pt appeared to benefit from gaining insight and learning strategies to increase acceptance. Pt will continue IOP tx to prevent decompensation, improve daily functioning, and gain self-compassion. Narrative Note: []
--- NOTE | 2023-08-24 09:05 | BH.SGPN.GN ---
Behaviors/Verbalizations/Mental Status: [] Eye contact is good. Motor activity is appropriate. Appearance is casual. Speech is Appropriate. Mood is anxious. Affect is congruent. Thoughts are linear and logical. No evidence of psychosis. Reviewed daily check in sheet and no reports of suicidal ideations or intent. Client Response/Progress/Benefit: [] Pt was an active participant in group discussion. Attentive. Daily symptom tracker notes 02/13 for anxiety/agitation. Pt was able to identify several mental health wins over the weekend. Shared that he hung out with his friends and his new GF. Limited hand-washing and obsessive thoughts. Shared several examples of worming through OCD urges to has hands and shower excessively. Reports being more calm which he attributes to medications and recent efforts to disclose to friends/family his mental health struggles. Being more vulnerable has resulted in decreased stigma and limited pressure to hide his struggles. He also drove by work this AM as he continues with exposure goal to prepare him form transition back to work. Benefited from group support,encouragement, and feedback. Will continue in IOP to prevent decompensation, decrease intrusive thoughts, and improve functioning to return to work. Narrative Note: []
--- NOTE | 2023-08-24 10:10 | BH.SGPN.GN ---
Behaviors/Verbalizations/Mental Status: []Pt alert and oriented, casually dressed and groomed. Eye contact good. Motor activity appropriate. Speech within normal limits. Affect congruent, mood content, anxious. Thoughts linear, logical, no signs of hallucinations or delusions. Client Response/Progress/Benefit: [] Pt connected with topic of anxiety and participated throughout, providing input and taking notes. Participated throughout interactive discussion defining anxiety and identifying cognitive and physiological symptoms of anxiety. Group discussed how anxiety can prevent them from trying new things. Pt identified their physical signs of anxiety as: muscle tension, hyperventilating, and leg shaking. Pt identified safety behaviors as: avoidance, running away, and sleeping. Benefited from increased awareness and insight on anxiety and its impact. Pt will continue IOP tx to prevent decompensation, improve daily functioning, and increase consistent distress tolerance skill application.
--- NOTE | 2023-08-24 11:15 | BH.SGPN.GN ---
Behaviors/Verbalizations/Mental Status: []Pt alert and oriented, neatly dressed and groomed. Eye contact good. Motor activity appropriate. Speech within normal limits. Affect congruent, mood euthymic. Thoughts linear, logical, no signs of hallucinations or delusions. Client Response/Progress/Benefit: []Pt was an active participant AEB pt providing input and listening attentively to peers. Attentive during psychoeducation on mindfulness coping skills and their impact on reducing anxiety and improving overall mental health wellness. Group was able to identify self-soothing and mind-based coping skills which included: 5-senses, meditation, deep breathing, TIPP, thought challenging, and progressive muscle relaxation. Pt also participated with peers in practicing mindfulness skills in session including deep breathing and PMR. Pt would like to work on using delay, distract, and decide and his exposure goals to manage anxiety. Appeared to benefit from increasing repertoire of anxiety reduction skills. Pt will continue in IOP tx to reduce avoidance, improve daily functioning, and increase self-confidence. Narrative Note: []
--- NOTE | 2023-08-26 09:00 | BH.SGPN.GN ---
Behaviors/Verbalizations/Mental Status: [] Pt alert and oriented, neatly dressed and groomed. Eye contact good. Motor activity appropriate. Speech within normal limits. Affect congruent, mood euthymic. Thoughts linear, logical, no signs of hallucinations or delusions. Reviewed pt?s symptom tracker, no risk for suicidal ideation, plan, or intent 08/26/23 Client Response/Progress/Benefit: []Pt responded well to session, attentive and engaged. Pt reports feeling content this morning even though pt has a colonoscopy tomorrow. Pt shared he has had many, so he does not get anxious anymore. Pt shared he is somewhat anxious about his dad taking him because pt will be riding in his dad's car which reminds me of work. This is also one of pt's mental health wins as pt would not be able to do this in the past. Pt's other mental health win today is not taking a shower before coming to IOP this morning. Pt appeared to benefit from reflecting on his progress and connecting with peers. Pt will continue IOP tx to promote mood stability, further improve distress tolerance, and increase self-confidence. Narrative Note: []
--- NOTE | 2023-08-26 10:10 | BH.SGPN.GN ---
Behaviors/Verbalizations/Mental Status: [] Pt alert and oriented, casually dressed and groomed. Eye contact good. Motor activity appropriate. Speech within normal limits. Affect congruent, mood anxious. Thoughts linear, logical, no signs of hallucinations or delusions. Client Response/Progress/Benefit: [] Pt active participant AEB pt providing input throughout group discussion. Pt attentive during psychoeducation about defense mechanisms. Engaged during small group discussions and helped group identify which defense mechanisms were maladaptive, adaptive, or ?somewhere in the de la o.? Pt worked with small group on identifying how each defense mechanism can impact mental health and gave examples. Pt was engaged during small group discussion. ?Seemed to benefit from gaining awareness about the different defense mechanisms. Will continue in IOP to prevent decompensation, decrease intrusive thoughts, and improved functionoing to return to work. Narrative Note: []
--- NOTE | 2023-08-28 09:59 | BH.MDN_ITS ---
Multi-Disciplinary Note Note 45-min Individual: Time Started:: 08:40 Date: 08/28/23 Purpose of session/treatment goals addressed:: To work on distress tolerance skills including acceptance and ERP goals. Eye Contact:: Good Motor Activity:: Appropriate Appearance:: Neat Speech:: Appropriate Mood:: Anxious Affect:: Congruent Thoughts:: Racing and No evidence of hallucinations/delusions noted Staff Interventions:: thought challenging, CBT techniques, mindfulness skills, strengths perspective, goal setting and other (distress tolerance skill and acceptance.) Client Response:: Pt responded well to session, open to meeting with therapist. Pt reports he is doing better in a lot of ways, but he is still avoiding work triggers. Pt shared he had a trigger last week after an appointment that did lead to pt showering more one day, but pt bounced back quickly. Pt stated he has been driving past work and has minimal anxiety about that now. Pt also has less anxiety about sitting in the parking lot, but this still makes him anxious so he will continue with this. Pt understands that he now needs to face work-related things that cause more anxiety. Discussed wearing something he would wear to work such as a shirt. Pt is not ready to wear his work boots yet, but he was encouraged to practice touching them. Pt reported feeling a lot of anxiety about this, but pt shared I know I have to sit with the uncomfortable. Pt has been working on acceptance skills and reminding himself that it is okay to have uncertainties. Pt will work on his exposure goals for homework as well as self-talk. Risks/Concerns:: Pt denies any thoughts of or SI. Progress Toward Goals/Plan:: Pt continues to make progress towards his tx goals AEB pt's self-report of continuing to work on his fear ladder goals, drive past work, and reduce engagement in compulsions. Pt is still avoiding work- related clothing and engaging in compulsions at home. Pt reports plan to wear something work-related to IOP next week. Pt also plans to work on utilizing self-talk to increase acceptance. Pt will continue IOP tx to promote gains, increase distress tolerance skills, and increase work-related functioning. Time Stopped:: 09:30
--- NOTE | 2023-08-28 10:15 | BH.SGPN.GN ---
Behaviors/Verbalizations/Mental Status: []Pt alert and oriented, neatly dressed and groomed. Eye contact good. Motor activity appropriate. Speech within normal limits. Affect congruent, mood euthymic and anxious. Thoughts linear, logical, no signs of hallucinations or delusions. Client Response/Progress/Benefit: [] Pt responded well to session AEB sharing and listening attentively to others. Group identified types of social support (family, pets, professionals, spiritual, etc) and provided examples of benefits of having social support, including: decreased stress, increased self-esteem, encouragement, distraction, etc. Pt also participated in group discussion regarding the barriers to accessing support which pt shared he has turned to unhealthy coping skills and not also been open about his mental health. Pt participated in experiential activity illustrating the impact communication, boundaries, and patience play in creating healthy support systems. Pt appeared to benefit from increased knowledge of the benefits of social support and greater self-awareness. Will continue IOP promote mood stability, further decrease compulsions, and increase work-related functioning. ?? Narrative Note: []
--- NOTE | 2023-08-28 11:15 | BH.SGPN.GN ---
Behaviors/Verbalizations/Mental Status: []Pt alert and oriented, neatly dressed and groomed. Eye contact good. Motor activity appropriate. Speech within normal limits. Affect congruent, mood anxious. Thoughts linear, logical, no signs of hallucinations or delusions. Client Response/Progress/Benefit: [] Pt was an active participant throughout AEB contributing to discussion, providing personal examples, and taking notes. Pt processed emotions felt in the activity and how they coped in the moment. Pt provided input during discussion on the types of support our supports can provide. Pt able to identify current support system and barriers that get in the way of using supports by drawing out their own support net. Pt reported after identifying what type of supports they receive; they gained awareness that they could benefit from getting more emotional support. Pt plans to do this by ?being more emotionally supportive to myself? through self-talk and patience. Pt seemed to benefit from identifying the type of support Pt needs to work on improving. Pt recommended to continue IOP tx to further increase daily functioning, increase self-compassion, and reduce compulsions. Narrative Note: []
--- NOTE | 2023-08-31 09:05 | BH.SGPN.GN ---
Behaviors/Verbalizations/Mental Status: [] Eye contact is good. Motor activity is appropriate. Appearance is casual. Speech is Appropriate. Mood is euthymic. Affect is full. Thoughts are linear and logical. No evidence of psychosis. Reviewed daily check in sheet and no reports of suicidal ideations or intent. Client Response/Progress/Benefit: [] Pt was an active participant in group discussion. Attentive. According to pt he is still actively working on OCD and intrusive thoughts throughout the day. States I'm on edge but content. Continues to resistant compulsions and set with anxiety. He was able to identify progress as well as obstacles this past week. Reports taking two showers back to back yesterday b/c he had a feeling that his elbow was dirty. Wins include not wiping down his phone over the weekend as it touched something dirty. He also drove to work and sat in the parking lot which was an exposure goal on his fear ladder. Progress noted. Benefited from group support, encouragement, and feedback. Will continue in IOP to maintain safety, decrease intrusive thoughts, and improve functioning to return to work. Narrative Note: []
--- NOTE | 2023-08-31 10:15 | BH.SGPN.GN ---
Behaviors/Verbalizations/Mental Status: []Pt alert and oriented, neatly dressed and groomed. Eye contact good. Motor activity appropriate. Speech within normal limits. Affect congruent, mood anxious. Thoughts linear, logical, no signs of hallucinations or delusions. Client Response/Progress/Benefit: [] Pt was attentive during psychoeducation and participated in group activity. Group discussed what contributes to a person?s perspective and how perspective can positively or negatively impact mental health treatment. Pt reflected on their perspective today and how it is impacting them. Pt shared their perspective today is ?in the middle? as pt still struggles to combat negative thoughts, but he is also actively using coping skills to manage his OCD. Pt appeared to benefit from increasing awareness of different perspectives and how they can affect mental health. Pt will continue IOP tx to promote mood stability, increase distress tolerance skills, and improve work-related functioning. ?? Narrative Note: []
--- NOTE | 2023-08-31 11:15 | BH.SGPN.GN ---
Behaviors/Verbalizations/Mental Status: []Pt alert and oriented, casually dressed and groomed. Eye contact fair to good. Motor activity appropriate. Speech within normal limits. Affect congruent, mood anxious and euthymic. Thoughts linear, logical, no signs of hallucinations or delusions. Client Response/Progress/Benefit: []Pt was attentive and contributed to group discussion. Pt worked with group to identify strategies that can help with challenging negative perspective. Pt completed strengths exploration worksheet, identifying logic, kindness, and athleticism as personal strengths. Pt able to acknowledge how these strengths are helping pt and can continue to help pt in mental health journey. Pt identified wanting to work on leaning on strength of logic to begin practicing looking at the evidence for and against something. Benefited from identifying personal strengths and strategies for enhancing use of identified strengths. Pt will continue IOP tx to increase coping skill repertoire, improve mood stability, and prevent decompensation. Narrative Note: []
--- NOTE | 2023-09-02 09:05 | BH.SGPN.GN ---
Behaviors/Verbalizations/Mental Status: [] Eye contact is good. Motor activity is appropriate. Appearance is casual. Speech is Appropriate. Mood is euthymic. Affect is full. Thoughts are linear and logical. No evidence of psychosis. Reviewed daily check in sheet and no reports of suicidal ideations or intent. Client Response/Progress/Benefit: [] ?Pt was an active participant in group discussions. Attentive. ? I?m in a good mood today?. Feels ? hopeful? about his future with OCD. Believes that he is not powerless over his obsessions and compulsions. ? I still have setbacks? but is able to see the progress that he has made. Continues to work on exposure goals. Progress noted per pt report. Benefited form group support, encouragement, and feedback. Will continue in IOP to prevent decompensation, decrease intrusive thoughts, and improve functioning to return to work. Narrative Note: []
--- NOTE | 2023-09-02 09:48 | BH.MDN ---
Multi-Disciplinary Note Note 30-min Individual: Time Started:: 08:40 Date: 09/02/23 Purpose of session/treatment goals addressed:: To review progress, process any stressors, and discuss discharge plan. Eye Contact:: Good Motor Activity:: Appropriate Appearance:: Neat Speech:: Appropriate Mood:: Euthymic and Anxious Affect:: Full Thoughts:: Linear, Logical and No evidence of hallucinations/delusions noted Staff Interventions:: thought challenging, CBT techniques, mindfulness skills, discharge planning, strengths perspective and goal setting Client Response:: Pt responded well to session, open to meeting with therapist. Pt reflected on his progress since starting IOP tx including; taking his phone out in public places, taking less than 12 minute showers, and being able to sit in the parking lot at work. Pt shared it was helpful to reflect on this, because he still struggles with unrealistic expectations and wanting to be better faster. Pt shared he is combatting distortions and he practices self-talk in the mirror. Pt was also receptive to taking time to reflect each day on his needs, progress, emotions, etc. Pt felt this could be helpful when pt returns back to work as well. Pt is hopeful that with a medication increase he will continue to make progress. Pt was receptive to getting connected with a psych provider in addition to his PCP. Pt plans to go over to [facility] on Thursday and get an appointment. Risks/Concerns:: Pt denies any thoughts of or SI. Progress Toward Goals/Plan:: Pt continues to make significant progress towards his tx goals AEB pt's report of reduce engagement in compulsions, improving functioning, and readiness to return to work on 09/14/23. Pt can continue to work on his ERP goals and pt is still not entirely back to baseline functioning, but pt is much closer per his report. Pt will continue IOP tx to promote gains, establish aftercare, and improve self-compassion. Time Stopped:: 09:15
--- NOTE | 2023-09-02 10:10 | BH.SGPN.GN ---
Behaviors/Verbalizations/Mental Status: [] Eye contact is good. Motor activity is appropriate. Appearance is casual. Speech is Appropriate. Mood is euthymic. Affect is congruent. Thoughts are linear and logical. No evidence of psychosis. Client Response/Progress/Benefit: [] Pt responded well to session AEB contributing to small group discussion, taking notes, and listening attentively to others. Group defined anger and discussed the benefits of managed anger and anger as a secondary emotion. Group identified perspective on personal benefits of anger as advocating for self. Pt completed worksheet on anger triggers and personal warning signs of anger. Pt identified a common trigger for him is when he has slow progress. Pt able to create his personal anger cycle. Appeared to benefit from increased knowledge of the anger cycle as well as personal triggers. Will continue IOP to continue working on fear ladder, promote use of healthy coping skills, and prevent decompensation.
--- NOTE | 2023-09-02 11:15 | BH.SGPN.GN ---
Behaviors/Verbalizations/Mental Status: [] Client Response/Progress/Benefit: [] Narrative Note: []
--- NOTE | 2023-09-02 12:09 | PCM.BH.PN_ITS ---
Progress Note Progress Note: History of Present Illness/Interim History: Patient is a 33-year-old single, male with a history of OCD and depression who is seen in follow-up at the [facility] behavioral [facility]. I last saw the patient 2 weeks ago and at that time his Prozac was increased to 60 mg daily. According to staff the patient has been consistent in attendance and engaged in the program and is making good progress and working on his OCD through exposure therapy. The plan is for the patient to discharge in a week and return to work on September 14, 2023. Patient is a little nervous about returning to work but does feel optimistic about the future as he has made good progress on his OCD. His handwashing is decreased from 30 times a day down to 15-20 times a day max. He used to take 4 5 showers a day and now he is taking only 2 a day and when he has the intrusive thoughts he is able to talk himself down using skills he has learned from his therapist in the IOP. His mood is also less depressed as he is not beating himself up over his OCD as much. He is not using any marijuana. He denies passive thoughts of and only has this when his OCD gets out of control. He denies suicidal ideation, plan for suicide, homicidal ideation, hallucinations or delusions. He still has the intrusive thoughts around cleanliness resulting in the above rituals. Current Psychiatric Medications: [] Prozac 60 mg p.o. daily (x 2 weeks); BuSpar twice daily. Mental Status Examination: [] The patient is a 33-year-old male who appears thin and normal for stated age and is casually dressed and groomed with good hygiene. He is ambulatory with a normal gait and has no psychomotor anibal tation or retardation. He is cooperative and pleasant during the interview. Eye contact is good and speech is normal rate and rhythm and fluent with no pressure. Mood is anxious. Affect is full and normal. Thought process is goal-directed and organized. Thought content: There is still evidence of intrusive thoughts and rituals around cleanliness. There is no evidence of passive thoughts of , suicidal ideation, homicidal ideation, plan for suicide, hallucinations or delusions. Reality testing is intact. Judgment is intact. Impulsivity is low. Insight is good. Diagnoses: [] 1. Obsessive-compulsive disorder 2. Major depressive disorder, recurrent, mild 3. Generalized anxiety disorder 4. Crohn's disease 5. Primary support and work issues Plan: [] The patient will continue the IOP and will be discharged in the next week or so as he has made significant progress and plans to return to work on September 14, 2023. He felt safe during the interview and if it anytime he does not feel safe he agrees to let us know or go to the emergency room. The patient request to increase his Prozac to 80 mg p.o. daily because he took that dose several times because he took to 40 mg until he picked up his new prescription for 60 mg. He understands OCD requires higher doses and feels like he wants to increase it now. Prescription is sent in for Prozac 80 mg p.o. daily. He plans to do the aftercare program when he is discharged from the [facility]. He will continue to follow-up with his outpatient providers response prevention therapy in the future.
--- NOTE | 2023-09-04 09:00 | BH.SGPN.GN ---
Behaviors/Verbalizations/Mental Status: [] Pt alert and oriented, neatly dressed and groomed. Eye contact good. Motor activity appropriate. Speech within normal limits. Affect congruent, mood euthymic. Thoughts linear, logical, no signs of hallucinations or delusions. Reviewed pt?s symptom tracker, no risk for suicidal ideation, plan, or intent 09/04/23 Client Response/Progress/Benefit: []Pt responded well to session, attentive and engaged. Pt reports feeling happy and hopeful this morning as pt shared I did a lot of things I haven't been able to do because of his OCD symptoms. Pt stated he has been using a lot of coping skills including sitting with the uncomfortable, deep breathing, and self-talk. Pt shared he is proud of himself, but his stressor is still his OCD symptoms. Pt appeared to benefit from reflecting on progress and connecting with peers. Pt will continue IOP tx to reduce compulsions, reduce negative self-talk, and increase work-related functioning. Narrative Note: []
--- NOTE | 2023-09-04 10:15 | BH.SGPN.GN ---
Behaviors/Verbalizations/Mental Status: []Patient was alert and oriented, casually dressed and groomed. Eye contact was good, motor activity normal, speech within normal limits. Affect congruent, mood content. Thoughts linear, logical, no signs of hallucinations or delusion Client Response/Progress/Benefit: []Pt participated in the group discussions AEB providing input and taking notes. Attentive during psychoeducation Goal Setting. Participated during the discussion on common barriers and pt identified some personal barriers as negative self-talk, not having enough time, and limited external support. Group also identified benefits of goals as sense of purpose, improved self-confidence, more motivation for other goals, and improved mental health. Benefited from increased awareness of mental health benefits of goals as well as psychoeducation on SMART goal criteria. Will continue in IOP to improve mood stability, improve confidence, and prevent decompensation. ? Narrative Note: []
--- NOTE | 2023-09-04 11:15 | BH.SGPN.GN ---
Behaviors/Verbalizations/Mental Status: []Pt alert and oriented, casually dressed and groomed. Eye contact good. Motor activity appropriate. Speech within normal limits. Affect congruent, mood euthymic. Thoughts linear, logical, no signs of hallucinations or delusions. Client Response/Progress/Benefit: [] Pt was engaged during discussion and willing to complete the worksheet challenging them to develop a personal SMART goal. Pt chose the goal of starting to get up between 3am and 5am every morning to help get back into his work schedule routine. Pt stated this will help him be prepared better when he returns to work. Pt stated snoozing his alarm as a potential barrier. Identified solution as creating morning schedule and working out when he wakes up to improve energy/motivation. Benefited from this group by developing a short-term SMART goal related to mental health. Will continue IOP tx to promote gains, continue use of healthy coping skills, and prevent decompensation.
--- NOTE | 2023-09-07 09:05 | BH.SGPN.GN ---
Behaviors/Verbalizations/Mental Status: [] Eye contact is good. Motor activity is appropriate. Appearance is casual. Speech is Appropriate. Mood is euthymic. Affect is full. Thoughts are linear and logical. No evidence of psychosis. Reviewed daily check in sheet and no reports of suicidal ideations or intent. Client Response/Progress/Benefit: [] Pt was an active participant in group discussions. Attentive. Pt was able to identify several mental halth wins related to progress on exposure goals and intrusive thoughts. He is set to successfully discharge this week and feels good. I've seen the progress I've made and I'm actually excited to get back to work. Progress noted per pt report. Benefited from group support, encouragement, and feedback. Will continue in IOP to maintain gains. Narrative Note: []
--- NOTE | 2023-09-07 10:15 | BH.SGPN.GN ---
Behaviors/Verbalizations/Mental Status: []Client alert and oriented, casually dressed and groomed. Eye contact good. Motor activity appropriate. Speech within normal limits. Affect congruent, mood euthymic. Thoughts linear, logical, no signs of hallucinations or delusions. Client Response/Progress/Benefit: []Pt was an active participant, AEB taking notes and providing input in group discussions and activities. Attentive during psychoeducation. Pt engaged during interactive discussion in which the group defined self-care and discussed its benefits. Group discussed barriers to engaging in self-care. Group members together came up with guilt, time, urge to put others first, not knowing what to do for self-care, and perception that its unproductive as barriers to engage in self care. Pt stated their personal barrier used to be not knowing what self-care looked like before coming to IOP. Pt participated in small groups where they worked to identified and challenged common self-care ?myths?. Benefited from increased awareness of self-care, its benefits, and the consequences of not utilizing self-care strategies. Will continue IOP tx to promote gains, further improve self-confidence, and reinforce healthy coping skills. Narrative Note: []
--- NOTE | 2023-09-07 11:15 | BH.SGPN.GN ---
Behaviors/Verbalizations/Mental Status: [] Client alert and oriented, casually dressed and groomed. Eye contact good. Motor activity appropriate. Speech within normal limits. Affect congruent, mood content, euthymic. Thoughts linear, logical, no signs of hallucinations or delusions. Client Response/Progress/Benefit: []Client engaged in discussion reviewing different areas of self-care and completing self-assessment of current self care, as well as providing input throughout discussion. Client completed worksheet identifying current self-care practices and what self-care activities client wants to start using. Client selected professional self-care to begin practicing more consistently. Client plans to do this by continuing to work on exposure goals in order to get back to work. Appeared to benefit from completing the self-care evaluation and gaining insights into current self-care practices, as well as identifying areas in which client would like to improve upon. Client will continue IOP tx to prevent decompensation and maintain mood stability. Narrative Note: []
--- NOTE | 2023-09-09 09:00 | BH.SGPN.GN ---
Behaviors/Verbalizations/Mental Status: [] Eye contact good. Motor activity appropriate. Speech within normal limits. Affect congruent, mood content. Thoughts linear, logical, no signs of hallucinations or delusions. Reviewed client?s symptom tracker, denies SI, plan, or intent as of 09/09/2023. Client Response/Progress/Benefit: [] Client receptive of session, attentive and willing to process with group. Reports improved sx of anxiety ?(0.5/5) and depression (0/5) per daily sx tracker. ?Identified mental health ?win as successfully creating a ?return to work coping plan? with his individual therapist this morning and is feeling more prepared to return next week. Went on to discuss areas of progress while in IOP and feeling ready to d/c from the program on Thursday. Additional win noted as following through with getting his aftercare set-up. Shared that although he is ready to return to work, this is ancelmo a stressor for him. Did well to identify skills he can use to do so. Benefitted from encouragement and support of the group. Recommended continued IOP tx to further maintain mood stability, promote consistent skill application, well as prevent decompensation. Narrative Note: []
--- NOTE | 2023-09-09 09:36 | BH.MDN ---
Multi-Disciplinary Note Note 45-min Individual: Time Started:: 08:30 Date: 09/09/23 Purpose of session/treatment goals addressed:: To address current stressors and discuss strategies to help cope with these stressors. Another goal was to discuss discharge and aftercare. Eye Contact:: Good Motor Activity:: Appropriate Appearance:: Neat Speech:: Appropriate Mood:: Euthymic and Anxious Affect:: Full Thoughts:: Linear, Logical and No evidence of hallucinations/delusions noted Staff Interventions:: discharge planning, strengths perspective and other (completed a return to work coping plan.) Client Response:: Pt responded well to session, open to meeting with therapist. Pt reports he continues to be doing well outside of [facility]. Pt shared his showers are much shorter (under 10 minutes now) and he feels ready to return to work. Pt still has anxiety about returning to work, but pt has been thinking of a plan to help him cope with his OCD. Pt shared he knows what kind of self-talk he wants to use and has an idea of what will maintain progress. Part of pt's maintenance plan is coming to [facility] aftercare groups and seeing his outpatient therapist. Pt receptive to completing a return to work plan which including warning signs, internal coping skills, external supports, self-care, and things pt can do before/after work. Pt identified warning signs such as increased time spent washing hands or showering, avoidance of certain clothing or places, panic attacks, and increased anxiety. Pt's internal skills included self-talk, exposure goals, deep breathing, and healthy distractions. Pt also has been getting back into his hobbies which has helped pt regulate his OCD and make connections. Pt will also plan to see Claudia Rhodes at [facility] to promote gains. Risks/Concerns:: No SI or thoughts of reported. Progress Toward Goals/Plan:: Pt has made significant progress towards his tx goals and pt plans to discharge from [facility] on 09/11/23. Pt can benefit from one more [facility] session to reinforce healthy coping skills, evaluate DSM-5 progress, and promote gains. Pt will return to work on 09/14/23. Time Stopped:: 09:15
--- NOTE | 2023-09-09 09:37 | BH.IGGP_ITS ---
Aftercare Plan Demographics Treatment End Date:: 09/11/23 Psychiatrist:: Marva Miller Psychiatrist Office #:: [phone] [facility]/IOP Therapist:: Shayla Granados Therapist Phone #:: [phone] Medications Home Medications acyclovir 400 mg tablet 400 mg PO BID 07/22/23 risankizumab-rzaa subcut 07/22/23 fluoxetine 40 mg capsule (Prozac) 80 mg (2 x 40 mg) PO DAILY 30 days #60 caps 09/02/23 Plan Details Progress/Aftercare Plan Details:: Waldo has responded well to treatment as evidenced by Waldo consistently attending IOP sessions and his reduction of DSM-5 scores since admission. Waldo was always attentive and receptive to learning during group and individual sessions. Waldo actively applied coping skills outside of IOP, reports overall his mood is improved, and he is functioning better than he was several months ago. Waldo?s overall symptom reduction is 77% since admission with anger decreasing by 100%, depression decreasing by 75%, OCD decreasing by 75%, and anxiety decreasing by 56%. Waldo has increased self- confidence in his ability to manage anxiety overcoming fears. Waldo did well with the fear ladder and has significantly improved his functioning and reduced avoidance. Waldo will continue seeing his individual therapist and begin seeing Claudia Rhodes through [facility]. Strategies for Success:: 1. Opposite action! Continue to break that cycle of anxiety and depression by not letting emotions be the only drivers of your bus. 2. Remember that thoughts are thoughts NOT facts! You have power in if you give thoughts the time of day or not. 3. self-care! You deserve to take time for you and you also deserve to face the not so fun self-care like sitting with the uncomfortable 4. Self-compassion! You are human and you will make a mistake?BUT that doesn?t mean you are a failure or not good enough. Give yourself credit for all the wonderful things you do. 5. continue working on your fear ladder! You have done so well with it. 6. Practice positive self-talk and keep track of your wins. 7. Remember progress isn?t linear! You may have a setback or bump in the road, but that doesn?t mean you?ve lost all progress. 8. self-reflection and self-awareness. 9. Delay, Distract, Decide 10. Live in the ochoa!! Appointments Appointments/Referrals to Other Services:: 1. Claudia Rhodes at [facility] on 09/28/23 2. Alisson at [facility] on 09/16/23 3. IOP aftercare group 09/17/23 from 2:00-3:30pm for 8 weeks
--- NOTE | 2023-09-09 10:10 | BH.SGPN.GN ---
Behaviors/Verbalizations/Mental Status: []Eye contact is good. Motor activity is appropriate. Appearance is neat. Speech is Appropriate. Mood is anxious and euthymic. Affect is congruent. Thoughts are linear and logical. No evidence of psychosis Client Response/Progress/Benefit: [] Pt was an active participant in group discussion and experiential activity. Attentive during psychoeducation on resilience. Participated during interactive discussion with peers on the definition of resilience. Able to relate experiential activity of group juggle to topics of resilience. Group worked together to identify what can impact one's ability to be resilient which included past experiences, trauma, toxic support system, lack of resources, and current mental/physical health state. Worked well with peers in small group in which they identified factors that contribute to building resilience. Benefited from increased awareness of resilience and the factors that contribute to building resilience. Will continue in IOP to decrease anxious avoidance, practice calming skills, and prevent decompensation.
--- NOTE | 2023-09-09 11:10 | BH.SGPN.GN ---
Behaviors/Verbalizations/Mental Status: []Pt alert and oriented, casually dressed and groomed. Eye contact good. Motor activity appropriate. Speech within normal limits. Affect congruent, mood content. Thoughts linear, logical, no signs of hallucinations or delusions. Client Response/Progress/Benefit: []Pt responded well to session AEB completing the resilience worksheet provided. Pt participated in the discussion and worked cooperatively with group to identify strategies to enhance each of the components discussed. Pt reports belief they already use resilience traits of??making connections and nurturing a positive view of self.? Pt stated they would like to continue to develop resilience trait of ?maintaining a hopeful outlook? as pt feels pt would benefit from reminding himself that things can get better if he keeps trying. Pt seemed to benefit from discussing strategies for improving personal resilience and identifying resilience traits pt already possesses. Will continue IOP tx to promote gains and reinforce healthy coping skills. Narrative Note: []
== END 2023-09-09 23:59 ==
LOC: BHIOP 07:14
PROVIDERS: PCP Internal Medicine; Referring Provider Psychiatry & Neurology Psychiatry; Visit Provider Psychiatry & Neurology Psychiatry
DX: F33.0 Major depressive disorder, recurrent, mild (principal); F41.1 Generalized anxiety disorder; F42.9 Obsessive-compulsive disorder, unspecified; K50.90 Crohn's disease, unspecified, without complications; Z79.899 Other long term (current) drug therapy
CPT/HCPCS: S9480; 90832; 90834; 90847; 90853

== ENCOUNTER 2023-09-10 07:13 | Outpatient (RCR) | payer BC, SELFPAY ==
[2023-09-10 00:24] VITALS: BP 139/89; PULSE 67
--- NOTE | 2023-09-11 09:05 | BH.SGPN.GN ---
Behaviors/Verbalizations/Mental Status: [] Pt alert and oriented, neatly dressed and groomed. Eye contact good. Motor activity appropriate. Speech within normal limits. Affect congruent, mood euthymic. Thoughts linear, logical, no signs of hallucinations or delusions. Reviewed pt?s symptom tracker, no risk for suicidal ideation, plan, or intent 09/11/23 Client Response/Progress/Benefit: []Pt responded well to session, attentive and engaged. Pt reports feeling anxious in a good way this morning as it is pt's last day of IOP and he starts back at work on Thursday. Pt shared progress throughout IOP including his improved functioning and increased self-confidence. Pt stated he plans to spend time with friends this weekend and he has been waking up earlier to get back into a work routine. Pt is stressed about returning to work, but pt feels more confident in his ability to cope with OCD symptoms and triggers. Pt appeared to benefit from reflecting on progress and connecting with peers. Pt will discharge from IOP today as pt no longer meets criteria for IOP level of care. Narrative Note: []
--- NOTE | 2023-09-11 10:25 | BH.SGPN.GN ---
Behaviors/Verbalizations/Mental Status: []Pt alert and oriented, casually dressed and groomed. Eye contact good. Motor activity appropriate. Speech within normal limits. Affect congruent, mood content. Thoughts linear, logical, no signs of hallucinations or delusions. Client Response/Progress/Benefit: [] Pt took notes and contributed throughout group discussion and interactive activity. Attentive during psychoeducation on fixed mindset and how a fixed mindset can impact mental health, resilience, and relationships. Participated during the interactive group discussion on fixed mindset in which group verbalized their current fixed mindsets and how they affect their mental health. Pt shared common fixed mindset thoughts they have which included I?ll never be able to manage my OCD?, ?I'll never be able to have a relationship because I'm not good enough?. These thoughts lead to giving up or not trying, low self-esteem, and unrealistic expectations. Pt benefited from increased awareness of growth mindset and fixed thoughts and how fixed thoughts impact their mental health. Will d/c IOP tx and continue in outpatient to prevent decompensation and maintain mood stability. Narrative Note: []
--- NOTE | 2023-09-11 11:15 | BH.SGPN.GN ---
Behaviors/Verbalizations/Mental Status: []Pt alert and oriented, casually dressed and groomed. Eye contact good. Motor activity appropriate. Speech within normal limits. Affect congruent, mood euthymic. Thoughts linear, logical, no signs of hallucinations or delusions. Client Response/Progress/Benefit: [] Pt was an active participant during activity and discussion. Pt did well to remain attentive and participate as group worked on identifying characteristics and benefits of adopting a growth mindset. Worked with fellow participants in reframing the example fixed thoughts into growth mindset thoughts. Pt worked on changing own fixed thought and reframed the thought to ?Using skills I have learned and sitting with the uncomfortable can help with managing my OCD. Pt appeared to benefit from challenging own thoughts and engaging in the activity. Pt will continue IOP tx to promote gains, continue working on exposure goals, and prevent decompensation.
--- NOTE | 2023-09-11 15:22 | BH.DS_ITS ---
Discharge Summary Demographics Date of Admission:: 07/20/23 Discharge Date: 09/11/23 Presenting Problems at Admission:: Pt is a 33-year-old male with a history of OCD who was referred to [facility] tx by his outpatient therapist due to worsening symptoms of OCD over the past few years. Pt reports at admission that COVID was the primary trigger for his worsening OCD and his symptoms impact all areas of his functioning. At admission, pt was on leave from his job due to his symptoms impacting his attendance and ability to complete job duties. At admission pt's symptoms included excessive showering (4x a day), washing hands 30-40 times a day, avoidance of things at home that could be contaminated, showering after bumping into anything, and avoidance of using his phone outside of his house. Pt also endorses hopelessness, worthlessness, isolation, and thoughts of . Pt was unable to have friends over to his home and he felt unable to relax. Discharge Diagnoses:: Obsessive-compulsive disorder F 42.2; Major depressive disorder, recurrent, severe without psychosis F 33.2; Generalized anxiety disorder Reason for Discharge:: Pt has accomplished his tx goals AEB his reduction in DSM-5 scores, improved functioning, and self-report. Pt no longer meets criteria for [facility] level of care and he will transition to outpatient counseling and [facility] aftercare group. Treatment Progress During Treatment & Response: Pt has responded well to treatment as evidenced by Pt consistently attending IOP sessions and his reduction of DSM-5 scores since admission. Pt was always attentive and receptive to learning during group and individual sessions. Pt actively applied coping skills outside of IOP, reports overall his mood is improved, and he is functioning better than he was several months ago. Pt?s overall symptom reduction is 77% since admission with anger decreasing by 100%, depression decreasing by 75%, OCD decreasing by 75%, and anxiety decreasing by 56%. Pt has increased self-confidence in his ability to manage anxiety overcoming fears. Pt did well with the fear ladder and has significantly improved his functioning and reduced avoidance. Pt will continue seeing his individual therapist and begin seeing Claudia Rhodes through [facility]. Issues Still to be Addressed:: Continued to work reducing OCD symptoms, maintaining gains, and building self-confidence. Discharge Recommendations/Instructions:: Pt will follow up with Alisson Morataya for outpatient therapy and his next session is 09/16/23. Pt has his first appointment at [facility] on 09/28/23. Pt will begin IOP aftercare group on 09/17/23. Discharge Handout
== END 2023-09-11 12:03 | disposition home or self-care (01) ==
LOC: BHIOP 07:13
PROVIDERS: PCP Internal Medicine; Referring Provider Psychiatry & Neurology Psychiatry; Visit Provider Psychiatry & Neurology Psychiatry
DX: F42.2 Mixed obsessional thoughts and acts (principal); F33.2 Major depressive disorder, recurrent severe without psychotic features; F41.1 Generalized anxiety disorder
CPT/HCPCS: S9480; 90853

== ENCOUNTER 2023-09-17 13:48 | Outpatient (RCR) | payer BC, SELFPAY ==
--- NOTE | 2023-09-17 16:00 | BH.MTP ---
Master Treatment Plan Patient Information Program Physician:: Dr. Marva Miller Primary Therapist:: Shayla WELLS Psychiatric Diagnoses Psychiatric Diagnoses:: Obsessive-compulsive disorder F 42.2; Major depressive disorder, recurrent, severe without psychosis F 33.2; Generalized anxiety disorder Diagnosis Code(s):: F 42.2 Estimated LOS Estimated LOS (in weeks):: 8 Problem/Goal #1 Problem/Goal #1 Stated Goal:: client will maintain or see a reduction in symptoms AEB client score on the DSM 5 cross-cutting measure and improve client's daily functioning. Objectives Objective #1: Stated Objective: Client will continue to consistently apply healthy coping skills to maintain progress made in IOP tx. Interventions: Through group therapy, client will review warning signs and triggers as well as healthy coping skills learned in IOP tx to successfully maintain gains while transitioning into outpatient therapy. Discharge Criteria: Client will have accomplished this goal when client's score on the DSM-5 cross-cutting measure has maintained or reduced over a 8 week period. Target Date: 11/12/23 Review Date: 10/15/23 Status: open Objective #2: Stated Objective: Client will learn and utilize 2-3 maintenance strategies to prevent decompensation from original IOP DSM-5 scores. Interventions: Through group therapy, client will be provided with education on healthy maintenance behaviors, relapse prevention techniques, and healthy coping strategies. Discharge Criteria: Client will have accomplished this goal when can report using at least 2 maintenance skills to prevent decompensation compared to original IOP DSM-5 scores Target Date: 11/12/23 Review Date: 10/15/23 Status: open
--- NOTE | 2023-09-28 14:00 | BH.SGPN.GN ---
Behaviors/Verbalizations/Mental Status: []Pt alert and oriented, casually dressed and groomed. Eye contact good. Motor activity appropriate. Speech within normal limits. Affect congruent, mood content, positive. Thoughts linear, logical, no signs of hallucinations or delusions. Client Response/Progress/Benefit: []Pt responded well to session AEB sharing and listening attentively to others. Pt has been consistent with outpatient mental health appointments and maintains medication compliance. Pt reports using positive self-talk, breathing techniques, and looking back at past experiences as evidence to help with managing mental health symptoms. Pt participated in group discussion defining affirmations and why they are important. Pt provided insight throughout clinician?s presentation of tips for writing personal affirmations and wrote their own affirmations, including ?I I am capable of making myself better?, ?I am actively working on being kind to myself?, and ?It's okay to ask for help and need others?. Pt appeared to benefit from increased knowledge of affirmation writing skills and creating their own affirmation statements to remind themselves of outside tx environment. Will continue aftercare tx to promote consistent mental health maintenance and prevent decompensation. Narrative Note: []
--- NOTE | 2023-10-01 14:00 | BH.SGPN.GN ---
Behaviors/Verbalizations/Mental Status: []Pt alert and oriented, casually dressed and groomed. Eye contact good. Motor activity appropriate. Speech within normal limits. Affect congruent, mood content. Thoughts linear, logical, no signs of hallucinations or delusions. Client Response/Progress/Benefit: []Pt receptive of session, engaged throughout. Pt has been consistent with medications and he got a new medication added, but pt did not have a therapist appointment this week. Pt reported using coping skills such as: sitting with the uncomfortable, doing more things he enjoys, and deep breathing. Receptive of discussion on ?Chapters of my life? poem. Pt contributed to the discussion of the different chapters one may go through and how they connect with current mental health progress. Pt reflected and identified their current chapter as 4 because I'm choosing a different path with work. Identified that taking more time to engage in self-care and reach out to supports would help with getting to the next chapter. Pt seemed to benefit from support from peers and increasing understanding of ?Chapters of my life?. Will continue IOP aftercare to maintain gains and prevent decompensation. Narrative Note: []
--- NOTE | 2023-10-01 14:00 | BH.SGPN.GN ---
Behaviors/Verbalizations/Mental Status: []Pt alert and oriented, casually dressed and groomed. Eye contact good. Motor activity appropriate. Speech within normal limits. Affect congruent, mood content. Thoughts linear, logical, no signs of hallucinations or delusions. Client Response/Progress/Benefit: []Pt receptive of session, engaged throughout. Pt has been consistent with medications and he recently saw his psych provider who added a medication. Pt did not have a counseling appointment this week. Pt reported using coping skills such as: deep breathing, continuing with exposure goals, and doing things that give him marcel. Pt also applied for a new job and this is giving pt a lot of hope. Receptive of discussion on ?Chapters of my life? poem. Pt contributed to the discussion of the different chapters one may go through and how they connect with current mental health progress. Pt reflected and identified their current chapter as 4 because I'm choosing a different path with work. Identified that taking more time to engage in self-care and reach out to supports would help with getting to the next chapter. Pt seemed to benefit from support from peers and increasing understanding of ?Chapters of my life?. Will continue IOP aftercare to maintain gains and prevent decompensation. Narrative Note: []
== END 2023-10-10 23:59 ==
LOC: BHOG 13:48
PROVIDERS: PCP Internal Medicine; Referring Provider Psychiatry & Neurology Psychiatry; Visit Provider Psychiatry & Neurology Psychiatry
DX: F42.2 Mixed obsessional thoughts and acts (principal); F33.2 Major depressive disorder, recurrent severe without psychotic features; F41.1 Generalized anxiety disorder
CPT/HCPCS: 90853

== ENCOUNTER 2023-10-13 07:12 | Outpatient (RCR) | payer BC, SELFPAY | END 2023-10-29 10:31 | disposition home or self-care (01) | LOC: BHOG 07:12 | PROVIDERS: PCP Internal Medicine; Referring Provider Psychiatry & Neurology Psychiatry; Visit Provider Psychiatry & Neurology Psychiatry | DX: Z00.00 Encounter for general adult medical examination without abnormal findings (principal) ==

== ENCOUNTER → 2024-04-13 | Outpatient (CLI) | payer OTHER, SELFPAY ==
[2024-04-13 11:50] LABS: Hepatitis B Surface Antibody REAC; Vitamin B12 557 pg/mL (180-914)
[2024-04-18 02:07] LABS: Hepatitis B Core Ab Total Negative (Negative); QNTFERON TB Mitogen Value > 10.00 IU/mL (.); QNTFERON TB Nil Value 0.01 IU/mL (.); QNTFERON TB1+ Ag Value 0 IU/mL (.); QNTFERON TB2+ Ag Value 0.04 IU/mL (.); QNTIFERON TB Positive Criteria Negative (Negative); Zinc, Plasma or Serum 109 ug/dL (44-115)
== END | disposition home or self-care (01) ==
LOC: LAB 10:09
PROVIDERS: PCP Internal Medicine
DX: K50.90 Crohn's disease, unspecified, without complications (principal); Z29.89 Encounter for other specified prophylactic measures
CPT/HCPCS: 36415; 82607; 84630; 86480; 86704; 86706